=== PATIENT | male | born 1950 | race Caucasian/White ===

== ENCOUNTER 2019-09-22 10:12 | Inpatient (IN) | payer MEDICARE, OTHER, SELFPAY ==
[2019-09-22] VITALS (14 sets, daily range): BP systolic 101–138; BP diastolic 54–78; PULSE 55–80; RESP 13–20; TEMP 36.4–36.8; O2SAT 95–98; BMI 25.7
--- NOTE | 2019-09-22 10:16 | EKG12_ITS ---
Test Reason : SYNCOPE Blood Pressure : / mmHG Vent. Rate : 056 BPM Atrial Rate : 056 BPM P-R Int : 136 ms QRS Dur : 102 ms QT Int : 416 ms P-R-T Axes : 009 006 034 degrees QTc Int : 401 ms Sinus bradycardia Otherwise normal ECG Confirmed by LAURO JACOB, MIKE ([id number]), editor house organ JULIO C JACK ([id number]) on 09/25/2019 10:00:30 AM Referred By: FILIPPO Confirmed By:MIKE RESTREPO MD
--- NOTE | 2019-09-22 10:20 | RAD_ITS ---
STUDY: X-RAY CHEST REASON FOR EXAM: Male, 69 years old. Cough. Fever . TECHNIQUE: Single AP portable view of the chest. COMPARISON: None. FINDINGS: Left lower lung increased opacities. There is blunting of the left costophrenic angle. There is moderate cardiac enlargement. Normal mediastinum and aye. Normal visualized pulmonary arteries. Normal visualized aortic arch and descending thoracic aorta. Normal visualized thoracic spine. Normal visualized ribs, clavicles, and shoulders. There is no demonstrated abnormality of the visualized soft tissue structures of the upper abdomen. RAD/Chest 1 View (Portable) IMPRESSION: Left lower lung infiltrate. Cardiac enlargement. Electronically Signed: Mamadou Callejas MD at 10:58 EST , Service support ,
[2019-09-22] MEDS: 0.9% Normal Saline 1,000 ML 999 ML IV (10:29)
--- NOTE | 2019-09-22 10:35 | ED.DCSUM_ITS ---
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 states he was watched Location: Bathroom Current Severity: Mild Maximum Severity: Severe Worsened by: Multiple factors please read HPI and medical decision making Relieved by: Uncertain Associated Symptoms: Temperature 100.7, productive cough, wound right lower extremity Narrative: It is a 69-year-old male who does not recall what exactly occurred. Once arrived it was determined he was in a warm bathtub for approximately 10 minutes. She went to get a chair for him to sit on. He sat on the chair and became unresponsive. He apparently had episode of emesis prior to sitting on the chair. He does not recall this. States he collapsed she screamed. He remained unresponsive. There is no seizure activity. He did not appear pale or diaphoretic. He was red and flushed. He was seen by his primary care provider yesterday placed on doxycycline for the right lower extremity wound and the productive cough that has had for approximately 1 week. He states he does not feel well. He does not recall having shaking chills. He denies headache. He denies visual, ocular auditory symptoms. He denies sore throat or throat pain. He has history of chronic abdominal pain especially to palpation. He denies dysuria, frequency, urgency or hematuria. He does have history of peripheral vascular disease. He has not smoked in approximately 40 years. 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 The patient's mother at age of 79 from lung cancer. Review of Systems General: Reports: Malaise. Denies: Chills, Fever, Sweats Eyes: Denies: Visual changes - bilaterally, Blurred Vision - bilaterally ENT: Denies: Rhinorrhea, Sore throat Cardiovascular: Denies: Chest pain, Palpitations Respiratory: Reports: Dyspnea, Cough, Sputum. Denies: Dyspnea on exertion, Orthopnea, Paroxysmal nocturnal dyspnea Gastrointestinal: Reports: Abdominal pain, Vomiting. Denies: Diarrhea, Constipation, Melena, Hematochezia Genitourinary: Denies: Dysuria, Hematuria, Frequency Musculoskeletal: Denies: Myalgias, Arthralgias, Neck pain, Back pain, Swelling, Extremity Pain Skin: Reports: Rash, Wounds Neurological: Reports: Weakness. Denies: Headache, Parasthesia Endocrine: Denies: Polyuria, Polydipsia Hematologic: Denies: Easy bruising, Easy bleeding Physical Exam Vital Signs/Narrative: Vital Signs Temp Pulse Resp BP Pulse Ox 09/22/19 10:16 97.9 F 57 L 20 H 101/55 L 96 Inital Vital Signs reviewed: Yes General: Well nourished, Well developed, No Acute Distress. Negative for: Obese Head: Normocephalic, Atraumatic Eyes: Perrl, EOMI. Negative for: Pale conjunctiva, Scleral icterus ENT: Moist mucous membranes, No rhinorrhea, TM's clear Neck: Supple, Nontender, No lymphadenopathy, No JVD Cardiovascular: Regular rate, Regular rhythm, No murmurs, Normal S1, Normal S2 Respiratory: No distress, Wheezing - Wheezing left side only.. Negative for: CTA bilaterally Abdomen: Soft, Nondistended, Normal bowel sounds, No masses, Tender - He states he has had problems with his abdomen always hurts when doctors pushed on it. Rectal: Deferred Back: Nontender, Normal Inspection Extremities: No edema, - - Thickened varicosities. There is a wound near the medial malleolus on the right side. There is granulation tissue noted. There is erythema noted of the left lower extremity. There is no obvious wounds. There is no swelling of the lower extremities, asymmetry, palpable cords, or tenderness on the distribution of deep venous system. Skin: No Trauma, - - 2 cm x 4 cm open wound with granulation tissue near the medial malleolus of the right ankle.. Negative for: No rash, Cyanosis, Diaphoresis, Jaundice Neurological: Alert, Oriented x3, Cranial nerves II-XII grossly intact, Normal Strength, Normal Sensation. Negative for: Normal Gait Psychological: Normal affect Diagnostic/Tx/Re-eval Chest X-Ray - ED: 1 View, Read by ED Physician, Heart, Mediastinum, Chronic Changes, Left Infiltrate, - - Hemidiaphragm is obscured. Oscillatory findings on the left. 09/22/19 10:20 Chest 1 View (Portable) [RAD] Stat Impressions Chest X-Ray 09/22/19 10:20 IMPRESSION: Left lower lung infiltrate. Cardiac enlargement. Electronically Signed: Mamadou Callejas MD at 10:58 EST , Service support , 09/22/19 10:20 Chest 1 View (Portable) [RAD] Stat Laboratory Results 09/22/19 09/22/19 09/22/19 10:35 10:35 10:35 WBC 10.5 RBC 4.50 L Hgb 14.9 Hct 45.4 MCV 100.9 H MCH 33.1 H MCHC 32.8 RDW Std Deviation 50.5 H RDW Coeff of Lui 13.5 Plt Count 166 MPV 10.6 Immature Gran % (Auto) 0.400 Neut % (Auto) 77.8 H Lymph % (Auto) 12.3 L [place] % (Auto) 8.4 Eos % (Auto) 0.8 Baso % (Auto) 0.3 Absolute Neuts (auto) 8.2 H Absolute Lymphs (auto) 1.29 Nucleated RBC % 0 PT 13.5 INR 1.1 APTT 28.6 Sodium 142 Potassium 3.5 Chloride 109 H Carbon Dioxide 27.0 Anion Gap 6 BUN 19 H Creatinine 0.88 Estim Creat Clear Calc 97.36 Est GFR (MDRD) Af Amer 110 Est GFR (MDRD) Non-Af 91 BUN/Creatinine Ratio 21.5 H Glucose 93 Lactic Acid Calcium 8.9 Total Bilirubin 0.70 AST 17 ALT 22 Alkaline Phosphatase 54 Total Protein 6.5 Albumin 2.9 L Globulin 3.6 Albumin/Globulin Ratio 0.8 L 09/22/19 10:35 WBC RBC Hgb Hct MCV MCH MCHC RDW Std Deviation RDW Coeff of Lui Plt Count MPV Immature Gran % (Auto) Neut % (Auto) Lymph % (Auto) [place] % (Auto) Eos % (Auto) Baso % (Auto) Absolute Neuts (auto) Absolute Lymphs (auto) Nucleated RBC % PT INR APTT Sodium Potassium Chloride Carbon Dioxide Anion Gap BUN Creatinine Estim Creat Clear Calc Est GFR (MDRD) Af Amer Est GFR (MDRD) Non-Af BUN/Creatinine Ratio Glucose Lactic Acid 1.8 Calcium Total Bilirubin AST ALT Alkaline Phosphatase Total Protein Albumin Globulin Albumin/Globulin Ratio - EKG Initial EKG Interpretation: Sinus Bradycardia - Sinus bradycardia with rate of 56. [place] interval 136 ms. QS duration 92 ms. QT duration 416 ms. [place] is normal. Other than the sinus bradycardia the EKG is normal. - Medical Decision Making History of temperature 100.7 degrees hypotension concerned this may represent sepsis versus vasovagal with infection. Initially a fluid bolus was ordered. After arrived and the fact that she described he became lightheaded vomited suspect he had a vasovagal syncopal episode. He remained hypotensive upon arrival. Will administer 1 L of normal saline. EKG was obtained. Because of his auscultatory findings with cough and fever chest x-ray was obtained. Since the chest x-ray revealed obscuring of the left hemidiaphragm and his auditory findings were on the left side he was started on Rocephin and azithromycin. Lactate and blood cultures were ordered prior to ordering antibiotics. - Critical Care Time Critical care time (excluding procedures): 30-74 minutes - Total care time 37 minutes, Discussing w/Patient &/or Family/President Financial Institution, Discussing w/Consultants, Arranging Admission or Transfer ED Disposition - Plan for ED Patient: Disposition: Acute Care Hospital [facility] Diagnosis: Left lower lobe pneumonia, Hypotension, Syncope, Sinus bradycardia by electrocardiogram Referrals: Lacy Callejas [Primary Care Provider] -
[2019-09-22 10:50] LABS: Absolute Lymphocyte Count 1.29 X10^3/uL (0.83-4.51); Absolute Neutrophil Count 8.2 X10^3/uL (2.0-7.7); Basophil# 0.03 X10^3/uL; Basophil% 0.3 % (0-1); Eosinophil# 0.08 X10^3/uL; Eosinophils% 0.8 % (0-5); Hematocrit 45.4 % (40-54); Hemoglobin 14.9 g/dL (13.0-16.5); Lymphocyte # 1.29 X10^3/ul (4.0); Lymphocyte % 12.3 % (19-41); Mean Corp Hgb Conc 32.8 g/dL (32-36); Mean Corpuscular Hgb 33.1 pg (27.0-32.0); Mean Corpuscular Volume 100.9 fL (80-94); Mean Platelet Vol. 10.6 fl (6.2-12.0); Monocyte# 0.88 X10^3/uL; Monocyte% 8.4 % (0-10); NRBC Flagged by Analyzer 0 % (0-5); Neutrophil # 8.18 X10^3/uL (2.7-7.7); Neutrophil % 77.8 % (47-70); Platelet Count 166 K/mm3 (150-450); RBC Distribution Width CV 13.5 % (11.6-14.6); RBC Distribution Width SD 50.5 fl (35.1-43.9); White Blood Count 10.5 K/mm3 (4.4-11.0)
[2019-09-22 11:02] LABS: International Normalized Ratio 1.1; Partial Thromboplast Time 28.6 Seconds (24.1-36.2); Prothrombin Time (Protime)PT. 13.5 SECONDS (11.7-14.9)
[2019-09-22 11:13] LABS: ALB/GLOB Ratio 0.8 RATIO (0.9-2.4); AST(SGOT) 17 U/L (15-37); Alanine Aminotransfer ALT/SGPT 22 U/L (16-61); Albumin, Serum 2.9 g/dL (3.2-5.0); Alkaline Phosphatase 54 U/L (45-117); Anion Gap 6 (5-15); BUN 19 mg/dL (7-18); BUN/Creat Ratio 21.5 RATIO (10-20); Calcium,Total 8.9 mg/dL (8.5-10.1); Chloride 109 mmol/L (98-107); Creatinine, Serum 0.88 mg/dL (0.70-1.30); EST Glomerular Filtration Rate 91 mL/min (>60); Est Glom Filt Rate - Afr Amer 110 mL/min (>60); Estimated Creatinine Clearance 97.36 ml/min; Globulin 3.6 g/dL (2.2-4.2); Glucose 93 mg/dL (74-106); Potassium 3.5 mmol/L (3.5-5.1); Protein, Total 6.5 g/dL (6.4-8.2); Sodium Level 142 mmol/L (136-145)
[2019-09-22] MEDS: Ceftriaxone 1 GM/50 ML BAG IV (11:19)
[2019-09-22 12:00] LABS: Lactic Acid 1.8 mmol/L (0.4-2.0)
--- NOTE | 2019-09-22 14:08 | HP.PCM_ITS ---
History of Present Illness Date of Admission: 09/22/19 Chief Complaint: Syncope, cough The patient is a 69 year old M with no significant past medical history who comes in with 1 week history of upper respiratory symptoms, cough and a syncopal episode noted today. Patient has been feeling unwell with associated bilateral leg erythema. He has history of chronic right ankle leg ulcer for which she follows up with wound clinic. He saw his primary care doctor yesterday and was given doxycycline for his upper respiratory symptoms as well as cellulitis of his bilateral legs. He has been feeling progressively weak and today was taking his back, he felt very nauseous and unwell. He came out of the bath and had a syncopal episode. His said he was unresponsive for a couple of minutes. The EMS was called. The EMS found him diaphoretic, pale, febrile and weak. His vitals initially was 69/52, heart rate was 60, respiratory rate was 18, this improved to 90/70. His WBC count is 10.5, hemoglobin 14.9, platelet 166, INR 1.1, BMP was unremarkable, troponins have been negative. EKG shows normal sinus rhythm with no acute ST-T changes. Urinalysis is unremarkable. Past Medical History Past Medical History (Chronic Problems): Chronic Problems Leg swelling (Chronic) Leg pain (Chronic) Hyperpigmentation of skin (Chronic) Venous stasis ulcer (Chronic) Venous hypertension, chronic, with ulcer and inflammation (Chronic) Varicose veins with ulcer and inflammation (Chronic) Chronic venous insufficiency (Chronic) Allergies ALEKSEY Allergy (Uncoded 09/22/19 10:14) Itching Home Medications: Ambulatory Orders Medication Instructions Recorded Hydrocodone Bitart/Apap 5-325 1 tablet PO Q6H PRN PRN #10 tablet 06/08/17 [[place] 5MG-325MG] Doxycycline Hyclate 1 tab PO BID 09/22/19 Naproxen [Naprosyn] 500 mg PO BID 09/22/19 Surgical History: no surgical history Psychiatric History: No pertinent psych hx Lives: Spouse/ Significant Other Smoking Status: Former smoker Alcohol: None Drugs: None - *Family History Maternal History Items: - - The patient's father at age of 85 from old age. The patient's mother at age of 79 from lung cancer. Review of Systems Constitutional: Reports: Anorexia, Malaise, Weakness, Fatigue. Denies: Chills, Fever, Night Sweats, Weight Change Eyes: Denies: Blurred vision, Cataracts, Conjunctivae Inflammation HEENT: Denies: Difficulty Hearing, Difficulty Swallowing, Head Aches, Hearing Changes, Sinus Congestion, Sinus Drainage Cardiovascular: Reports: Light Headedness, Syncope. Denies: Chest Pain, Claudication, Orthopnea, Palpitations Respiratory: Denies: Cough, Hemoptysis, Shortness of Breath, Shortness of breath at rest, Shortness of breath upon exertion, Sputum production Gastrointestinal: Denies: Abdominal Pain, Constipation, Hematemesis, Nausea, V omiting Genitourinary: Denies: Dysuria, Frequency, Incontinence Musculoskeletal: Denies: Joint Pain, Joint stiffness, Joint swelling, Joint Tenderness Skin: Denies: Rash, Wounds Neurological: Denies: Difficulty swallowing, Focal weakness, Numbness, Tingling Psychiatric: Denies: Anxiety, Depression, Homicidal Ideations, Suicidal Ideations Hematologic/ Lymphatic: Denies: Easy Bruising, Easy Bleeding VTE Information - Inpt Only VTE Present on Admission: No VTE Pharm Prophylaxis ordered?: Yes Patient Problems: Active and Suspected Problems Left lower lobe pneumonia (Acute) Hypotension (Acute) Syncope (Acute) Sinus bradycardia by electrocardiogram (Acute) - Physical Exam Vitals/I&O's: Vital Signs Temp Pulse Resp BP Pulse Ox 97.5 F L 63 16 117/63 95 09/22/19 13:09 09/22/19 13:09 09/22/19 13:09 09/22/19 13:09 09/22/19 13:09 Oxygen Flow Rate (L/min) 3 Oxygen Delivery Method Nasal Cannula Weight: 93.4 kg Body Mass Index (BMI) 25.7 Intake and Output for Last 24 Hours 09/20/19 09/21/19 09/22/19 23:59 23:59 23:59 Intake Total 1050 / 1050 Balance 1050 / 1050 General: Alert, Oriented x3, Cooperative HEENT: Atraumatic, PERRLA, EOMI, Normocephalic Oral: Dry Mucosa Neck: Supple Lungs: Diminished - vesicular BS Cardiovascular: Regular rate, Regular Rhythm, Normal S1, Normal S2, No murmurs Abdomen: Bowel Sounds Present, Soft, Non Tender, Non-Distended, No Hepato- splenomegaly Extremities: - - Bilateral leg petechia erythema up to the mid leg. Chronic venous changes around the right ankle with chronic wound with slough at the base. Skin: No rashes, No breakdown Musculoskeletal: No Tenderness to Palpation of Joints or Extremities Lymphatic: No Cervical, Supraclavicular, or Inguinal Adenopathy Neurological: Cranial nerves II-XII grossly intact, Neuro grossly intact Psych/Mental Status: Normal Affect, Appropriate Laboratory Results 09/22/19 10:35: WBC 10.5, RBC 4.50 L, Hgb 14.9, Hct 45.4, MCV 100.9 H, MCH 33.1 H, MCHC 32.8, RDW Std Deviation 50.5 H, RDW Coeff of Lui 13.5, Plt Count 166, MPV 10.6, Immature Gran % (Auto) 0.400, Neut % (Auto) 77.8 H, Lymph % (Auto) 12.3 L, [place] % (Auto) 8.4, Eos % (Auto) 0.8, Baso % (Auto) 0.3, Absolute Neuts (auto) 8.2 H, Absolute Lymphs (auto) 1.29, Nucleated RBC % 0 09/22/19 10:35: PT 13.5, INR 1.1, APTT 28.6 09/22/19 10:35: Sodium 142, Potassium 3.5, Chloride 109 H, Carbon Dioxide 27.0, Anion Gap 6, BUN 19 H, Creatinine 0.88, Estim Creat Clear Calc 97.36, Est GFR (MDRD) Af Amer 110, Est GFR (MDRD) Non-Af 91, BUN/Creatinine Ratio 21.5 H, Glucose 93, Calcium 8.9, Total Bilirubin 0.70, AST 17, ALT 22, Alkaline Phosphatase 54, Total Protein 6.5, Albumin 2.9 L, Globulin 3.6, Albumin/Globulin Ratio 0.8 L 09/22/19 10:35: Lactic Acid 1.8 Current Medications Acetaminophen (Tylenol) 650 mg PO Q6H PRN PRN PRN Reason: Pain Score 1-3/Temp > 100.7 F Albuterol Sulfate (Ventolin Aerosols) 2.5 mg INHALATION Q2H PRN PRN PRN Reason: SOB/Wheezing Sodium Chloride () 1,000 mls @ 100 mls/hr IV .Q10H CARLINE Stop: 09/23/19 04:59 Nitroglycerin (Nitrostat) 0.4 mg SUBLINGUAL Q5M PRN PRN Reason: CARDIAC/CHEST PAIN Ondansetron HCl (Zofran) 4 mg IV Q8H PRN PRN PRN Reason: NAUSEA/VOMITING Assessment/Plan All Active Problems Left lower lobe pneumonia (Acute) Hypotension (Acute) Syncope (Acute) Sinus bradycardia by electrocardiogram (Acute) Deep vein thrombophlebitis of right leg (Acute) Superficial thrombophlebitis (Acute) 1. CAP, left lower lung, noted on chest x-ray, and on IV azithromycin and ceftriaxone Cultures are pending Will continue same, breathing treatment 2. Cellulitis, bilateral lower extremities, continue on the above antibiotic 3. Syncope, likely vasovagal from current pneumonia Patient was transiently hypotensive, responsive to fluids, will continue on IV fluids, check orthostatic vitals 4. Acute on chronic leg ulcer, dry wound dressing, wound RN consulted May need podiatry consult, will reevaluate in a.m. 5. DVt PPx- Heparin SC Code Visit Inpatient E&M: 67017 Subs Hosp L2
[2019-09-22 14:11] LABS: Bacteria 0 SEEN /hpf (None Seen); Red Blood Cells-Urine 0 SEEN /hpf (0-5)
[2019-09-22 14:14] LABS: Color, Urine Yellow (Yellow); Glucose, Dipstick Normal (Normal); Ketone-Dipstick Negative (Negative); Leukocyte Esterase-Dipstick 25 /ul (Negative); Nitrite-Dipstick Negative (Negative); Occult Blood-Urine Negative /ul (Negative); Protein-Dipstick 30 mg/dl (Negative); Urine Bilirubin Dipstick Negative (Negative); Urine Clarity Clear (Clear); Urine Urobilinogen Normal (Normal)
--- NOTE | 2019-09-22 14:14 | ECHOCS_ITS ---
Reason For Study: Symcope Procedure This was a 2D Doppler, Color Flow transthoracic echocardiogram. The study was technically difficult. Contrast injection was performed. Exam performed portable in patient room. Left Ventricle Normal LV size. Left ventricular systolic function is normal. The estimated ejection fraction is 60 %. Stage 1 diastolic dysfunction. No regional wall motion abnormalities noted. Right Ventricle Normal RV size. Normal systolic function. Atria Normal left atrium. Normal right atrium. Mitral Valve Normal mitral valve. Tricuspid Valve Normal tricuspid valve. Aortic Valve The aortic valve is not well visualized. Pulmonic Valve The pulmonic valve is not well visualized. Great Vessels Normal aortic root. The pulmonary artery is normal size. Normal inferior vena cava. Pericardium/Pleural No pericardial effusion. Medication Diluted definity 2ml given slow IV push to enhance endocardial definition. MMode/2D Measurements & Calculations LVIDd: 4.0 cm IVSd: 1.2 cm Ao root diam: 3.6 cm LVIDs: 3.0 cm LVPWd: 1.5 cm RVDd: 3.9 cm FS: 25.2 % LAV(MOD-bp): 59.0 ml LA A4 area: 19.5 cm2 RA A4 area: 19.0 cm2 LAV(MOD-bp) Indexed: 26.8 ml/m2 LAV(MOD-sp2): 51.2 ml LAV(MOD-sp4): 49.1 ml Time Measurements MV dec time: 0.26 sec Doppler Measurements & Calculations MV E max srinivasa: 48.7 cm/sec Lat Peak E' Srinivasa: 9.7 cm/sec Med Peak E' Srinivasa: 5.7 cm/sec MV A max srinivasa: 79.8 cm/sec E/E' lat: 5.0 E/E' med: 8.5 MV E/A: 0.61 MV V2 max: 99.2 cm/sec MV P1/2t max srinivasa: 63.6 cm/sec Ao V2 max: 144.5 cm/sec MV max P.9 mmHg MV P1/2t: 97.0 msec Ao max P.3 mmHg MV V2 mean: 45.1 cm/sec MV dec slope: 192.0 cm/sec2 MV mean P.96 mmHg MV V2 VTI: 23.6 cm MVA(P1/2t): 2.3 cm2 LV V1 max: 134.6 cm/sec PA V2 max: 104.0 cm/sec LV V1 max P.2 mmHg Interpretation Summary Normal LV size. Left ventricular systolic function is normal. The estimated ejection fraction is 60 %. Stage 1 diastolic dysfunction. Contrast injection was performed. Ordering Physician: Olga Dorsey Performed By: Endy Mackenzie RCS
[2019-09-22 14:21] LABS: Mucous, Urine 1+ /hpf (<or=2+); Squamous Epithelial Cells - UA 0-5 SEEN /hpf (0-5); White Blood Cells 0-5 SEEN /hpf (0-5)
[2019-09-22] MEDS: 0.9% Normal Saline 1,000 ML 100 ML IV (15:39)
[2019-09-22] MEDS: Acetaminophen 325 MG Tablet 650 MG PO (18:48)
[2019-09-22] MEDS: Albuterol 2.5 MG/3 ML VIAL.NEB. INHALATION (19:03)
[2019-09-22] MEDS: Heparin Injection (Vial) 5,000 UNIT/ML VIAL 5000 UNIT SC (20:59)
[2019-09-23] VITALS (12 sets, daily range): BP systolic 102–150; BP diastolic 68–74; PULSE 65–81; RESP 13–18; TEMP 36.9–37.4; O2SAT 94–97
[2019-09-23] MEDS: 0.9% Normal Saline 1,000 ML 100 ML IV (00:24)
[2019-09-23] MEDS: Acetaminophen 325 MG Tablet 650 MG PO ×3 (04:42→23:42)
[2019-09-23] MEDS: Heparin Injection (Vial) 5,000 UNIT/ML VIAL 5000 UNIT SC ×3 (05:32→21:00)
--- NOTE | 2019-09-23 05:45 | NURSING ---
Standing not attempted at this time as pt is very painful.
[2019-09-23 06:30] LABS: Absolute Lymphocyte Count 1.82 X10^3/uL (0.83-4.51); Absolute Neutrophil Count 5.7 X10^3/uL (2.0-7.7); Basophil# 0.02 X10^3/uL; Basophil% 0.2 % (0-1); Eosinophil# 0.12 X10^3/uL; Eosinophils% 1.4 % (0-5); Hematocrit 42.5 % (40-54); Hemoglobin 13.9 g/dL (13.0-16.5); Lymphocyte # 1.82 X10^3/ul (4.0); Lymphocyte % 21.8 % (19-41); Mean Corp Hgb Conc 32.7 g/dL (32-36); Mean Corpuscular Hgb 32.8 pg (27.0-32.0); Mean Corpuscular Volume 100.2 fL (80-94); Mean Platelet Vol. 10.6 fl (6.2-12.0); Monocyte# 0.67 X10^3/uL; NRBC Flagged by Analyzer 0 % (0-5); Neutrophil # 5.67 X10^3/uL (2.7-7.7); Neutrophil % 68.1 % (47-70); Platelet Count 176 K/mm3 (150-450); RBC Distribution Width CV 13.4 % (11.6-14.6); RBC Distribution Width SD 49.6 fl (35.1-43.9); Red Blood Count 4.24 M/mm3 (4.6-6.2); White Blood Count 8.3 K/mm3 (4.4-11.0)
[2019-09-23 07:06] LABS: ALB/GLOB Ratio 0.6 RATIO (0.9-2.4); AST(SGOT) 10 U/L (15-37); Alanine Aminotransfer ALT/SGPT 19 U/L (16-61); Albumin, Serum 2.5 g/dL (3.2-5.0); Alkaline Phosphatase 49 U/L (45-117); Anion Gap 7 (5-15); BUN 18 mg/dL (7-18); BUN/Creat Ratio 24.5 RATIO (10-20); Calcium,Total 8.3 mg/dL (8.5-10.1); Chloride 108 mmol/L (98-107); Creatinine, Serum 0.73 mg/dL (0.70-1.30); EST Glomerular Filtration Rate 113 mL/min (>60); Est Glom Filt Rate - Afr Amer 137 mL/min (>60); Estimated Creatinine Clearance 85.67 ml/min; Globulin 3.9 g/dL (2.2-4.2); Glucose 88 mg/dL (74-106); Potassium 4.1 mmol/L (3.5-5.1); Protein, Total 6.4 g/dL (6.4-8.2); Sodium Level 141 mmol/L (136-145)
--- NOTE | 2019-09-23 07:36 | RAD_ITS ---
STUDY: X-RAY - RIGHT ANKLE REASON FOR EXAM: Male, 69 years old. Wound, pain TECHNIQUE: 3 view(s) of the ankle. COMPARISON: None. FINDINGS: Normal visualized distal tibia and fibula. Normal medial and lateral malleoli. Normal tibiotalar articulation and ankle mortise. Normal visualized talus and calcaneus. The visualized subtalar, talonavicular, calcaneocuboid and tarsal articulations are normal. There is soft tissue swelling of the ankle with fluid in the soft tissues anterior to the Achilles tendon. RAD/Ankle min 3 Views IMPRESSION: Soft tissue swelling including anterior to the Achilles tendon. Electronically Signed: Alberto Mccarty MD ([place]) at 13:00 EST , Service support ,
[2019-09-23] MEDS: 0.9% Normal Saline 1,000 ML 150 ML IV ×2 (07:57→17:50)
[2019-09-23] MEDS: Senna/Docusate Sodium 1 Tablet 2 TABLET PO ×2 (08:39→21:00)
[2019-09-23] MEDS: oxyCODONE 5 MG Tablet PO ×3 (08:40→23:42)
[2019-09-23] MEDS: Ceftriaxone 1 GM/50 ML BAG IV (09:39)
--- NOTE | 2019-09-23 12:57 | PN_ITS ---
Patient Problems: Active and Suspected Problems Left lower lobe pneumonia (Acute) Hypotension (Acute) Syncope (Acute) Sinus bradycardia by electrocardiogram (Acute) Subjective: Follow-up on pneumonia, right leg ulcer/cellulitis: Patient was seen and examined. Complains of severe pain in the right lower extremity. Unable to bear weight on the leg. Denies any fever or chills. His orthostatic vitals are positive. Objective: Physical exam: General: Alert, Oriented x3, Cooperative HEENT: Atraumatic, PERRLA, EOMI, Normocephalic Oral: Dry Mucosa Neck: Supple Lungs: Diminished - vesicular BS Cardiovascular: Regular rate, Regular Rhythm, Normal S1, Normal S2, No murmurs Abdomen: Bowel Sounds Present, Soft, Non Tender, Non-Distended, No Hepato-splenomegaly Extremities: - - Bilateral leg petechia erythema up to the mid leg. Chronic venous changes around the right ankle with chronic wound with slough at the base. Skin: No rashes, No breakdown Musculoskeletal: No Tenderness to Palpation of Joints or Extremities Lymphatic: No Cervical, Supraclavicular, or Inguinal Adenopathy Neurological: Cranial nerves II-XII grossly intact, Neuro grossly intact Psych/Mental Status: Normal Affect, Appropriate Vitals/I&O's: Vital Signs Temp Pulse Resp BP Pulse Ox 98.7 F 68 16 140/74 H 97 09/23/19 10:00 09/23/19 10:00 09/23/19 10:00 09/23/19 10:00 09/23/19 10:00 Oxygen Flow Rate (L/min) 3 Oxygen Delivery Method Room Air Weight: 92.7 kg Body Mass Index (BMI) 25.7 Orthostatic Vital Signs Start: 09/23/19 05:39 Freq: q24h Status: Active Protocol: Activity Type Activity Date Activity User E-Sign Co-Sign Detail Recorded Client Recorded Date Recorded By Document 09/23/19 05:39 EEA [id number] 09/23/19 05:45 EEA 09/23/19 05:39 Orthostatic Vitals Standing -Extremity Use Right Arm Sitting -Blood Pressure (90/60-120/80) 102/71 -Extremity Use Right Arm Lying -Blood Pressure (90/60-120/80) 135/71 H -Extremity Use Right Arm 09/23/19 05:45 Nursing Note by Fela Pena Standing not attempted at this time as pt is very painful. Initialized on 09/23/19 05:45 - END OF NOTE Intake and Output for Last 24 Hours 09/21/19 09/22/19 09/23/19 23:59 23:59 23:59 Intake Total 2024 2494.17 / 2494.17 Output Total 525 / 525 475 / 475 Balance 1500 / 1500 Microbiology Past 72 Hours 09/22/19 13:50 Urine, Clean Catch Urine Culture - Preliminary Culture exhibits no growth. 09/22/19 16:20 Mucosa - Nasopharyngeal Respiratory Panel (PCR) - Final Parainfluenza 1 09/22/19 13:50 Urine, Random Streptococcus pneumoniae Antigen (M - Final 09/22/19 13:50 Urine, Random Legionella Antigen - Final Laboratory Results 09/22/19 13:50: Urine Color Yellow, Urine Clarity Clear, Urine pH 7.0, Ur Specific [place] 1.010, Urine Protein 30 H, Urine Glucose (UA) Normal, Urine Ketones Negative, Urine Occult Blood Negative, Urine Nitrite Negative, Urine Bilirubin Negative, Urine Urobilinogen Normal, Ur Leukocyte Esterase 25 H, Urine RBC 0 SEEN, Urine WBC 0-5 SEEN, Ur Squamous Epith Cells 0-5 SEEN, Urine Bacteria 0 SEEN, Urine Mucus 1+ 09/22/19 14:11: Troponin I < 0.015 09/22/19 16:40: Troponin I < 0.015 09/22/19 19:45: Troponin I < 0.015 09/23/19 06:14: WBC 8.3, RBC 4.24 L, Hgb 13.9, Hct 42.5, MCV 100.2 H, MCH 32.8 H , MCHC 32.7, RDW Std Deviation 49.6 H, RDW Coeff of Lui 13.4, Plt Count 176, MPV 10.6, Immature Gran % (Auto) 0.500, Neut % (Auto) 68.1, Lymph % (Auto) 21.8, [place] % (Auto) 8.0, Eos % (Auto) 1.4, Baso % (Auto) 0.2, Absolute Neuts (auto) 5.7, Absolute Lymphs (auto) 1.82, Nucleated RBC % 0 09/23/19 06:14: Sodium 141, Potassium 4.1, Chloride 108 H, Carbon Dioxide 26.0, Anion Gap 7, BUN 18, Creatinine 0.73, Estim Creat Clear Calc 85.67, Est GFR (MDRD) Af Amer 137, Est GFR (MDRD) Non-Af 113, BUN/Creatinine Ratio 24.5 H, Glucose 88, Calcium 8.3 L, Total Bilirubin 0.60, AST 10 L, ALT 19, Alkaline Phosphatase 49, Total Protein 6.4, Albumin 2.5 L, Globulin 3.9, Albumin/Globulin Ratio 0.6 L Current Medications Acetaminophen (Tylenol) 650 mg PO Q6H PRN PRN PRN Reason: Pain Score 1-3/Temp > 100.7 F Last Admin: 09/23/19 04:42 Dose: 650 mg Documented by: Albuterol Sulfate (Ventolin Aerosols) 2.5 mg INHALATION Q2H PRN PRN PRN Reason: SOB/Wheezing Last Admin: 09/22/19 19:03 Dose: 2.5 mg Documented by: Heparin Sodium (Porcine) (Heparin Na) 5,000 unit SC Q8 [facility] Last Admin: 09/23/19 05:32 Dose: 5,000 unit Documented by: Azithromycin 500 mg/ Dextrose 255 mls @ 250 mls/hr IV Q24 [facility] Last Admin: 09/23/19 09:40 Dose: 250 mls/hr Documented by: Ceftriaxone Sodium (Rocephin) 1 gm in 50 mls @ 100 mls/hr IV Q24 [facility] Last Infusion: 09/23/19 10:27 Dose: Infused Documented by: Sodium Chloride () 250 mls @ 15 mls/hr IV .[id number] PRN PRN Reason: Saline Flush Sodium Chloride () 1,000 mls @ 150 mls/hr IV .Q6H40M [facility] Stop: 09/23/19 20:54 Last Infusion: 09/23/19 09:30 Dose: 0 mls/hr Documented by: Morphine Sulfate () 2 mg IV Q3H PRN PRN PRN Reason: Pain Score 6-10/10 Nitroglycerin (Nitrostat) 0.4 mg SUBLINGUAL Q5M PRN PRN Reason: CARDIAC/CHEST PAIN Ondansetron HCl (Zofran) 4 mg IV Q8H PRN PRN PRN Reason: NAUSEA/VOMITING Oxycodone HCl (Oxyir) 5 mg PO Q6H PRN PRN PRN Reason: Pain Score 6-10/10 Last Admin: 09/23/19 08:40 Dose: 5 mg Documented by: Senna/Docusate Sodium (Senokot-S, Yamile-Colace) 2 tablet PO BID [facility] Last Admin: 09/23/19 08:39 Dose: 2 tablet Documented by: Sodium Chloride () 10 - 40 ml IV UD PRN PRN Reason: SALINE FLUSH STROKE Vital Signs/Narrative: Vital Signs Temp Pulse Resp BP Pulse Ox 09/23/19 10:00 98.7 F 68 16 140/74 H 97 Medical Necessity - Tobacco Use Smoking Status: Former smoker Assessment/Plan All Active Problems Left lower lobe pneumonia (Acute) Hypotension (Acute) Syncope (Acute) Sinus bradycardia by electrocardiogram (Acute) Deep vein thrombophlebitis of right leg (Acute) Superficial thrombophlebitis (Acute) 1. Parainfluenza 1 CAP, left lower lung, improving, not on oxygen, On IV azithromycin and ceftriaxone(day 2) Cultures are pending. Urine Legionella and strep coccal antigen negative Continue with conservative management with breathing treatments, IV antibiotics 2. Cellulitis, bilateral lower extremities, continue on the above antibiotic 3. Syncope, due to orthostatic hypotension, patient will receive fluid boluses as well as maintenance fluids. 4. Acute on chronic leg ulcer, dry wound dressing, wound RN consulted Podiatry consult, ankle X-ray 5. DVt PPx- Heparin SC Code Visit Inpatient E&M: 56066 Subs Hosp L2
[2019-09-23] MEDS: Morphine 2 MG/ML Syringe IV ×2 (13:03→19:38)
--- NOTE | 2019-09-23 13:54 | VDLE_ITS ---
Reason For Study: Ulcer RIGHT LEFT GSV is normal. GSV is normal. CFV is compressible, spontaneous, phasic, CFV is compressible, spontaneous, phasic, competent and demonstrates normal competent, and demonstrates normal augmentation. augmentation. FV is compressible, spontaneous, phasic, FV is compressible, spontaneous, phasic, competent and demonstrates normal competent and demonstrates normal augmentation. augmentation. POP V is compressible, spontaneous, phasic, POP V is compressible, spontaneous, phasic, competent and demonstrates normal competent and demonstrates normal augmentation. augmentation. T/P Trunk is compressible. T/P Trunk is compressible. PTV is compressible. PTV is compressible. RT PerV is compressible. LT PerV is compressible. Procedure Lt SoleusV is dilated and non compressible Exam performed portable in patient room. consistent with acute DVT. A preliminary report was called and/or faxed to Julia HERNANDEZ. Interpretation Summary Acute deep vein thrombosis is noted in the left soleus vein. The remainder of the left lower extremity deep venous system is patent and compressible. Deep veins of the right lower extremity are patent and compressible segmentally. There is no evidence of right lower extremity deep vein thrombosis. Valvular competence appears intact within the proximal deep venous systems bilaterally. The great saphenous veins appear bilaterally patent and compressible segmentally. Ordering Physician: Tommy Perez Referring Physician: Lacy Callejas Performed By: Romy Molina, BENJAMIN, RVT
--- NOTE | 2019-09-23 13:55 | PCM.CONS.GEN ---
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 The patient was admitted to the emergency room yesterday with a one-week history of upper respiratory symptoms, cough, and a syncopal episode yesterday. Patient relates that today he is feeling much better than when he came to the hospital yesterday. He relates that he used to follow-up at the wound center in approximately 2 or [address] Waller, but has recently just been trying to manage the ulcer on his own and using Neosporin. Patient is currently resting comfortably in the bed watching the [employer] game. He appears to be in no acute distress. He currently denies any feelings of nausea, vomiting, fever, chills, shortness of breath. 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) Chronic venous insufficiency (Chronic) Allergies ALEKSEY Allergy (Uncoded 09/22/19 10:14) Itching Home Medications: Ambulatory Orders Medication Instructions Recorded Hydrocodone Bitart/Apap 5-325 1 tablet PO Q6H PRN PRN #10 tablet 06/08/17 [[place] 5MG-325MG] Doxycycline Hyclate 1 tab PO BID 09/22/19 Naproxen [Naprosyn] 500 mg PO BID 09/22/19 Surgical History: no surgical history Psychiatric History: No pertinent psych hx Lives: Spouse/ Significant Other Smoking Status: Former smoker Alcohol: None Drugs: None - *Family History Maternal History Items: - - The patient's father at age of 85 from old age. The patient's mother at age of 79 from lung cancer. Review of Systems Constitutional: Denies: Chills, Fever, Weight Change Cardiovascular: Denies: Chest Pain, Palpitations Respiratory: Denies: Cough, Shortness of breath at rest, Sputum production Gastrointestinal: Denies: Abdominal Pain, Nausea, Vomiting Genitourinary: Denies: Dysuria Musculoskeletal: Reports: - - Slight tenderness to each lower leg as well as to right medial ankle ulcer site Skin: Reports: - - Ulcer to right medial ankle Neurological: Denies: Numbness, Tingling, Focal weakness Psychiatric: Denies: Anxiety, Depression, Homicidal Ideations, Suicidal Ideations Hematologic/ Lymphatic: Denies: Easy Bruising, Easy Bleeding Patient Problems: Active and Suspected Problems Left lower lobe pneumonia (Acute) Hypotension (Acute) Syncope (Acute) Sinus bradycardia by electrocardiogram (Acute) Pain in right lower leg (Acute) Pain in left lower leg (Acute) Lower extremity edema (Acute) - Physical Exam Vitals/I&O's: Vital Signs Temp Pulse Resp BP Pulse Ox 98.7 F 68 16 140/74 H 96 09/23/19 10:00 09/23/19 10:00 09/23/19 10:00 09/23/19 10:00 09/23/19 13:37 Oxygen Flow Rate (L/min) 3 Oxygen Delivery Method Room Air Weight: 92.7 kg Body Mass Index (BMI) 25.7 Orthostatic Vital Signs Start: 09/23/19 05:39 Freq: q24h Status: Active Protocol: Activity Type Activity Date Activity User E-Sign Co-Sign Detail Recorded Client Recorded Date Recorded By Document 09/23/19 05:39 EEA [id number] 09/23/19 05:45 EEA 09/23/19 05:39 Orthostatic Vitals Standing -Extremity Use Right Arm Sitting -Blood Pressure (90/60-120/80) 102/71 -Extremity Use Right Arm Lying -Blood Pressure (90/60-120/80) 135/71 H -Extremity Use Right Arm 09/23/19 05:45 Nursing Note by Fela Pena Standing not attempted at this time as pt is very painful. Initialized on 09/23/19 05:45 - END OF NOTE Intake and Output for Last 24 Hours 09/21/19 09/22/19 09/23/19 23:59 23:59 23:59 Intake Total 2024 / 2024 2494.17 / 2494.17 Output Total 525 / 525 475 / 475 Balance 1500 / 1500 General: Alert, Oriented x3, Cooperative, No apparent distress Extremities: No cyanosis, Capillary Refill Less than 3 Seconds - To all distal digits of each foot, No Calf Tenderness - Negative Trupti and Lema signs bilateral, Edema - Slight bilateral lower extremity edema, Peripheral Pulses Normal - DP and PT pulses easily palpable bilateral Skin: Ulcer/ Wound - Ulcer to right medial ankle measuring approximately 2.8 cm x 1.5 cm x 0.2 cm with fat layer exposed. The base is a mixture of devitalized subcutaneous tissue, adherent slough, fibrin, biofilm, granular tissue, and a slight amount of surrounding hyperkeratotic tissue. There is no purulence, no significant malodor, no probing to bone, no tracking, no undermining. There is some minor erythema to bilateral lower extremities as well as evidence of hemosiderin deposit skin changes consistent with patient's long history of venous insufficiency. Musculoskeletal: Tenderness - With manipulation of ulcer site Neurological: Sensory exam intact to light touch and pain Psych/Mental Status: Normal Affect, Appropriate Microbiology Past 72 Hours 09/22/19 13:50 Urine, Clean Catch Urine Culture - Preliminary Culture exhibits no growth. 09/22/19 16:20 Mucosa - Nasopharyngeal Respiratory Panel (PCR) - Final Parainfluenza 1 09/22/19 13:50 Urine, Random Streptococcus pneumoniae Antigen (M - Final 09/22/19 13:50 Urine, Random Legionella Antigen - Final Laboratory Results 09/22/19 13:50: Urine Color Yellow, Urine Clarity Clear, Urine pH 7.0, Ur Specific [place] 1.010, Urine Protein 30 H, Urine Glucose (UA) Normal, Urine Ketones Negative, Urine Occult Blood Negative, Urine Nitrite Negative, Urine Bilirubin Negative, Urine Urobilinogen Normal, Ur Leukocyte Esterase 25 H, Urine RBC 0 SEEN, Urine WBC 0-5 SEEN, Ur Squamous Epith Cells 0-5 SEEN, Urine Bacteria 0 SEEN, Urine Mucus 1+ 09/22/19 14:11: Troponin I < 0.015 09/22/19 16:40: Troponin I < 0.015 09/22/19 19:45: Troponin I < 0.015 09/23/19 06:14: WBC 8.3, RBC 4.24 L, Hgb 13.9, Hct 42.5, MCV 100.2 H, MCH 32.8 H, MCHC 32.7, RDW Std Deviation 49.6 H, RDW Coeff of Lui 13.4, Plt Count 176, MPV 10.6, Immature Gran % (Auto) 0.500, Neut % (Auto) 68.1, Lymph % (Auto) 21.8, [place] % (Auto) 8.0, Eos % (Auto) 1.4, Baso % (Auto) 0.2, Absolute Neuts (auto) 5.7, Absolute Lymphs (auto) 1.82, Nucleated RBC % 0 09/23/19 06:14: Sodium 141, Potassium 4.1, Chloride 108 H, Carbon Dioxide 26.0, Anion Gap 7, BUN 18, Creatinine 0.73, Estim Creat Clear Calc 85.67, Est GFR (MDRD) Af Amer 137, Est GFR (MDRD) Non-Af 113, BUN/Creatinine Ratio 24.5 H, Glucose 88, Calcium 8.3 L, Total Bilirubin 0.60, AST 10 L, ALT 19, Alkaline Phosphatase 49, Total Protein 6.4, Albumin 2.5 L, Globulin 3.9, Albumin/Globulin Ratio 0.6 L Current Medications Acetaminophen (Tylenol) 650 mg PO Q6H PRN PRN PRN Reason: Pain Score 1-3/Temp > 100.7 F Last Admin: 09/23/19 04:42 Dose: 650 mg Documented by: Albuterol Sulfate (Ventolin Aerosols) 2.5 mg INHALATION Q2H PRN PRN PRN Reason: SOB/Wheezing Last Admin: 09/22/19 19:03 Dose: 2.5 mg Documented by: Heparin Sodium (Porcine) (Heparin Na) 5,000 unit SC Q8 [facility] Last Admin: 09/23/19 05:32 Dose: 5,000 unit Documented by: Azithromycin 500 mg/ Dextrose 255 mls @ 250 mls/hr IV Q24 [facility] Last Admin: 09/23/19 09:40 Dose: 250 mls/hr Documented by: Ceftriaxone Sodium (Rocephin) 1 gm in 50 mls @ 100 mls/hr IV Q24 [facility] Last Infusion: 09/23/19 10:27 Dose: Infused Documented by: Sodium Chloride () 250 mls @ 15 mls/hr IV .[id number] PRN PRN Reason: Saline Flush Sodium Chloride () 1,000 mls @ 150 mls/hr IV .Q6H40M [facility] Stop: 09/23/19 20:54 Last Infusion: 09/23/19 09:30 Dose: 0 mls/hr Documented by: Morphine Sulfate () 2 mg IV Q3H PRN PRN PRN Reason: Pain Score 6-10/10 Last Admin: 09/23/19 13:03 Dose: 2 mg Documented by: Nitroglycerin (Nitrostat) 0.4 mg SUBLINGUAL Q5M PRN PRN Reason: CARDIAC/CHEST PAIN Ondansetron HCl (Zofran) 4 mg IV Q8H PRN PRN PRN Reason: NAUSEA/VOMITING Oxycodone HCl (Oxyir) 5 mg PO Q6H PRN PRN PRN Reason: Pain Score 6-10/10 Last Admin: 09/23/19 08:40 Dose: 5 mg Documented by: Senna/Docusate Sodium (Senokot-S, Yamile-Colace) 2 tablet PO BID [facility] Last Admin: 09/23/19 08:39 Dose: 2 tablet Documented by: Sodium Chloride () 10 - 40 ml IV UD PRN PRN Reason: SALINE FLUSH Assessment/Plan All Active Problems Left lower lobe pneumonia (Acute) Hypotension (Acute) Syncope (Acute) Sinus bradycardia by electrocardiogram (Acute) Pain in right lower leg (Acute) Pain in left lower leg (Acute) Lower extremity edema (Acute) Deep vein thrombophlebitis of right leg (Acute) Superficial thrombophlebitis (Acute) Ulcer with fat layer exposed to right medial ankle Venous insufficiency Lower extremity edema Lower extremity erythema/cellulitis Tenderness to lower extremities Other comorbidities This patient was carefully examined and evaluated resting in his bed this afternoon. Patient is currently comfortable and in no acute distress at this time. Patient is currently afebrile with vital signs stable. WBC is 8.3 today. Right ankle x-rays were taken that were read by radiologist as showing soft tissue swelling. Ulcer site was carefully examined and evaluated to the right medial ankle. Verbal consent was then obtained for a selective debridement of the area. A selective debridement was performed using a #3 curette to 100% of the ulcer site to remove any devitalized subcutaneous tissue, adherent slough, fibrin, biofilm. No anesthesia was needed. Hemostasis was easily controlled with light pressure. Patient tolerated this procedure well. Once complete, the area was carefully cleansed and then cultures were taken and sent for aerobic, anaerobic, and MRSA PCR evaluation. Next, the ulcer site to the right medial ankle was then dressed with Aquacel Ag to the base, followed by 4 x 4's, ABD, Kerlix, and an Hitesh bandage to hold the dressing on. The left lower extremity was then dressed with Hitesh bandage as well. Patient did not sit with legs in dependent position. Venous Doppler examinations of bilateral lower extremities were ordered. We will continue to monitor for these results. DVT prophylaxis and medical management per primary team appreciated. Podiatry will continue to follow this patient while in house.
[2019-09-23 16:01] LABS: M R Staph aureus DNA By PCR Negative (Negative); Probe Check PASS; Staph aureus DNA By PCR POSITIVE (Negative)
[2019-09-23] MEDS: 0.9% Saline Lock 10 ML Syringe IV (19:37)
[2019-09-24] VITALS (9 sets, daily range): BP systolic 119–147; BP diastolic 64–77; PULSE 71–89; RESP 16–18; TEMP 36.8–37.1; O2SAT 91–96
[2019-09-24] MEDS: Heparin Injection (Vial) 5,000 UNIT/ML VIAL 5000 UNIT SC ×2 (05:07→13:30)
[2019-09-24 05:57] LABS: Absolute Lymphocyte Count 1.61 X10^3/uL (0.83-4.51); Absolute Neutrophil Count 3.9 X10^3/uL (2.0-7.7); Basophil# 0.03 X10^3/uL; Basophil% 0.5 % (0-1); Eosinophil# 0.19 X10^3/uL; Eosinophils% 2.9 % (0-5); Hematocrit 45.5 % (40-54); Hemoglobin 15.2 g/dL (13.0-16.5); Lymphocyte # 1.61 X10^3/ul (4.0); Lymphocyte % 24.7 % (19-41); Mean Corp Hgb Conc 33.4 g/dL (32-36); Mean Corpuscular Hgb 33.3 pg (27.0-32.0); Mean Corpuscular Volume 99.8 fL (80-94); Mean Platelet Vol. 10.4 fl (6.2-12.0); Monocyte# 0.79 X10^3/uL; Monocyte% 12.1 % (0-10); NRBC Flagged by Analyzer 0 % (0-5); Neutrophil # 3.86 X10^3/uL (2.7-7.7); Neutrophil % 59.2 % (47-70); Platelet Count 183 K/mm3 (150-450); RBC Distribution Width CV 13.2 % (11.6-14.6); Red Blood Count 4.56 M/mm3 (4.6-6.2); White Blood Count 6.5 K/mm3 (4.4-11.0)
[2019-09-24 06:24] LABS: Anion Gap 7 (5-15); BUN 17 mg/dL (7-18); Calcium,Total 8.9 mg/dL (8.5-10.1); Chloride 109 mmol/L (98-107); Creatinine, Serum 0.81 mg/dL (0.70-1.30); EST Glomerular Filtration Rate 101 mL/min (>60); Est Glom Filt Rate - Afr Amer 122 mL/min (>60); Estimated Creatinine Clearance 105.77 ml/min; Glucose 88 mg/dL (74-106); Potassium 3.8 mmol/L (3.5-5.1); Sodium Level 142 mmol/L (136-145)
[2019-09-24] MEDS: oxyCODONE 5 MG Tablet PO ×3 (06:58→20:03)
[2019-09-24] MEDS: Acetaminophen 325 MG Tablet 650 MG PO ×2 (06:58→13:35)
--- NOTE | 2019-09-24 09:47 | PN_ITS ---
Patient Problems: Active and Suspected Problems Left lower lobe pneumonia (Acute) Hypotension (Acute) Syncope (Acute) Sinus bradycardia by electrocardiogram (Acute) Pain in right lower leg (Acute) Pain in left lower leg (Acute) Lower extremity edema (Acute) Subjective: Patient was seen this morning for follow up on ulceration right ankle w/ cellulitis. He was resting comfortably in bed with no new complaints. Patient was seen with [facility] wound nurse. Patient did not relate to any fever, chills, nausea or vomiting. - Physical Exam Vitals/I&O's: Vital Signs Temp Pulse Resp BP Pulse Ox 98.3 F 79 16 135/65 H 91 09/24/19 08:02 09/24/19 08:02 09/24/19 08:02 09/24/19 08:02 09/24/19 08:02 Oxygen Flow Rate (L/min) 3 Oxygen Delivery Method Room Air Weight: 91.9 kg Body Mass Index (BMI) 25.7 Orthostatic Vital Signs Start: 09/23/19 05:39 Freq: q24h Status: Active Protocol: Activity Type Activity Date Activity User E-Sign Co-Sign Detail Recorded Client Recorded Date Recorded By Document 09/24/19 03:00 HS [id number] 09/24/19 03:32 HS 09/24/19 03:00 Orthostatic Vitals Sitting -Blood Pressure (90/60-120/80) 119/65 -Extremity Use Right Arm -Pulse Rate (60-100) 82 Lying -Blood Pressure (90/60-120/80) 125/69 H -Extremity Use Right Arm -Pulse Rate (60-100) 71 Intake and Output for Last 24 Hours 09/22/19 09/23/19 09/24/19 23:59 23:59 23:59 Intake Total 2024 5189.17 / 5189.17 75 / 75 Output Total 525 / 525 2375 / 2375 1050 / 1050 Balance 1500 / 1500 2814.17 / 2814.17 -975 / -975 General: Alert, Oriented x3, Cooperative, No apparent distress Extremities: Capillary Refill Less than 3 Seconds, Peripheral Pulses Normal, - - Ulceration to the medial right ankle down to the subcutaneous tissue, granular tissue present with some fibrotic tissue to the base, margins intact and viable, no necrosis, no fluctuance, no maloder, no visible abscess present, no purulence present. No open lesions left foot/ankle/leg. Chronic venous insufficiency w/ c hronic skin changes bilateral lower extremity. Resolving cellulitis bilateral lower extremity. No m/s POP or pain on ROM to the foot/ankle bilateral. Psych/Mental Status: Appropriate, Alert and oriented to time, place, person, mood and affect Microbiology Past 72 Hours 09/22/19 13:50 Urine, Clean Catch Urine Culture - Preliminary Culture exhibits no growth. 09/22/19 16:20 Mucosa - Nasopharyngeal Respiratory Panel (PCR) - Final Parainfluenza 1 09/22/19 13:50 Urine, Random Streptococcus pneumoniae Antigen (M - Final 09/22/19 13:50 Urine, Random Legionella Antigen - Final Laboratory Results 09/23/19 13:53: S.aureus Protein A PCR POSITIVE H, MRSA (PCR) Negative 09/24/19 05:42: WBC 6.5, RBC 4.56 L, Hgb 15.2, Hct 45.5, MCV 99.8 H, MCH 33.3 H, MCHC 33.4, RDW Std Deviation 49.0 H, RDW Coeff of Lui 13.2, Plt Count 183, MPV 10.4, Immature Gran % (Auto) 0.600, Neut % (Auto) 59.2, Lymph % (Auto) 24.7, [place] % (Auto) 12.1 H, Eos % (Auto) 2.9, Baso % (Auto) 0.5, Absolute Neuts (auto) 3.9, Absolute Lymphs (auto) 1.61, Nucleated RBC % 0 09/24/19 05:42: Sodium 142, Potassium 3.8, Chloride 109 H, Carbon Dioxide 26.0, Anion Gap 7, BUN 17, Creatinine 0.81, Estim Creat Clear Calc 105.77, Est GFR (MDRD) Af Amer 122, Est GFR (MDRD) Non-Af 101, BUN/Creatinine Ratio 21.0 H, Glucose 88, Calcium 8.9 Current Medications Acetaminophen (Tylenol) 650 mg PO Q6H PRN PRN PRN Reason: Pain Score 1-3/Temp > 100.7 F Last Admin: 09/24/19 06:58 Dose: 650 mg Documented by: Albuterol Sulfate (Ventolin Aerosols) 2.5 mg INHALATION Q2H PRN PRN PRN Reason: SOB/Wheezing Last Admin: 09/22/19 19:03 Dose: 2.5 mg Documented by: Collagenase (Santyl) 1 applic TOPICAL DAILY [facility]; Protocol Heparin Sodium (Porcine) (Heparin Na) 5,000 unit SC Q8 [facility] Last Admin: 09/24/19 05:07 Dose: 5,000 unit Documented by: Azithromycin 500 mg/ Dextrose 255 mls @ 250 mls/hr IV Q24 [facility] Last Infusion: 09/23/19 10:45 Dose: Infused Documented by: Ceftriaxone Sodium (Rocephin) 1 gm in 50 mls @ 100 mls/hr IV Q24 [facility] Last Infusion: 09/23/19 10:27 Dose: Infused Documented by: Sodium Chloride () 250 mls @ 15 mls/hr IV .[id number] PRN PRN Reason: Saline Flush Morphine Sulfate () 2 mg IV Q3H PRN PRN PRN Reason: Pain Score 6-10/10 Last Admin: 09/23/19 19:38 Dose: 2 mg Documented by: Nitroglycerin (Nitrostat) 0.4 mg SUBLINGUAL Q5M PRN PRN Reason: CARDIAC/CHEST PAIN Ondansetron HCl (Zofran) 4 mg IV Q8H PRN PRN PRN Reason: NAUSEA/VOMITING Oxycodone HCl (Oxyir) 5 mg PO Q6H PRN PRN PRN Reason: Pain Score 6-10/10 Last Admin: 09/24/19 06:58 Dose: 5 mg Documented by: Senna/Docusate Sodium (Senokot-S, Yamile-Colace) 2 tablet PO BID [facility] Last Admin: 09/23/19 21:00 Dose: 2 tablet Documented by: Sodium Chloride () 10 - 40 ml IV UD PRN PRN Reason: SALINE FLUSH Last Admin: 09/23/19 19:37 Dose: 10 ml Documented by: Medical Necessity - Tobacco Use Smoking Status: Former smoker Assessment/Plan All Active Problems Left lower lobe pneumonia (Acute) Hypotension (Acute) Syncope (Acute) Sinus bradycardia by electrocardiogram (Acute) Pain in right lower leg (Acute) Pain in left lower leg (Acute) Lower extremity edema (Acute) Deep vein thrombophlebitis of right leg (Acute) Superficial thrombophlebitis (Acute) Ulcer with fat layer exposed to right medial ankle Chronic Venous insufficiency bilateral lower extremity Lower extremity erythema/cellulitis Tenderness to lower extremities Other comorbidities Re-evaluation performed. Improvement noted. Continue to follow culture which has been obtained and results pending at this time. Continue with board spectrum antibiotics. Continue with local wound care - switch to Santyl with gauze and neptali compression dressing changes daily. Venous Doppler examinations of bilateral lower extremities have been already ordered and are pending. DVT prophylaxis and medical management per primary team appreciated. Podiatry will continue to follow this patient while in house. Ultimately patient needs to follow up at the wound center as outpatient for wound care management.
--- NOTE | 2019-09-24 10:38 | NURSING ---
wound photo: right medial ankle
[2019-09-24] MEDS: Senna/Docusate Sodium 1 Tablet 2 TABLET PO ×2 (10:50→22:21)
[2019-09-24] MEDS: Ceftriaxone 1 GM/50 ML BAG IV (10:51)
--- NOTE | 2019-09-24 13:01 | CASEMGMT ---
RN CM Assessment Presentation: Syncope, CAP Intro role of CM and purpose of RN CM assessment to patient in room. Pt is awake, alert and able to participate in assessment. Demographics, PCP and Pharmacy verified. Pt states he is generally independent at home, uses walker now that foot is painful. Was able to complete own ADL's , but states his is able to assist with any needs. RN CM discussed if dressing changes are needed @ home, could assist with this. Pt states she can and RN CM let him know she may need to come in and be taught. Pt is to f/u with wound clinic and he states he is able to do this. Per [facility] wound nurse- was already doing dressing changes and would be able to continue at home. -PT/OT recommended further therapy during hospital stay. Pt is declining Home Health on dc. States his can assist him with any needs. PCP: Lacy Callejas Specialists: Dr. Sparks Preferred Pharmacy: [facility] Insurance: [facility] [employer] Prescription Benefit: yes LNOK: Living Arrangements: Lives in one story home, handicap accessible. Walk in shower with bench, raised toilet seat. Transportation: can assist with driving. DME: cane, walker. Denies oxygen or cpap use at home. HHC: none past Patient DC goals: Home DC PLAN: anticipate home on dc with f/u @ wound center and to assist with dressing changes in between. Beba REECE RN ACM
[2019-09-24] MEDS: Enoxaparin 100 MG/ML Syringe 90 MG SC ×2 (15:44→22:21)
[2019-09-24 16:35] LABS: Hemoglobin A1c 5.8 % (4.2-6.3)
--- NOTE | 2019-09-24 17:01 | PN_ITS ---
Patient Problems: Active and Suspected Problems Left lower lobe pneumonia (Acute) Hypotension (Acute) Syncope (Acute) Sinus bradycardia by electrocardiogram (Acute) Pain in right lower leg (Acute) Pain in left lower leg (Acute) Lower extremity edema (Acute) Subjective: Follow-up on pneumonia, right leg ulcer/cellulitis: Patient was seen and examined. Complains of severe pain in the right lower extremity. Unable to bear weight on the leg. Denies any fever or chills. His orthostatic vitals are negative. Doppler ultrasound showed left leg DVT. 2D- ECHO showed EF of 60%, stage I diastolic dysfunction. Objective: Physical exam: General: Alert, Oriented x3, Cooperative HEENT: Atraumatic, PERRLA, EOMI, Normocephalic Oral: Dry Mucosa Neck: Supple Lungs: Diminished - vesicular BS Cardiovascular: Regular rate, Regular Rhythm, Normal S1, Normal S2, No murmurs Abdomen: Bowel Sounds Present, Soft, Non Tender, Non-Distended, No Hepato- splenomegaly Extremities: - - Bilateral leg petechia erythema up to the mid leg. Chronic venous changes around the right ankle with chronic wound with slough at the base. Skin: No rashes, No breakdown Musculoskeletal: No Tenderness to Palpation of Joints or Extremities Lymphatic: No Cervical, Supraclavicular, or Inguinal Adenopathy Neurological: Cranial nerves II-XII grossly intact, Neuro grossly intact Psych/Mental Status: Normal Affect, Appropriate Vitals/I&O's: Vital Signs Temp Pulse Resp BP Pulse Ox 98.8 F 73 18 129/67 H 94 09/24/19 15:45 09/24/19 15:45 09/24/19 15:45 09/24/19 15:45 09/24/19 15:45 Oxygen Flow Rate (L/min) 3 Oxygen Delivery Method Room Air Weight: 91.9 kg Body Mass Index (BMI) 25.7 Orthostatic Vital Signs Start: 09/23/19 05:39 Freq: q24h Status: Active Protocol: Activity Type Activity Date Activity User E-Sign Co-Sign Detail Recorded Client Recorded Date Recorded By Document 09/24/19 03:00 HS [id number] 09/24/19 03:32 HS 09/24/19 03:00 Orthostatic Vitals Sitting -Blood Pressure (90/60-120/80) 119/65 -Extremity Use Right Arm -Pulse Rate (60-100) 82 Lying -Blood Pressure (90/60-120/80) 125/69 H -Extremity Use Right Arm -Pulse Rate (60-100) 71 Intake and Output for Last 24 Hours 09/22/19 09/23/19 09/24/19 23:59 23:59 23:59 Intake Total 2024 5189.17 / 5189.17 380 / 380 Output Total 525 / 525 2375 / 2375 1400 / 1400 Balance 1500 / 1500 2814.17 / 2814.17 -1020 / -1020 Microbiology Past 72 Hours 09/22/19 10:45 Blood Culture (Wb) - Anticubital Left Blood Culture - Preliminary No growth in 48 hours. 09/22/19 10:35 Blood Culture (Wb) - Left Hand Blood Culture - Preliminary No growth in 48 hours. 09/23/19 13:51 Wound - Leg, Right Gram Stain - Final 09/23/19 13:51 Wound - Leg, Right Wound Culture - Preliminary Gram positive organism 09/22/19 13:50 Urine, Clean Catch Urine Culture - Final Culture exhibits no growth. 09/22/19 16:20 Mucosa - Nasopharyngeal Respiratory Panel (PCR) - Final Parainfluenza 1 09/22/19 13:50 Urine, Random Streptococcus pneumoniae Antigen (M - Final 09/22/19 13:50 Urine, Random Legionella Antigen - Final Laboratory Results 09/24/19 05:42: WBC 6.5, RBC 4.56 L, Hgb 15.2, Hct 45.5, MCV 99.8 H, MCH 33.3 H, MCHC 33.4, RDW Std Deviation 49.0 H, RDW Coeff of Lui 13.2, Plt Count 183, MPV 10.4, Immature Gran % (Auto) 0.600, Neut % (Auto) 59.2, Lymph % (Auto) 24.7, [place] % (Auto) 12.1 H, Eos % (Auto) 2.9, Baso % (Auto) 0.5, Absolute Neuts (auto) 3.9, Absolute Lymphs (auto) 1.61, Nucleated RBC % 0 09/24/19 05:42: Sodium 142, Potassium 3.8, Chloride 109 H, Carbon Dioxide 26.0, Anion Gap 7, BUN 17, Creatinine 0.81, Estim Creat Clear Calc 105.77, Est GFR (MDRD) Af Amer 122, Est GFR (MDRD) Non-Af 101, BUN/Creatinine Ratio 21.0 H, Glucose 88, Calcium 8.9 09/24/19 05:42: Hemoglobin A1c 5.8 Current Medications Acetaminophen (Tylenol) 650 mg PO Q6H PRN PRN PRN Reason: Pain Score 1-3/Temp > 100.7 F Last Admin: 09/24/19 13:35 Dose: 650 mg Documented by: Albuterol Sulfate (Ventolin Aerosols) 2.5 mg INHALATION Q2H PRN PRN PRN Reason: SOB/Wheezing Last Admin: 09/22/19 19:03 Dose: 2.5 mg Documented by: Collagenase (Santyl) 1 applic TOPICAL DAILY [facility]; Protocol Enoxaparin Sodium (Lovenox) 90 mg SC Q12 [facility] Last Admin: 09/24/19 15:44 Dose: 90 mg Documented by: Azithromycin 500 mg/ Dextrose 255 mls @ 250 mls/hr IV Q24 [facility] Last Infusion: 09/24/19 13:16 Dose: Infused Documented by: Ceftriaxone Sodium (Rocephin) 1 gm in 50 mls @ 100 mls/hr IV Q24 [facility] Last Infusion: 09/24/19 11:42 Dose: Infused Documented by: Sodium Chloride () 250 mls @ 15 mls/hr IV .[id number] PRN PRN Reason: Saline Flush Morphine Sulfate () 2 mg IV Q3H PRN PRN PRN Reason: Pain Score 6-10/10 Last Admin: 09/23/19 19:38 Dose: 2 mg Documented by: Nitroglycerin (Nitrostat) 0.4 mg SUBLINGUAL Q5M PRN PRN Reason: CARDIAC/CHEST PAIN Ondansetron HCl (Zofran) 4 mg IV Q8H PRN PRN PRN Reason: NAUSEA/VOMITING Oxycodone HCl (Oxyir) 5 mg PO Q6H PRN PRN PRN Reason: Pain Score 6-10/10 Last Admin: 09/24/19 13:34 Dose: 5 mg Documented by: Senna/Docusate Sodium (Senokot-S, Yamile-Colace) 2 tablet PO BID [facility] Last Admin: 09/24/19 10:50 Dose: 2 tablet Documented by: Sodium Chloride () 10 - 40 ml IV UD PRN PRN Reason: SALINE FLUSH Last Admin: 09/23/19 19:37 Dose: 10 ml Documented by: STROKE Vital Signs/Narrative: Vital Signs Temp Pulse Resp BP Pulse Ox 09/24/19 15:45 98.8 F 73 18 129/67 H 94 09/24/19 13:38 75 09/24/19 13:37 98.2 F 81 16 136/77 H 96 Medical Necessity - Tobacco Use Smoking Status: Former smoker Assessment/Plan All Active Problems Left lower lobe pneumonia (Acute) Hypotension (Acute) Syncope (Acute) Sinus bradycardia by electrocardiogram (Acute) Pain in right lower leg (Acute) Pain in left lower leg (Acute) Lower extremity edema (Acute) Deep vein thrombophlebitis of right leg (Acute) Superficial thrombophlebitis (Acute) 1. Parainfluenza 1 CAP, left lower lung, improving, not on oxygen, On IV azithromycin and ceftriaxone(day 3) Blood cultures are negative , urine Legionella and strep coccal antigen negative Continue with conservative management with breathing treatments, IV antibiotics 2. Cellulitis, bilateral lower extremities, continue on the above antibiotic 3. Left soleal DVT, started on therapeutic Lovenox 4. Syncope, due to orthostatic hypotension, patient received IV fluids 4. Acute on chronic leg ulcer, dry wound dressing, wound RN consulted, ankle x- ray negative for acute fractures podiatry consulted 5. DVT PPx-on therapeutic Lovenox Code Visit Inpatient E&M: 23351 Subs Hosp L2
[2019-09-24] MEDS: Morphine 2 MG/ML Syringe IV ×2 (19:23→22:29)
[2019-09-24] MEDS: 0.9% Saline Lock 10 ML Syringe IV ×2 (19:24→22:30)
[2019-09-25] VITALS (17 sets, daily range): BP systolic 104–158; BP diastolic 52–96; PULSE 65–95; RESP 14–18; TEMP 36.6–37.4; O2SAT 92–98; BMI 25.7
[2019-09-25] MEDS: oxyCODONE 5 MG Tablet PO ×3 (02:25→18:46)
[2019-09-25] MEDS: Acetaminophen 325 MG Tablet 650 MG PO ×3 (02:43→18:46)
--- NOTE | 2019-09-25 07:03 | MRI_ITS ---
STUDY: MRI RIGHT ANKLE WITHOUT CONTRAST REASON FOR EXAM: Male, 69 years old. Cellulitis. Chronic medial ulcer. Pain. TECHNIQUE: Standardized fat and water weighted pulse sequences were obtained in all 3 orthogonal planes. COMPARISON: X-ray September 23, 2019. FINDINGS: There is subcutaneous edema. There is 4.2 x 2.3 x 0.8 cm lobular fluid collection in the posterior lateral soft tissues, series 5 image 10/30. There is accessory navicular is incorporated into the posterior tibialis tendon. Normal flexor digitorum longus tendon. Normal flexor hallucis longus tendon. Normal peroneus longus and brevis tendons. Normal tibialis anterior tendon. Normal extensor hallucis longus tendon. Normal extensor digitorum longus tendons. Normal Achilles tendon and teno-osseous insertion. Normal plantar fascia. There is a plantar calcaneal spur, but without cancellous marrow edema. Normal intrinsic muscles of the rearfoot. Normal distal tibiofibular syndesmotic ligamentous complex. Normal lateral ligamentous complex. Normal subtalar ligaments and sinus tarsi. Normal deltoid ligamentous complexes. Normal plantar calcaneonavicular (spring) ligament. Normal tibiotalar articulation. Normal talar dome. Normal subtalar articulations. Normal talonavicular articulation. Normal calcaneocuboid articulation. Normal navicular-cuneiform articulations. MRI/Lower Ext Joint Only (Routine) IMPRESSION: No MRI evidence of osteomyelitis. There is subcutaneous edema with fluid collection suggesting abscess in the posterior lateral aspect. Electronically Signed: Mamadou Callejas MD at 16:25 EST , Service support ,
--- NOTE | 2019-09-25 07:05 | PCM.PROGNOTE ---
Patient Problems: Active and Suspected Problems Left lower lobe pneumonia (Acute) Hypotension (Acute) Syncope (Acute) Sinus bradycardia by electrocardiogram (Acute) Pain in right lower leg (Acute) Pain in left lower leg (Acute) Lower extremity edema (Acute) Subjective: Patient was seen this morning for follow up on right ankle. He relates he is not able to take more than a couple of steps without severe pain - he points to the lateral right ankle as the site of the pain. He relates this started on Tuesday, relates it is not getting worse, and he relates it is getting better very minimally/slowly. He relates it feels very tight. Otherwise he relates he feels good. No complaints of fever, chills, nausea, vomiting, or breathing difficulties. - Physical Exam Vitals/I&O's: Vital Signs Temp Pulse Resp BP Pulse Ox 98.7 F 65 18 143/80 H 93 09/25/19 03:15 09/25/19 06:11 09/25/19 03:15 09/25/19 06:11 09/25/19 03:15 Oxygen Flow Rate (L/min) 3 Oxygen Delivery Method Room Air Weight: 92.3 kg Body Mass Index (BMI) 25.7 Orthostatic Vital Signs Start: 09/23/19 05:39 Freq: 0500 Status: Active Protocol: Activity Type Activity Date Activity User E-Sign Co-Sign Detail Recorded Client Recorded Date Recorded By Document 09/25/19 06:11 [facility] [id number] 09/25/19 06:13 [facility] 09/25/19 06:11 Orthostatic Vitals Sitting -Blood Pressure (90/60-120/80) 104/52 L -Extremity Use Right Arm -Pulse Rate (60-100) 95 Lying -Blood Pressure (90/60-120/80) 143/80 H -Extremity Use Right Arm -Pulse Rate (60-100) 65 Intake and Output for Last 24 Hours 09/23/19 09/24/19 09/25/19 23:59 23:59 23:59 Intake Total 5189.17 / 5189.17 380 / 380 Output Total 2375 / 2375 2125 / 2125 550 / 550 Balance 2814.17 / 2814.17 -1745 / -1745 -550 / -550 General: Alert, Oriented x3, Cooperative, No apparent distress Extremities: No cyanosis, Capillary Refill Less than 3 Seconds, Peripheral Pulses Normal, - - Stable ulceration to the medial right ankle down to the subcutaneous tissue - no probe to bone or exposed joint, no necrosis, no fluctuance, no maloder, no visible abscess present, no purulence present. There is erythema to the lateral right ankle with POP to the peroneal tendons at level of the lateral malleolus - no visible abscess seen. Chronic venous insufficiency w/ chronic skin changes to the lower extremity. Overall resolving cellulitis to the lower extremity. Microbiology Past 72 Hours 09/22/19 10:45 Blood Culture (Wb) - Anticubital Left Blood Culture - Preliminary No growth in 48 hours. 09/22/19 10:35 Blood Culture (Wb) - Left Hand Blood Culture - Preliminary No growth in 48 hours. 09/23/19 13:51 Wound - Leg, Right Gram Stain - Final 09/23/19 13:51 Wound - Leg, Right Wound Culture - Preliminary Gram positive organism 09/22/19 13:50 Urine, Clean Catch Urine Culture - Final Culture exhibits no growth. 09/22/19 16:20 Mucosa - Nasopharyngeal Respiratory Panel (PCR) - Final Parainfluenza 1 09/22/19 13:50 Urine, Random Streptococcus pneumoniae Antigen (M - Final 09/22/19 13:50 Urine, Random Legionella Antigen - Final Laboratory Results 09/24/19 05:42: Hemoglobin A1c 5.8 Current Medications Acetaminophen (Tylenol) 650 mg PO Q6H PRN PRN PRN Reason: Pain or Fever Last Admin: 09/25/19 02:43 Dose: 650 mg Documented by: Albuterol Sulfate (Ventolin Aerosols) 2.5 mg INHALATION Q2H PRN PRN PRN Reason: SOB/Wheezing Last Admin: 09/22/19 19:03 Dose: 2.5 mg Documented by: Collagenase (Santyl) 1 applic TOPICAL DAILY [facility]; Protocol Enoxaparin Sodium (Lovenox) 90 mg SC Q12 [facility] Last Admin: 09/24/19 22:21 Dose: 90 mg Documented by: Azithromycin 500 mg/ Dextrose 255 mls @ 250 mls/hr IV Q24 [facility] Last Infusion: 09/24/19 13:16 Dose: Infused Documented by: Ceftriaxone Sodium (Rocephin) 1 gm in 50 mls @ 100 mls/hr IV Q24 [facility] Last Infusion: 09/24/19 11:42 Dose: Infused Documented by: Sodium Chloride () 250 mls @ 15 mls/hr IV .[id number] PRN PRN Reason: Saline Flush Morphine Sulfate () 2 mg IV Q3H PRN PRN PRN Reason: Pain Score 6-10/10 Last Admin: 09/24/19 22:29 Dose: 2 mg Documented by: Nitroglycerin (Nitrostat) 0.4 mg SUBLINGUAL Q5M PRN PRN Reason: CARDIAC/CHEST PAIN Ondansetron HCl (Zofran) 4 mg IV Q8H PRN PRN PRN Reason: NAUSEA/VOMITING Oxycodone HCl (Oxyir) 5 mg PO Q6H PRN PRN PRN Reason: Pain Score 6-10/10 Last Admin: 09/25/19 02:25 Dose: 5 mg Documented by: Senna/Docusate Sodium (Senokot-S, Yamile-Colace) 2 tablet PO BID [facility] Last Admin: 09/24/19 22:21 Dose: 2 tablet Documented by: Sodium Chloride () 10 - 40 ml IV UD PRN PRN Reason: SALINE FLUSH Last Admin: 09/24/19 22:30 Dose: 20 ml Documented by: Medical Necessity - Tobacco Use Smoking Status: Former smoker Assessment/Plan All Active Problems Left lower lobe pneumonia (Acute) Hypotension (Acute) Syncope (Acute) Sinus bradycardia by electrocardiogram (Acute) Pain in right lower leg (Acute) Pain in left lower leg (Acute) Lower extremity edema (Acute) Deep vein thrombophlebitis of right leg (Acute) Superficial thrombophlebitis (Acute) Ulcer with fat layer exposed to right medial ankle Chronic Venous insufficiency bilateral lower extremity Lower extremity erythema/cellulitis Tenderness to lower extremities Other comorbidities Re-evaluation performed. Reviewed right ankle xrays - negative for any bone destruction and no evidence of osteomyelitis or gas on xrays. Given the significant pain to the lateral ankle at level of the peroneal tendons despite several days of antibiotics and in setting of infection an MRI is indicated for further evaluation - possible deep abscess. This was ordered for further evaluation. Continue to follow culture. Continue with board spectrum antibiotics. Continue with local wound care - Santyl with gauze and neptali compression dressing changes daily. Patient had venous Doppler examination of bilateral lower extremities - left soleus DVT noted - DVT management and medical management per medicine team appreciated. Podiatry will continue to follow this patient closely.
[2019-09-25] MEDS: 0.9% Saline Lock 10 ML Syringe IV ×3 (10:18→23:00)
[2019-09-25] MEDS: Collagenase 30gm Tube 1 APPLIC TOPICAL (10:22)
--- NOTE | 2019-09-25 11:00 | RAD_ITS ---
STUDY: X-RAY - ORBITS REASON FOR EXAM: Male, 69 years old. TECHNIQUE: view(s) of the orbits were obtained. COMPARISON: None. FINDINGS: Normal bilateral orbits without a metallic orbital foreign body. Normal visualized facial bones. Normal paranasal sinuses. The soft tissue structures are unremarkable. RAD/Orbits for Foreign Body IMPRESSION: No demonstrated metallic orbital foreign body. The patient is cleared for an MRI examination. Electronically Signed: Jamari Carlson, at 12:05 EST Tel , Service support ,
[2019-09-25] MEDS: Ceftriaxone 1 GM/50 ML BAG IV (11:38)
[2019-09-25] MEDS: DiphenhydrAMINE 25 MG Capsule 50 MG PO (12:24)
--- NOTE | 2019-09-25 15:53 | NURSING ---
called report to surgery and also called to let her know but dr plascencia had already called her
[2019-09-25] MEDS: Lactated Ringers 1,000 ML 100 ML IV ×2 (16:30→20:50)
--- NOTE | 2019-09-25 16:30 | ABS_PTH ---
PATIENT: DASIA SANTO LOC: U U#:[id number] AGE/SX: 69/M ROOM: [facility] RE09/22/[address]: Dr. Jaime Gautam MD : [id number] BED: 1 DIS: 09/28/2019 SPEC #: [id number] RECD: 09/26/19 10:53 STATUS: MONIKA REQ #: [id number] JEREMIAH: 09/25/19 16:[address]: Olga Dorsey DEPT: SURGICAL PATHOLOGY RECD BY: Evert Vidal ENTERED: 09/26/19 11:15 SP TYPE: Abscess OTHR DR: Dr. Belem Rosas, DPM MD Lacy Cisneros Tissues: Skin of foot, NOS Procedures: PAS Fungus (control) Special Stain Group I Surgery Specimen Level III AFB Stain (control) HEADER OPERATION: Incision, drainage ankle PRE-OP DIAGNOSIS: Right ankle abscess TISSUE SUBMITTED: Right ankle abscess MICROSCOPIC DIAGNOSIS Right ankle abscess: Fragments of fibrovascular tissue with acute inflammation, abscess formation and organisms consistent with bacteria. Special stains for acid fast bacilli and fungi are negative for organisms; matched controls are appropriate. EDNA:adonay 09/28/19 MICROSCOPIC DESCRIPTION Slides are reviewed. GROSS DESCRIPTION Received in fixative is one container labeled with the patient's name and designated right ankle abscess. The specimen consists of multiple irregular fragments of garvin soft tissue that in aggregate measure 2 x 1 x 0.2 cm. The entire specimen is submitted in one cassette. / EDNA:adonay 09/26/19 TC:2 CPT: 84247, 19445 x2
[2019-09-25] MEDS: Bupivacaine Mpf 0.5% 30 ML VIAL (17:15)
--- NOTE | 2019-09-25 17:18 | OP.PCM_ITS ---
Report of Operation Date of Procedure: 09/25/19 Pre-Operative Diagnosis: Abscess right lateral posterior ankle. Ulcer down to subcutaneous tissue medial right ankle. Venous insufficiency right lower extremity. 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 Debrided tissue from right ankle abscess and ulceration sent to pathology Estimated Blood Loss (mL): 10mL Description of Procedure: Indications: This is a 69 year old gentleman with history of chronic ulceration right medial ankle. He has chronic venous insufficiency. He has had previous infections. He was following with the wound center, but he relates he stopped getting care a couple years ago. He relates the ulcer never really healed but was not bothering him. He relates he developed significant pain to the right ankle last Tuesday, hurt with every step. He passed out. He came to the ER, was admitted with pneumonia. He also had bilateral lower extremity cellulitis. A venous doppler showed a left soleal DVT. He continued to have significant pain to the right ankle, not able to walk. An MRI was ordered for further evaluation and there was noted to be a deep abscess to the right lateral posterior ankle. Due to the findings we discussed debridement, I+D right ankle. This was discussed with him in great detail. We reviewed the procedure, rationale of the procedure, possible benefits vs risks, goals, expectations and estimated healing time. Advised this may take months to heal, up to a year or more. Risks include but not limited to pain, nonhealing, worsening, further infection, numbness, swelling, chronic pain, complex regional pain syndrome, DVT/blood clots, need for further surgery, fracture, weakness, deformity, disability, loss of limb, loss of life, this was discussed with him, and all questions were answered. He expressed understanding and agreement and the consent form was reviewed with him and he freely signed it. No guarantees were given nor implied. I did speak with Dr. Dorsey. Operative procedure: The patient was brought back to the operating room table and was placed on the operating room table in the supine position. He was carefully secured to the operating room table with a safety belt around his waist. A timeout was performed, patient properly identified, and the surgical plan was confirmed. A well padded pneumatic tourniquet was applied around the right calf. The patient received MAC anesthesia per the anesthesia team. Discussed pre operatively with patient and he relates he is not actually allergic to damien. He related his relates they made him itch. The skin was cleansed with 70% isopropyl alcohol and a total of 20mL of 0.5% Bupivacaine plain was given as a local nerve block around the right ankle. The right lower extremity was scrubbed, prepped, draped in the usual aseptic fashion. The right foot and ankle were elevated for 3 minutes and the right ankle pneu matic tourniquet was inflated to 250mmHg. Further attention was directed to the right ankle. There was an ulceration to the medial ankle with some granular and fibrotic tissue, the margins were intact w/ no undermining, no maloder present. There was cellulitis to the ankle, especially residual cellulitis to the lateral ankle. A skin incision was made to the lateral ankle just posterior to the peroneal tendons. Dissection was completed down through the subcutaneous tissue layer down to the abscess. The abscess was identified and incised, and excised. There was immediate release of purulence, the abscess was cultured and sent to microbiology for further evaluation. The abscess was completely drained and was excised using a sharp curette and rongeur - was debrided down to healthy viable tissue. The abscess was localized and did not extend into the joint, bone, or tendinous structures. The peroneal tendons were left intact and undisturbed. The excised tissue was sent to pathology. The site was flushed out with copious amounts of normal saline solution. The site was packed with 1/4in Iodoform gauze packing. An ulceration was noted to the medial ankle down to the subcutaneous tissue la roe. The ulceration was debrided with a sharp curette down to subcutaneous tissue layer in excisional fashion, post debridement it measured 2.4cm x 0.9cm and 0.3cm in depth down to viable base and margins, the margins were intact with no undermining. The debrided tissue was sent to pathology. The site was flushed out with copious amounts of normal saline solution. A dressing was applied which consisted of 4x4 gauze, kerlix, and neptali for compression therapy. The pneumatic tourniquet was deflated and there was immediate return of warmth and perfusion to the right foot, CFT < 2 seconds to all toes and normal temperature present. Total tourniquet time was 18 minutes. The patient tolerated the procedure well and anesthesia well with no complication. The patient was transported from the operating room to the recovery room with vital signs stable and in good condition. Post op orders were placed. The patient was be followed as inpatient. Grafts/Implants Used: None - Complications None
--- NOTE | 2019-09-25 17:49 | PN_ITS ---
Patient Problems: Active and Suspected Problems Left lower lobe pneumonia (Acute) Hypotension (Acute) Syncope (Acute) Sinus bradycardia by electrocardiogram (Acute) Pain in right lower leg (Acute) Pain in left lower leg (Acute) Lower extremity edema (Acute) Subjective: Follow-up on CAP/right ankle abscess/cellulitis: Patient was seen and examined. He complains of severe pain in right lateral malleolar region of the ankle, worse with ambulation and relieved by rest and pain meds. MRI of the ankle was suggestive of abscess in the posterior lateral malleolar region. He denies fever, chills, SOB, chest pain. He also has itching on both forearms, close to the IV sites where he had tapes and on his back. Further probing reveal history of sensitivities to multiple items including tapes, soaps etc. His encouraged to bring his sopa from home. He admits to taking 100mg of Benadryl usually when he has itching. Objective: Physical exam: General: Alert, Oriented x3, Cooperative HEENT: Atraumatic, PERRLA, EOMI, Normocephalic Oral: Dry Mucosa Neck: Supple Lungs: Diminished - vesicular BS Cardiovascular: Regular rate, Regular Rhythm, Normal S1, Normal S2, No murmurs Abdomen: Bowel Sounds Present, Soft, Non Tender, Non-Distended, No Hepato- splenomegaly Extremities: - - Bilateral leg petechia erythema up to the mid leg. Chronic venous changes around the right ankle with chronic wound with slough at the base. Hitesh wraps to bilateral legs Skin: Erythematous rash on right antecubital region, close to IV sites, on left forearm close to IV sites and on lower back, bilateral flank regions, itchy per patient Musculoskeletal: No Tenderness to Palpation of Joints or Extremities Lymphatic: No Cervical, Supraclavicular, or Inguinal Adenopathy Neurological: Cranial nerves II-XII grossly intact, Neuro grossly intact Psych/Mental Status: Normal Affect, Appropriate Vitals/I&O's: Vital Signs Temp Pulse Resp BP Pulse Ox 98.3 F 93 16 156/92 H 96 09/25/19 17:30 09/25/19 17:30 09/25/19 17:30 09/25/19 17:30 09/25/19 17:30 Oxygen Flow Rate (L/min) 3 Oxygen Delivery Method Room Air Weight: 92.3 kg Body Mass Index (BMI) 25.7 Orthostatic Vital Signs Start: 09/23/19 05:39 Freq: 0500 Status: Active Protocol: Activity Type Activity Date Activity User E-Sign Co-Sign Detail Recorded Client Recorded Date Recorded By Document 09/25/19 06:11 [facility] [id number] 09/25/19 06:13 BHAVESH 09/25/19 06:11 Orthostatic Vitals Sitting -Blood Pressure (90/60-120/80) 104/52 L -Extremity Use Right Arm -Pulse Rate (60-100) 95 Lying -Blood Pressure (90/60-120/80) 143/80 H -Extremity Use Right Arm -Pulse Rate (60-100) 65 Intake and Output for Last 24 Hours 09/23/19 09/24/19 09/25/19 23:59 23:59 23:59 Intake Total 5189.17 / 5189.17 380 / 380 405 / 405 Output Total 2375 / 2375 2125 / 2125 950 / 950 Balance 2814.17 / 2814.17 -1745 / -1745 -545 / -545 Microbiology Past 72 Hours 09/23/19 13:51 Wound - Leg, Right Gram Stain - Final 09/23/19 13:51 Wound - Leg, Right Wound Culture - Preliminary Gram positive organism 09/23/19 13:51 Wound - Leg, Right Anaerobic Culture - Final No anaerobic bacteria isolated. 09/22/19 10:45 Blood Culture (Wb) - Anticubital Left Blood Culture - Prel iminary No growth in 48 hours. 09/22/19 10:35 Blood Culture (Wb) - Left Hand Blood Culture - Preliminary No growth in 48 hours. 09/22/19 13:50 Urine, Clean Catch Urine Culture - Final Culture exhibits no growth. 09/22/19 16:20 Mucosa - Nasopharyngeal Respiratory Panel (PCR) - Final Parainfluenza 1 09/22/19 13:50 Urine, Random Streptococcus pneumoniae Antigen (M - Final 09/22/19 13:50 Urine, Random Legionella Antigen - Final Current Medications Acetaminophen (Tylenol) 650 mg PO Q6H PRN PRN PRN Reason: Pain or Fever Last Admin: 09/25/19 08:33 Dose: 650 mg Documented by: Albuterol Sulfate (Ventolin Aerosols) 2.5 mg INHALATION Q2H PRN PRN PRN Reason: SOB/Wheezing Last Admin: 09/22/19 19:03 Dose: 2.5 mg Documented by: Collagenase (Santyl) 1 applic TOPICAL DAILY [facility]; Protocol Last Admin: 09/25/19 10:22 Dose: 1 applicatio Documented by: Enoxaparin Sodium (Lovenox) 90 mg SC Q12 [facility] Last Admin: 09/25/19 10:23 Dose: Not Given Documented by: Azithromycin 500 mg/ Dextrose 255 mls @ 250 mls/hr IV Q24 [facility] Last Infusion: 09/25/19 11:25 Dose: Infused Documented by: Ceftriaxone Sodium (Rocephin) 1 gm in 50 mls @ 100 mls/hr IV Q24 [facility] Last Infusion: 09/25/19 12:25 Dose: Infused Documented by: Sodium Chloride () 250 mls @ 15 mls/hr IV .[id number] PRN PRN Reason: Saline Flush Lactated Ringer's () 1,000 mls @ 100 mls/hr IV .Q10H [facility] Last Admin: 09/25/19 16:30 Dose: 100 mls/hr Documented by: Morphine Sulfate () 2 mg IV Q3H PRN PRN PRN Reason: Pain Score 6-10/10 Last Admin: 09/24/19 22:29 Dose: 2 mg Documented by: Nitroglycerin (Nitrostat) 0.4 mg SUBLINGUAL Q5M PRN PRN Reason: CARDIAC/CHEST PAIN Ondansetron HCl (Zofran) 4 mg IV Q8H PRN PRN PRN Reason: NAUSEA/VOMITING Oxycodone HCl (Oxyir) 5 mg PO Q6H PRN PRN PRN Reason: Pain Score 6-10/10 Last Admin: 09/25/19 08:33 Dose: 5 mg Documented by: Senna/Docusate Sodium (Senokot-S, Yamile-Colace) 2 tablet PO BID [facility] Last Admin: 09/25/19 10:22 Dose: Not Given Documented by: Sodium Chloride () 10 - 40 ml IV UD PRN PRN Reason: SALINE FLUSH Last Admin: 09/25/19 10:18 Dose: 10 ml Documented by: STROKE Vital Signs/Narrative: Vital Signs Temp Pulse Resp BP Pulse Ox 09/25/19 17:30 98.3 F 93 16 156/92 H 96 09/25/19 13:54 99.4 F H 66 18 129/71 H 94 Medical Necessity - Tobacco Use Smoking Status: Former smoker Assessment/Plan All Active Problems Left lower lobe pneumonia (Acute) Hypotension (Acute) Syncope (Acute) Sinus bradycardia by electrocardiogram (Acute) Pain in right lower leg (Acute) Pain in left lower leg (Acute) Lower extremity edema (Acute) Deep vein thrombophlebitis of right leg (Acute) Superficial thrombophlebitis (Acute) 1. Allergy to multiple items, h/o skin sensitivites Will not use latex tapes etc Continue on Benadryl prn, famotidine bid 2. Right ankle abscess s/p I & D, cultures are pending No osteomyelitis on MRI Will add flagyl to medications to cover anaerobes ID consult 3. Parainfluenza 1 CAP, left lower lung, improving, not on oxygen, Completed 3 days of IV azithromycin On IV ceftriaxone(day 4) Blood cultures are negative , urine Legionella and strep coccal antigen negative Continue with conservative management with breathing treatments, Will continue on flagyl IV to also cover abscess 4. Cellulitis, bilateral lower extremities, continue on the above antibiotic 5. Left soleal DVT, started on therapeutic Lovenox 6. Syncope, due to orthostatic hypotension, patient received IV fluids 7. Acute on chronic leg ulcer, dry wound dressing, wound RN consulted, ankle x- ray negative for acute fractures podiatry consulted 8. DVT PPx-on therapeutic Lovenox Code Visit Inpatient E&M: 70545 Subs Hosp L2
[2019-09-25] MEDS: DiphenhydrAMINE 25 MG Capsule PO (20:08)
[2019-09-25] MEDS: Morphine 2 MG/ML Syringe IV (20:52)
[2019-09-25] MEDS: Senna/Docusate Sodium 1 Tablet 2 TABLET PO (23:00)
[2019-09-25] MEDS: metroNIDAZOLE 500 MG/100 ML BAG 100 MG IV (23:00)
[2019-09-25] MEDS: Enoxaparin 100 MG/ML Syringe 90 MG SC (23:01)
[2019-09-25] MEDS: Famotidine 200 MG/20 ML MDV 20 MG in 0.9% Normal Saline (Pres. free 8 ML 300 MG IV (23:01)
[2019-09-26] VITALS (12 sets, daily range): BP systolic 119–147; BP diastolic 69–86; PULSE 65–93; RESP 16–20; TEMP 36.6–37.2; O2SAT 93–96
[2019-09-26] MEDS: Morphine 2 MG/ML Syringe IV ×2 (01:14→05:20)
[2019-09-26] MEDS: 0.9% Saline Lock 10 ML Syringe IV ×2 (01:14→05:21)
[2019-09-26] MEDS: Acetaminophen 325 MG Tablet 650 MG PO ×2 (02:03→08:16)
[2019-09-26] MEDS: oxyCODONE 5 MG Tablet PO ×2 (02:03→08:16)
[2019-09-26] MEDS: DiphenhydrAMINE 25 MG Capsule PO ×2 (02:17→08:31)
[2019-09-26] MEDS: metroNIDAZOLE 500 MG/100 ML BAG 100 MG IV ×3 (05:21→20:57)
--- NOTE | 2019-09-26 05:41 | PCM.PROGNOTE ---
Patient Problems: Active and Suspected Problems Left lower lobe pneumonia (Acute) Hypotension (Acute) Syncope (Acute) Sinus bradycardia by electrocardiogram (Acute) Pain in right lower leg (Acute) Pain in left lower leg (Acute) Lower extremity edema (Acute) Subjective: Patient was seen this morning for follow up on right ankle. He relates there was pain after numbing wore off, but relates he was able to sleep after receiving pain medication. He did not relate to any fever, chills, nausea or vomiting. - Physical Exam Vitals/I&O's: Vital Signs Temp Pulse Resp BP Pulse Ox 98.3 F 74 18 146/70 H 96 09/26/19 05:34 09/26/19 05:34 09/26/19 05:34 09/26/19 05:34 09/26/19 05:34 Oxygen Flow Rate (L/min) 3 Oxygen Delivery Method Room Air Weight: 92.3 kg Body Mass Index (BMI) 25.7 Orthostatic Vital Signs Start: 09/23/19 05:39 Freq: 0500 Status: Active Protocol: Activity Type Activity Date Activity User E-Sign Co-Sign Detail Recorded Client Recorded Date Recorded By Document 09/26/19 05:00 DCZ [id number] 09/26/19 05:33 DCZ 09/26/19 05:00 Orthostatic Vitals Sitting -Blood Pressure (90/60-120/80) 119/86 H -Extremity Use Right Arm -Pulse Rate (60-100) 93 Lying -Blood Pressure (90/60-120/80) 146/70 H -Extremity Use Right Arm -Pulse Rate (60-100) 74 Intake and Output for Last 24 Hours 09/24/19 09/25/19 09/26/19 23:59 23:59 23:59 Intake Total 380 / 380 1065.00 / 1765.00 700 / 700 Output Total 2125 / 2125 950 / 1450 500 / 500 Balance -1745 / -1745 115.00 / 315.00 200 / 200 Extremities: Capillary Refill Less than 3 Seconds, - - s/p I+D right ankle lateral aspect, also right ankle wound debridement - removed dressing - tissues healthy and viable with no purulence present - there is less erythema and less edema - improvement noted, there is no necrosis, no streaking, no maloder present to the right foot/ankle/leg - chronic venous stasis skin changes present. There is soreness to the incision site c/w normal findings at this time. Psych/Mental Status: Appropriate, Alert and oriented to time, place, person, mood and affect Microbiology Past 72 Hours 09/23/19 13:51 Wound - Leg, Right Gram Stain - Final 09/23/19 13:51 Wound - Leg, Right Wound Culture - Preliminary Gram positive organism 09/23/19 13:51 Wound - Leg, Right Anaerobic Culture - Final No anaerobic bacteria isolated. 09/22/19 10:45 Blood Culture (Wb) - Anticubital Left Blood Culture - Preliminary No growth in 48 hours. 09/22/19 10:35 Blood Culture (Wb) - Left Hand Blood Culture - Preliminary No growth in 48 hours. 09/22/19 13:50 Urine, Clean Catch Urine Culture - Final Culture exhibits no growth. 09/22/19 16:20 Mucosa - Nasopharyngeal Respiratory Panel (PCR) - Final Parainfluenza 1 09/22/19 13:50 Urine, Random Streptococcus pneumoniae Antigen (M - Final 09/22/19 13:50 Urine, Random Legionella Antigen - Final Current Medications Acetaminophen (Tylenol) 650 mg PO Q6H PRN PRN PRN Reason: Pain or Fever Last Admin: 09/26/19 02:03 Dose: 650 mg Documented by: Albuterol Sulfate (Ventolin Aerosols) 2.5 mg INHALATION Q2H PRN PRN PRN Reason: SOB/Wheezing Last Admin: 09/22/19 19:03 Dose: 2.5 mg Documented by: Collagenase (Santyl) 1 applic TOPICAL DAILY [facility]; Protocol Last Admin: 09/25/19 10:22 Dose: 1 applicatio Documented by: Diphenhydramine HCl (Benadryl) 25 mg PO TID PRN PRN PRN Reason: ITCHING Last Admin: 09/26/19 02:17 Dose: 25 mg Documented by: Enoxaparin Sodium (Lovenox) 90 mg SC Q12 [facility] [place] Last Admin: 09/25/19 23:01 Dose: 90 mg Documented by: Ceftriaxone Sodium (Rocephin) 1 gm in 50 mls @ 100 mls/hr IV Q24 [facility] Last Infusion: 09/25/19 12:25 Dose: Infused Documented by: Sodium Chloride () 250 mls @ 15 mls/hr IV .[id number] PRN PRN Reason: Saline Flush Lactated Ringer's () 1,000 mls @ 100 mls/hr IV .Q10H [facility] [place] Last Infusion: 09/26/19 00:00 Dose: 100 mls/hr Documented by: Famotidine 20 mg/ Sodium (Chloride) 10 mls @ 300 mls/hr IV Q12 [facility] [place] Last Infusion: 09/25/19 23:03 Dose: Infused Documented by: Metronidazole (Flagyl) 500 mg in 100 mls @ 100 mls/hr IV Q8 [facility] [place] Last Admin: 09/26/19 05:21 Dose: 100 mls/hr Documented by: Morphine Sulfate () 2 mg IV Q3H PRN PRN PRN Reason: Pain Score 6-10/10 Last Admin: 09/26/19 05:20 Dose: 2 mg Documented by: Nitroglycerin (Nitrostat) 0.4 mg SUBLINGUAL Q5M PRN PRN Reason: CARDIAC/CHEST PAIN Ondansetron HCl (Zofran) 4 mg IV Q8H PRN PRN PRN Reason: NAUSEA/VOMITING Oxycodone HCl (Oxyir) 5 mg PO Q6H PRN PRN PRN Reason: Pain Score 6-10/10 Last Admin: 09/26/19 02:03 Dose: 5 mg Documented by: Senna/Docusate Sodium (Senokot-S, Yamile-Colace) 2 tablet PO BID [facility] [place] Last Admin: 09/25/19 23:00 Dose: 2 tablet Documented by: Sodium Chloride () 10 - 40 ml IV UD PRN PRN Reason: SALINE FLUSH Last Admin: 09/26/19 05:21 Dose: 10 ml Documented by: Medical Necessity - Tobacco Use Smoking Status: Former smoker Assessment/Plan All Active Problems Left lower lobe pneumonia (Acute) Hypotension (Acute) Syncope (Acute) Sinus bradycardia by electrocardiogram (Acute) Pain in right lower leg (Acute) Pain in left lower leg (Acute) Lower extremity edema (Acute) Deep vein thrombophlebitis of right leg (Acute) Superficial thrombophlebitis (Acute) Ulcer with fat layer exposed to right medial ankle s/p debridement 09/25/19 Abscess right ankle s/p I+D on 09/25/19 Chronic Venous insufficiency bilateral lower extremity Lower extremity erythema/cellulitis Tenderness to lower extremities Other comorbidities Continue to follow culture. Continue with board spectrum antibiotics - ID has been consulted. Continue with local wound care - cleansed sites with normal saline solution. Applied aquacel ag to medial right ankle ulcer, applied gently packed gauze to the right lateral ankle I+D site with overlying gauze, kerlix and neptali - change daily. Will consider wound vac in future. Patient had venous Doppler examination of bilateral lower extremities - left soleus DVT noted - DVT management and medical management per medicine team appreciated. Podiatry will continue to follow this patient closely.
--- NOTE | 2019-09-26 06:15 | PN_ITS ---
Patient Problems: Active and Suspected Problems Left lower lobe pneumonia (Acute) Hypotension (Acute) Syncope (Acute) Sinus bradycardia by electrocardiogram (Acute) Pain in right lower leg (Acute) Pain in left lower leg (Acute) Lower extremity edema (Acute) Subjective: Follow-up on CAP/right ankle abscess/cellulitis: Patient was seen and examined. Complains of pain in his legs at times. His itching has been improved. Denied any fever or chills or shortness of breath. Objective: Physical exam: General: Alert, Oriented x3, Cooperative HEENT: Atraumatic, PERRLA, EOMI, Normocephalic Oral: Dry Mucosa Neck: Supple Lungs: Diminished - vesicular BS Cardiovascular: Regular rate, Regular Rhythm, Normal S1, Normal S2, No murmurs Abdomen: Bowel Sounds Present, Soft, Non Tender, Non-Distended, No Hepato- splenomegaly Extremities: - - Bilateral leg petechia erythema up to the mid leg. Chronic venous changes around the right ankle with chronic wound with slough at the base. Hitesh wraps to bilateral legs Skin: Erythematous rash on right antecubital region, close to IV sites, on left forearm close to IV sites and on lower back, bilateral flank regions, itchy per patient Musculoskeletal: No Tenderness to Palpation of Joints or Extremities Lymphatic: No Cervical, Supraclavicular, or Inguinal Adenopathy Neurological: Cranial nerves II-XII grossly intact, Neuro grossly intact Psych/Mental Status: Normal Affect, Appropriate Vitals/I&O's: Vital Signs Temp Pulse Resp BP Pulse Ox 98.3 F 74 18 146/70 H 96 09/26/19 05:34 09/26/19 05:34 09/26/19 05:34 09/26/19 05:34 09/26/19 05:34 Oxygen Flow Rate (L/min) 3 Oxygen Delivery Method Room Air Weight: 91.2 kg Body Mass Index (BMI) 25.7 Orthostatic Vital Signs Start: 09/23/19 05:39 Freq: 0500 Status: Active Protocol: Activity Type Activity Date Activity User E-Sign Co-Sign Detail Recorded Client Recorded Date Recorded By Document 09/26/19 05:00 DCZ [id number] 09/26/19 05:33 DCZ 09/26/19 05:00 Orthostatic Vitals Sitting -Blood Pressure (90/60-120/80) 119/86 H -Extremity Use Right Arm -Pulse Rate (60-100) 93 Lying -Blood Pressure (90/60-120/80) 146/70 H -Extremity Use Right Arm -Pulse Rate (60-100) 74 Intake and Output for Last 24 Hours 09/24/19 09/25/19 09/26/19 23:59 23:59 23:59 Intake Total 380 / 380 1065.00 / 1765.00 1100 / 1100 Output Total 2125 / 2125 950 / 1450 1050 / 1050 Balance -1745 / -1745 115.00 / 315.00 50 / 50 Microbiology Past 72 Hours 09/23/19 13:51 Wound - Leg, Right Gram Stain - Final 09/23/19 13:51 Wound - Leg, Right Wound Culture - Preliminary Gram positive organism 09/23/19 13:51 Wound - Leg, Right Anaerobic Culture - Final No anaerobic bacteria isolated. 09/22/19 10:45 Blood Culture (Wb) - Anticubital Left Blood Culture - Preliminary No growth in 48 hours. 09/22/19 10:35 Blood Culture (Wb) - Left Hand Blood Culture - Preliminary No growth in 48 hours. 09/22/19 13:50 Urine, Clean Catch Urine Culture - Final Culture exhibits no growth. 09/22/19 16:20 Mucosa - Nasopharyngeal Respiratory Panel (PCR) - Final Parainfluenza 1 09/22/19 13:50 Urine, Random Streptococcus pneumoniae Antigen (M - Final 09/22/19 13:50 Urine, Random Legionella Antigen - Final Current Medications Acetaminophen (Tylenol) 650 mg PO Q6H PRN PRN PRN Reason: Pain or Fever Last Admin: 09/26/19 02:03 Dose: 650 mg Documented by: Albuterol Sulfate (Ventolin Aerosols) 2.5 mg INHALATION Q2H PRN PRN PRN Reason: SOB/Wheezing Last Admin: 09/22/19 19:03 Dose: 2.5 mg Documented by: Collagenase (Santyl) 1 applic TOPICAL DAILY [facility]; Protocol Last Admin: 09/25/19 10:22 Dose: 1 applicatio Documented by: Diphenhydramine HCl (Benadryl) 25 mg PO TID PRN PRN PRN Reason: ITCHING Last Admin: 09/26/19 02:17 Dose: 25 mg Documented by: Enoxaparin Sodium (Lovenox) 90 mg SC Q12 [facility] Last Admin: 09/25/19 23:01 Dose: 90 mg Documented by: Ceftriaxone Sodium (Rocephin) 1 gm in 50 mls @ 100 mls/hr IV Q24 [facility] Last Infusion: 09/25/19 12:25 Dose: Infused Documented by: Sodium Chloride () 250 mls @ 15 mls/hr IV .[id number] PRN PRN Reason: Saline Flush Lactated Ringer's () 1,000 mls @ 100 mls/hr IV .Q10H [facility] Last Infusion: 09/26/19 00:00 Dose: 100 mls/hr Documented by: Famotidine 20 mg/ Sodium (Chloride) 10 mls @ 300 mls/hr IV Q12 [facility] Last Infusion: 09/25/19 23:03 Dose: Infused Documented by: Metronidazole (Flagyl) 500 mg in 100 mls @ 100 mls/hr IV Q8 [facility] Last Admin: 09/26/19 05:21 Dose: 100 mls/hr Documented by: Morphine Sulfate () 2 mg IV Q3H PRN PRN PRN Reason: Pain Score 6-10/10 Last Admin: 09/26/19 05:20 Dose: 2 mg Documented by: Nitroglycerin (Nitrostat) 0.4 mg SUBLINGUAL Q5M PRN PRN Reason: CARDIAC/CHEST PAIN Ondansetron HCl (Zofran) 4 mg IV Q8H PRN PRN PRN Reason: NAUSEA/VOMITING Oxycodone HCl (Oxyir) 5 mg PO Q6H PRN PRN PRN Reason: Pain Score 6-10/10 Last Admin: 09/26/19 02:03 Dose: 5 mg Documented by: Senna/Docusate Sodium (Senokot-S, Yamile-Colace) 2 tablet PO BID [facility] Last Admin: 09/25/19 23:00 Dose: 2 tablet Documented by: Sodium Chloride () 10 - 40 ml IV UD PRN PRN Reason: SALINE FLUSH Last Admin: 09/26/19 05:21 Dose: 10 ml Documented by: STROKE Vital Signs/Narrative: Vital Signs Temp Pulse Pulse Pulse Resp BP BP 09/26/19 05:34 98.3 F 74 18 146/70 H 09/26/19 05:00 74 93 146/70 H 09/26/19 03:59 76 BP Pulse Ox 09/26/19 05:34 96 09/26/19 05:00 119/86 H 09/26/19 03:59 Medical Necessity - Tobacco Use Smoking Status: Former smoker Assessment/Plan All Active Problems Left lower lobe pneumonia (Acute) Hypotension (Acute) Syncope (Acute) Sinus bradycardia by electrocardiogram (Acute) Pain in right lower leg (Acute) Pain in left lower leg (Acute) Lower extremity edema (Acute) Deep vein thrombophlebitis of right leg (Acute) Superficial thrombophlebitis (Acute) 1. Allergy to multiple items, h/o skin sensitivites Will not use latex tapes etc Continue on Benadryl prn, famotidine bid 2. MSSA right ankle abscess s/p I & D, cultures are pending No osteomyelitis on MRI No fevers, no leukocytosis IV ceftriaxone and Flagyl. 3. Parainfluenza 1 CAP, left lower lung, improving, not on oxygen, Completed 3 days of IV azithromycin On IV ceftriaxone(day 5) Blood cultures are negative , urine Legionella and strep coccal antigen negative Continue with conservative management with breathing treatments, 4. Cellulitis, bilateral lower extremities, continue on the above antibiotic 5. Left soleal DVT, started on therapeutic Lovenox, will need to be started on oral anticoagulant Case management working on this. 6. Syncope, due to orthostatic hypotension, patient received IV fluids 7. Acute on chronic leg ulcer, dry wound dressing, wound RN consulted, ankle x- ray negative for acute fractures podiatry consulted 8. DVT PPx-on therapeutic Lovenox Code Visit Inpatient E&M: 72420 Subs Hosp L2
[2019-09-26] MEDS: Acetaminophen 325 MG Tablet PO (06:18)
[2019-09-26] MEDS: Lactated Ringers 1,000 ML 100 ML IV ×2 (08:31→20:45)
--- NOTE | 2019-09-26 08:41 | NURSING ---
In to assess patient. the CAMILLE wrap from the left lower leg is down to the ankle. patient states the CAMILLE wraps make the itching much worse. there is some moderately severe dermatitis noted to bilateral shins. patient also has some redness and itching to the right upper arm, back, and left hip. patient does use a Sarna cream to legs at home. orders received for a hydrocortisone cream to be applied as needed to itching. removed the CAMILLE wrap from the LLE and removed the top CAMILLE wrap from the RLE per pt request. Dr Sparks had been in to see patient early this am and changed the dressing and packing from the right medial and lateral ankle wounds. Pt did not want the dressing and packing removed. stated dressing change was very painful this am. there is no breakthrough drainage noted. applied an CAMILLE wrap from the base of the right toes to just above the ankle. pt tolerated well. pt does have a wound photo on his phone from this am's dressing change.
[2019-09-26] MEDS: Senna/Docusate Sodium 1 Tablet 2 TABLET PO ×2 (09:11→20:46)
[2019-09-26] MEDS: Enoxaparin 100 MG/ML Syringe 90 MG SC ×2 (09:12→20:57)
[2019-09-26] MEDS: Ceftriaxone 1 GM/50 ML BAG IV (09:13)
[2019-09-26] MEDS: Famotidine 20 MG Tablet PO ×2 (09:17→20:46)
--- NOTE | 2019-09-26 12:28 | CON.PCM_ITS ---
Problem List (1) Pain in right lower leg Status: Acute Reason for Consult: abscess Consulted by: Dr. Dorsey History of Present Illness: The patient is a 69 year old M with h/o chronic venous insufficiency, problems with R ankle for several years, presented 09/22 with several days of cough with green sputum, not feeling well. Had acute onset of dizziness while getting out of bath. Had some dyspnea. Also reports worsening R ankle swelling, pain, redness, and ulceration. Minimal drainage. Came to ED, admitted on azithro, ceftriaxone for CAP. Viral pcr (+) for parainfluenza. Azithro stopped, flagyl added and podiatry consulted for R ankle abscess seen on MRI. Breathing much better. Taken to OR 09/[address] Sparks for I&D. Full ROS Performed and neg except as noted above. 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) Chronic venous insufficiency (Chronic) Allergies/Adverse Reactions: Allergies ALEKSEY Allergy (Uncoded 09/22/19 10:14) Itching Home Medications: Ambulatory Orders Medication Instructions Recorded Hydrocodone Bitart/Apap 5-325 1 tablet PO Q6H PRN PRN #10 tablet 06/08/17 [[place] 5MG-325MG] Doxycycline Hyclate 1 tab PO BID 09/22/19 Naproxen [Naprosyn] 500 mg PO BID 09/22/19 Apixaban [Eliquis] 5 mg PO BID #30 tab 09/26/19 Apixaban [Eliquis] 10 mg PO BID #14 tab 09/26/19 - Social History SMOKING STATUS:: Former smoker Vital Signs Temp Pulse Resp BP Pulse Ox 98.4 F 65 18 147/72 H 95 09/26/19 10:01 09/26/19 10:01 09/26/19 10:01 09/26/19 10:01 09/26/19 10:01 Oxygen Flow Rate (L/min) 3 Oxygen Delivery Method Room Air Weight: 91.2 kg Body Mass Index (BMI) 25.7 Orthostatic Vital Signs Start: 09/23/19 05:39 Freq: 0500 Status: Active Protocol: Activity Type Activity Date Activity User E-Sign Co-Sign Detail Recorded Client Recorded Date Recorded By Document 09/26/19 05:00 ALENMiguel Ángel [id number] 09/26/19 05:33 DCZ 09/26/19 05:00 Orthostatic Vitals Sitting -Blood Pressure (90/60-120/80) 119/86 H -Extremity Use Right Arm -Pulse Rate (60-100) 93 Lying -Blood Pressure (90/60-120/80) 146/70 H -Extremity Use Right Arm -Pulse Rate (60-100) 74 Microbiology Past 72 Hours 09/25/19 Unknown Gram Stain - Final Biopsy - Ankle 09/23/19 13:51 Gram Stain - Final Wound - Leg, Right Wound Culture - Final Staphylococcus epidermidis Anaerobic Culture - Final No anaerobic bacteria isolated. 09/22/19 10:45 Blood Culture - Preliminary Blood Culture (Wb) - Anticubital Left No growth in 48 hours. 09/22/19 10:35 Blood Culture - Preliminary Blood Culture (Wb) - Left Hand No growth in 48 hours. 09/22/19 13:50 Urine Culture - Final Urine, Clean Catch Culture exhibits no growth. 09/22/19 16:20 Respiratory Panel (PCR) - Final Mucosa - Nasopharyngeal Parainfluenza 1 - Other Studies Radiology: [] reviewed Other Studies: [] Route of nutrition/ use of supplements: [] Nutritional Intake: [] IV Site: [] Drew Catheter: [] - Physical Exam General: Alert, Oriented x3, Cooperative, No apparent distress HEENT: Atraumatic, PERRLA, EOMI Neck: Supple, No Nodes Lungs: Clear to auscultation, Normal air movement Cardiovascular: Regular rate, Regular Rhythm Abdomen: Soft, Non Tender, Non-Distended Extremities: Edema - mild Skin: Incision - RLE wrapped s/p OR IV Site: Peripheral, without redness Neurological: Cranial nerves II-XII grossly intact - Assessment/Plan Antibiotics: [] Assessment/Plan: [] Active and Suspected Problems Left lower lobe pneumonia (Acute) Hypotension (Acute) Syncope (Acute) Sinus bradycardia by electrocardiogram (Acute) Pain in right lower leg (Acute) Pain in left lower leg (Acute) Lower extremity edema (Acute) Parainfluenza 1 with suspected CAP - on ceftriaxone, much improved R ankle abscess - now s/p I&D by Dr. Sparks on 09/25. Wound cx with CoNS, resistant to oxacillin. Will add po doxy in addition to ceftriaxone and flagyl. No bone or joint involvement. Good surg source control, so will only need short course of po abx. Plan on 5 more days of po doxy, omnicef 300mg bid, and flagyl 500mg tid at discharge. Plan may change depending on further cx results. Will follow, thank you.
[2019-09-26] MEDS: Doxycycline 100 MG CAPSULE PO ×2 (13:14→20:46)
[2019-09-26] MEDS: Acetaminophen 500 MG Tablet 1000 MG PO ×2 (13:14→20:46)
--- NOTE | 2019-09-26 13:23 | CASEMGMT ---
Addendum entered by Mumtaz Rome 09/26/19 16:14: Earl Tate, Wound care nurse, Dr Sparks plans for wound vac to be placed tomorrow 09/27 and anticipates discharge Tuesday. She states pt will need wound vac change on Tuesday and then can do either MWF wound vac changes or T/TH/Sat changes. To room to talk with pt about HHC. Pt agreeable to [facility]. Given list of local [facility] agencies. Pt states has no preference. States agreeable to [facility]. Call placed to Olga @ [facility]. Referral made. She was made aware of anticipated discharge Tuesday with next wound vac change being Sat. She states they are able to accept pt for start of care Tuesday. MARY MCKEON to room to inform pt. Pt sleeping at this time. Did not awaken him at this time. Original Note: MARY MCKEON NOTE: Eliquis has been e-scribed to [facility]. Call placed to [facility] and Eliquis 30-day free savings card has been applied. 1st 30-days prescription will be covered @ 100%. Pt/ made aware to talk with PCP re: further refills and if co-pay for refills is not affordable to discuss other options w/PCP as well. Pt/ voice understanding. Airam REECE RN CM
[2019-09-26] MEDS: oxyCODONE 5 MG Tablet 10 MG PO ×3 (13:26→22:38)
--- NOTE | 2019-09-26 14:35 | NURSING ---
Had talked with Dr Sparks about discharge planning. states he plans on possible wound VAC placement tomorrow and possible discharge home Tuesday. home VAC authorization form initiated. discussed plans with MARY Pandya CM. to work on getting home health for VAC changes. pt will also most likely follow up at the wound healing center at discharge. this nurse is out the rest of the week, so will hopefully have the VAC approved and ready in the room for placement tomorrow.
--- NOTE | 2019-09-26 15:47 | NURSING ---
Talked with [facility]. the wound VAC will be approved as soon as they receive the signed home VAC authorization. this is located on the front of the chart for Dr Sparks to sign. this nurse had also faxed a copy to the office, but have not received back. once signed, the form will need faxed back to [facility] using the fax cover sheet located in the chart as well.
[2019-09-26] MEDS: DiphenhydrAMINE 25 MG Capsule 50 MG PO (17:19)
[2019-09-26] MEDS: Hydrocortisone 2.5% Crm 1 APPLIC TOPICAL (22:39)
[2019-09-27] VITALS (10 sets, daily range): BP systolic 115–139; BP diastolic 59–84; PULSE 63–74; RESP 16–18; TEMP 36.6–37; O2SAT 91–96
[2019-09-27] MEDS: oxyCODONE 5 MG Tablet 10 MG PO (02:56)
[2019-09-27] MEDS: Hydrocortisone 2.5% Crm 1 APPLIC TOPICAL ×2 (05:20→17:35)
[2019-09-27] MEDS: metroNIDAZOLE 500 MG/100 ML BAG 100 MG IV ×3 (05:20→21:06)
[2019-09-27] MEDS: Acetaminophen 500 MG Tablet 1000 MG PO ×3 (05:23→21:07)
[2019-09-27 06:08] LABS: Absolute Lymphocyte Count 1.34 X10^3/uL (0.83-4.51); Absolute Neutrophil Count 3.4 X10^3/uL (2.0-7.7); Basophil# 0.03 X10^3/uL; Basophil% 0.5 % (0-1); Eosinophil# 0.31 X10^3/uL; Eosinophils% 5.4 % (0-5); Hematocrit 40.4 % (40-54); Hemoglobin 13.3 g/dL (13.0-16.5); Lymphocyte # 1.34 X10^3/ul (4.0); Lymphocyte % 23.3 % (19-41); Mean Corp Hgb Conc 32.9 g/dL (32-36); Mean Corpuscular Hgb 32.8 pg (27.0-32.0); Mean Corpuscular Volume 99.5 fL (80-94); Mean Platelet Vol. 10.4 fl (6.2-12.0); Monocyte# 0.69 X10^3/uL; NRBC Flagged by Analyzer 0 % (0-5); Neutrophil # 3.37 X10^3/uL (2.7-7.7); Neutrophil % 58.5 % (47-70); Platelet Count 199 K/mm3 (150-450); RBC Distribution Width SD 47.8 fl (35.1-43.9); Red Blood Count 4.06 M/mm3 (4.6-6.2); White Blood Count 5.8 K/mm3 (4.4-11.0)
[2019-09-27 06:29] LABS: Anion Gap 7 (5-15); BUN 23 mg/dL (7-18); BUN/Creat Ratio 26.5 RATIO (10-20); Calcium,Total 8.3 mg/dL (8.5-10.1); Chloride 109 mmol/L (98-107); Creatinine, Serum 0.87 mg/dL (0.70-1.30); EST Glomerular Filtration Rate 93 mL/min (>60); Est Glom Filt Rate - Afr Amer 113 mL/min (>60); Estimated Creatinine Clearance 98.48 ml/min; Glucose 106 mg/dL (74-106); Potassium 3.6 mmol/L (3.5-5.1); Sodium Level 143 mmol/L (136-145)
--- NOTE | 2019-09-27 06:39 | PN_ITS ---
Patient Problems: Active and Suspected Problems Left lower lobe pneumonia (Acute) Hypotension (Acute) Syncope (Acute) Sinus bradycardia by electrocardiogram (Acute) Pain in right lower leg (Acute) Pain in left lower leg (Acute) Lower extremity edema (Acute) Subjective: Patient was seen this morning for follow up on right ankle. He relates ankle is feeling better, slept well, relates less pain and better movement. He relates he would like to try to take less pain medication as ankle is feeling better. He has no new complaints. No complaints of fever, chills, nausea or vomiting. - Physical Exam Vitals/I&O's: Vital Signs Temp Pulse Resp BP Pulse Ox 97.9 F 63 16 128/61 H 96 09/27/19 03:05 09/27/19 03:05 09/27/19 03:05 09/27/19 03:05 09/27/19 03:05 Oxygen Flow Rate (L/min) 3 Oxygen Delivery Method Room Air Weight: 92.714 kg Body Mass Index (BMI) 25.7 Intake and Output for Last 24 Hours 09/25/19 09/26/19 09/27/19 23:59 23:59 23:59 Intake Total 1065.00 / 1765.00 3664.42 / 3664.42 1338.33 / 1338.33 Output Total 950 / 1450 2150 / 2150 800 / 800 Balance 115.00 / 315.00 1514.42 / 1514.42 538.33 / 538.33 General: Alert, Oriented x3, Cooperative, No apparent distress Extremities: Capillary Refill Less than 3 Seconds, No Calf Tenderness, Peripheral Pulses Normal, - - s/p I+D right ankle lateral aspect, also right ankle wound debridement - removed dressing - tissues healthy and viable with no purulence present - there is less erythema and less edema - continued improvement noted, there is no necrosis, no streaking, no maloder present to the right foot/ankle/leg - chronic venous stasis skin changes present. There is soreness to the incision site c/w normal findings at this time - much improved. Better right ankle ROM with less pain. Psych/Mental Status: Appropriate, Alert and oriented to time, place, person, mood and affect Microbiology Past 72 Hours 09/25/19 Unknown Biopsy - Ankle Gram Stain - Final 09/25/19 Unknown Biopsy - Ankle Wound Culture - Preliminary Staphylococcus aureus 09/23/19 13:51 Wound - Leg, Right Gram Stain - Final 09/23/19 13:51 Wound - Leg, Right Wound Culture - Final Staphylococcus epidermidis 09/23/19 13:51 Wound - Leg, Right Anaerobic Culture - Final No anaerobic bacteria isolated. 09/22/19 10:45 Blood Culture (Wb) - Anticubital Left Blood Culture - Preliminary No growth in 48 hours. 09/22/19 10:35 Blood Culture (Wb) - Left Hand Blood Culture - Preliminary No growth in 48 hours. 09/22/19 13:50 Urine, Clean Catch Urine Culture - Final Culture exhibits no growth. Laboratory Results 09/27/19 05:45: WBC 5.8, RBC 4.06 L, Hgb 13.3, Hct 40.4, MCV 99.5 H, MCH 32.8 H, MCHC 32.9, RDW Std Deviation 47.8 H, RDW Coeff of Lui 13.0, Plt Count 199, MPV 10.4, Immature Gran % (Auto) 0.300, Neut % (Auto) 58.5, Lymph % (Auto) 23.3, [place] % (Auto) 12.0 H, Eos % (Auto) 5.4 H, Baso % (Auto) 0.5, Absolute Neuts (auto) 3.4, Absolute Lymphs (auto) 1.34, Nucleated RBC % 0 09/27/19 05:45: Sodium 143, Potassium 3.6, Chloride 109 H, Carbon Dioxide 27.0, Anion Gap 7, BUN 23 H, Creatinine 0.87, Estim Creat Clear Calc 98.48, Est GFR (MDRD) Af Amer 113, Est GFR (MDRD) Non-Af 93, BUN/Creatinine Ratio 26.5 H, Glucose 106, Calcium 8.3 L Current Medications Acetaminophen (Tylenol) 1,000 mg PO Q8 [facility] Last Admin: 09/27/19 05:23 Dose: 1,000 mg Documented by: Albuterol Sulfate (Ventolin Aerosols) 2.5 mg INHALATION Q2H PRN PRN PRN Reason: SOB/Wheezing Last Admin: 09/22/19 19:03 Dose: 2.5 mg Documented by: Collagenase (Santyl) 1 applic TOPICAL DAILY [facility]; Protocol Last Admin: 09/26/19 09:12 Dose: Not Given Documented by: Diphenhydramine HCl (Benadryl) 50 mg PO TID PRN PRN PRN Reason: ITCHING Last Admin: 09/26/19 17:19 Dose: 50 mg Documented by: Doxycycline Monohydrate (Doxycycline) 100 mg PO BID [facility] Last Admin: 09/26/19 20:46 Dose: 100 mg Documented by: Enoxaparin Sodium (Lovenox) 90 mg SC Q12 [facility] Last Admin: 09/26/19 20:57 Dose: 90 mg Documented by: Famotidine (Pepcid) 20 mg PO BID [facility] Last Admin: 09/26/19 20:46 Dose: 20 mg Documented by: Hydrocortisone (Hytone) 1 applic TOPICAL BID PRN PRN; Protocol PRN Reason: ITCHING Last Admin: 09/27/19 05:20 Dose: 1 applicatio Documented by: Ceftriaxone Sodium (Rocephin) 1 gm in 50 mls @ 100 mls/hr IV Q24 [facility] Last Infusion: 09/26/19 09:50 Dose: Infused Documented by: Sodium Chloride () 250 mls @ 15 mls/hr IV .[id number] PRN PRN Reason: Saline Flush Last Infusion: 09/26/19 20:57 Dose: 0 mls/hr Documented by: Lactated Ringer's () 1,000 mls @ 100 mls/hr IV .Q10H [facility] Last Infusion: 09/27/19 06:20 Dose: 100 mls/hr Documented by: Metronidazole (Flagyl) 500 mg in 100 mls @ 100 mls/hr IV Q8 [facility] Last Infusion: 09/27/19 06:20 Dose: Infused Documented by: Morphine Sulfate () 2 mg IV Q3H PRN PRN PRN Reason: Pain Score 6-10/10 Last Admin: 09/26/19 05:20 Dose: 2 mg Documented by: Nitroglycerin (Nitrostat) 0.4 mg SUBLINGUAL Q5M PRN PRN Reason: CARDIAC/CHEST PAIN Ondansetron HCl (Zofran) 4 mg IV Q8H PRN PRN PRN Reason: NAUSEA/VOMITING Oxycodone HCl (Oxyir) 10 mg PO Q4H PRN PRN PRN Reason: Pain Score 6-10/10 Last Admin: 09/27/19 02:56 Dose: 10 mg Documented by: Senna/Docusate Sodium (Senokot-S, Yamile-Colace) 2 tablet PO BID [facility] Last Admin: 09/26/19 20:46 Dose: 2 tablet Documented by: Sodium Chloride () 10 - 40 ml IV UD PRN PRN Reason: SALINE FLUSH Last Admin: 09/26/19 05:21 Dose: 10 ml Documented by: Medical Necessity - Tobacco Use Smoking Status: Former smoker Assessment/Plan All Active Problems Left lower lobe pneumonia (Acute) Hypotension (Acute) Syncope (Acute) Sinus bradycardia by electrocardiogram (Acute) Pain in right lower leg (Acute) Pain in left lower leg (Acute) Lower extremity edema (Acute) Deep vein thrombophlebitis of right leg (Acute) Superficial thrombophlebitis (Acute) Ulcer with fat layer exposed to right medial ankle s/p debridement 09/25/19 Abscess right ankle s/p I+D on 09/25/19 Chronic Venous insufficiency bilateral lower extremity Lower extremity erythema/cellulitis Tenderness to lower extremities Other comorbidities Continued improvement noted to right ankle. Ordered wound vac to be applied to wound sites - 125mmHg continuous - plan is to apply today, and will monitor to make sure he does well. Cleansed ulcers with normal saline solution. Applied aquacel ag to medial ankle ulcer. Applied overlying gauze, kerlix and neptali dressing. Continue with board spectrum antibiotics - ID is following. Patient had venous Doppler examination of bilateral lower extremities - left soleus DVT noted - DVT management and medical management per medicine team appreciated. Podiatry will continue to follow this patient closely.
--- NOTE | 2019-09-27 07:08 | NURSING ---
faxed [facility] wound vac form signed by dr tan notify nick loera to follow up
[2019-09-27] MEDS: Lactated Ringers 1,000 ML 100 ML IV ×2 (08:49→21:06)
[2019-09-27] MEDS: Senna/Docusate Sodium 1 Tablet 2 TABLET PO ×2 (08:49→21:07)
[2019-09-27] MEDS: Doxycycline 100 MG CAPSULE PO ×2 (08:49→21:06)
[2019-09-27] MEDS: Famotidine 20 MG Tablet PO ×2 (08:49→21:06)
[2019-09-27] MEDS: Enoxaparin 100 MG/ML Syringe 90 MG SC ×2 (08:50→21:06)
[2019-09-27] MEDS: DiphenhydrAMINE 25 MG Capsule 50 MG PO ×2 (08:55→16:14)
--- NOTE | 2019-09-27 10:32 | PCM.PN.HOSP ---
Patient Problems: Active and Suspected Problems Left lower lobe pneumonia (Acute) Hypotension (Acute) Syncope (Acute) Sinus bradycardia by electrocardiogram (Acute) Pain in right lower leg (Acute) Pain in left lower leg (Acute) Lower extremity edema (Acute) Reason for Visit: F/U Foot and ankle ulcer. Vitals/I&O's: Vital Signs Temp Pulse Resp BP Pulse Ox 98.3 F 70 18 138/72 H 98 09/28/19 03:15 09/28/19 06:52 09/28/19 03:15 09/28/19 03:15 09/28/19 03:15 Oxygen Flow Rate (L/min) 3 Oxygen Delivery Method Room Air Weight: 204 lb 4 oz Body Mass Index (BMI) 25.7 Intake and Output for Last 24 Hours 09/26/19 09/27/19 09/28/19 23:59 23:59 23:59 Intake Total 3664.42 / 3664.42 3854.00 / 3854.00 835 / 835 Output Total 2150 / 2150 2150 / 2150 450 / 450 Balance 1514.42 / 1514.42 1704.00 / 1704.00 385 / 385 General: Alert, Oriented x3, Cooperative HEENT: Atraumatic, PERRLA, EOMI, Normocephalic Neck: Supple, No JVD, Negative Carotid Bruits Lungs: Clear to auscultation, Normal air movement, No rhonchi, No wheeze, No rales Cardiovascular: Regular rate, Regular Rhythm, Normal S1, Normal S2, No murmurs Abdomen: Bowel Sounds Present, Soft, Non Tender, Non-Distended Extremities: No edema, Capillary Refill Less than 3 Seconds Skin: Ulcer/ Wound - Right medial ankle deep ulcer present. Wound photo reviewed. Musculoskeletal: No Tenderness to Palpation of Joints or Extremities, Arthritic Changes Neurological: Cranial nerves II-XII grossly intact, Deep Tendon Reflexes 2+/4 and Symmetrical, Neuro grossly intact Psych/Mental Status: Normal Affect, Appropriate Microbiology Past 72 Hours 09/22/19 10:45 Blood Culture (Wb) - Anticubital Left Blood Culture - Final No growth in 5 days. 09/22/19 10:35 Blood Culture (Wb) - Left Hand Blood Culture - Final No growth in 5 days. 09/25/19 Unknown Biopsy - Ankle Gram Stain - Final 09/25/19 Unknown Biopsy - Ankle Wound Culture - Final Staphylococcus aureus 09/23/19 13:51 Wound - Leg, Right Gram Stain - Final 09/23/19 13:51 Wound - Leg, Right Wound Culture - Final Staphylococcus epidermidis 09/23/19 13:51 Wound - Leg, Right Anaerobic Culture - Final No anaerobic bacteria isolated. Current Medications Acetaminophen (Tylenol) 1,000 mg PO Q8 [facility] Last Admin: 09/28/19 05:27 Dose: 1,000 mg Documented by: Albuterol Sulfate (Ventolin Aerosols) 2.5 mg INHALATION Q2H PRN PRN PRN Reason: SOB/Wheezing Last Admin: 09/22/19 19:03 Dose: 2.5 mg Documented by: Collagenase (Santyl) 1 applic TOPICAL DAILY [facility]; Protocol Last Admin: 09/27/19 08:50 Dose: Not Given Documented by: Diphenhydramine HCl (Benadryl) 50 mg PO TID PRN PRN PRN Reason: ITCHING Last Admin: 09/27/19 16:14 Dose: 50 mg Documented by: Doxycycline Monohydrate (Doxycycline) 100 mg PO BID [facility] Last Admin: 09/27/19 21:06 Dose: 100 mg Documented by: Enoxaparin Sodium (Lovenox) 90 mg SC Q12 [facility] Last Admin: 09/27/19 21:06 Dose: 90 mg Documented by: Famotidine (Pepcid) 20 mg PO BID [facility] Last Admin: 09/27/19 21:06 Dose: 20 mg Documented by: Hydrocortisone (Hytone) 1 applic TOPICAL BID PRN PRN; Protocol PRN Reason: ITCHING Last Admin: 09/27/19 17:35 Dose: 1 applicatio Documented by: Ceftriaxone Sodium (Rocephin) 1 gm in 50 mls @ 100 mls/hr IV Q24 [facility] Last Infusion: 09/27/19 11:15 Dose: Infused Documented by: Sodium Chloride () 250 mls @ 15 mls/hr IV .[id number] PRN PRN Reason: Saline Flush Last Infusion: 09/27/19 12:31 Dose: 0 mls/hr Documented by: Lactated Ringer's () 1,000 mls @ 100 mls/hr IV .Q10H [facility] Last Infusion: 09/28/19 06:27 Dose: 100 mls/hr Documented by: Metronidazole (Flagyl) 500 mg PO Q8 [facility] Morphine Sulfate () 2 mg IV Q3H PRN PRN PRN Reason: Pain Score 6-10/10 Last Admin: 09/26/19 05:20 Dose: 2 mg Documented by: Nitroglycerin (Nitrostat) 0.4 mg SUBLINGUAL Q5M PRN PRN Reason: CARDIAC/CHEST PAIN Ondansetron HCl (Zofran) 4 mg IV Q8H PRN PRN PRN Reason: NAUSEA/VOMITING Last Admin: 09/27/19 16:51 Dose: 4 mg Documented by: Oxycodone HCl (Oxyir) 10 mg PO Q4H PRN PRN PRN Reason: Pain Score 6-10/10 Last Admin: 09/27/19 02:56 Dose: 10 mg Documented by: Senna/Docusate Sodium (Senokot-S, Yamile-Colace) 2 tablet PO BID [facility] Last Admin: 09/27/19 21:07 Dose: 2 tablet Documented by: Sodium Chloride () 10 - 40 ml IV UD PRN PRN Reason: SALINE FLUSH Last Admin: 09/27/19 16:52 Dose: 10 ml Documented by: STROKE Vital Signs/Narrative: Vital Signs Pulse 09/28/19 06:52 70 Medical Necessity - Tobacco Use Smoking Status: Former smoker Assessment/Plan All Active Problems Left lower lobe pneumonia (Acute) Hypotension (Acute) Syncope (Acute) Sinus bradycardia by electrocardiogram (Acute) Pain in right lower leg (Acute) Pain in left lower leg (Acute) Lower extremity edema (Acute) Deep vein thrombophlebitis of right leg (Acute) Superficial thrombophlebitis (Acute) This 69-year-old gentleman was admitted with one-week history of upper respiratory symptoms cough and syncopal episode. Patient also had bilateral leg erythema and chronic right ankle ulcer. Patient was started on doxycycline by PCP day before admission. On admission, patient blood pressure was low 69/52. She was admitted to PCU. 1. MSSA and Rright ankle abscess s/p I & D: Patient has not had fever. No osteomyelitis on MRINo fevers, no leukocytosis IV ceftriaxone and Flagyl. Wound culture with culture is negative it is changed to oxacillin. Surgical culture MSSA. 3. Parainfluenza 1 left lower lung, Completed 3 days of IV azithromycin On IV ceftriaxone(day 6). Blood cultures are negative , urine Legionella and strep coccal antigen negative Continue with conservative management with breathing treatments 4. Cellulitis, bilateral lower extremities, continue on the above antibiotic 09/28: Resolved 5. Left soleal DVT, started on therapeutic Lovenox Case management working on this. On Lovenox 6. Syncope, due to orthostatic hypotension, patient received IV fluids 09/28: Resolved 7. Acute on chronic leg ulcer, dry wound dressing, wound RN consulted, ankle x-ray negative for acute fractures podiatry consulted 8. Allergy to multiple items, h/o skin sensitivites Will not use latex tapes etc Continue on Benadryl prn, famotidine bid DVT PPx-on therapeutic Lovenox Code Visit Inpatient E&M: 26526 Subs Hosp L2
[2019-09-27] MEDS: Ceftriaxone 1 GM/50 ML BAG IV (10:45)
[2019-09-27] MEDS: Ondansetron 4 MG/2 ML Vial IV (16:51)
[2019-09-27] MEDS: 0.9% Saline Lock 10 ML Syringe IV (16:52)
[2019-09-28 03:00] VITALS: PULSE 54
[2019-09-28 03:15] VITALS: BP 138/72; PULSE 64; RESP 18; TEMP 36.8; O2SAT 98
[2019-09-28] MEDS: metroNIDAZOLE 500 MG/100 ML BAG 100 MG IV (05:27)
[2019-09-28] MEDS: Acetaminophen 500 MG Tablet 1000 MG PO ×2 (05:27→15:17)
[2019-09-28 06:52] VITALS: PULSE 70
[2019-09-28 07:32] VITALS: O2SAT 92
--- NOTE | 2019-09-28 08:33 | PCM.PN.HOSP ---
Patient Problems: Active and Suspected Problems Left lower lobe pneumonia (Acute) Hypotension (Acute) Syncope (Acute) Sinus bradycardia by electrocardiogram (Acute) Pain in right lower leg (Acute) Pain in left lower leg (Acute) Lower extremity edema (Acute) Vitals/I&O's: Vital Signs Temp Pulse Resp BP Pulse Ox 98.3 F 70 18 138/72 H 98 09/28/19 03:15 09/28/19 06:52 09/28/19 03:15 09/28/19 03:15 09/28/19 03:15 Oxygen Flow Rate (L/min) 3 Oxygen Delivery Method Room Air Weight: 204 lb 4 oz Body Mass Index (BMI) 25.7 Intake and Output for Last 24 Hours 09/26/19 09/27/19 09/28/19 23:59 23:59 23:59 Intake Total 3664.42 / 3664.42 3854.00 / 3854.00 835 / 835 Output Total 2150 / 2150 2150 / 2150 450 / 450 Balance 1514.42 / 1514.42 1704.00 / 1704.00 385 / 385 Microbiology Past 72 Hours 09/22/19 10:45 Blood Culture (Wb) - Anticubital Left Blood Culture - Final No growth in 5 days. 09/22/19 10:35 Blood Culture (Wb) - Left Hand Blood Culture - Final No growth in 5 days. 09/25/19 Unknown Biopsy - Ankle Gram Stain - Final 09/25/19 Unknown Biopsy - Ankle Wound Culture - Final Staphylococcus aureus 09/23/19 13:51 Wound - Leg, Right Gram Stain - Final 09/23/19 13:51 Wound - Leg, Right Wound Culture - Final Staphylococcus epidermidis 09/23/19 13:51 Wound - Leg, Right Anaerobic Culture - Final No anaerobic bacteria isolated. Current Medications Acetaminophen (Tylenol) 1,000 mg PO Q8 [facility] Last Admin: 09/28/19 05:27 Dose: 1,000 mg Documented by: Albuterol Sulfate (Ventolin Aerosols) 2.5 mg INHALATION Q2H PRN PRN PRN Reason: SOB/Wheezing Last Admin: 09/22/19 19:03 Dose: 2.5 mg Documented by: Collagenase (Santyl) 1 applic TOPICAL DAILY [facility]; Protocol Last Admin: 09/27/19 08:50 Dose: Not Given Documented by: Diphenhydramine HCl (Benadryl) 50 mg PO TID PRN PRN PRN Reason: ITCHING Last Admin: 09/27/19 16:14 Dose: 50 mg Documented by: Doxycycline Monohydrate (Doxycycline) 100 mg PO BID [facility] Last Admin: 09/27/19 21:06 Dose: 100 mg Documented by: Enoxaparin Sodium (Lovenox) 90 mg SC Q12 [facility] Last Admin: 09/27/19 21:06 Dose: 90 mg Documented by: Famotidine (Pepcid) 20 mg PO BID [facility] Last Admin: 09/27/19 21:06 Dose: 20 mg Documented by: Hydrocortisone (Hytone) 1 applic TOPICAL BID PRN PRN; Protocol PRN Reason: ITCHING Last Admin: 09/27/19 17:35 Dose: 1 applicatio Documented by: Ceftriaxone Sodium (Rocephin) 1 gm in 50 mls @ 100 mls/hr IV Q24 [facility] Last Infusion: 09/27/19 11:15 Dose: Infused Documented by: Sodium Chloride () 250 mls @ 15 mls/hr IV .[id number] PRN PRN Reason: Saline Flush Last Infusion: 09/27/19 12:31 Dose: 0 mls/hr Documented by: Lactated Ringer's () 1,000 mls @ 100 mls/hr IV .Q10H [facility] Last Infusion: 09/28/19 06:27 Dose: 100 mls/hr Documented by: Metronidazole (Flagyl) 500 mg PO Q8 [facility] Morphine Sulfate () 2 mg IV Q3H PRN PRN PRN Reason: Pain Score 6-10/10 Last Admin: 09/26/19 05:20 Dose: 2 mg Documented by: Nitroglycerin (Nitrostat) 0.4 mg SUBLINGUAL Q5M PRN PRN Reason: CARDIAC/CHEST PAIN Ondansetron HCl (Zofran) 4 mg IV Q8H PRN PRN PRN Reason: NAUSEA/VOMITING Last Admin: 09/27/19 16:51 Dose: 4 mg Documented by: Oxycodone HCl (Oxyir) 10 mg PO Q4H PRN PRN PRN Reason: Pain Score 6-10/10 Last Admin: 09/27/19 02:56 Dose: 10 mg Documented by: Senna/Docusate Sodium (Senokot-S, Yamile-Colace) 2 tablet PO BID [facility] Last Admin: 09/27/19 21:07 Dose: 2 tablet Documented by: Sodium Chloride () 10 - 40 ml IV UD PRN PRN Reason: SALINE FLUSH Last Admin: 09/27/19 16:52 Dose: 10 ml Documented by: STROKE Vital Signs/Narrative: Vital Signs Pulse 09/28/19 06:52 70 Medical Necessity - Tobacco Use Smoking Status: Former smoker Assessment/Plan All Active Problems Left lower lobe pneumonia (Acute) Hypotension (Acute) Syncope (Acute) Sinus bradycardia by electrocardiogram (Acute) Pain in right lower leg (Acute) Pain in left lower leg (Acute) Lower extremity edema (Acute) Deep vein thrombophlebitis of right leg (Acute) Superficial thrombophlebitis (Acute)
[2019-09-28 09:00] VITALS: BP 139/70; PULSE 61; RESP 16; TEMP 36.9; O2SAT 94
[2019-09-28] MEDS: Enoxaparin 100 MG/ML Syringe 90 MG SC (09:03)
[2019-09-28] MEDS: Ceftriaxone 1 GM/50 ML BAG IV (09:03)
[2019-09-28] MEDS: Famotidine 20 MG Tablet PO (09:03)
[2019-09-28] MEDS: Doxycycline 100 MG CAPSULE PO (09:03)
[2019-09-28] MEDS: 0.9% Saline Lock 10 ML Syringe IV ×2 (09:04→10:24)
[2019-09-28] MEDS: Senna/Docusate Sodium 1 Tablet 2 TABLET PO (09:04)
[2019-09-28] MEDS: DiphenhydrAMINE 25 MG Capsule 50 MG PO (10:21)
[2019-09-28] MEDS: Hydrocortisone 2.5% Crm 1 APPLIC TOPICAL (10:21)
[2019-09-28] MEDS: Lactated Ringers 1,000 ML 100 ML IV (10:23)
[2019-09-28] MEDS: Collagenase 30gm Tube 1 APPLIC TOPICAL (10:29)
--- NOTE | 2019-09-28 11:31 | DCINST_ITS ---
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 (Chronic) Pain in right lower leg (Acute) Pain in left lower leg (Acute) Lower extremity edema (Acute) You will use the following diet at home:: Cardiac Your food should be the consistency of: Regular Discharge Activity: May Not Drive Call your doctor if you observe: Fever of 101 or Higher, Coldness, Increased Pain, Numbness or Tingling, Inability to urinate, Inability to have a bowel move ment, Shortness of breath, Dizziness, Fainting spells, Swelling in the ankles, Chest pain, Increased palpitations (irregular heartbeat), Calf discomfort, Uncontrolled pain Allergies/Adverse Reactions: Allergies ALEKSEY Allergy (Uncoded 09/22/19 10:14) Itching Medications to take at Discharge Hydrocodone Bitart/Apap 5-325 [[place] 5/325] 1 tablet PO Q6H PRN PRN #10 tablet 06/08/17 Apixaban [Eliquis] 5 mg PO BID #30 tab 09/26/19 Apixaban [Eliquis] 10 mg PO BID #14 tab 09/26/19 Collagenase [Santyl] 1 applic TOPICAL DAILY #1 tube 09/28/19 Doxycycline 100 mg PO BID #14 cap 09/28/19 Naproxen [Naprosyn] 500 mg PO BID PRN PRN #0 09/28/19 Senna/Docusate Sodium [Senokot-S] 2 tablet PO BID PRN PRN tablet 09/28/19 The following prescriptions were given: Doxycycline 100 mg PO BID #14 cap Transmission Status: Received by [facility] Apixaban [Eliquis] 10 mg PO BID #14 tab Transmission Status: Received by [facility] Apixaban [Eliquis] 5 mg PO BID #30 tab Transmission Status: Received by [facility] Collagenase [Santyl] 1 applic TOPICAL DAILY #1 tube Transmission Status: Pending to [facility] Primary Care Physician: Lacy Callejas [Primary Care Provider] - Please follow up with your Primary Care Physician in: in 1-2 week Test Results: Test results from this visit will be discussed in further detail at your follow- up appointment, if applicable. Please Follow Up With: Belem Stone Please Follow Up With: David Kimble MD When: as needed for wound abscess in 2 weeks
--- NOTE | 2019-09-28 13:02 | CASEMGMT ---
Per [employer], wound vac has been approved. Vac to be applied here and then pt to be discharged today. Per Lea, wound care nurse, pt will not need Vac changed until 10/01/19 then and Gia at [facility] updated at this time, voices understanding. Gregg, pipe out worker, aware and states she will place vac for pt when available unless Dr. Sparks would like to when he sees pt. Dr. Gautam update on all, voices understanding. Abdulaziz HERNANDEZ CM
--- NOTE | 2019-09-28 13:25 | PCM.PN.ID ---
Patient Problems: Active and Suspected Problems Left lower lobe pneumonia (Acute) Hypotension (Acute) Syncope (Acute) Sinus bradycardia by electrocardiogram (Acute) Pain in right lower leg (Acute) Pain in left lower leg (Acute) Lower extremity edema (Acute) Subjective: Feeling better, no fever, mild nausea - Physical Exam Vitals/I&O's: Vital Signs Temp Pulse Resp BP Pulse Ox 98.4 F 61 16 139/70 H 94 09/28/19 09:00 09/28/19 09:00 09/28/19 09:00 09/28/19 09:00 09/28/19 09:00 Oxygen Flow Rate (L/min) 3 Oxygen Delivery Method Room Air Weight: 92.646 kg Body Mass Index (BMI) 25.7 Intake and Output for Last 24 Hours 09/26/19 09/27/19 09/28/19 23:59 23:59 23:59 Intake Total 3664.42 / 3664.42 3854.00 / 3854.00 1150 / 1150 Output Total 2150 / 2150 2150 / 2150 450 / 450 Balance 1514.42 / 1514.42 1704.00 / 1704.00 700 / 700 General: Alert, Cooperative, No apparent distress Lungs: Clear to auscultation, Normal air movement Cardiovascular: Regular rate, Regular Rhythm Abdomen: Soft, Non Tender, Non-Distended Skin: Ulcer/ Wound - leg wrapped Microbiology Past 72 Hours 09/25/19 Unknown Biopsy - Ankle Gram Stain - Final 09/25/19 Unknown Biopsy - Ankle Wound Culture - Final Staphylococcus aureus 09/25/19 Unknown Biopsy - Ankle Anaerobic Culture - Preliminary No growth in 48 hours. 09/22/19 10:45 Blood Culture (Wb) - Anticubital Left Blood Culture - Final No growth in 5 days. 09/22/19 10:35 Blood Culture (Wb) - Left Hand Blood Culture - Final No growth in 5 days. 09/23/19 13:51 Wound - Leg, Right Gram Stain - Final 09/23/19 13:51 Wound - Leg, Right Wound Culture - Final Staphylococcus epidermidis 09/23/19 13:51 Wound - Leg, Right Anaerobic Culture - Final No anaerobic bacteria isolated. Current Medications Acetaminophen (Tylenol) 1,000 mg PO Q8 [facility] Last Admin: 09/28/19 05:27 Dose: 1,000 mg Documented by: Albuterol Sulfate (Ventolin Aerosols) 2.5 mg INHALATION Q2H PRN PRN PRN Reason: SOB/Wheezing Last Admin: 09/22/19 19:03 Dose: 2.5 mg Documented by: Collagenase (Santyl) 1 applic TOPICAL DAILY [facility]; Protocol Last Admin: 09/28/19 10:29 Dose: 1 applicatio Documented by: Diphenhydramine HCl (Benadryl) 50 mg PO TID PRN PRN PRN Reason: ITCHING Last Admin: 09/28/19 10:21 Dose: 50 mg Documented by: Doxycycline Monohydrate (Doxycycline) 100 mg PO BID [facility] Last Admin: 09/28/19 09:03 Dose: 100 mg Documented by: Enoxaparin Sodium (Lovenox) 90 mg SC Q12 [facility] Last Admin: 09/28/19 09:03 Dose: 90 mg Documented by: Famotidine (Pepcid) 20 mg PO BID [facility] Last Admin: 09/28/19 09:03 Dose: 20 mg Documented by: Hydrocortisone (Hytone) 1 applic TOPICAL BID PRN PRN; Protocol PRN Reason: ITCHING Last Admin: 09/28/19 10:21 Dose: 1 applicatio Documented by: Sodium Chloride () 250 mls @ 15 mls/hr IV .[id number] PRN PRN Reason: Saline Flush Last Infusion: 09/28/19 09:53 Dose: 0 mls/hr Documented by: Lactated Ringer's () 1,000 mls @ 100 mls/hr IV .Q10H COUNT [facility]CLUD[facility] Last Admin: 09/28/19 10:23 Dose: 100 mls/hr Documented by: Morphine Sulfate () 2 mg IV Q3H PRN PRN PRN Reason: Pain Score 6-10/10 Last Admin: 09/26/19 05:20 Dose: 2 mg Documented by: Nitroglycerin (Nitrostat) 0.4 mg SUBLINGUAL Q5M PRN PRN Reason: CARDIAC/CHEST PAIN Ondansetron HCl (Zofran) 4 mg IV Q8H PRN PRN PRN Reason: NAUSEA/VOMITING Last Admin: 09/27/19 16:51 Dose: 4 mg Documented by: Oxycodone HCl (Oxyir) 10 mg PO Q4H PRN PRN PRN Reason: Pain Score 6-10/10 Last Admin: 09/27/19 02:56 Dose: 10 mg Documented by: Senna/Docusate Sodium (Senokot-S, Yamile-Colace) 2 tablet PO BID [facility] Last Admin: 09/28/19 09:04 Dose: 2 tablet Documented by: Sodium Chloride () 10 - 40 ml IV UD PRN PRN Reason: SALINE FLUSH Last Admin: 09/28/19 10:24 Dose: 10 ml Documented by: Medical Necessity - Tobacco Use Smoking Status: Former smoker Route of nutrition/ use of supplements: [] Nutritional Intake: [] IV Site: [] Drew Catheter: [] - Assessment/Plan Antibiotics: [] Assessment/Plan: [] Active and Suspected Problems Left lower lobe pneumonia (Acute) Hypotension (Acute) Syncope (Acute) Sinus bradycardia by electrocardiogram (Acute) Pain in right lower leg (Acute) Pain in left lower leg (Acute) Lower extremity edema (Acute) Parainfluenza 1 with suspected CAP - on ceftriaxone, much improved R ankle abscess - now s/p I&D by Dr. Sparks on 09/25. Wound cx with CoNS, resistant to oxacillin. Surg cx with MSSA. Ok for d/c home on one week of doxy. Wrote rx. Will follow as needed.
--- NOTE | 2019-09-28 13:32 | DS.PCM_ITS ---
Discharge Date and Diagnosis - Problem List Patient Problems: Active and Suspected Problems Left lower lobe pneumonia (Acute) Hypotension (Acute) Syncope (Acute) Sinus bradycardia by electrocardiogram (Acute) Pain in right lower leg (Acute) Pain in left lower leg (Acute) Lower extremity edema (Acute) Date of Admission: 09/22/19 Date of Discharge: 09/28/19 - Primary Discharge Diagnosis Active and Suspected Problems Left lower lobe pneumonia (Acute) Hypotension (Acute) Syncope (Acute) Sinus bradycardia by electrocardiogram (Acute) Pain in right lower leg (Acute) Pain in left lower leg (Acute) Lower extremity edema (Acute) - Secondary Discharge Diagnosis Chronic Problems 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 Patient also had bilateral leg erythema and chronic right ankle ulcer consistent with venous ulcer secondary to chronic venous insufficiency and cellulitis. Patient was started on doxycycline by PCP day before admission. On admission, patient blood pressure was low 69/52. The patient was admitted to PCU. 1. MSSA and Rright ankle abscess s/p I & D: Patient has not had fever. No osteomyelitis on MRINo fevers, no leukocytosis IV ceftriaxone and Flagyl. Wound culture with culture is negative it is changed to oxacillin. Surgical culture MSSA. 09/28: Patient was seen by ID. Ceftriaxone and Flagyl discontinued. Discharged on doxycycline for 7 more days. 3. Parainfluenza 1 left lower lung, Completed 3 days of IV azithromycin On IV ceftriaxone(day 6). Blood cultures are negative , urine Legionella and strep coccal antigen negative Continue with conservative management with breathing treatments 09/28: No respiratory symptoms of cough or shortness of breath. Pneumonia. 4. Cellulitis, bilateral lower extremities, continue on the above antibiotic 09/28: Resolved 5. Left soleal DVT, started on therapeutic Lovenox Case management working on this. On Lovenox 6. Syncope, due to orthostatic hypotension, patient received IV fluids 09/28: Resolved 7. Acute on chronic leg ulcer, dry wound dressing, wound RN consulted, ankle x- ray negative for acute fractures podiatry consulted dressing was done. Patient was seen by wound care nurse. Needs wound VAC 8. Allergy to multiple items, h/o skin sensitivites Latex tapes are contraindicated. Continue on Benadryl prn, famotidine bid DVT PPx-on therapeutic Lovenox Discharge medication reconciliation done. Discharge follow-up instructions completed. Discharge process discussed with the patient and all questions were answered to patient's satisfaction. Total time spent, exact 35 minutes on discharge meds reconciliation, examination, review of imaging and blood test and discussion with the patient on follow-up instructions. Patient Problems: Active and Suspected Problems Left lower lobe pneumonia (Acute) Hypotension (Acute) Syncope (Acute) Sinus bradycardia by electrocardiogram (Acute) Pain in right lower leg (Acute) Pain in left lower leg (Acute) Lower extremity edema (Acute) Subjective: Seen and examined. Patient cellulitis is resolved. Mild muscle atrophy. No fever or chills. Hemodynamically stable. Objective: General: Alert, Oriented x3, Cooperative HEENT: Atraumatic, PERRLA, EOMI, Normocephalic Neck: Supple, No JVD, Negative Carotid Bruits Lungs: Clear to auscultation, Normal air movement, No rhonchi, No wheeze, No rales Cardiovascular: Regular rate, Regular Rhythm, Normal S1, Normal S2, No murmurs Abdomen: Bowel Sounds Present, Soft, Non Tender, Non-Distended Extremities: No edema, Capillary Refill Less than 3 Seconds Skin: Right medial ankle deep ulcer present. Chronic venous insufficiency. Purplish discoloration of right lower leg suggestive of venous hypertension and stasis dermatitis. Musculoskeletal: No Tenderness to Palpation of Joints or Extremities, Arthritic Changes Neurological: Cranial nerves II-XII grossly intact, Deep Tendon Reflexes 2+/4 and Symmetrical, Neuro grossly intact Psych/Mental Status: Normal Affect, Appropriate - Physical Exam Vitals/I&O's: Vital Signs Temp Pulse Resp BP Pulse Ox 98.4 F 61 16 139/70 H 94 09/28/19 09:00 09/28/19 09:00 09/28/19 09:00 09/28/19 09:00 09/28/19 09:00 Oxygen Flow Rate (L/min) 3 Oxygen Delivery Method Room Air Weight: 204 lb 4 oz Body Mass Index (BMI) 25.7 Intake and Output for Last 24 Hours 09/26/19 09/27/19 09/28/19 23:59 23:59 23:59 Intake Total 3664.42 / 3664.42 3854.00 / 3854.00 1150 / 1150 Output Total 2150 / 2150 2150 / 2150 450 / 450 Balance 1514.42 / 1514.42 1704.00 / 1704.00 700 / 700 Microbiology Past 72 Hours 09/25/19 Unknown Biopsy - Ankle Gram Stain - Final 09/25/19 Unknown Biopsy - Ankle Wound Culture - Final Staphylococcus aureus 09/25/19 Unknown Biopsy - Ankle Anaerobic Culture - Preliminary No growth in 48 hours. 09/22/19 10:45 Blood Culture (Wb) - Anticubital Left Blood Culture - Final No growth in 5 days. 09/22/19 10:35 Blood Culture (Wb) - Left Hand Blood Culture - Final No growth in 5 days. 09/23/19 13:51 Wound - Leg, Right Gram Stain - Final 09/23/19 13:51 Wound - Leg, Right Wound Culture - Final Staphylococcus epidermidis 09/23/19 13:51 Wound - Leg, Right Anaerobic Culture - Final No anaerobic bacteria isolated. Current Medications Acetaminophen (Tylenol) 1,000 mg PO Q8 [facility] Last Admin: 09/28/19 05:27 Dose: 1,000 mg Documented by: Albuterol Sulfate (Ventolin Aerosols) 2.5 mg INHALATION Q2H PRN PRN PRN Reason: SOB/Wheezing Last Admin: 09/22/19 19:03 Dose: 2.5 mg Documented by: Collagenase (Santyl) 1 applic TOPICAL DAILY [facility]; Protocol Last Admin: 09/28/19 10:29 Dose: 1 applicatio Documented by: Diphenhydramine HCl (Benadryl) 50 mg PO TID PRN PRN PRN Reason: ITCHING Last Admin: 09/28/19 10:21 Dose: 50 mg Documented by: Doxycycline Monohydrate (Doxycycline) 100 mg PO BID [facility] Last Admin: 09/28/19 09:03 Dose: 100 mg Documented by: Enoxaparin Sodium (Lovenox) 90 mg SC Q12 [facility] Last Admin: 09/28/19 09:03 Dose: 90 mg Documented by: Famotidine (Pepcid) 20 mg PO BID [facility] Last Admin: 09/28/19 09:03 Dose: 20 mg Documented by: Hydrocortisone (Hytone) 1 applic TOPICAL BID PRN PRN; Protocol PRN Reason: ITCHING Last Admin: 09/28/19 10:21 Dose: 1 applicatio Documented by: Sodium Chloride () 250 mls @ 15 mls/hr IV .[id number] PRN PRN Reason: Saline Flush Last Infusion: 09/28/19 09:53 Dose: 0 mls/hr Documented by: Lactated Ringer's () 1,000 mls @ 100 mls/hr IV .Q10H [facility] Last Admin: 09/28/19 10:23 Dose: 100 mls/hr Documented by: Morphine Sulfate () 2 mg IV Q3H PRN PRN PRN Reason: Pain Score 6-10/10 Last Admin: 09/26/19 05:20 Dose: 2 mg Documented by: Nitroglycerin (Nitrostat) 0.4 mg SUBLINGUAL Q5M PRN PRN Reason: CARDIAC/CHEST PAIN Ondansetron HCl (Zofran) 4 mg IV Q8H PRN PRN PRN Reason: NAUSEA/VOMITING Last Admin: 09/27/19 16:51 Dose: 4 mg Documented by: Oxycodone HCl (Oxyir) 10 mg PO Q4H PRN PRN PRN Reason: Pain Score 6-10/10 Last Admin: 09/27/19 02:56 Dose: 10 mg Documented by: Senna/Docusate Sodium (Senokot-S, Yamile-Colace) 2 tablet PO BID [facility] Last Admin: 09/28/19 09:04 Dose: 2 tablet Documented by: Sodium Chloride () 10 - 40 ml IV UD PRN PRN Reason: SALINE FLUSH Last Admin: 09/28/19 10:24 Dose: 10 ml Documented by: Discharge Activity: May Not Drive Call your doctor if you observe: Fever of 101 or Higher, Coldness, Increased Pain, Numbness or Tingling, Inability to urinate, Inability to have a bowel movement, Shortness of breath, Dizziness, Fainting spells, Swelling in the ankles, Chest pain, Increased palpitations (irregular heartbeat), Calf discomfort, Uncontrolled pain Home Medications: Medications to take at Discharge Hydrocodone Bitart/Apap 5-325 [[place] 5/325] 1 tablet PO Q6H PRN PRN #10 tablet 06/08/17 Apixaban [Eliquis] 5 mg PO BID #30 tab 09/26/19 Apixaban [Eliquis] 10 mg PO BID #14 tab 09/26/19 Collagenase [Santyl] 1 applic TOPICAL DAILY #1 tube 09/28/19 Doxycycline 100 mg PO BID #14 cap 09/28/19 Naproxen [Naprosyn] 500 mg PO BID PRN PRN #0 09/28/19 Senna/Docusate Sodium [Senokot-S] 2 tab PO BID PRN PRN tab 09/28/19 Following Prescrptions Were Given to Patient: Doxycycline 100 mg PO BID #14 cap Transmission Status: Received by [facility] Apixaban [Eliquis] 10 mg PO BID #14 tab Transmission Status: Received by [facility] Apixaban [Eliquis] 5 mg PO BID #30 tab Transmission Status: Received by [facility] Collagenase [Santyl] 1 applic TOPICAL DAILY #1 tube Transmission Status: Received by [facility] Primary Care Physician: Lacy Callejas [Primary Care Provider] - Please follow up with your Primary Care Physician in: in 1-2 week Please Follow Up With: Belem Stone Please Follow Up With: David Kimble MD When: as needed for wound abscess in 2 weeks Medical Necessity - Tobacco Use Smoking Status: Former smoker Meaningful Use Info Meaningful Use Diagnoses (Choose all that apply): None applicable Code Visit Inpatient E&M: 33514 Disch Hosp
--- NOTE | 2019-09-28 14:57 | DCINST_ITS ---
Discharge Activity: May Not Drive Weight Bearing Status: - - Limit weightbearing on right foot, keep right foot elevated Keep extremity elevated above heart level: Right Leg - Keep feet elevated as much as possible Call your doctor if you observe: Fever of 101 or Higher, Coldness, Increased Pain, Numbness or Tingling, Inability to urinate, Inability to have a bowel movement, Shortness of breath, Dizziness, Fainting spells, Swelling in the ankles, Chest pain, Increased palpitations (irregular heartbeat), Calf discomfort, Uncontrolled pain Cleanse incision/area with: - - Keep wound vac clean, dry and intact - home health will be set up for next wound vac dressing change for Tuesday10/01/19 Allergies/Adverse Reactions: Allergies ALEKSEY Allergy (Uncoded 09/22/19 10:14) Itching Medications to take at Discharge Hydrocodone Bitart/Apap 5-325 [[place] 5/325] 1 tablet PO Q6H PRN PRN #10 tablet 06/08/17 Apixaban [Eliquis] 5 mg PO BID #30 tab 09/26/19 Apixaban [Eliquis] 10 mg PO BID #14 tab 09/26/19 Collagenase [Santyl] 1 applic TOPICAL DAILY #1 tube 09/28/19 Doxycycline 100 mg PO BID #14 cap 09/28/19 Naproxen [Naprosyn] 500 mg PO BID PRN PRN #0 09/28/19 Senna/Docusate Sodium [Senokot-S] 2 tab PO BID PRN PRN tab 09/28/19 The following prescriptions were given: Doxycycline 100 mg PO BID #14 cap Transmission Status: Received by [id number] Apixaban [Eliquis] 10 mg PO BID #14 tab Transmission Status: Received by [facility] Apixaban [Eliquis] 5 mg PO BID #30 tab Transmission Status: Received by [facility] Collagenase [Santyl] 1 applic TOPICAL DAILY #1 tube Transmission Status: Received by [facility] Primary Care Physician: Lacy Callejas [Primary Care Provider] - Please follow up with your Primary Care Physician in: in 1-2 week Test Results: Test results from this visit will be discussed in further detail at your follow- up appointment, if applicable. Please Follow Up With: Az Sparks DPM - [facility], [address], [address], [place], [place]. Office number is [phone] When: next week, sooner if needed -call office to schedule appointment Please Follow Up With: David Kimble MD When: as needed for wound abscess in 2 weeks
--- NOTE | 2019-09-28 14:59 | PN_ITS ---
Patient Problems: Active and Suspected Problems Left lower lobe pneumonia (Acute) Hypotension (Acute) Syncope (Acute) Sinus bradycardia by electrocardiogram (Acute) Pain in right lower leg (Acute) Pain in left lower leg (Acute) Lower extremity edema (Acute) Subjective: Patient was seen today for follow up on right ankle. He relates ankle is feeling very good, much better than before surgery, is able to put weight on it without much pain. He is ready to go home. He did not relate to any new complaints. - Physical Exam Vitals/I&O's: Vital Signs Temp Pulse Resp BP Pulse Ox 98.4 F 61 16 139/70 H 94 09/28/19 09:00 09/28/19 09:00 09/28/19 09:00 09/28/19 09:00 09/28/19 09:00 Oxygen Flow Rate (L/min) 3 Oxygen Delivery Method Room Air Weight: 92.646 kg Body Mass Index (BMI) 25.7 Intake and Output for Last 24 Hours 09/26/19 09/27/19 09/28/19 23:59 23:59 23:59 Intake Total 3664.42 / 3664.42 3854.00 / 3854.00 1270 / 1270 Output Total 2150 / 2150 2150 / 2150 450 / 450 Balance 1514.42 / 1514.42 1704.00 / 1704.00 820 / 820 General: Alert, Oriented x3, Cooperative, No apparent distress Extremities: Capillary Refill Less than 3 Seconds, Peripheral Pulses Normal, - - s/p I+D right ankle lateral aspect, also right ankle wound debridement - removed dressing - tissues are healthy and viable with no purulence present - there is no cellulitis and less edema - continued improvement noted, there is no necrosis, no streaking, no maloder present to the right foot/ankle/leg - chronic venous stasis skin changes present. There is soreness to the incision site c/w normal findings at this time - again much improved. Better right ankle ROM with less pain. Psych/Mental Status: Appropriate, Alert and oriented to time, place, person, mood and affect Microbiology Past 72 Hours 09/25/19 Unknown Biopsy - Ankle Gram Stain - Final 09/25/19 Unknown Biopsy - Ankle Wound Culture - Final Staphylococcus aureus 09/25/19 Unknown Biopsy - Ankle Anaerobic Culture - Preliminary No growth in 48 hours. 09/22/19 10:45 Blood Culture (Wb) - Anticubital Left Blood Culture - Final No growth in 5 days. 09/22/19 10:35 Blood Culture (Wb) - Left Hand Blood Culture - Final No growth in 5 days. 09/23/19 13:51 Wound - Leg, Right Gram Stain - Final 09/23/19 13:51 Wound - Leg, Right Wound Culture - Final Staphylococcus epidermidis 09/23/19 13:51 Wound - Leg, Right Anaerobic Culture - Final No anaerobic bacteria isolated. Current Medications Acetaminophen (Tylenol) 1,000 mg PO Q8 [facility] Last Admin: 09/28/19 05:27 Dose: 1,000 mg Documented by: Albuterol Sulfate (Ventolin Aerosols) 2.5 mg INHALATION Q2H PRN PRN PRN Reason: SOB/Wheezing Last Admin: 09/22/19 19:03 Dose: 2.5 mg Documented by: Collagenase (Santyl) 1 applic TOPICAL DAILY [facility]; Protocol Last Admin: 09/28/19 10:29 Dose: 1 applicatio Documented by: Diphenhydramine HCl (Benadryl) 50 mg PO TID PRN PRN PRN Reason: ITCHING Last Admin: 09/28/19 10:21 Dose: 50 mg Documented by: Doxycycline Monohydrate (Doxycycline) 100 mg PO BID [facility] Last Admin: 09/28/19 09:03 Dose: 100 mg Documented by: Enoxaparin Sodium (Lovenox) 90 mg SC Q12 [facility] Last Admin: 09/28/19 09:03 Dose: 90 mg Documented by: Famotidine (Pepcid) 20 mg PO BID [facility] Last Admin: 09/28/19 09:03 Dose: 20 mg Documented by: Hydrocortisone (Hytone) 1 applic TOPICAL BID PRN PRN; Protocol PRN Reason: ITCHING Last Admin: 09/28/19 10:21 Dose: 1 applicatio Documented by: Sodium Chloride () 250 mls @ 15 mls/hr IV .[id number] PRN PRN Reason: Saline Flush Last Infusion: 09/28/19 09:53 Dose: 0 mls/hr Documented by: Lactated Ringer's () 1,000 mls @ 100 mls/hr IV .Q10H [facility] Last Admin: 09/28/19 10:23 Dose: 100 mls/hr Documented by: Morphine Sulfate () 2 mg IV Q3H PRN PRN PRN Reason: Pain Score 6-10/10 Last Admin: 09/26/19 05:20 Dose: 2 mg Documented by: Nitroglycerin (Nitrostat) 0.4 mg SUBLINGUAL Q5M PRN PRN Reason: CARDIAC/CHEST PAIN Ondansetron HCl (Zofran) 4 mg IV Q8H PRN PRN PRN Reason: NAUSEA/VOMITING Last Admin: 09/27/19 16:51 Dose: 4 mg Documented by: Oxycodone HCl (Oxyir) 10 mg PO Q4H PRN PRN PRN Reason: Pain Score 6-1010 Last Admin: 09/27/19 02:56 Dose: 10 mg Documented by: Senna/Docusate Sodium (Senokot-S, Yamile-Colace) 2 tablet PO BID [facility] Last Admin: 09/28/19 09:04 Dose: 2 tablet Documented by: Sodium Chloride () 10 - 40 ml IV UD PRN PRN Reason: SALINE FLUSH Last Admin: 09/28/19 10:24 Dose: 10 ml Documented by: Medical Necessity - Tobacco Use Smoking Status: Former smoker Assessment/Plan All Active Problems Left lower lobe pneumonia (Acute) Hypotension (Acute) Syncope (Acute) Sinus bradycardia by electrocardiogram (Acute) Pain in right lower leg (Acute) Pain in left lower leg (Acute) Lower extremity edema (Acute) Deep vein thrombophlebitis of right leg (Acute) Superficial thrombophlebitis (Acute) Ulcer with fat layer exposed to right medial ankle s/p debridement 09/25/19 Abscess right ankle s/p I+D on 09/25/19 Chronic Venous insufficiency bilateral lower extremity Lower extremity erythema/cellulitis Tenderness to lower extremities Other comorbidities Continued improvement noted to right ankle. Wound vac has been ordered, and nursing is going to apply today. Home health for [facility] wound vac changes. Ok to d/c from podiatry standpoint. Continue with antibiotics - ID is following. Patient had venous Doppler examination of bilateral lower extremities - left soleus DVT noted - DVT management and medical management per medicine team appreciated. Patient to follow up with me in office in 7-10 days, sooner if needed.
[2019-09-28 15:00] VITALS: BP 142/67; PULSE 70; RESP 18; TEMP 37.1; O2SAT 95
--- NOTE | 2019-09-28 15:04 | CASEMGMT ---
Pt provided with [facility] brochure/contact information if he has any questions with wound vac prior to their visit for vac change on 10/01/19. Abdulaziz HERNANDEZ CM
--- NOTE | 2019-09-28 16:25 | NURSING ---
Wound VAC successfully placed. Education provided to patient and .
== END 2019-09-28 16:39 | disposition home health service (06) | DRG 167 ==
LOC: ED 12:54 → PCU 13:26
PROVIDERS: Podiatrist; Admitting Provider Internal Medicine; Emergency Provider Emergency Medicine; Family Provider Family Medicine; PCP Family Medicine; Visit Provider Internal Medicine
PROC: 0J9Q0ZZ Drainage of Right Foot Subcutaneous Tissue and Fascia, Open Approach (ICD-10-PCS; principal; 2019-09-25 16:20)
DX: J12.2 Parainfluenza virus pneumonia (principal); L02.415 Cutaneous abscess of right lower limb; Z87.891 Personal history of nicotine dependence; L97.312 Non-pressure chronic ulcer of right ankle with fat layer exposed; L03.115 Cellulitis of right lower limb; L03.116 Cellulitis of left lower limb; I95.1 Orthostatic hypotension; I87.2 Venous insufficiency (chronic) (peripheral); I82.462 Acute embolism and thrombosis of left calf muscular vein; A49.01 Methicillin susceptible Staphylococcus aureus infection, unspecified site; R00.1 Bradycardia, unspecified
CPT/HCPCS: 36415; 70030; 71045; 73610; 73721; 80048; 80053; 81001; 83036; 83605; 84484; 85025; 85610; 85730; 87015; 87040; 87070; 87075; 87077; 87086; 87102; 87116; 87186; 87205; 87206; 87449; 87633; 87640; 88304; 88312; 93005; 93306; 93970; 94640; 97110; 97162; 97166; 97530; 97535; 97802; 99285; J7030; J7040; J7050; J7120; Q9957; A4216; C8929; J2405; J3490

== ENCOUNTER 2019-10-30 16:30 | Outpatient (RCR) | payer MEDICARE, OTHER, SELFPAY ==
[2019-09-22 14:42] VITALS: BMI 25.7
[2019-10-03 13:21] VITALS: BP 130/64; PULSE 67; RESP 18; TEMP 37.1; BMI 25.7
--- NOTE | 2019-10-03 16:58 | HP.PCM_ITS ---
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 Status: Chronic Current Visit: Yes Code(s): L97.312 - Non-pressure chronic ulcer of right ankle with fat layer exposed (2) Deep vein thrombophlebitis of right leg Status: Acute Current Visit: Yes Code(s): I80.201 - Phlebitis and thrombophlebitis of unspecified deep vessels of right lower extremity (3) Pain in right lower leg Status: Acute Current Visit: Yes Code(s): M79.661 - Pain in right lower leg (4) Chronic venous insufficiency Status: Chronic Current Visit: Yes (5) Leg swelling Status: Chronic Current Visit: Yes Code(s): M79.89 - Other specified soft tissue disorders History of Present Illness Date of Service: 10/06/19 Chief Complaint: Ulcer right ankle x2 History of Wound: This is a 69-year-old male with a long-standing history of chronic venous disease follows up for chronic ulcer of the medial right ankle that has been present for approximately 3 years. He also had a recent infection and was admitted to [facility] and had an incision and drainage performed by Dr. Sparks. He has taken antibiotics as advised. He refuses debridement today. It is not clear if he has underwent previous venous intervention. He has been using graduated compression stockings of 20-30 mmHg compression on a daily basis. He tries to elevate his limbs. He was recently diagnosed with a left lower extremity blood clot and is on Eliquis. 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) Chronic venous insufficiency (Chronic) Surgical History: - - incision and drainage right lateral ankle Allergies/Adverse Reactions: Allergies ALEKSEY Allergy (Uncoded 09/22/19 10:14) Itching Home Medications: Ambulatory Orders Medication Instructions Recorded Hydrocodone Bitart/Apap 5-325 1 tablet PO Q6H PRN PRN #10 tablet 06/08/17 [[place] 5/325] Apixaban [Eliquis] 5 mg PO BID #30 tab 09/26/19 Apixaban [Eliquis] 10 mg PO BID #14 tab 09/26/19 Doxycycline 100 mg PO BID #14 cap 09/28/19 Naproxen [Naprosyn] 500 mg PO BID PRN PRN #0 09/28/19 - Family History Maternal - - The patient's father at age of 85 from old age. The patient's mother at age of 79 from lung cancer. Lives: Spouse/ Significant Other Smoking Status: Former smoker Review of Systems Constitutional: Denies: Chills, Fever Cardiovascular: Denies: Chest Pain, Claudication, Orthopnea Respiratory: Denies: Shortness of Breath Gastrointestinal: Denies: Nausea Musculoskeletal: Reports: Leg Pain Skin: Reports: Skin Changes, Wounds Neurological: Denies: Numbness Hematologic/ Lymphatic: Reports: Hx of blood clot - Physical Exam Vital Signs Temp Pulse Resp BP 98.7 F 67 18 130/64 H 10/03/19 13:21 10/03/19 13:21 10/03/19 13:21 10/03/19 13:21 General: Alert, Oriented x3, Cooperative, No apparent distress HEENT: Atraumatic Extremities: No cyanosis, Capillary Refill Less than 3 Seconds, No Calf Tenderness, Diminished Peripheral Pulses, Edema Skin: Ulcer/ Wound - No purulence, erythema, string, odor, infection. Granular base noted to medial lateral skin discontinuity sites. The skin is peripherally hairless and atrophic. There is no deep tissue visualized Wound Measurements and Assessment WC - Nurse 1 - General Ulcer Measurement Start: 10/03/19 13:20 Freq: Status: Active Protocol: Activity Type Activity Date Activity User E-Sign Co-Sign Detail Recorded Client Recorded Date Recorded By Document 10/03/19 13:21 [id number] 10/03/19 13:45 10/03/19 13:21 Wound Center Nurse 1 [Ulcer Assessment] 3. R lateral ankle -Combined with other wound No -Current Size (cm) - Length 7.7 -Current Size (cm) - Width 0.4 -Current Size (cm) - Depth 0.3 -Total Square Cm 3.08 -Tunneling No -Undermining/Tunneling No -Circular Undermining No -Exudate Amt Small -Exudate Type Serosanguineous -Wound Margin Thickened & Rolled Under -Granulation Amt Medium (34-66%) -Granulation Quality Red -Slough/Fibrin Yes -Necrosis Amt Small (1-33%) -Necrotic Tissue Type Adherent Slough -Structure Exposed N/A -Texture (Yamile-wound Skin Appearance) Assessed -Moisture (Yamile-wound Skin Appearance Assessed ) -Color (Yamile-wound Skin Appearance) Assessed -Temperature (Yamiel-wound Skin No Abnormality Appearance) (Pt Warm) -Tenderness on Palpation (Yamile-wound No Skin Appearance) -Ulcer Cleansing Wound Cleanser -Foul Odor after Cleansing No 2. R medial ankle -Combined with other wound No -Current Size (cm) - Length 2 -Current Size (cm) - Width 0.6 -Current Size (cm) - Depth 0.2 -Total Square Cm 1.2 -Tunneling No -Undermining/Tunneling No -Circular Undermining No -Exudate Amt Small -Exudate Type Serosanguineous -Wound Margin Thickened & Rolled Under -Granulation Amt Medium (34-66%) -Granulation Quality [place] -Slough/Fibrin Yes -Necrosis Amt Small (1-33%) -Necrotic Tissue Type Adherent Slough -Structure Exposed N/A -Texture (Yamile-wound Skin Appearance) Assessed -Moisture (Yamile-wound Skin Appearance Assessed ) -Color (Yamile-wound Skin Appearance) Assessed -Temperature (Yamile-wound Skin No Abnormality Appearance) (Pt Warm) -Tenderness on Palpation (Yamile-wound No Skin Appearance) -Ulcer Cleansing Wound Cleanser -Foul Odor after Cleansing No [Edema Assessment] -Lower Limb Edema Present Yes -Right Calf (cm) 34 -Right Ankle (cm) 21 -Left Calf (cm) 35 -Left Ankle (cm) 21 WC - Nurse 2 - General Ulcer CM Notes Start: 10/03/19 13:20 Freq: Status: Active Protocol: Activity Type Activity Date Activity User E-Sign Co-Sign Detail Recorded Client Recorded Date Recorded By Document 10/03/19 14:07 [email or web address] [id number] 10/03/19 14:08 VINICIO 10/03/19 14:07 Wound Center Nurse 2 [Procedure/Treatment] 3. R lateral ankle -Correct Patient No -Correct Side, Site, Position No -Correct Procedure No -Procedure Performed No -Wound/Ulcer Outcome Not Healed 2. R medial ankle -Correct Patient No -Correct Side, Site, Position No -Correct Procedure No -Procedure Performed No -Wound/Ulcer Outcome Not Healed [See Physician Procedure note for Specifics] Pain Scale: 0-10 Numeric [Pain] -Is Patient Pain Free? Yes Musculoskeletal: No Tenderness to Palpation of Joints or Extremities, Muscle Wasting Neurological: Sensory exam intact to light touch and pain Psych/Mental Status: Normal Affect, Appropriate, Anxious Debridement Note Post-Debridement Measurements/Treatment WC - Nurse 2 - General Ulcer CM Notes Start: 10/03/19 13:20 Freq: Status: Active Protocol: Activity Type Activity Date Activity User E-Sign Co-Sign Detail Recorded Client Recorded Date Recorded By Document 10/03/19 14:07 [id number] 10/03/19 14:08 10/03/19 14:07 Wound Center Nurse 2 3. R lateral ankle -Correct Patient No -Correct Side, Site, Position No -Correct Procedure No -Procedure Performed No -Wound/Ulcer Outcome Not Healed 2. R medial ankle -Correct Patient No -Correct Side, Site, Position No -Correct Procedure No -Procedure Performed No -Wound/Ulcer Outcome Not Healed Pain Scale: 0-10 Numeric Is Patient Pain Free? 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 The etiology, recommended treatment, and anticipated healing time and management for these lower extremity ulcers was discussed in detail today. His previous admission data and diagnostic data were reviewed in detail. I recommended subcutaneous excisional debridement on a weekly or biweekly basis. He refuses today he reports he is allergic to lidocaine. He is amendable to consider other injectable forms in the future and I will look into his options based off of what he is tolerated on a prior basis by reviewing his hospital notes. This will be considered again next week. We will continue with the wound VAC to both sites. Application of other products including advanced wound healing products will be considered in the near future to the chronicity of his ulcer sites. It is noted he has significant delayed in healing already. He was reassured no local signs of infection are noted. His incision and drainage was performed on 09/26/[address] Sparks. His recent infection and antibiotic intervention is noted. His prior cultures demonstrated Staphylococcus aureus without MRSA development. He was on a course of doxycycline. Does not have systemic illness today. He was advised to have further work-up of his arterial status given his chronicity of the ulcers. Noninvasive vascular study was ordered and the results are pending. It is noted he has been previously diagnosed with venous insufficiency and I recommended proceeding forward with any treatment recommendations and continued compression therapy. His venous Doppler from 2017 demonstrated prior valvular incompetence to the right femoral vein, popliteal vein, and additional superficial thrombophlebitis of this extremity. His most recent venous Doppler from his hospitalization did not demonstrate incompetent veins. A left soleus vein acute blood clot was identified. To elevate the limbs at rest. To avoid idle standing or sitting. His recent labs from his hospital medicine were also reviewed. On 09/27/2019 he did not have any leukocytosis. His albumin level was 2.5 and his hemoglobin A1c level was 5.8%. Lab trends will be monitored. T o immobilize and reduce ankle motion to take tension off the ulcer sites. I provided him with a prescription for a cam walker. To maintain proper diet and nutritional supplementation to optimize healing. A prescription for Damaso was provided and he was advised on proper use. Answers questions. To return to the wound healing center in 1 week or call sooner if he has any questions or concerns. Plan: We are to continue to implement conservative treatment measures relative to the patient's chronic venous disease. He has been instructed to elevate his lower extremities much as possible, to avoid idle standing and sitting, to remain active, and to optimize his weight. Non-steroidal anti-inflammatory medications have been recommended to be used on an as-needed basis. Compression stockings are to be continued bilaterally, which are of knee-high length and of 20-30 mmHg compression. The patient has been provided a prescription for Xarelto 20 mg. We are to use collagenase Santyl topically on a daily basis. The patient will return in 1 week for reassessment. Due to the patient's recent diagnosis of thrombophlebitis, we will forego invasive interventions in the immediate future. Conservative treatment measures and systemic anticoagulation will continue, as well as weekly visits for ulcer debridements. As mentioned, the patient is now on Xarelto. It is anticipated that patient will require 3-6 months of systemic anticoagulation. It is anticipated that a repeat venous duplex scan will be performed of the right lower external in the near future, with attention to the status of his thrombophlebitis, and with efforts to identify any incompetent secretary of [employer] veins or other network of veins in the ulcerated area. If present, such veins may be amenable to injection sclerotherapy, which may be a means of hastening ulcer healing. Ultimately, the patient will be a candidate for endovenous ablation in the incompetent superficial veins in the right lower extremity, and possible sclerotherapy of the venous network in the ulcerated area near the right medial malleolus. Patient will return in 1 week for reassessment.
[2019-10-10 15:58] VITALS: BP 121/68; PULSE 65; RESP 18; TEMP 36.3; BMI 25.7
--- NOTE | 2019-10-10 17:09 | PN.PCM_ITS ---
(1) Deep vein thrombophlebitis of right leg Status: Acute Current Visit: Yes Code(s): I80.201 - Phlebitis and thrombophlebitis of unspecified deep vessels of right lower extremity (2) Pain in right lower leg Status: Acute Current Visit: Yes Code(s): M79.661 - Pain in right lower leg (3) Chronic venous insufficiency Status: Chronic Current Visit: Yes (4) Ulcer of right lower extremity with fat layer exposed Status: Chronic Current Visit: Yes Code(s): L97.912 - Non-pressure chronic ulcer of unspecified part of right lower leg with fat layer exposed (5) Localized edema Status: Chronic Current Visit: Yes Code(s): R60.0 - Localized edema (6) Delayed wound healing Status: Chronic Current Visit: Yes Code(s): T14.8XXD - Other injury of unspecified body region, subsequent encounter Type of Wound Date of Service: 10/10/19 Chief Complaint: Ulcer right ankle x2 History of Wound: This is a 69-year-old male with a long-standing history of chronic venous disease follows up for chronic ulcer of the medial right ankle that has been present for approximately 3 years. He also had a recent infection and was admitted to [facility] and had an incision and drainage performed by Dr. Sparks. He has taken antibiotics as advised. He refuses debridement today. It is not clear if he has underwent previous venous intervention. He has been using graduated compression stockings of 20-30 mmHg compression on a daily basis. He tries to elevate his limbs. He was recently diagnosed with a left lower extremity blood clot and is on Eliquis. He is amenable to proceed forward with debridement today. Progress of Wound: Stable - Physical Exam Vital Signs Temp Pulse Resp BP 97.3 F L 65 18 121/68 H 10/10/19 15:58 10/10/19 15:58 10/10/19 15:58 10/10/19 15:58 General: Alert, Oriented x3, Cooperative, No apparent distress HEENT: Atraumatic Extremities: No cyanosis, Capillary Refill Less than 3 Seconds, No Calf Tenderness, Diminished Peripheral Pulses Skin: Ulcer/ Wound - No purulence, erythema, streaking, odor, or infection. Pale granular base is noted to medial right ankle and beefy granular bases onto lateral ankle ulcer site. The adjacent skin is hairless and atrophic. There is no deep tissue exposed, maceration, or necrosis Wound Measurements and Assessment WC - Nurse 1 - General Ulcer Measurement Start: 10/03/19 13:20 Freq: Status: Active Protocol: Activity Type Activity Date Activity User E-Sign Co-Sign Detail Recorded Client Recorded Date Recorded By Document 10/10/19 15:58 RB [id number] 10/10/19 16:17 RB 10/10/19 15:58 Wound Center Nurse 1 [Ulcer Assessment] 3. R lateral ankle -Combined with other wound No -Current Size (cm) - Length 6.6 -Current Size (cm) - Width 0.7 -Current Size (cm) - Depth 0.3 -Total Square Cm 4.62 -Tunneling No -Undermining/Tunneling No -Circular Undermining No -Exudate Amt Small -Exudate Type Serosanguineous -Wound Margin Thickened & Rolled Under -Granulation Amt Medium (34-66%) -Granulation Quality [place] -Slough/Fibrin Yes -Necrosis Amt Medium (34-66%) -Necrotic Tissue Type Adherent Slough -Structure Exposed N/A -Texture (Yamile-wound Skin Appearance) Assessed -Moisture (Yamile-wound Skin Appearance Assessed ) -Color (Yamile-wound Skin Appearance) Assessed -Temperature (Yamile-wound Skin No Abnormality Appearance) (Pt Warm) -Tenderness on Palpation (Yamile-wound No Skin Appearance) -Ulcer Cleansing Wound Cleanser -Foul Odor after Cleansing No 2. R medial ankle -Combined with other wound No -Current Size (cm) - Length 2 -Current Size (cm) - Width 0.6 -Current Size (cm) - Depth 0.2 -Total Square Cm 1.2 -Tunneling No -Undermining/Tunneling No -Circular Undermining No -Exudate Amt Small -Exudate Type Serosanguineous -Wound Margin Thickened & Rolled Under -Granulation Amt Medium (34-66%) -Granulation Quality [place] -Slough/Fibrin Yes -Necrosis Amt Small (1-33%) -Necrotic Tissue Type Adherent Slough -Structure Exposed N/A -Texture (Yamile-wound Skin Appearance) Assessed -Moisture (Yamile-wound Skin Appearance Assessed ) -Color (Yamile-wound Skin Appearance) Assessed -Temperature (Yamile-wound Skin No Abnormality Appearance) (Pt Warm) -Tenderness on Palpation (Yamile-wound No Skin Appearance) -Ulcer Cleansing Wound Cleanser -Foul Odor after Cleansing No WC - Nurse 2 - General Ulcer CM Notes Start: 10/03/19 13:20 Freq: Status: Active Protocol: Activity Type Activity Date Activity User E-Sign Co-Sign Detail Recorded Client Recorded Date Recorded By Document 10/10/19 16:37 [id number] 10/10/19 16:38 10/10/19 16:37 Wound Center Nurse 2 [Procedure/Treatment] 3. R lateral ankle -Time 16:37 -Correct Patient Yes -Correct Side, Site, Position Yes -Correct Procedure Yes -Procedure Performed Yes -Type of Procedure Debridement -Clinical Debridement Subcutaneous -Post Debridement Size (cm) - Length 6.7 -Post Debridement Size (cm) - Width 0.7 -Post Debridement Size (cm) - Depth 0.3 -Total Square Cm 4.69 -Wound/Ulcer Outcome Not Healed -Ulcer Cleansing Rinsed/ Irrigated with Saline -Foul Odor after Cleansing No -Bioengineered Tissue No -Bleeding Controlled with Pressure -Offloading No -Treatment Response Procedure Tolerated Well 2. R medial ankle -Time 16:38 -Correct Patient Yes -Correct Side, Site, Position Yes -Correct Procedure Yes -Procedure Performed Yes -Type of Procedure Debridement -Clinical Debridement Subcutaneous -Post Debridement Size (cm) - Length 2.1 -Post Debridement Size (cm) - Width 0.6 -Post Debridement Size (cm) - Depth 0.2 -Total Square Cm 1.26 -Wound/Ulcer Outcome Not Healed -Ulcer Cleansing Rinsed/ Irrigated with Saline -Foul Odor after Cleansing No -Bioengineered Tissue No -Bleeding Controlled with Pressure -Offloading No -Treatment Response Procedure Tolerated Well [See Physician Procedure note for Specifics] Pain Scale: 0-10 Numeric [Pain] -Is Patient Pain Free? Yes Musculoskeletal: No Tenderness to Palpation of Joints or Extremities, Muscle Wasting Neurological: Sensory exam intact to light touch and pain Psych/Mental Status: Normal Affect, Appropriate Debridement Note Post-Debridement Measurements/Treatment WC - Nurse 2 - General Ulcer CM Notes Start: 10/03/19 13:20 Freq: Status: Active Protocol: Activity Type Activity Date Activity User E-Sign Co-Sign Detail Recorded Client Recorded Date Recorded By Document 10/03/19 14:07 [id number] 10/03/19 14:08 Document 10/10/19 16:37 [id number] 10/10/19 16:38 10/03/19 10/10/19 14:07 16:37 Wound Center Nurse 2 3. R lateral ankle -Time 16:37 -Correct Patient No Yes -Correct Side, Site, Position No Yes -Correct Procedure No Yes -Procedure Performed No Yes -Type of Procedure Debridement -Clinical Debridement Subcutaneous -Post Debridement Size (cm) - Length 6.7 -Post Debridement Size (cm) - Width 0.7 -Post Debridement Size (cm) - Depth 0.3 -Total Square Cm 4.69 -Wound/Ulcer Outcome Not Healed Not Healed -Ulcer Cleansing Rinsed/ Irrigated with Saline -Foul Odor after Cleansing No -Bioengineered Tissue No -Bleeding Controlled with Pressure -Offloading No -Treatment Response Procedure Tolerated Well 2. R medial ankle -Time 16:38 -Correct Patient No Yes -Correct Side, Site, Position No Yes -Correct Procedure No Yes -Procedure Performed No Yes -Type of Procedure Debridement -Clinical Debridement Subcutaneous -Post Debridement Size (cm) - Length 2.1 -Post Debridement Size (cm) - Width 0.6 -Post Debridement Size (cm) - Depth 0.2 -Total Square Cm 1.26 -Wound/Ulcer Outcome Not Healed Not Healed -Ulcer Cleansing Rinsed/ Irrigated with Saline -Foul Odor after Cleansing No -Bioengineered Tissue No -Bleeding Controlled with Pressure -Offloading No -Treatment Response Procedure Tolerated Well Pain Scale: 0-10 Numeric Is Patient Pain Free? 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 The etiology, recommended treatment, and anticipated healing time and management for these lower extremity ulcers was discussed in detail today. His previous admission data and diagnostic data were reviewed in detail. I recommended subcutaneous excisional debridement on a weekly or biweekly basis. He is amenable to proceed forward with this today and this was tolerated well. This will be considered again next week. We will continue with the wound VAC to both sites. Application of other products including advanced wound healing products will be considered if insurance prior authorization is confirmed. I recommend this at this time and we reviewed the indications, planned application, and anticipated healing time and management. I recommend application of epi-fix, placental derived tissue. It is noted he has significant delayed in healing already and the medial aspect has been open for 3 years. This is medically necessary for limb salvage. He was reassured no local signs of infection are noted. His incision and drainage was performed on 09/26/[address] Sparks. His recent infection and antibiotic intervention is noted. His prior cultures demonstrated Staphylococcus aureus without MRSA development. He was on a course of doxycycline. Does not have systemic illness today. He was advised to have further work-up of his arterial status given his chronicity of the ulcers. Noninvasive vascular study was ordered and the results are pending. It is noted he has been previously diagnosed with venous insufficiency and I recommended proceeding forward with any treatment recommendations and continued compression therapy. His venous Doppler from 2017 demonstrated prior valvular incompetence to the right femoral vein, popliteal vein, and additional superficial thrombophlebitis of this extremity. His most recent venous Doppler from his hospitalization did not demonstrate incompetent veins. A left soleus vein acute blood clot was identified. To elevate the limbs at rest. To avoid idle standing or sitting. His recent labs from his hospital medicine were also reviewed. On 09/27/2019 he did not have any leukocytosis. His albumin level was 2.5 and his hemoglobin A1c level was 5.8%. Lab trends will be monitored. To immobilize and reduce ankle motion to take tension off the ulcer sites. I provided him with a prescription for a cam walker. To maintain proper diet and nutritional supplementation to optimize healing. A prescription for Damaso was provided and he was advised on proper use. Answers questions. To return to the wound healing center in 1 week or call sooner if he has any questions or concerns. Plan: We are to continue to implement conservative treatment measures relative to the patient's chronic venous disease. He has been instructed to elevate his lower extremities much as possible, to avoid idle standing and sitting, to remain active, and to optimize his weight. Non-steroidal anti-inflammatory medications have been recommended to be used on an as-needed basis. Compression stockings are to be continued bilaterally, which are of knee-high length and of 20-30 mmHg compression. The patient has been provided a prescription for Xarelto 20 mg. We are to use collagenase Santyl topically on a daily basis. The patient will return in 1 week for reassessment. Due to the patient's recent diagnosis of thrombophlebitis, we will forego invasive in terventions in the immediate future. Conservative treatment measures and systemic anticoagulation will continue, as well as weekly visits for ulcer debridements. As mentioned, the patient is now on Xarelto. It is anticipated that patient will require 3-6 months of systemic anticoagulation. It is anticipated that a repeat venous duplex scan will be performed of the right lower external in the near future, with attention to the status of his thrombophlebitis, and with efforts to identify any incompetent newborn photographer veins or other network of veins in the ulcerated area. If present, such veins may be amenable to injection sclerotherapy, which may be a means of hastening ulcer healing. Ultimately, the patient will be a candidate for endovenous ablation in the incompetent superficial veins in the right lower extremity, and possible sclerotherapy of the venous network in the ulcerated area near the right medial malleolus. Patient will return in 1 week for reassessment.
--- NOTE | 2019-10-17 13:51 | ART_ITS ---
Reason For Study: ULCER Procedure A bilateral lower extremity continuous wave Doppler with analog waveform analysis,segmental pressures,and ankle brachial indexes without exercise. Left Segmental Pressures Left brachial= 138mmHg. Left posterior tibial artery = 167mmHg. Left dorsalis pedis artery = 158mmHg. Left digit = 93 mmHg. The left dorsalis pedis waveforms are triphasic. The left posterior tibial artery waveforms are triphasic. Right Segmental Pressures Right brachial= 128mmHg. Right posterior tibial artery = 162mmHg. Right dorsalis pedis artery = 166mmHg. Right digit = 123 mmHg. The right posterior tibial artery waveforms are monophasic. The right dorsalis pedis waveforms are triphasic. Indices The right ankle brachial index by the dorsalis pedis is 1.2. The right ankle brachial index by the posterior tibial artery is 1.2. The right digital-brachial index is .9. The left ankle brachial index by the dorsalis pedis is 1.1. The left ankle brachial index by the posterior tibial artery is 1.2. The left digital-brachial index is .7. Interpretation Summary Triphasic and monophasic Doppler waveforms are noted at ankle level on the right. Triphasic Doppler waveforms are noted at ankle level on the left. Pulse-volume recording waveform amplitudes appear satisfactory bilaterally. Resting ankle-brachial indices are normal bilaterally. The right digital- brachial index is normal. The left digital-brachial index is mildly diminished. Arterial flow appears to be normal at ankle level bilaterally, and at digital level on the right. There is evidence of mild, distal, small-vessel arterial occlusive disease at digital level on the left. Ordering Physician: Belem Rosas Referring Physician: Belem Rosas Performed By: OMAIRA PYLE RDCS
[2019-10-17 15:17] VITALS: BP 123/83; PULSE 67; RESP 16; TEMP 36.4; BMI 25.7
--- NOTE | 2019-10-17 22:22 | PN.PCM_ITS ---
(1) Ulcer of right lower extremity with fat layer exposed Status: Chronic Code(s): L97.912 - Non-pressure chronic ulcer of unspecified part of right lower leg with fat layer exposed (2) Pain in right lower leg Status: Acute Code(s): M79.661 - Pain in right lower leg (3) Chronic venous insufficiency Status: Chronic (4) Localized edema Status: Chronic Code(s): R60.0 - Localized edema (5) Delayed wound healing Status: Chronic Code(s): T14.8XXD - Other injury of unspecified body region, subsequent encounter (6) Deep vein thrombophlebitis of right leg Status: Acute Code(s): I80.201 - Phlebitis and thrombophlebitis of unspecified deep vessels of right lower extremity Type of Wound Date of Service: 10/17/19 Chief Complaint: Ulcer right ankle x2 History of Wound: This is a 69-year-old male with a long-standing history of chronic venous disease follows up for chronic ulcer of the medial right ankle that has been present for approximately 3 years. He also had a recent infection and was admitted to [facility] and had an incision and drainage performed by Dr. Sparks. He has taken antibiotics as advised. He is amenable to proceed with debridement today and defers the use of local anesthetic via injection for topical. He has been using graduated compression stockings of 20-30 mmHg compression on a daily basis. He tries to elevate his limbs. He was recently diagnosed with a left lower extremity blood clot and is on Eliquis. He has been using the wound VAC as advised. He is also amenable to proceed with advancement healing product application today, epi-fix. Progress of Wound: Improving - Physical Exam Vital Signs Temp Pulse Resp BP 97.5 F L 67 16 123/83 H 10/17/19 15:17 10/17/19 15:17 10/17/19 15:17 10/17/19 15:17 General: Alert, Oriented x3, Cooperative, No apparent distress Extremities: No cyanosis, Capillary Refill Less than 3 Seconds, No Calf Tenderness, Diminished Peripheral Pulses, Edema Skin: Ulcer/ Wound - No purulence, erythema, streaking, odor, infection. Peripheral epithelialization is noted to both sites. His adjacent skin is atrophic Wound Measurements and Assessment WC - Nurse 1 - General Ulcer Measurement Start: 10/03/19 13:20 Freq: Status: Active Protocol: Activity Type Activity Date Activity User E-Sign Co-Sign Detail Recorded Client Recorded Date Recorded By Document 10/17/19 15:17 MW [id number] 10/17/19 15:32 MW 10/17/19 15:17 Wound Center Nurse 1 [Ulcer Assessment] 3. R lateral ankle -Combined with other wound No -Current Size (cm) - Length 6.0 -Current Size (cm) - Width 0.5 -Current Size (cm) - Depth 0.1 -Total Square Cm 3.00 -Photo Taken No -Epithelialization Small 1-33% -Tunneling No -Undermining/Tunneling No -Circular Undermining No -Exudate Amt Small -Exudate Type Serosanguineous -Wound Margin Flat & Intact -Granulation Amt Large (67-100%) -Granulation Quality Red -Slough/Fibrin Yes -Necrosis Amt Small (1-33%) -Necrotic Tissue Type Adherent Slough -Structure Exposed N/A -Texture (Yamile-wound Skin Appearance) Assessed, Scarring -Moisture (Yamile-wound Skin Appearance No Abnormality, ) Assessed -Color (Yamile-wound Skin Appearance) Assessed, Hemosiderin Staining -Temperature (Yamile-wound Skin No Abnormality Appearance) (Pt Warm) -Tenderness on Palpation (Yamile-wound No Skin Appearance) -Ulcer Cleansing soap and water -Foul Odor after Cleansing No 2. R medial ankle -Combined with other wound No -Current Size (cm) - Length 1.1 -Current Size (cm) - Width 0.5 -Current Size (cm) - Depth 0.1 -Total Square Cm 0.55 -Photo Taken No -Epithelialization None Present -Tunneling No -Undermining/Tunneling No -Circular Undermining No -Exudate Amt Small -Exudate Type Serosanguineous -Wound Margin Flat & Intact -Granulation Amt Large (67-100%) -Granulation Quality Red -Slough/Fibrin Yes -Necrosis Amt Small (1-33%) -Necrotic Tissue Type Adherent Slough -Structure Exposed N/A -Texture (Yamile-wound Skin Appearance) Assessed, Scarring -Moisture (Yamile-wound Skin Appearance No Abnormality, ) Assessed -Color (Yamile-wound Skin Appearance) Assessed, Hemosiderin Staining -Temperature (Yamile-wound Skin No Abnormality Appearance) (Pt Warm) -Tenderness on Palpation (Yamile-wound No Skin Appearance) -Ulcer Cleansing soap and water -Foul Odor after Cleansing No [Edema Assessment] -Lower Limb Edema Present No -Right Calf (cm) 35.0 -Right Ankle (cm) 20.0 WC - Nurse 2 - General Ulcer CM Notes Start: 10/03/19 13:20 Freq: Status: Active Protocol: Activity Type Activity Date Activity User E-Sign Co-Sign Detail Recorded Client Recorded Date Recorded By Document 10/17/19 16:20 [id number] 10/17/19 16:25 10/17/19 16:20 Wound Center Nurse 2 [Procedure/Treatment] 3. R lateral ankle -Time 16:21 -Correct Patient Yes -Correct Side, Site, Position Yes -Correct Procedure Yes -Procedure Performed Yes -Type of Procedure Debridement -Clinical Debridement Subcutaneous -Post Debridement Size (cm) - Length 6 -Post Debridement Size (cm) - Width 0.6 -Post Debridement Size (cm) - Depth 0.1 -Total Square Cm 3.6 -Wound/Ulcer Outcome Not Healed -Ulcer Cleansing Rinsed/ Irrigated with Saline -Foul Odor after Cleansing No -Bioengineered Tissue Yes -Type of bioengineered Tissue EPIFIX -Expiration Date 07/01/24 -Product Lot Number [id number] -Percent Used 100 -Saline Lot Number [id number] -Bleeding Controlled with Pressure -Offloading No -Treatment Response Procedure Tolerated Well 2. R medial ankle -Time 16:23 -Correct Patient Yes -Correct Side, Site, Position Yes -Correct Procedure Yes -Procedure Performed Yes -Type of Procedure Debridement -Clinical Debridement Subcutaneous -Post Debridement Size (cm) - Length 1.1 -Post Debridement Size (cm) - Width 0.6 -Post Debridement Size (cm) - Depth 0.1 -Total Square Cm 0.66 -Wound/Ulcer Outcome Not Healed -Ulcer Cleansing Rinsed/ Irrigated with Saline -Foul Odor after Cleansing No -Bioengineered Tissue Yes -Type of bioengineered Tissue EPIFIX -Expiration Date 07/01/24 -Product Lot Number [id number] -Percent Used 100 -Saline Lot Number [id number] -Bleeding Controlled with Pressure -Offloading No -Treatment Response Procedure Tolerated Well [See Physician Procedure note for Specifics] Pain Scale: 0-10 Numeric [Pain] -Is Patient Pain Free? Yes Musculoskeletal: No Tenderness to Palpation of Joints or Extremities, Muscle Wasting Neurological: Sensory exam intact to light touch and pain - Hypersensitivity noticed Psych/Mental Status: Normal Affect, Appropriate Debridement Note Post-Debridement Measurements/Treatment WC - Nurse 2 - General Ulcer CM Notes Start: 10/03/19 13:20 Freq: Status: Active Protocol: Activity Type Activity Date Activity User E-Sign Co-Sign Detail Recorded Client Recorded Date Recorded By Document 10/03/19 14:07 [id number] 10/03/19 14:08 Document 10/10/19 16:37 [id number] 10/10/19 16:38 Document 10/17/19 16:20 [id number] 10/17/19 16:25 10/03/19 10/10/19 10/17/19 14:07 16:37 16:20 Wound Center Nurse 2 3. R lateral ankle -Time 16:37 16:21 -Correct Patient No Yes Yes -Correct Side, Site, Position No Yes Yes -Correct Procedure No Yes Yes -Procedure Performed No Yes Yes -Type of Procedure Debridement Debridement -Clinical Debridement Subcutaneous Subcutaneous -Post Debridement Size (cm) - Length 6.7 6 -Post Debridement Size (cm) - Width 0.7 0.6 -Post Debridement Size (cm) - Depth 0.3 0.1 -Total Square Cm 4.69 3.6 -Wound/Ulcer Outcome Not Healed Not Healed Not Healed -Ulcer Cleansing Rinsed/ Rinsed/ Irrigated with Irrigated with Saline Saline -Foul Odor after Cleansing No No -Bioengineered Tissue No Yes -Type of bioengineered Tissue EPIFIX -Expiration Date 07/01/24 -Product Lot Number [id number] -Percent Used 100 -Saline Lot Number [id number] -Bleeding Controlled with Pressure Pressure -Offloading No No -Treatment Response Procedure Procedure Tolerated Well Tolerated Well 2. R medial ankle -Time 16:38 16:23 -Correct Patient No Yes Yes -Correct Side, Site, Position No Yes Yes -Correct Procedure No Yes Yes -Procedure Performed No Yes Yes -Type of Procedure Debridement Debridement -Clinical Debridement Subcutaneous Subcutaneous -Post Debridement Size (cm) - Length 2.1 1.1 -Post Debridement Size (cm) - Width 0.6 0.6 -Post Debridement Size (cm) - Depth 0.2 0.1 -Total Square Cm 1.26 0.66 -Wound/Ulcer Outcome Not Healed Not Healed Not Healed -Ulcer Cleansing Rinsed/ Rinsed/ Irrigated with Irrigated with Saline Saline -Foul Odor after Cleansing No No -Bioengineered Tissue No Yes -Type of bioengineered Tissue EPIFIX -Expiration Date 07/01/24 -Product Lot Number [id number] -Percent Used 100 -Saline Lot Number [id number] -Bleeding Controlled with Pressure Pressure -Offloading No No -Treatment Response Procedure Procedure Tolerated Well Tolerated Well Pain Scale: 0-10 Numeric Is Patient Pain Free? Yes Yes Yes Wound debrided: lateral ankle Laterality: Right Type of Debridement: Excisional debridement Anesthesia Used: 5% Lidocaine Gel Depth: in the subcutaneous layer Percentage of wound debrided: 100 Instrument Used: #15 blade Tissue Removed: fibrous, devitalized subcutaneous, biofilm, slough Severity: Fat Layer Exposed Amount of bleeding with debridement: Mild Bleeding Controlled with: Pressure Patient tolerated procedure well - Additional Wound Wound debrided: medial ankle Laterality: Right Type of Debridement: Excisional debridement Anesthesia Used: 5% Lidocaine Gel Depth: in the subcutaneous layer Percentage of wound debrided: 100 Instrument Used: #15 blade Tissue Removed: fibrous, devitalized subcutaneous, biofilm, slough Severity: Fat Layer Exposed Amount of bleeding with debridement: Mild Bleeding Controlled with: Pressure Patient tolerated procedure: Patient tolerated procedure well Assessment/Plan Assessment: This is a 69 with chronic medial ankle ulcer and recent incision and drainage residual wound to the lateral ankle area. The etiology, recommended treatment, and anticipated healing time and management for these lower extremity ulcers was discussed in detail today. His previous admission data and diagnostic data were reviewed in detail. I recommended subcutaneous excisional debridement on a weekly or biweekly basis. He is amenable to proceed forward with this today and this was tolerated well. I recommend this at this time and we reviewed the indications, planned application, and anticipated healing time and management. I recommend application of epi-fix, placental derived tissue. It is noted he has significant delayed in healing already and the medial aspect has been open for 3 years. This is medically necessary for limb salvage. He was reassured no local signs of infection are noted. His incision and drainage was performed on 09/26/[address] Sparks. His recent infection and antibiotic intervention is noted. His prior cultures demonstrated Staphylococcus aureus without MRSA development. He was on a course of doxycycline. Does not have systemic illness today. He was advised to have further work-up of his arterial status given his chronicity of the ulcers. Noninvasive vascular study was ordered and the results are pending. It is noted he has been previously diagnosed with venous insufficiency and I recommended proceeding forward with any treatment recommendations and continued compression therapy. His venous Doppler from 2017 demonstrated prior valvular incompetence to the right femoral vein, popliteal vein, and additional superficial thrombophlebitis of this extremity. His most recent venous Doppler from his hospitalization did not demonstrate incompetent veins. A left soleus vein acute blood clot was identified. To elevate the limbs at rest. To avoid idle standi ng or sitting. His recent labs from his hospital medicine were also reviewed. On 09/27/2019 he did not have any leukocytosis. His albumin level was 2.5 and his hemoglobin A1c level was 5.8%. Lab trends will be monitored. To immobilize and reduce ankle motion to take tension off the ulcer sites. I provided him with a prescription for a cam walker. To maintain proper diet and nutritional supplementation to optimize healing. A prescription for Damaso was provided and he was advised on proper use. I answers questions. To return to the wound healing center in 2 week or call sooner if he has any questions or concerns. Plan: The advanced wound healing product, epi-fix was applied according to standard protocol today after verbal consent was obtained. This was further secured in place with a wound to hold Steri-Strips. He tolerated this well. He was advised to keep this clean dry and intact until next week. At that time he will remove the dressing and proceed with changing the dressing daily with hydrogel and overlying gauze. This is medically necessary for limb salvage. He demonstrates understanding of this plan. 100% of the product was utilized.
[2019-10-30 16:33] VITALS: BP 141/75; PULSE 70; RESP 18; TEMP 36.8; BMI 25.7
--- NOTE | 2019-10-30 17:03 | PCM.WC.PN ---
(1) Ulcer of right lower extremity with fat layer exposed Status: Chronic Code(s): L97.912 - Non-pressure chronic ulcer of unspecified part of right lower leg with fat layer exposed (2) Pain in right lower leg Status: Acute Code(s): M79.661 - Pain in right lower leg (3) Chronic venous insufficiency Status: Chronic (4) Localized edema Status: Chronic Code(s): R60.0 - Localized edema (5) Delayed wound healing Status: Chronic Code(s): T14.8XXD - Other injury of unspecified body region, subsequent encounter (6) Deep vein thrombophlebitis of right leg Status: Acute Code(s): I80.201 - Phlebitis and thrombophlebitis of unspecified deep vessels of right lower extremity Type of Wound Date of Service: 10/30/19 Chief Complaint: Ulcer right ankle x2 History of Wound: This is a 69-year-old male with a long-standing history of chronic venous disease follows up for chronic ulcer of the medial right ankle that has been present for approximately 3 years. He also had a recent infection and was admitted to [facility] and had an incision and drainage performed by Dr. Sparks. He has taken antibiotics as advised. He is amenable to proceed with debridement today and defers the use of local anesthetic via injection for topical. He has been using graduated compression stockings of 20-30 mmHg compression on a daily basis. He tries to elevate his limbs. He was recently diagnosed with a left lower extremity blood clot and is on Eliquis. He is also amenable to proceed with advancement healing product application today, epi-fix. 1 week ago, he transition to application of hydrogel and cover this with a gauze. This was going well until 1 day ago he seems to have some irritation from gauze. He denies streaking or odor however the area around the ulcer site is a red-purple color. Progress of Wound: Improving - Physical Exam Vital Signs Temp Pulse Resp BP 98.2 F 70 18 141/75 H 10/30/19 16:33 10/30/19 16:33 10/30/19 16:33 10/30/19 16:33 General: Alert, Oriented x3, Cooperative, No apparent distress HEENT: Atraumatic Extremities: No cyanosis, Capillary Refill Less than 3 Seconds, No Calf Tenderness, Diminished Peripheral Pulses, Edema Skin: Ulcer/ Wound - No purulence, erythema, streaking, odor, infection. No deep probing or necrosis. The adjacent skin is hairless and atrophic. There is some richa-ulcer site inflammation on the lateral aspect of the right ankle which is consistent with dressing irritation. He was reassured no signs of infection or deep tissue exposure is noted today. Wound Measurements and Assessment WC - Nurse 1 - General Ulcer Measurement Start: 10/03/19 13:20 Freq: Status: Active Protocol: Activity Type Activity Date Activity User E-Sign Co-Sign Detail Recorded Client Recorded Date Recorded By Document 10/30/19 16:33 RB [id number] 10/30/19 16:49 RB 10/30/19 16:33 Wound Center Nurse 1 [Ulcer Assessment] 3. R lateral ankle -Combined with other wound No -Current Size (cm) - Length 4.5 -Current Size (cm) - Width 0.3 -Current Size (cm) - Depth 0.1 -Total Square Cm 1.35 -Tunneling No -Undermining/Tunneling No -Circular Undermining No -Exudate Amt Small -Exudate Type Serosanguineous -Wound Margin Flat & Intact -Granulation Amt Medium (34-66%) -Granulation Quality [place],Red -Slough/Fibrin Yes -Necrosis Amt Small (1-33%) -Necrotic Tissue Type Adherent Slough -Structure Exposed N/A -Texture (Richa-wound Skin Appearance) Excoriation -Moisture (Richa-wound Skin Appearance Assessed ) -Color (Richa-wound Skin Appearance) Assessed -Temperature (Richa-wound Skin No Abnormality Appearance) (Pt Warm) -Tenderness on Palpation (Richa-wound No Skin Appearance) -Ulcer Cleansing Wound Cleanser -Foul Odor after Cleansing No -Anesthetic Used 4% Lidocaine Solution 2. R medial ankle -Combined with other wound No -Current Size (cm) - Length 2 -Current Size (cm) - Width 0.4 -Current Size (cm) - Depth 0.1 -Total Square Cm 0.8 -Tunneling No -Undermining/Tunneling No -Circular Undermining No -Exudate Amt Small -Exudate Type Serosanguineous -Wound Margin Flat & Intact -Granulation Amt Medium (34-66%) -Granulation Quality [place] -Slough/Fibrin Yes -Necrosis Amt Small (1-33%) -Necrotic Tissue Type Adherent Slough -Structure Exposed N/A -Texture (Richa-wound Skin Appearance) Assessed -Moisture (Richa-wound Skin Appearance Assessed ) -Color (Richa-wound Skin Appearance) Assessed -Temperature (Richa-wound Skin No Abnormality Appearance) (Pt Warm) -Tenderness on Palpation (Richa-wound No Skin Appearance) -Ulcer Cleansing Wound Cleanser -Foul Odor after Cleansing No -Anesthetic Used 4% Lidocaine Solution [Edema Assessment] -Lower Limb Edema Present Yes -Right Calf (cm) 37 -Right Ankle (cm) 22.7 Musculoskeletal: No Tenderness to Palpation of Joints or Extremities, Muscle Wasting, Tenderness - Pain with ulcer manipulation debridement is noted and controlled Neurological: Sensory exam intact to light touch and pain Psych/Mental Status: Normal Affect, Appropriate Debridement Note Post-Debridement Measurements/Treatment WC - Nurse 2 - General Ulcer CM Notes Start: 10/03/19 13:20 Freq: Status: Active Protocol: Activity Type Activity Date Activity User E-Sign Co-Sign Detail Recorded Client Recorded Date Recorded By Document 10/03/19 14:07 [id number] 10/03/19 14:08 Document 10/10/19 16:37 [id number] 10/10/19 16:38 Document 10/17/19 16:20 [id number] 10/17/19 16:25 10/03/19 10/10/19 10/17/19 14:07 16:37 16:20 Wound Center Nurse 2 3. R lateral ankle -Time 16:37 16:21 -Correct Patient No Yes Yes -Correct Side, Site, Position No Yes Yes -Correct Procedure No Yes Yes -Procedure Performed No Yes Yes -Type of Procedure Debridement Debridement -Clinical Debridement Subcutaneous Subcutaneous -Post Debridement Size (cm) - Length 6.7 6 -Post Debridement Size (cm) - Width 0.7 0.6 -Post Debridement Size (cm) - Depth 0.3 0.1 -Total Square Cm 4.69 3.6 -Wound/Ulcer Outcome Not Healed Not Healed Not Healed -Ulcer Cleansing Rinsed/ Rinsed/ Irrigated with Irrigated with Saline Saline -Foul Odor after Cleansing No No -Bioengineered Tissue No Yes -Type of bioengineered Tissue EPIFIX -Expiration Date 07/01/24 -Product Lot Number [id number] -Percent Used 100 -Saline Lot Number [id number] -Bleeding Controlled with Pressure Pressure -Offloading No No -Treatment Response Procedure Procedure Tolerated Well Tolerated Well 2. R medial ankle -Time 16:38 16:23 -Correct Patient No Yes Yes -Correct Side, Site, Position No Yes Yes -Correct Procedure No Yes Yes -Procedure Performed No Yes Yes -Type of Procedure Debridement Debridement -Clinical Debridement Subcutaneous Subcutaneous -Post Debridement Size (cm) - Length 2.1 1.1 -Post Debridement Size (cm) - Width 0.6 0.6 -Post Debridement Size (cm) - Depth 0.2 0.1 -Total Square Cm 1.26 0.66 -Wound/Ulcer Outcome Not Healed Not Healed Not Healed -Ulcer Cleansing Rinsed/ Rinsed/ Irrigated with Irrigated with Saline Saline -Foul Odor after Cleansing No No -Bioengineered Tissue No Yes -Type of bioengineered Tissue EPIFIX -Expiration Date 07/01/24 -Product Lot Number [id number] -Percent Used 100 -Saline Lot Number [id number] -Bleeding Controlled with Pressure Pressure -Offloading No No -Treatment Response Procedure Procedure Tolerated Well Tolerated Well Pain Scale: 0-10 Numeric Is Patient Pain Free? Yes Yes Yes Wound debrided: medial ankle, lateral ankle Laterality: Right Type of Debridement: Excisional debridement Anesthesia Used: 5% Lidocaine Gel Depth: in the subcutaneous layer Percentage of wound debrided: 100 Instrument Used: #15 blade Tissue Removed: fibrous, devitalized subcutaneous, biofilm, slough Severity: Fat Layer Exposed Amount of bleeding with debridement: Mild Bleeding Controlled with: Pressure Patient tolerated procedure well Assessment/Plan Assessment: This is a 69 with chronic medial ankle ulcer and recent incision and drainage residual wound to the lateral ankle area. The etiology, recommended treatment, and anticipated healing time and management for these lower extremity ulcers was discussed in detail today. His previous admission data and diagnostic data were reviewed in detail. I recommended subcutaneous excisional debridement on a weekly or biweekly basis. He is amenable to proceed forward with this today and this was tolerated well. I recommend this at this time and we reviewed the indications, planned application, and anticipated healing time and management. I recommend application of epi-fix, placental derived tissue. It is noted he has significant delayed in healing already and the medial aspect has been open for 3 years. This is medically necessary for limb salvage. He was reassured no local signs of infection are noted. His incision and drainage was performed on 09/26/[address] Sparks. His recent infection and antibiotic intervention is noted. His prior cultures demonstrated Staphylococcus aureus without MRSA development. He was on a course of doxycycline. Does not have systemic illness today. He was advised to have further work-up of his arterial status given his chronicity of the ulcers. Noninvasive vascular study was ordered and the results are pending. It is noted he has been previously diagnosed with venous insufficiency and I recommended proceeding forward with any treatment recommendations and continued compression therapy. His venous Doppler from 2017 demonstrated prior valvular incompetence to the right femoral vein, popliteal vein, and additional superficial thrombophlebitis of this extremity. His most recent venous Doppler from his hospitalization did not demonstrate incompetent veins. A left soleus vein acute blood clot was identified. To elevate the limbs at rest. To avoid idle standing or sitting. His recent labs from his hospital medicine were also reviewed. On 09/27/2019 he did not have any leukocytosis. His albumin level was 2.5 and his hemoglobin A1c level was 5.8%. Lab trends will be monitored. To immobilize and reduce ankle motion to take tension off the ulcer sites. I provided him with a prescription for a cam walker; to continue this. To maintain proper diet and nutritional supplementation to optimize healing. A prescription for Damaso was provided previously and he was advised on proper use. I answered questions. To return to the wound healing center in 1 week or call sooner if he has any questions or concerns. Plan: The advanced wound healing product, epi-fix was applied according to standard protocol today after verbal consent was obtained. This was further secured in place with a wound to hold Steri-Strips. He tolerated this well. This is medically necessary for limb salvage. He demonstrates understanding of this plan. 100% of the product was utilized. He will discontinue the hydrogel with overlying gauze which is presumably because of his adjacent ulcer site skin inflammation.
== END 2019-10-30 23:59 ==
LOC: WC 16:30
PROVIDERS: Family Provider Family Medicine; PCP Family Medicine; Referring Provider Podiatrist; Visit Provider Podiatrist
DX: I73.9 Peripheral vascular disease, unspecified (principal); I87.2 Venous insufficiency (chronic) (peripheral); M79.89 Other specified soft tissue disorders; L97.312 Non-pressure chronic ulcer of right ankle with fat layer exposed; Z86.718 Personal history of other venous thrombosis and embolism; Z79.01 Long term (current) use of anticoagulants
CPT/HCPCS: 11042; 15271; 93923; 97605; 99213; Q4186; G0463

== ENCOUNTER 2019-11-28 16:00 | Outpatient (RCR) | payer MEDICARE, OTHER, SELFPAY ==
[2019-10-31 01:01] VITALS: BP 141/75; PULSE 70; RESP 18; TEMP 36.8
[2019-11-02 10:23] VITALS: BP 136/84; PULSE 62; RESP 18; TEMP 36.2; BMI 25.7
[2019-11-07 15:51] VITALS: BP 144/69; PULSE 70; RESP 18; BMI 25.7
--- NOTE | 2019-11-07 16:28 | PCM.WC.PN ---
(1) Stasis dermatitis of right lower extremity due to peripheral venous hypertension Status: Acute Current Visit: Yes Code(s): I87.321 - Chronic venous hypertension (idiopathic) with inflammation of right lower extremity (2) Chronic ulcer of right ankle with fat layer exposed Status: Chronic Current Visit: Yes Code(s): L97.312 - Non-pressure chronic ulcer of right ankle with fat layer exposed (3) Pain in right lower leg Status: Acute Current Visit: Yes Code(s): M79.661 - Pain in right lower leg (4) Lower extremity edema Status: Acute Current Visit: Yes Code(s): R60.0 - Localized edema (5) Delayed wound healing Status: Chronic Current Visit: Yes Code(s): T14.8XXD - Other injury of unspecified body region, subsequent encounter (6) Chronic venous insufficiency Status: Chronic Current Visit: Yes Code(s): I87.2 - Venous insufficiency (chronic) (peripheral) Type of Wound Date of Service: 11/07/19 Chief Complaint: Ulcer right ankle x2 History of Wound: This is a 69-year-old male with a long-standing history of chronic venous disease follows up for chronic ulcer of the medial right ankle that has been present for approximately 3 years. He also had a recent infection and was admitted to [facility] and had an incision and drainage performed by Dr. Sparks. He has taken antibiotics as advised. He is amenable to proceed with debridement today and defers the use of local anesthetic via injection for topical. He has been using graduated compression stockings of 20-30 mmHg compression on a daily basis. He tries to elevate his limbs. He was recently diagnosed with a left lower extremity blood clot and is on Eliquis. He is also amenable to proceed with advancement healing product application today, epi-fix. he has been having intermittent irritation from gauze and this resolved with use of adaptic. He denies streaking or odor however the area around the ulcer site is a red-purple color has resolved compared to his nursing visit last week (tuesday). Progress of Wound: Improving - Physical Exam Vital Signs Temp Pulse Resp BP 97.1 F L 70 18 144/69 H 11/02/19 10:23 11/07/19 15:51 11/07/19 15:51 11/07/19 15:51 General: Alert, Oriented x3, Cooperative, No apparent distress HEENT: Atraumatic Extremities: No Calf Tenderness, Diminished Peripheral Pulses Skin: Ulcer/ Wound - No purulence, erythema, streaking, odor, infection. There is no longer any violaceous purple richa-ulcer site color noted as compared to his clinical photo from last Tuesday. There is peripheral skin is hairless, atrophic. There is no bogginess or fluctuance on palpation. There is no deep exposure. Wound Measurements and Assessment WC - Nurse 1 - General Ulcer Measurement Start: 11/02/19 09:49 Freq: Status: Active Protocol: Activity Type Activity Date Activity User E-Sign Co-Sign Detail Recorded Client Recorded Date Recorded By Document 11/07/19 15:51 [facility] [id number] 11/07/19 15:58 BM 11/07/19 15:51 Wound Center Nurse 1 [Ulcer Assessment] 3. R lateral ankle -Combined with other wound No -Current Size (cm) - Length 7 -Current Size (cm) - Width 1 -Current Size (cm) - Depth 0.1 -Total Square Cm 7 -Photo Taken No -Epithelialization Small 1-33% -Tunneling No -Undermining/Tunneling No -Circular Undermining No -Exudate Amt Small -Exudate Type Serosanguineous -Wound Margin Flat & Intact -Granulation Amt Small (1-33%) -Granulation Quality Red -Slough/Fibrin Yes -Necrosis Amt Large (67-100%) -Necrotic Tissue Type Eschar -Texture (Richa-wound Skin Appearance) Assessed, Excoriation, Scarring -Moisture (Richa-wound Skin Appearance Assessed,Dry/ ) Scaly -Color (Richa-wound Skin Appearance) Assessed, Erythema -Temperature (Richa-wound Skin No Abnormality Appearance) (Pt Warm) -Tenderness on Palpation (Richa-wound Yes Skin Appearance) -Ulcer Cleansing soapy water -Foul Odor after Cleansing No -Anesthetic Used 4% Lidocaine Solution 2. R medial ankle -Combined with other wound No -Current Size (cm) - Length 3 -Current Size (cm) - Width 1 -Current Size (cm) - Depth 0.2 -Total Square Cm 3 -Photo Taken No -Epithelialization None Present -Tunneling No -Undermining/Tunneling No -Circular Undermining No -Exudate Amt Small -Exudate Type Serosanguineous -Wound Margin Distinct, Outline Attached -Granulation Amt None Present (0 %) -Slough/Fibrin Yes -Necrosis Amt Large (67-100%) -Necrotic Tissue Type Adherent Slough -Texture (Richa-wound Skin Appearance) Assessed, Excoriation, Scarring -Moisture (Richa-wound Skin Appearance Assessed,Dry/ ) Scaly -Color (Richa-wound Skin Appearance) Assessed, Erythema -Temperature (Richa-wound Skin No Abnormality Appearance) (Pt Warm) -Tenderness on Palpation (Richa-wound Yes Skin Appearance) -Ulcer Cleansing soapy water -Foul Odor after Cleansing No -Anesthetic Used 4% Lidocaine Solution [Edema Assessment] -Right Calf (cm) 35.2 -Right Ankle (cm) 21.3 WC - Nurse 2 - General Ulcer CM Notes Start: 11/02/19 09:49 Freq: Status: Active Protocol: Activity Type Activity Date Activity User E-Sign Co-Sign Detail Recorded Client Recorded Date Recorded By Document 11/07/19 16:13 VINICIO [id number] 11/07/19 16:15 VINICIO 11/07/19 16:13 Wound Center Nurse 2 [Procedure/Treatment] 3. R lateral ankle -Time 16:13 -Correct Patient Yes -Correct Side, Site, Position Yes -Correct Procedure Yes -Procedure Performed Yes -Type of Procedure Debridement -Clinical Debridement Subcutaneous -Post Debridement Size (cm) - Length 7 -Post Debridement Size (cm) - Width 1.1 -Post Debridement Size (cm) - Depth 0.1 -Total Square Cm 7.7 -Wound/Ulcer Outcome Not Healed -Ulcer Cleansing Rinsed/ Irrigated with Saline -Foul Odor after Cleansing No -Bioengineered Tissue Yes -Type of bioengineered Tissue EPIFIX -Expiration Date 07/01/24 -Product Lot Number [id number] -Percent Used 100 -Saline Lot Number [id number] -Bleeding Controlled with Pressure -Offloading No -Treatment Response Procedure Tolerated Well 2. R medial ankle -Time 16:14 -Correct Patient Yes -Correct Side, Site, Position Yes -Correct Procedure Yes -Procedure Performed Yes -Type of Procedure Debridement -Clinical Debridement Subcutaneous -Post Debridement Size (cm) - Length 3.1 -Post Debridement Size (cm) - Width 1 -Post Debridement Size (cm) - Depth 0.2 -Total Square Cm 3.1 -Wound/Ulcer Outcome Not Healed -Ulcer Cleansing Rinsed/ Irrigated with Saline -Foul Odor after Cleansing No -Bioengineered Tissue Yes -Type of bioengineered Tissue EPIFIX -Expiration Date 07/01/24 -Product Lot Number [id number] -Percent Used 100 -Saline Lot Number [id number] -Bleeding Controlled with Pressure -Offloading No -Treatment Response Procedure Tolerated Well [See Physician Procedure note for Specifics] Pain Scale: 0-10 Numeric [Pain] -Is Patient Pain Free? Yes Musculoskeletal: No Tenderness to Palpation of Joints or Extremities, Muscle Wasting Neurological: Sensory exam intact to light touch and pain, - - Lack of sensation to medial ulcer ankle Psych/Mental Status: Normal Affect, Appropriate Debridement Note Post-Debridement Measurements/Treatment WC - Nurse 2 - General Ulcer CM Notes Start: 11/02/19 09:49 Freq: Status: Active Protocol: Activity Type Activity Date Activity User E-Sign Co-Sign Detail Recorded Client Recorded Date Recorded By Document 11/07/19 16:13 VINICIO [id number] 11/07/19 16:15 VINICIO 11/07/19 16:13 Wound Center Nurse 2 3. R lateral ankle -Time 16:13 -Correct Patient Yes -Correct Side, Site, Position Yes -Correct Procedure Yes -Procedure Performed Yes -Type of Procedure Debridement -Clinical Debridement Subcutaneous -Post Debridement Size (cm) - Length 7 -Post Debridement Size (cm) - Width 1.1 -Post Debridement Size (cm) - Depth 0.1 -Total Square Cm 7.7 -Wound/Ulcer Outcome Not Healed -Ulcer Cleansing Rinsed/ Irrigated with Saline -Foul Odor after Cleansing No -Bioengineered Tissue Yes -Type of bioengineered Tissue EPIFIX -Expiration Date 07/01/24 -Product Lot Number [id number] -Percent Used 100 -Saline Lot Number [id number] -Bleeding Controlled with Pressure -Offloading No -Treatment Response Procedure Tolerated Well 2. R medial ankle -Time 16:14 -Correct Patient Yes -Correct Side, Site, Position Yes -Correct Procedure Yes -Procedure Performed Yes -Type of Procedure Debridement -Clinical Debridement Subcutaneous -Post Debridement Size (cm) - Length 3.1 -Post Debridement Size (cm) - Width 1 -Post Debridement Size (cm) - Depth 0.2 -Total Square Cm 3.1 -Wound/Ulcer Outcome Not Healed -Ulcer Cleansing Rinsed/ Irrigated with Saline -Foul Odor after Cleansing No -Bioengineered Tissue Yes -Type of bioengineered Tissue EPIFIX -Expiration Date 07/01/24 -Product Lot Number [id number] -Percent Used 100 -Saline Lot Number [id number] -Bleeding Controlled with Pressure -Offloading No -Treatment Response Procedure Tolerated Well Pain Scale: 0-10 Numeric Is Patient Pain Free? Yes Wound debrided: medial ankle, lateral ankle Laterality: Right Type of Debridement: Excisional debridement Anesthesia Used: 5% Lidocaine Gel Depth: in the subcutaneous layer Percentage of wound debrided: 100 Instrument Used: #15 blade Tissue Removed: fibrous, devitalized subcutaneous, biofilm, slough Severity: Fat Layer Exposed Amount of bleeding with debridement: Mild Bleeding Controlled with: Pressure Patient tolerated procedure well Assessment/Plan Active Problems Chronic ulcer of right ankle with fat layer exposed (Chronic) Pain in right lower leg (Acute) Lower extremity edema (Acute) Delayed wound healing (Chronic) Stasis dermatitis of right lower extremity due to peripheral venous hypertension (Acute) Chronic venous insufficiency (Chronic) Assessment: This is a 69 with chronic medial ankle ulcer and recent incision and drainage residual wound to the lateral ankle area. The etiology, recommended treatment, and anticipated healing time and management for these lower extremity ulcers was discussed in detail today. His previous admission data and diagnostic data were reviewed in detail. I recommended subcutaneous excisional debridement on a weekly or biweekly basis. He is amenable to proceed forward with this today and this was tolerated well. I recommend this at this time and we reviewed the indications, planned application, and anticipated healing time and management. I recommend application of epi-fix, placental derived tissue. It is noted he has significant delayed in healing already and the medial aspect has been open for 3 years. This is medically necessary for limb salvage. He was reassured no local signs of infection are noted. His incision and drainage was performed on 09/26/[address] Sparks. His recent infection and antibiotic intervention is noted. His prior cultures demonstrated Staphylococcus aureus without MRSA development. He was on a course of doxycycline. Does not have systemic illness today. He was advised to have further work-up of his arterial status given his chronicity of the ulcers. Noninvasive vascular study was ordered and the results are pending. It is noted he has been previously diagnosed with venous insufficiency and I recommended proceeding forward with any treatment recommendations and continued compression therapy. His venous Doppler from 2017 demonstrated prior valvular incompetence to the right femoral vein, popliteal vein, and additional superficial thrombophlebitis of this extremity. His most recent venous Doppler from his hospitalization did not demonstrate incompetent veins. A left soleus vein acute blood clot was identified. To elevate the limbs at rest. To avoid idle standing or sitting. His recent labs from his hospital medicine were also reviewed. On 09/27/2019 he did not have any leukocytosis. His albumin level was 2.5 and his hemoglobin A1c level was 5.8%. Lab trends will be monitored. To immobilize and reduce ankle motion to take tension off the ulcer sites. I provided him with a prescription for a cam walker; to continue this. He was advised to wear this when he intermittently returns to work. Another prescription was provided today because it was clarified today that he has not been utilizing this and needs another one. He was advised he cannot drive with this in place. To maintain proper diet and nutritional supplementation to optimize healing. A prescription for Damaso was provided previously and he was advised on proper use. I answered questions. His recent skin dermatitis and inflammatory reaction from last week during his nursing visit was discussed and reviewed at length today. He was reassured this does not look infected today. I recommend he continue with the Adaptic over the advance wound healing product and this can be changed every 1 to 2 days at home. To monitor close for recurrence. He understands this may also be related to his chronic venous insufficiency and fluctuating edema which I recommend he follows up with vascular as previously advised. To return to the wound healing center in 1 week or call sooner if he has any questions or concerns. . 2020 quality measures reviewed as the following: Reviewed today-level of 3 out of 10 is noted in follow-up plan documented, medication and allergy status reconciled. Reviewed 11/07/2019-pneumonia vaccination status confirmed in which the patient refused, influenza immunization status confirmed in which he also refused this during this current season, his advanced care plan was confirmed with living will, he is a current tobacco non-user, his blood pressure was elevated over 120/80 and I recommend that he follows up with his primary care physician for medical management. Diet and exercise options were discussed to optimize his wound healing and medical management. Plan: The advanced wound healing product, epi-fix was applied according to standard protocol today after verbal consent was obtained. This was further secured in place with a wound to hold Steri-Strips. He tolerated this well. This is medically necessary for limb salvage. He demonstrates understanding of this plan. 100% of the product was utilized. He will discontinue the hydrogel with overlying gauze which is presumably because of his adjacent ulcer site skin inflammation.
[2019-11-14 15:46] VITALS: BP 141/77; PULSE 79; RESP 18; TEMP 36.2; BMI 25.7
--- NOTE | 2019-11-14 16:33 | PN.PCM_ITS ---
(1) Other specified peripheral vascular diseases Status: Chronic Code(s): I73.89 - Other specified peripheral vascular diseases (2) Stasis dermatitis of right lower extremity due to peripheral venous hypertension Status: Acute Code(s): I87.321 - Chronic venous hypertension (idiopathic) with inflammation of right lower extremity (3) Chronic ulcer of right ankle with fat layer exposed Status: Chronic Code(s): L97.312 - Non-pressure chronic ulcer of right ankle with fat layer exposed (4) Pain in right lower leg Status: Acute Code(s): M79.661 - Pain in right lower leg (5) Lower extremity edema Status: Acute Code(s): R60.0 - Localized edema (6) Delayed wound healing Status: Chronic Code(s): T14.8XXD - Other injury of unspecified body region, subsequent encounter (7) Chronic venous insufficiency Status: Chronic Code(s): I87.2 - Venous insufficiency (chronic) (peripheral) Type of Wound Date of Service: 11/14/19 Chief Complaint: Ulcer right ankle x2 History of Wound: This is a 69-year-old male with a long-standing history of chronic venous disease follows up for chronic ulcer of the medial right ankle that has been present for approximately 3 years. He also had a recent infection and was admitted to [facility] and had an incision and drainage performed by Dr. Sparks. He has taken antibiotics as advised. He is amenable to proceed with debridement today and defers the use of local anesthetic via injection for topical. He has been using graduated compression stockings of 20-30 mmHg compression on a daily basis. He tries to elevate his limbs. He was recently diagnosed with a left lower extremity blood clot and is on Eliquis. He is also amenable to proceed with advancement healing product application today, epi-fix. he has been having intermittent irritation from gauze and this resolved with use of adaptic. He denies streaking or odor. His pain has resolved in total this past week. Progress of Wound: Improving - Physical Exam Vital Signs Temp Pulse Resp BP 97.1 F L 79 18 141/77 H 11/14/19 15:46 11/14/19 15:46 11/14/19 15:46 11/14/19 15:46 General: Alert, Oriented x3, Cooperative, No apparent distress Extremities: No cyanosis, Capillary Refill Less than 3 Seconds, No Calf Tenderness, Diminished Peripheral Pulses, Edema Skin: Ulcer/ Wound - peripheral epithelialization noted. no purulence, no erythema, no streaking, no odor noted. Wound Measurements and Assessment WC - Nurse 1 - General Ulcer Measurement Start: 11/02/19 09:49 Freq: Status: Active Protocol: Activity Type Activity Date Activity User E-Sign Co-Sign Detail Recorded Client Recorded Date Recorded By Document 11/14/19 15:46 RB [id number] 11/14/19 15:48 RB 11/14/19 15:46 Wound Center Nurse 1 [Ulcer Assessment] 3. R lateral ankle -Combined with other wound No -Current Size (cm) - Length 0.1 -Current Size (cm) - Width 0.1 -Current Size (cm) - Depth 0.1 -Total Square Cm 0.01 -Tunneling No -Undermining/Tunneling No -Circular Undermining No -Exudate Amt Small -Exudate Type Serosanguineous -Wound Margin Distinct, Outline Attached -Granulation Amt Small (1-33%) -Granulation Quality [place] -Slough/Fibrin Yes -Necrosis Amt Large (67-100%) -Necrotic Tissue Type Adherent Slough -Structure Exposed N/A -Texture (Yamile-wound Skin Appearance) Assessed -Moisture (Yamile-wound Skin Appearance Assessed,Dry/ ) Scaly -Color (Yamile-wound Skin Appearance) Assessed -Temperature (Yamile-wound Skin No Abnormality Appearance) (Pt Warm) -Tenderness on Palpation (Yamile-wound No Skin Appearance) -Ulcer Cleansing Wound Cleanser -Foul Odor after Cleansing No -Anesthetic Used 4% Lidocaine Solution 2. R medial ankle -Current Size (cm) - Length 2.9 -Current Size (cm) - Width 0.7 -Current Size (cm) - Depth 0.2 -Total Square Cm 2.03 -Tunneling No -Undermining/Tunneling No -Circular Undermining No -Exudate Amt Small -Exudate Type Serosanguineous -Wound Margin Flat & Intact -Granulation Amt Medium (34-66%) -Granulation Quality [place] -Slough/Fibrin Yes -Necrosis Amt Small (1-33%) -Necrotic Tissue Type Adherent Slough -Structure Exposed N/A -Texture (Yamile-wound Skin Appearance) Assessed -Moisture (Ymaile-wound Skin Appearance Assessed,Dry/ ) Scaly -Color (Yamile-wound Skin Appearance) Assessed -Temperature (Yamile-wound Skin No Abnormality Appearance) (Pt Warm) -Tenderness on Palpation (Yamile-wound No Skin Appearance) -Ulcer Cleansing Wound Cleanser -Foul Odor after Cleansing No -Anesthetic Used 4% Lidocaine Solution WC - Nurse 2 - General Ulcer CM Notes Start: 11/02/19 09:49 Freq: Status: Active Protocol: Activity Type Activity Date Activity User E-Sign Co-Sign Detail Recorded Client Recorded Date Recorded By Document 11/14/19 16:06 VINICIO [id number] 11/14/19 16:14 VINICIO 11/14/19 16:06 Wound Center Nurse 2 [Procedure/Treatment] 3. R lateral ankle -Time 16:07 -Correct Patient Yes -Correct Side, Site, Position Yes -Correct Procedure Yes -Procedure Performed Yes -Type of Procedure Debridement -Clinical Debridement Subcutaneous -Post Debridement Size (cm) - Length 2.0 -Post Debridement Size (cm) - Width 0.3 -Post Debridement Size (cm) - Depth 0.1 -Total Square Cm 0.60 -Wound/Ulcer Outcome Not Healed -Bioengineered Tissue Yes -Type of bioengineered Tissue EPIFIX -Expiration Date 07/31/24 -Product Lot Number [id number] -Percent Used 100 -Saline Lot Number [id number] -Bleeding Controlled with Pressure -Offloading No -Treatment Response Procedure Tolerated Well 2. R medial ankle -Time 16:07 -Correct Patient Yes -Correct Side, Site, Position Yes -Correct Procedure Yes -Procedure Performed Yes -Type of Procedure Debridement -Clinical Debridement Subcutaneous -Post Debridement Size (cm) - Length 1.5 -Post Debridement Size (cm) - Width 1 -Post Debridement Size (cm) - Depth 0.1 -Total Square Cm 1.5 -Wound/Ulcer Outcome Not Healed -Ulcer Cleansing Rinsed/ Irrigated with Saline -Foul Odor after Cleansing No -Bioengineered Tissue Yes -Type of bioengineered Tissue EPIFIX -Expiration Date 07/31/24 -Product Lot Number [id number] -Percent Used 100 -Saline Lot Number [id number] -Bleeding Controlled with Pressure -Offloading No -Treatment Response Procedure Tolerated Well [See Physician Procedure note for Specifics] Pain Scale: 0-10 Numeric [Pain] -Is Patient Pain Free? Yes Musculoskeletal: No Tenderness to Palpation of Joints or Extremities, Muscle Wasting Neurological: Sensory exam intact to light touch and pain Psych/Mental Status: Normal Affect, Appropriate Debridement Note Post-Debridement Measurements/Treatment WC - Nurse 2 - General Ulcer CM Notes Start: 11/02/19 09:49 Freq: Status: Active Protocol: Activity Type Activity Date Activity User E-Sign Co-Sign Detail Recorded Client Recorded Date Recorded By Document 11/07/19 16:13 [id number] 11/07/19 16:15 Document 11/14/19 16:06 [id number] 11/14/19 16:14 11/07/19 11/14/19 16:13 16:06 Wound Center Nurse 2 3. R lateral ankle -Time 16:13 16:07 -Correct Patient Yes Yes -Correct Side, Site, Position Yes Yes -Correct Procedure Yes Yes -Procedure Performed Yes Yes -Type of Procedure Debridement Debridement -Clinical Debridement Subcutaneous Subcutaneous -Post Debridement Size (cm) - Length 7 2.0 -Post Debridement Size (cm) - Width 1.1 0.3 -Post Debridement Size (cm) - Depth 0.1 0.1 -Total Square Cm 7.7 0.60 -Wound/Ulcer Outcome Not Healed Not Healed -Ulcer Cleansing Rinsed/ Irrigated with Saline -Foul Odor after Cleansing No -Bioengineered Tissue Yes Yes -Type of bioengineered Tissue EPIFIX EPIFIX -Expiration Date 07/01/24 07/31/24 -Product Lot Number [id number] -Percent Used 100 100 -Saline Lot Number [id number] -Bleeding Controlled with Pressure Pressure -Offloading No No -Treatment Response Procedure Procedure Tolerated Well Tolerated Well 2. R medial ankle -Time 16:14 16:07 -Correct Patient Yes Yes -Correct Side, Site, Position Yes Yes -Correct Procedure Yes Yes -Procedure Performed Yes Yes -Type of Procedure Debridement Debridement -Clinical Debridement Subcutaneous Subcutaneous -Post Debridement Size (cm) - Length 3.1 1.5 -Post Debridement Size (cm) - Width 1 1 -Post Debridement Size (cm) - Depth 0.2 0.1 -Total Square Cm 3.1 1.5 -Wound/Ulcer Outcome Not Healed Not Healed -Ulcer Cleansing Rinsed/ Rinsed/ Irrigated with Irrigated with Saline Saline -Foul Odor after Cleansing No No -Bioengineered Tissue Yes Yes -Type of bioengineered Tissue EPIFIX EPIFIX -Expiration Date 07/01/24 07/31/24 -Product Lot Number [id number] -Percent Used 100 100 -Saline Lot Number [id number] -Bleeding Controlled with Pressure Pressure -Offloading No No -Treatment Response Procedure Procedure Tolerated Well Tolerated Well Pain Scale: 0-10 Numeric Is Patient Pain Free? Yes Yes Wound debrided: medial ankle, lateral ankle Laterality: Right Type of Debridement: Excisional debridement Anesthesia Used: 5% Lidocaine Gel Depth: in the subcutaneous layer Percentage of wound debrided: 100 Instrument Used: #15 blade Tissue Removed: fibrous, devitalized subcutaneous, biofilm, slough Severity: Fat Layer Exposed Amount of bleeding with debridement: Mild Bleeding Controlled with: Pressure Patient tolerated procedure well Assessment/Plan Assessment: This is a 69 with chronic medial ankle ulcer and recent incision and drainage residual wound to the lateral ankle area. The etiology, recommended treatment, and anticipated healing time and management for these lower extremity ulcers was discussed in detail today. His previous admission data and diagnostic data were reviewed in detail. I recommended subcutaneous excisional debridement on a weekly or biweekly basis. He is amenable to proceed forward with this today and this was tolerated well. I recommend this at this time and we reviewed the indications, planned application, and anticipated healing time and management. I recommend application of epi-fix, placental derived tissue. It is noted he has significant delayed in healing already and the medial aspect has been open for 3 years. This is medically necessary for limb salvage. He was reassured no local signs of infection are noted. His incision and drainage was performed on 09/26/[address] Sparks. His recent infection and antibiotic intervention is noted. His prior cultures demonstrated Staphylococcus aureus without MRSA development. He was on a course of doxycycline. Does not have systemic illness today. He was advised to have further work-up of his arterial status given his chronicity of the ulcers. Noninvasive vascular study was ordered and the results are pending. It is noted he has been previously diagnosed with venous insufficiency and I recommended proceeding forward with any treatment recommendations and continued compression therapy. His venous Doppler from 2016 demonstrated prior valvular incompetence to the right femoral vein, popliteal vein, and additional superficial thrombophlebitis of this extremity. His most recent venous Doppler from his hospitalization did not demonstrate incompetent veins. A left soleus vein acute blood clot was identified. To elevate the limbs at rest. To avoid idle standing or sitting. His recent labs from his hospital medicine were also reviewed. On 09/27/2019 he did not have any leukocytosis. His albumin level was 2.5 and his hemoglobin A1c level was 5.8%. Lab trends will be monitored. To immobilize and reduce ankle motion to take tension off the ulcer sites. I provided him with a prescription for a cam walker; to continue this. He was advised to wear this when he intermittently returns to work. To maintain proper diet and nutritional supplementation to optimize healing. A prescription for Damaso was provided previously and he was advised on proper use. I answered questions. Adjacent dermatitis is not noted today. I recommend he continue with the Adaptic over the advance wound healing product and this can be changed every 1 to 2 days at home. To monitor close for recurrence. He understands this may also be related to his chronic venous insufficiency and fluctuating edema which I recommend he follows up with vascular as previously advised. To return to the wound healing center in 1 week or call sooner if he has any questions or concerns. . 2020 quality measures reviewed as the following: Reviewed today-level of 3 out of 10 is noted in follow-up plan documented, medication and allergy status reconciled. Reviewed 11/07/2019- pneumonia vaccination status confirmed in which the patient refused, influenza immunization status confirmed in which he also refused this during this current season, his advanced care plan was confirmed with living will, he is a current tobacco non-user, his blood pressure was elevated over 120/80 and I recommend that he follows up with his primary care physician for medical management. Diet and exercise options were discussed to optimize his wound healing and medical management. Plan: The advanced wound healing product, epi-fix was applied according to standard protocol today after verbal consent was obtained. This was further secured in place with a wound to hold Steri-Strips. He tolerated this well. This is medically necessary for limb salvage. He demonstrates understanding of this plan. 100% of the product was utilized. He will discontinue the hydrogel with overlying gauze which is presumably because of his adjacent ulcer site skin inflammation.
[2019-11-21 15:01] VITALS: RESP 16; TEMP 36.6; BMI 25.7
--- NOTE | 2019-11-21 15:33 | PCM.WC.PN ---
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 Status: Chronic Code(s): L97.312 - Non-pressure chronic ulcer of right ankle with fat layer exposed (2) Delayed wound healing Status: Chronic Code(s): T14.8XXD - Other injury of unspecified body region, subsequent encounter (3) Other specified peripheral vascular diseases Status: Chronic Code(s): I73.89 - Other specified peripheral vascular diseases (4) Stasis dermatitis of right lower extremity due to peripheral venous hypertension Status: Acute Code(s): I87.321 - Chronic venous hypertension (idiopathic) with inflammation of right lower extremity (5) Pain in right lower leg Status: Acute Code(s): M79.661 - Pain in right lower leg (6) Lower extremity edema Status: Acute Code(s): R60.0 - Localized edema (7) Chronic venous insufficiency Status: Chronic Code(s): I87.2 - Venous insufficiency (chronic) (peripheral) Type of Wound Date of Service: 11/21/19 Chief Complaint: Ulcer right ankle x2 History of Wound: This is a 69-year-old male with a long-standing history of chronic venous disease follows up for chronic ulcer of the medial right ankle that has been present for approximately 3 years. He also had a recent infection and was admitted to [facility] and had an incision and drainage performed by Dr. Sparks. He has taken antibiotics as advised. He is amenable to proceed with debridement today and defers the use of local anesthetic via injection for topical. He has been using graduated compression stockings of 20-30 mmHg compression on a daily basis. He tries to elevate his limbs. He was recently diagnosed with a left lower extremity blood clot and is on Eliquis. He has been having intermittent irritation from gauze and this resolved with use of adaptic. He denies streaking or odor. His pain has resolved in total this past week. He has been more active this past week and is even returned to work. He does not think his shoes pressing on his ulcer site. He denies pain today. Progress of Wound: Improving - Physical Exam Vital Signs Temp Pulse Resp BP 97.9 F 79 16 141/77 H 11/21/19 15:01 11/14/19 15:46 11/21/19 15:01 11/14/19 15:46 General: Alert, Oriented x3, Cooperative Extremities: No cyanosis, Capillary Refill Less than 3 Seconds, No Calf Tenderness, Diminished Peripheral Pulses, Edema - Mild Skin: Ulcer/ Wound - No purulence, erythema, streaking, odor, infection. Significant epithelialization is noted to the lateral ulcer site. There is a blister formation with serous drainage to the medial ulcer site and this is increased in size compared to last visit there is no adjacent ecchymosis, bogginess, or fluctuance the ulcer bed is granular and fibrous. Wound Measurements and Assessment WC - Nurse 1 - General Ulcer Measurement Start: 11/02/19 09:49 Freq: Status: Active Protocol: Activity Type Activity Date Activity User E-Sign Co-Sign Detail Recorded Client Recorded Date Recorded By Document 11/21/19 15:01 [facility] [id number] 11/21/19 15:09 [facility] 11/21/19 15:01 Wound Center Nurse 1 [Ulcer Assessment] 3. R lateral ankle -Combined with other wound No -Current Size (cm) - Length 0.1 -Current Size (cm) - Width 0.1 -Current Size (cm) - Depth 0.1 -Total Square Cm 0.01 -Photo Taken No -Epithelialization Large 67-100% -Tunneling No -Undermining/Tunneling No -Circular Undermining No -Exudate Amt None Present -Necrosis Amt Small (1-33%) -Necrotic Tissue Type Adherent Slough -Texture (Yamile-wound Skin Appearance) Assessed, Scarring -Moisture (Yamile-wound Skin Appearance Assessed,Dry/ ) Scaly -Color (Yamile-wound Skin Appearance) Assessed, Hemosiderin Staining -Temperature (Yamile-wound Skin No Abnormality Appearance) (Pt Warm) -Tenderness on Palpation (Yamile-wound No Skin Appearance) -Ulcer Cleansing soapy water -Foul Odor after Cleansing No -Anesthetic Used 4% Lidocaine Solution 2. R medial ankle -Combined with other wound No -Current Size (cm) - Length 0.1 -Current Size (cm) - Width 0.1 -Current Size (cm) - Depth 0.1 -Total Square Cm 0.01 -Photo Taken No -Epithelialization Medium 34-66% -Tunneling No -Undermining/Tunneling No -Circular Undermining No -Exudate Amt Small -Exudate Type Serous -Wound Margin Flat & Intact -Necrosis Amt Small (1-33%) -Necrotic Tissue Type Adherent Slough -Texture (Yamile-wound Skin Appearance) Assessed, Scarring -Moisture (Yamile-wound Skin Appearance Assessed,Dry/ ) Scaly -Color (Yamile-wound Skin Appearance) Assessed, Hemosiderin Staining -Temperature (Yamile-wound Skin No Abnormality Appearance) (Pt Warm) -Tenderness on Palpation (Yamile-wound No Skin Appearance) -Ulcer Cleansing soapy water -Foul Odor after Cleansing No -Anesthetic Used 4% Lidocaine Solution WC - Nurse 2 - General Ulcer CM Notes Start: 11/02/19 09:49 Freq: Status: Active Protocol: Activity Type Activity Date Activity User E-Sign Co-Sign Detail Recorded Client Recorded Date Recorded By Document 11/21/19 15:25 [id number] 11/21/19 15:27 11/21/19 15:25 Wound Center Nurse 2 [Procedure/Treatment] 3. R lateral ankle -Time 15:26 -Correct Patient Yes -Correct Side, Site, Position Yes -Correct Procedure Yes -Procedure Performed Yes -Type of Procedure Debridement -Clinical Debridement Selective -Post Debridement Size (cm) - Length 0.1 -Post Debridement Size (cm) - Width 0.1 -Post Debridement Size (cm) - Depth 0.1 -Total Square Cm 0.01 -Wound/Ulcer Outcome Not Healed -Ulcer Cleansing Rinsed/ Irrigated with Saline -Foul Odor after Cleansing No -Bioengineered Tissue No -Bleeding Controlled with Pressure -Offloading Yes -Type of Offloading Surgical Shoe -Treatment Response Procedure Tolerated Well 2. R medial ankle -Time 15:26 -Correct Patient Yes -Correct Side, Site, Position Yes -Correct Procedure Yes -Procedure Performed Yes -Type of Procedure Debridement -Clinical Debridement Subcutaneous -Post Debridement Size (cm) - Length 0.9 -Post Debridement Size (cm) - Width 0.5 -Post Debridement Size (cm) - Depth 0.1 -Total Square Cm 0.45 -Wound/Ulcer Outcome Not Healed -Ulcer Cleansing Rinsed/ Irrigated with Saline -Foul Odor after Cleansing No -Bioengineered Tissue No -Bleeding Controlled with Pressure -Offloading Yes -Type of Offloading Surgical Shoe -Treatment Response Procedure Tolerated Well [See Physician Procedure note for Specifics] Pain Scale: 0-10 Numeric [Pain] -Is Patient Pain Free? Yes Musculoskeletal: No Tenderness to Palpation of Joints or Extremities, Muscle Wasting Neurological: - - Altered sensation Psych/Mental Status: Normal Affect, Appropriate Debridement Note Post-Debridement Measurements/Treatment WC - Nurse 2 - General Ulcer CM Notes Start: 11/02/19 09:49 Freq: Status: Active Protocol: Activity Type Activity Date Activity User E-Sign Co-Sign Detail Recorded Client Recorded Date Recorded By Document 11/07/19 16:13 [id number] 11/07/19 16:15 Document 11/14/19 16:06 [id number] 11/14/19 16:14 Document 11/21/19 15:25 [id number] 11/21/19 15:27 11/07/19 11/14/19 11/21/19 16:13 16:06 15:25 Wound Center Nurse 2 3. R lateral ankle -Time 16:13 16:07 15:26 -Correct Patient Yes Yes Yes -Correct Side, Site, Position Yes Yes Yes -Correct Procedure Yes Yes Yes -Procedure Performed Yes Yes Yes -Type of Procedure Debridement Debridement Debridement -Clinical Debridement Subcutaneous Subcutaneous Selective -Post Debridement Size (cm) - Length 7 2.0 0.1 -Post Debridement Size (cm) - Width 1.1 0.3 0.1 -Post Debridement Size (cm) - Depth 0.1 0.1 0.1 -Total Square Cm 7.7 0.60 0.01 -Wound/Ulcer Outcome Not Healed Not Healed Not Healed -Ulcer Cleansing Rinsed/ Rinsed/ Irrigated with Irrigated with Saline Saline -Foul Odor after Cleansing No No -Bioengineered Tissue Yes Yes No -Type of bioengineered Tissue EPIFIX EPIFIX -Expiration Date 07/01/24 07/31/24 -Product Lot Number [id number] -Percent Used 100 100 -Saline Lot Number [id number] -Bleeding Controlled with Pressure Pressure Pressure -Offloading No No Yes -Type of Offloading Surgical Shoe -Treatment Response Procedure Procedure Procedure Tolerated Well Tolerated Well Tolerated Well 2. R medial ankle -Time 16:14 16:07 15:26 -Correct Patient Yes Yes Yes -Correct Side, Site, Position Yes Yes Yes -Correct Procedure Yes Yes Yes -Procedure Performed Yes Yes Yes -Type of Procedure Debridement Debridement Debridement -Clinical Debridement Subcutaneous Subcutaneous Subcutaneous -Post Debridement Size (cm) - Length 3.1 1.5 0.9 -Post Debridement Size (cm) - Width 1 1 0.5 -Post Debridement Size (cm) - Depth 0.2 0.1 0.1 -Total Square Cm 3.1 1.5 0.45 -Wound/Ulcer Outcome Not Healed Not Healed Not Healed -Ulcer Cleansing Rinsed/ Rinsed/ Rinsed/ Irrigated with Irrigated with Irrigated with Saline Saline Saline -Foul Odor after Cleansing No No No -Bioengineered Tissue Yes Yes No -Type of bioengineered Tissue EPIFIX EPIFIX -Expiration Date 07/01/24 07/31/24 -Product Lot Number [id number] -Percent Used 100 100 -Saline Lot Number [id number] -Bleeding Controlled with Pressure Pressure Pressure -Offloading No No Yes -Type of Offloading Surgical Shoe -Treatment Response Procedure Procedure Procedure Tolerated Well Tolerated Well Tolerated Well Pain Scale: 0-10 Numeric Is Patient Pain Free? Yes Yes Yes Wound debrided: medial ankle Laterality: Right Type of Debridement: Excisional debridement Anesthesia Used: 5% Lidocaine Gel Depth: in the subcutaneous layer Percentage of wound debrided: 100 Instrument Used: #15 blade Tissue Removed: Fibrous, devitalized subcutaneous, biofilm, slough, blister Severity: Fat Layer Exposed Amount of bleeding with debridement: Mild Bleeding Controlled with: Pressure Patient tolerated procedure well - Additional Wound Wound debrided: lateral ankle Laterality: Right Type of Debridement: Selective debridement Anesthesia Used: 5% Lidocaine Gel Depth: Down to and including healthy tissue Percentage of wound debrided: 100 Instrument Used: #15 blade Tissue Removed: Fibrous, devitalized tissue, biofilm, slough Severity: Fat Layer Exposed Amount of bleeding with debridement: Mild Bleeding Controlled with: Pressure Patient tolerated procedure: Patient tolerated procedure well Assessment/Plan Assessment: This is a 69 with chronic medial ankle ulcer and recent incision and drainage residual wound to the lateral ankle area. The etiology, recommended treatment, and anticipated healing time and management for these lower extremity ulcers was discussed in detail today. His previous admission data and diagnostic data were reviewed in detail. I recommended subcutaneous excisional debridement on a weekly or biweekly basis. He is amenable to proceed forward with this today and this was tolerated well. I recommend this at this time and we reviewed the indications, planned application, and anticipated healing time and management. It is noted he has significant delayed in healing already and the medial aspect has been open for 3 years. He was reassured no local signs of infection are noted. His incision and drainage was performed on 09/26/[address] Sparks. His recent infection and antibiotic intervention is noted. His prior cultures demonstrated Staphylococcus aureus without MRSA development. He was on a course of doxycycline. Does not have systemic illness today. He was advised to have further work-up of his arterial status given his chronicity of the ulcers. Noninvasive vascular study was ordered and the results are pending. It is noted he has been previously diagnosed with venous insufficiency and I recommended proceeding forward with any treatment recommendations and continued compression therapy. His venous Doppler from 2017 demonstrated prior valvular incompetence to the right femoral vein, popliteal vein, and additional superficial thrombophlebitis of this extremity. His most recent venous Doppler from his hospitalization did not demonstrate incompetent veins. A left soleus vein acute blood clot was identified. To elevate the limbs at rest. To avoid idle standing or sitting. His recent labs from his hospital medicine were also reviewed. On 09/27/2019 he did not have any leukocytosis. His albumin level was 2.5 and his hemoglobin A1c level was 5.8%. Lab trends will be monitored. To immobilize and reduce ankle motion to take tension off the ulcer sites. I provided him with a prescription for a cam walker; to continue this. He was advised to wear this when he intermittently returns to work. To maintain proper diet and nutritional supplementation to optimize healing. A prescription for Damaso was provided previously and he was advised on proper use. I answered questions. Adjacent dermatitis is not noted today. I recommend he continue with the Adaptic over the advance wound healing product and this can be changed every 1 to 2 days at home. To monitor close for recurrence. He understands this may also be related to his chronic venous insufficiency and fluctuating edema which I recommend he follows up with vascular as previously advised. To return to the wound healing center in 1 week or call sooner if he has any questions or concerns. . 2020 quality measures reviewed as the following: Reviewed today-level of 0 out of 10 is noted in follow-up plan documented, medication and allergy status reconciled. Reviewed 11/07/2019-pneumonia vaccination status confirmed in which the patient refused, influenza immunization status confirmed in which he also refused this during this current season, his advanced care plan was confirmed with living will, he is a current tobacco non-user, his blood pressure was elevated over 120/80 and I recommend that he follows up with his primary care physician for medical management. Diet and exercise options were discussed to optimize his wound healing and medical management. Plan: Hydrogel and Adaptic was applied to the ulcers and he is advised to changes daily. To avoid excessive walking. His new blister formation is noted and I suspect either the medial aspect of his shoe room is rubbing into the site or at least causing tension on the site by point on the adjacent skin. He is advised to continue with compression garments.
[2019-11-28 15:14] VITALS: BP 135/74; PULSE 70; RESP 16; TEMP 36.3; BMI 25.7
--- NOTE | 2019-11-28 15:47 | PN.PCM_ITS ---
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 Status: Chronic Code(s): L97.312 - Non-pressure chronic ulcer of right ankle with fat layer exposed (3) Delayed wound healing Status: Chronic Code(s): T14.8XXD - Other injury of unspecified body region, subsequent encounter (4) Other specified peripheral vascular diseases Status: Chronic Code(s): I73.89 - Other specified peripheral vascular diseases (5) Stasis dermatitis of right lower extremity due to peripheral venous hypertension Status: Acute Code(s): I87.321 - Chronic venous hypertension (idiopathic) with inflammation of right lower extremity (6) Pain in right lower leg Status: Acute Code(s): M79.661 - Pain in right lower leg (7) Lower extremity edema Status: Acute Code(s): R60.0 - Localized edema (8) Chronic venous insufficiency Status: Chronic Code(s): I87.2 - Venous insufficiency (chronic) (peripheral) Type of Wound Date of Service: 11/28/19 Chief Complaint: Ulcer right ankle x2 History of Wound: This is a 69-year-old male with a long-standing history of chronic venous disease follows up for chronic ulcer of the medial right ankle that has been present for approximately 3 years. He also had a recent infection and was admitted to [facility] and had an incision and drainage performed by Dr. Sparks. He has taken antibiotics as advised. He is amenable to proceed with debridement today and defers the use of local anesthetic via injection for topical. He has been using graduated compression stockings of 20-30 mmHg compression on a daily basis. He tries to elevate his limbs. He was recently diagnosed with a left lower extremity blood clot and is on Eliquis. He denies streaking or odor. His pain has resolved in total this past week. He has been more active this past week and is even returned to work. He denies pain today. Progress of Wound: Healed lateral. Improving medial - Physical Exam Vital Signs Temp Pulse Resp BP 97.3 F L 70 16 135/74 H 11/28/19 15:14 11/28/19 15:14 11/28/19 15:14 11/28/19 15:14 General: Alert, Oriented x3, Cooperative Extremities: No cyanosis, Capillary Refill Less than 3 Seconds, No Calf Tenderness, Diminished Peripheral Pulses, Edema Skin: Ulcer/ Wound - No purulence, erythema, streaking, odor, infection. Adjacent skin is atrophic. There is full epithelialization noted to the lateral side. There is no blister to the medial side however the wound bed remains granular with very minimal fibrous tissue. There is no deep tissue necrosis noted Wound Measurements and Assessment WC - Nurse 1 - General Ulcer Measurement Start: 11/02/19 09:49 Freq: Status: Active Protocol: Activity Type Activity Date Activity User E-Sign Co-Sign Detail Recorded Client Recorded Date Recorded By Document 11/28/19 15:14 [facility] [id number] 11/28/19 15:20 [facility] 11/28/19 15:14 Wound Center Nurse 1 [Ulcer Assessment] 3. R lateral ankle -Combined with other wound No -Current Size (cm) - Length 0.1 -Current Size (cm) - Width 0.1 -Current Size (cm) - Depth 0.1 -Total Square Cm 0.01 -Photo Taken No -Epithelialization Large 67-100% -Tunneling No -Undermining/Tunneling No -Circular Undermining No -Granulation Amt None Present (0 %) -Slough/Fibrin Yes -Necrosis Amt Small (1-33%) -Necrotic Tissue Type Adherent Slough -Texture (Yamile-wound Skin Appearance) Assessed, Scarring -Moisture (Yamile-wound Skin Appearance Assessed,Dry/ ) Scaly -Color (Yamile-wound Skin Appearance) Assessed -Temperature (Yamile-wound Skin No Abnormality Appearance) (Pt Warm) -Tenderness on Palpation (Yamile-wound No Skin Appearance) -Ulcer Cleansing Rinsed/ Irrigated with Saline -Foul Odor after Cleansing No -Anesthetic Used 5% Lidocaine Gel 2. R medial ankle -Combined with other wound No -Current Size (cm) - Length 3.3 -Current Size (cm) - Width 1.5 -Current Size (cm) - Depth 0.2 -Total Square Cm 4.95 -Photo Taken No -Epithelialization None Present -Tunneling No -Undermining/Tunneling No -Circular Undermining No -Exudate Amt Small -Exudate Type Serosanguineous -Wound Margin Distinct, Outline Attached -Granulation Amt Small (1-33%) -Granulation Quality Red -Slough/Fibrin Yes -Necrosis Amt Large (67-100%) -Necrotic Tissue Type Adherent Slough -Texture (Yamile-wound Skin Appearance) Assessed, Scarring -Moisture (Yamile-wound Skin Appearance Assessed,Dry/ ) Scaly -Color (Yamile-wound Skin Appearance) Assessed, Erythema -Temperature (Yamile-wound Skin No Abnormality Appearance) (Pt Warm) -Tenderness on Palpation (Yamile-wound No Skin Appearance) -Ulcer Cleansing Rinsed/ Irrigated with Saline -Foul Odor after Cleansing No -Anesthetic Used 5% Lidocaine Gel WC - Nurse 2 - General Ulcer CM Notes Start: 11/02/19 09:49 Freq: Status: Active Protocol: Activity Type Activity Date Activity User E-Sign Co-Sign Detail Recorded Client Recorded Date Recorded By Document 11/28/19 15:36 [id number] 11/28/19 15:43 11/28/19 15:36 Wound Center Nurse 2 [Procedure/Treatment] 3. R lateral ankle -Correct Patient No -Correct Side, Site, Position No -Correct Procedure No -Procedure Performed No -Post Debridement Size (cm) - Length 0 -Post Debridement Size (cm) - Width 0 -Post Debridement Size (cm) - Depth 0 -Total Square Cm 0 -Wound/Ulcer Outcome Healed- Epithelialized 2. R medial ankle -Time 15:42 -Correct Patient Yes -Correct Side, Site, Position Yes -Correct Procedure Yes -Procedure Performed Yes -Type of Procedure Debridement -Clinical Debridement Subcutaneous -Post Debridement Size (cm) - Length 3.4 -Post Debridement Size (cm) - Width 1.5 -Post Debridement Size (cm) - Depth 0.2 -Total Square Cm 5.10 -Wound/Ulcer Outcome Not Healed -Ulcer Cleansing Rinsed/ Irrigated with Saline -Foul Odor after Cleansing No -Bioengineered Tissue Yes -Type of bioengineered Tissue EPIFIX -Expiration Date 07/31/24 -Product Lot Number [id number] -Percent Used 100 -Saline Lot Number [id number] -Bleeding Controlled with Pressure -Offloading No -Treatment Response Procedure Tolerated Well [See Physician Procedure note for Specifics] Pain Scale: 0-10 Numeric [Pain] -Is Patient Pain Free? Yes Musculoskeletal: No Tenderness to Palpation of Joints or Extremities, Muscle Wasting Neurological: - - Lack of sensation light touch Psych/Mental Status: Normal Affect, Appropriate Debridement Note Post-Debridement Measurements/Treatment WC - Nurse 2 - General Ulcer CM Notes Start: 11/02/19 09:49 Freq: Status: Active Protocol: Activity Type Activity Date Activity User E-Sign Co-Sign Detail Recorded Client Recorded Date Recorded By Document 11/07/19 16:13 [id number] 11/07/19 16:15 Document 11/14/19 16:06 [id number] 11/14/19 16:14 Document 11/21/19 15:25 [id number] 11/21/19 15:27 Document 11/28/19 15:36 [id number] 11/28/19 15:43 11/07/19 11/14/19 11/21/19 16:13 16:06 15:25 Wound Center Nurse 2 3. R lateral ankle -Time 16:13 16:07 15:26 -Correct Patient Yes Yes Yes -Correct Side, Site, Position Yes Yes Yes -Correct Procedure Yes Yes Yes -Procedure Performed Yes Yes Yes -Type of Procedure Debridement Debridement Debridement -Clinical Debridement Subcutaneous Subcutaneous Selective -Post Debridement Size (cm) - Length 7 2.0 0.1 -Post Debridement Size (cm) - Width 1.1 0.3 0.1 -Post Debridement Size (cm) - Depth 0.1 0.1 0.1 -Total Square Cm 7.7 0.60 0.01 -Wound/Ulcer Outcome Not Healed Not Healed Not Healed -Ulcer Cleansing Rinsed/ Rinsed/ Irrigated with Irrigated with Saline Saline -Foul Odor after Cleansing No No -Bioengineered Tissue Yes Yes No -Type of bioengineered Tissue EPIFIX EPIFIX -Expiration Date 07/01/24 07/31/24 -Product Lot Number [id number] -Percent Used 100 100 -Saline Lot Number [id number] -Bleeding Controlled with Pressure Pressure Pressure -Offloading No No Yes -Type of Offloading Surgical Shoe -Treatment Response Procedure Procedure Procedure Tolerated Well Tolerated Well Tolerated Well 2. R medial ankle -Time 16:14 16:07 15:26 -Correct Patient Yes Yes Yes -Correct Side, Site, Position Yes Yes Yes -Correct Procedure Yes Yes Yes -Procedure Performed Yes Yes Yes -Type of Procedure Debridement Debridement Debridement -Clinical Debridement Subcutaneous Subcutaneous Subcutaneous -Post Debridement Size (cm) - Length 3.1 1.5 0.9 -Post Debridement Size (cm) - Width 1 1 0.5 -Post Debridement Size (cm) - Depth 0.2 0.1 0.1 -Total Square Cm 3.1 1.5 0.45 -Wound/Ulcer Outcome Not Healed Not Healed Not Healed -Ulcer Cleansing Rinsed/ Rinsed/ Rinsed/ Irrigated with Irrigated with Irrigated with Saline Saline Saline -Foul Odor after Cleansing No No No -Bioengineered Tissue Yes Yes No -Type of bioengineered Tissue EPIFIX EPIFIX -Expiration Date 07/01/24 07/31/24 -Product Lot Number [id number] -Percent Used 100 100 -Saline Lot Number [id number] -Bleeding Controlled with Pressure Pressure Pressure -Offloading No No Yes -Type of Offloading Surgical Shoe -Treatment Response Procedure Procedure Procedure Tolerated Well Tolerated Well Tolerated Well Pain Scale: 0-10 Numeric Is Patient Pain Free? Yes Yes Yes 11/28/19 15:36 Wound Center Nurse 2 3. R lateral ankle -Time -Correct Patient No -Correct Side, Site, Position No -Correct Procedure No -Procedure Performed No -Type of Procedure -Clinical Debridement -Post Debridement Size (cm) - Length 0 -Post Debridement Size (cm) - Width 0 -Post Debridement Size (cm) - Depth 0 -Total Square Cm 0 -Wound/Ulcer Outcome Healed- Epithelialized -Ulcer Cleansing -Foul Odor after Cleansing -Bioengineered Tissue -Type of bioengineered Tissue -Expiration Date -Product Lot Number -Percent Used -Saline Lot Number -Bleeding Controlled with -Offloading -Type of Offloading -Treatment Response 2. R medial ankle -Time 15:42 -Correct Patient Yes -Correct Side, Site, Position Yes -Correct Procedure Yes -Procedure Performed Yes -Type of Procedure Debridement -Clinical Debridement Subcutaneous -Post Debridement Size (cm) - Length 3.4 -Post Debridement Size (cm) - Width 1.5 -Post Debridement Size (cm) - Depth 0.2 -Total Square Cm 5.10 -Wound/Ulcer Outcome Not Healed -Ulcer Cleansing Rinsed/ Irrigated with Saline -Foul Odor after Cleansing No -Bioengineered Tissue Yes -Type of bioengineered Tissue EPIFIX -Expiration Date 07/31/24 -Product Lot Number [id number] -Percent Used 100 -Saline Lot Number [id number] -Bleeding Controlled with Pressure -Offloading No -Type of Offloading -Treatment Response Procedure Tolerated Well Pain Scale: 0-10 Numeric Is Patient Pain Free? Yes Wound debrided: medial ankle Laterality: Right Type of Debridement: Excisional debridement Anesthesia Used: 5% Lidocaine Gel Depth: in the subcutaneous layer Percentage of wound debrided: 100 Instrument Used: #15 blade Tissue Removed: fibrous, devitalized subcutaneous, biofilm, slough Severity: Fat Layer Exposed Amount of bleeding with debridement: Mild Bleeding Controlled with: Pressure Patient tolerated procedure well Assessment/Plan Assessment: This is a 69 with chronic medial ankle ulcer and recent incision and drainage residual wound to the lateral ankle area. The etiology, recommended treatment, and anticipated healing time and management for these lower extremity ulcers was discussed in detail today. His previous admission data and diagnostic data were reviewed in detail. I recommended subcutaneous excisional debridement on a weekly or biweekly basis. He is amenable to proceed forward with this today and this was tolerated well. I recommend this at this time and we reviewed the indications, planned application, and anticipated healing time and management. It is noted he has significant delayed in healing already and the medial aspect has been open for 3 years. He was reassured no local signs of infection are noted. His incision and drainage was performed on 09/26/[address] Sparks. His recent infection and antibiotic intervention is noted. His prior cultures demonstrated Staphylococcus aureus without MRSA development. He was on a course of doxycycline. Does not have systemic illness today. He was advised to have further work-up of his arterial status given his chronicity of the ulcers. Noninvasive vascular study was ordered and the results are pending. It is noted he has been previously diagnosed with venous insufficiency and I recommended proceeding forward with any treatment recommendations and continued compression therapy. His venous Doppler from 2017 demonstrated prior valvular incompetence to the right femoral vein, popliteal vein, and additional superficial thrombophlebitis of this extremity. His most recent venous Doppler from his hospitalization did not demonstrate incompetent veins. A left soleus vein acute blood clot was identified. To elevate the limbs at rest. To avoid idle standing or sitting. His recent labs from his hospital medicine were also reviewed. On 09/27/2019 he did not have any leukocytosis. His albumin level was 2.5 and his hemoglobin A1c level was 5.8%. Lab trends will be monitored. To immobilize and reduce ankle motion to take tension off the ulcer sites. I provided him with a prescription for a cam walker; to continue this. He was advised to wear this when he intermittently returns to work. To maintain proper diet and nutritional supplementation to optimize healing. A prescription for Damaso was provided previously and he was advised on proper use. I answered questions. Adjacent dermatitis is not noted today. I recommend he continue with the Adaptic over the advance wound healing product and this can be changed every 1 to 2 days at home. To monitor close for recurrence. He understands this may also be related to his chronic venous insufficiency and fluctuating edema which I recommend he follows up with vascular as previously advised. To return to the wound healing center in 1 week or call sooner if he has any questions or concerns. . 2020 quality measures reviewed as the following: Reviewed today-level of 0 out of 10 is noted in follow-up plan documented, medication and allergy status reconciled. Reviewed 11/07/2019- pneumonia vaccination status confirmed in which the patient refused, influenza immunization status confirmed in which he also refused this during this current season, his advanced care plan was confirmed with living will, he is a current tobacco non-user, his blood pressure was elevated over 120/80 and I recommend that he follows up with his primary care physician for medical management. Diet and exercise options were discussed to optimize his wound healing and medical management. Plan: I reviewed and discussed his case. Subcutaneous excisional debridement was performed as noted in the clinical panel. Verbal consent was obtained to apply advanced wound healing product, epi-fix. This was applied according standard protocol to the medial ankle and further secured with a wound veil and Steri-Strips. He tolerated this well. This is medically necessary for limb salvage. 100% of the product was utilized. He was advised to keep this clean, dry, and intact until follow-up next week. The indications, benefits, anticipated healing time and management were discussed. To avoid excessive walking I recommended a cam walker boot and he defers again today. I explained this would help eliminate motion and tension of the skin which pulls on the ulcer site. Is also advised to avoid shoes that press right on this site and the shoes he presents with today do not appear to be doing this. He is advised to continue with compression garments.
== END 2019-11-30 23:59 ==
LOC: WC 16:00
PROVIDERS: Family Provider Family Medicine; PCP Family Medicine; Referring Provider Podiatrist; Visit Provider Podiatrist
DX: I87.331 Chronic venous hypertension (idiopathic) with ulcer and inflammation of right lower extremity (principal); L97.312 Non-pressure chronic ulcer of right ankle with fat layer exposed; Z79.01 Long term (current) use of anticoagulants; Z86.718 Personal history of other venous thrombosis and embolism
CPT/HCPCS: 11042; 15271; 97597; 99213; Q4186; G0463

== ENCOUNTER 2019-12-26 16:00 | Outpatient (RCR) | payer MEDICARE, OTHER, SELFPAY ==
[2019-12-01 00:53] VITALS: BP 135/74; PULSE 70; RESP 16; TEMP 36.3
[2019-12-05 15:31] VITALS: BP 129/60; PULSE 74; RESP 18; TEMP 36.8; BMI 25.7
--- NOTE | 2019-12-05 16:27 | PCM.WC.PN ---
(1) Lower extremity edema Status: Acute Current Visit: Yes Code(s): R60.0 - Localized edema (2) Delayed wound healing Status: Chronic Current Visit: Yes Code(s): T14.8XXD - Other injury of unspecified body region, subsequent encounter (3) Chronic ulcer of right leg with fat layer exposed Status: Chronic Current Visit: Yes Code(s): L97.912 - Non-pressure chronic ulcer of unspecified part of right lower leg with fat layer exposed (4) Chronic venous insufficiency Status: Chronic Current Visit: Yes Code(s): I87.2 - Venous insufficiency (chronic) (peripheral) Type of Wound Date of Service: 12/05/19 Chief Complaint: Ulcer right ankle x2 History of Wound: This is a 69-year-old male with a long-standing history of chronic venous disease follows up for chronic ulcer of the medial right ankle that has been present for approximately 3 years. He also had a recent infection and was admitted to [facility] and had an incision and drainage performed by Dr. Sparks. He has taken antibiotics as advised. He is amenable to proceed with debridement today and defers the use of local anesthetic via injection for topical. He has been using graduated compression stockings of 20-30 mmHg compression on a daily basis. He tries to elevate his limbs. He was recently diagnosed with a left lower extremity blood clot and is on Eliquis. He denies streaking or odor. His pain has resolved in total this past week. He has been more active this past week and is even returned to work. He denies pain today. Progress of Wound: Improving - Physical Exam Vital Signs Temp Pulse Resp BP 98.3 F 74 18 129/60 H 12/05/19 15:31 12/05/19 15:31 12/05/19 15:31 12/05/19 15:31 General: Alert, Oriented x3, Cooperative, No apparent distress Extremities: No cyanosis, Capillary Refill Less than 3 Seconds, No Calf Tenderness, Diminished Peripheral Pulses, Edema Skin: Ulcer/ Wound - No purulence, erythema, string, odor, infection. The peripheral skin is hairless and atrophic. The lateral ulcer site remains healed. There is some skin inflammation noted secondary to his reported gauze reaction. There is significant epithelialization noted centrally to the medial ulcer site Wound Measurements and Assessment WC - Nurse 1 - General Ulcer Measurement Start: 12/05/19 15:31 Freq: Status: Active Protocol: Activity Type Activity Date Activity User E-Sign Co-Sign Detail Recorded Client Recorded Date Recorded By Document 12/05/19 15:31 MW [id number] 12/05/19 15:40 MW 12/05/19 15:31 Wound Center Nurse 1 [Ulcer Assessment] 2. R medial ankle -Combined with other wound No -Current Size (cm) - Length 3.0 -Current Size (cm) - Width 0.6 -Current Size (cm) - Depth 0.1 -Total Square Cm 1.80 -Photo Taken No -Epithelialization None Present -Tunneling No -Undermining/Tunneling No -Circular Undermining No -Exudate Amt Medium -Exudate Type Serosanguineous -Wound Margin Flat & Intact -Granulation Amt None Present (0 %) -Granulation Quality N/A -Slough/Fibrin Yes -Necrosis Amt Large (67-100%) -Necrotic Tissue Type Adherent Slough -Structure Exposed N/A -Texture (Yamile-wound Skin Appearance) Assessed, Localized Edema ,Scarring -Moisture (Yamile-wound Skin Appearance No Abnormality, ) Assessed -Color (Yamile-wound Skin Appearance) Assessed, Hemosiderin Staining -Temperature (Yamile-wound Skin No Abnormality Appearance) (Pt Warm) -Tenderness on Palpation (Yamile-wound Yes Skin Appearance) -Ulcer Cleansing soap and water -Foul Odor after Cleansing No -Anesthetic Used 5% Lidocaine Gel [Edema Assessment] -Lower Limb Edema Present No -Right Calf (cm) 37.0 -Right Ankle (cm) 22.0 Musculoskeletal: No Tenderness to Palpation of Joints or Extremities, Muscle Wasting Neurological: - - Lack of normal epicritic sensation light touch consistent with neuropathy status Psych/Mental Status: Normal Affect, Appropriate Debridement Note Wound debrided: medial ankle Laterality: Right Anesthesia Used: 5% Lidocaine Gel Percentage of wound debrided: 100, - - 15% Instrument Used: #15 blade Tissue Removed: fibrous, devitalized subcutaneous, biofilm, slough Severity: Fat Layer Exposed Amount of bleeding with debridement: Mild Bleeding Controlled with: Pressure Patient tolerated procedure well Assessment/Plan Active Problems Lower extremity edema (Acute) Delayed wound healing (Chronic) Chronic ulcer of right leg with fat layer exposed (Chronic) Chronic venous insufficiency (Chronic) Assessment: This is a 69 with chronic medial ankle ulcer and recent incision and drainage residual wound to the lateral ankle area. The etiology, recommended treatment, and anticipated healing time and management for these lower extremity ulcers was discussed in detail today. His previous admission data and diagnostic data were reviewed in detail. I recommended subcutaneous excisional debridement on a weekly or biweekly basis. He is amenable to proceed forward with this today and this was tolerated well. I recommend this at this time and we reviewed the indications, planned application, and anticipated healing time and management. It is noted he has significant delayed in healing already and the medial aspect has been open for 3 years. He was reassured no local signs of infection are noted. His incision and drainage was performed on 09/26/[address] Sparks. His recent infection and antibiotic intervention is noted. His prior cultures demonstrated Staphylococcus aureus without MRSA development. He was on a course of doxycycline. Does not have systemic illness today. He was advised to have further work-up of his arterial status given his chronicity of the ulcers. Noninvasive vascular study was ordered and the results are pending. It is noted he has been previously diagnosed with venous insufficiency and I recommended proceeding forward with any treatment recommendations and continued compression therapy. His venous Doppler from 2017 demonstrated prior valvular incompetence to the right femoral vein, popliteal vein, and additional superficial thrombophlebitis of this extremity. His most recent venous Doppler from his hospitalization did not demonstrate incompetent veins. A left soleus vein acute blood clot was identified. To elevate the limbs at rest. To avoid idle standing or sitting. His recent labs from his hospital medicine were also reviewed. On 09/27/2019 he did not have any leukocytosis. His albumin level was 2.5 and his hemoglobin A1c level was 5.8%. Lab trends will be monitored. To immobilize and reduce ankle motion to take tension off the ulcer sites. I provided him with a prescription for a cam walker; to continue this. He was advised to wear this when he intermittently returns to work. To maintain proper diet and nutritional supplementation to optimize healing. A prescription for Damaso was provided previously and he was advised on proper use. I answered questions. Adjacent dermatitis is not noted today. I recommend he continue with the Adaptic over the advance wound healing product and this can be changed every 1 to 2 days at home. To monitor close for recurrence. He understands this may also be related to his chronic venous insufficiency and fluctuating edema which I recommend he follows up with vascular as previously advised. To return to the wound healing center in 1 week or call sooner if he has any questions or concerns. . 2019 quality measures reviewed as the following: Reviewed today-level of 0 out of 10 is noted in follow-up plan documented, medication and allergy status reconciled. Reviewed 11/07/2019-pneumonia vaccination status confirmed in which the patient refused, influenza immunization status confirmed in which he also refused this during this current season, his advanced care plan was confirmed with living will, he is a current tobacco non-user, his blood pressure was elevated over 120/80 and I recommend that he follows up with his primary care physician for medical management. Diet and exercise options were discussed to optimize his wound healing and medical management. Plan: I reviewed and discussed his case. Subcutaneous excisional debridement was performed as noted in the clinical panel. Verbal consent was obtained to apply advanced wound healing product, epi-fix. This was applied according standard protocol to the medial ankle and further secured with a wound veil and Steri-Strips. He tolerated this well. This is medically necessary for limb salvage. 100% of the product was utilized. He was advised to keep this clean, dry, and intact until follow-up next week. The indications, benefits, anticipated healing time and management were discussed. To avoid excessive walking I recommended a cam walker boot and he defers again today. I explained this would help eliminate motion and tension of the skin which pulls on the ulcer site. Is also advised to avoid shoes that press right on this site and the shoes he presents with today do not appear to be doing this. He is advised to continue with compression garments.
[2019-12-12 15:44] VITALS: BP 149/68; PULSE 70; RESP 16; TEMP 36; BMI 25.7
--- NOTE | 2019-12-12 16:02 | PCM.WC.PN ---
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 Status: Chronic Current Visit: Yes Code(s): L97.912 - Non-pressure chronic ulcer of unspecified part of right lower leg with fat layer exposed (2) Lower extremity edema Status: Acute Current Visit: Yes Code(s): R60.0 - Localized edema (3) Delayed wound healing Status: Chronic Current Visit: Yes Code(s): T14.8XXD - Other injury of unspecified body region, subsequent encounter (4) Chronic venous insufficiency Status: Chronic Current Visit: Yes Code(s): I87.2 - Venous insufficiency (chronic) (peripheral) Type of Wound Date of Service: 12/12/19 Chief Complaint: Ulcer right ankle History of Wound: This is a 69-year-old male with a long-standing history of chronic venous disease follows up for chronic ulcer of the medial right ankle that has been present for approximately 3 years. He also had a recent infection and was admitted to [facility] and had an incision and drainage performed by Dr. Sparks. He has taken antibiotics as advised. He is amenable to proceed with debridement today and defers the use of local anesthetic via injection for topical. He has been using graduated compression stockings of 20-30 mmHg compression on a daily basis. He tries to elevate his limbs. He was recently diagnosed with a left lower extremity blood clot and is on Eliquis. He denies streaking or odor. His pain has resolved in total this past week. He denies pain today. Progress of Wound: Improving - Physical Exam Vital Signs Temp Pulse Resp BP 96.8 F L 70 16 149/68 H 12/12/19 15:44 12/12/19 15:44 12/12/19 15:44 12/12/19 15:44 General: Alert, Oriented x3, Cooperative, No apparent distress Extremities: No cyanosis, Capillary Refill Less than 3 Seconds, No Calf Tenderness, Diminished Peripheral Pulses, Edema - With varicosities Skin: Ulcer/ Wound - No purulence, erythema, string, odor, infection. Continued peripheral central epithelialization noted to the medial ulcer site. The healed lateral ulcer site remains healed also. The adjacent skin is hairless and atrophic without inflammatory process noted today Wound Measurements and Assessment WC - Nurse 1 - General Ulcer Measurement Start: 12/05/19 15:31 Freq: Status: Active Protocol: Activity Type Activity Date Activity User E-Sign Co-Sign Detail Recorded Client Recorded Date Recorded By Document 12/12/19 15:44 [facility] [id number] 12/12/19 15:49 [facility] 12/12/19 15:44 Wound Center Nurse 1 [Ulcer Assessment] 2. R medial ankle -Combined with other wound No -Current Size (cm) - Length 2.4 -Current Size (cm) - Width 0.4 -Current Size (cm) - Depth 0.1 -Total Square Cm 0.96 -Tunneling No -Undermining/Tunneling No -Circular Undermining No -Exudate Amt Small -Exudate Type Serosanguineous -Wound Margin Thickened & Rolled Under -Granulation Amt Medium (34-66%) -Granulation Quality Coram -Slough/Fibrin Yes -Necrosis Amt Small (1-33%) -Necrotic Tissue Type Adherent Slough -Structure Exposed N/A -Texture (Yamile-wound Skin Appearance) Assessed, Scarring -Moisture (Yamile-wound Skin Appearance Assessed ) -Color (Yamile-wound Skin Appearance) Assessed -Temperature (Yamile-wound Skin No Abnormality Appearance) (Pt Warm) -Tenderness on Palpation (Yamile-wound No Skin Appearance) -Ulcer Cleansing Wound Cleanser -Foul Odor after Cleansing No -Anesthetic Used 4% Lidocaine Solution WC - Nurse 2 - General Ulcer CM Notes Start: 12/05/19 15:31 Freq: Status: Active Protocol: Activity Type Activity Date Activity User E-Sign Co-Sign Detail Recorded Client Recorded Date Recorded By Document 12/12/19 15:59 [id number] 12/12/19 16:00 12/12/19 15:59 Wound Center Nurse 2 [Procedure/Treatment] -Time 16:00 -Correct Patient Yes -Correct Side, Site, Position Yes -Correct Procedure Yes -Procedure Performed Yes -Type of Procedure Debridement -Clinical Debridement Subcutaneous -Post Debridement Size (cm) - Length 2.2 -Post Debridement Size (cm) - Width 0.1 -Post Debridement Size (cm) - Depth 0.1 -Total Square Cm 0.22 -Wound/Ulcer Outcome Not Healed -Ulcer Cleansing Rinsed/ Irrigated with Saline -Foul Odor after Cleansing No -Bioengineered Tissue No -Bleeding Controlled with Pressure -Other 10% debrided. -Offloading No -Treatment Response Procedure Tolerated Well [See Physician Procedure note for Specifics] Pain Scale: 0-10 Numeric [Pain] -Is Patient Pain Free? Yes Musculoskeletal: No Tenderness to Palpation of Joints or Extremities, Muscle Wasting Neurological: Sensory exam intact to light touch and pain Psych/Mental Status: Normal Affect, Appropriate Debridement Note Post-Debridement Measurements/Treatment WC - Nurse 2 - General Ulcer CM Notes Start: 12/05/19 15:31 Freq: Status: Active Protocol: Activity Type Activity Date Activity User E-Sign Co-Sign Detail Recorded Client Recorded Date Recorded By Document 12/12/19 15:59 [id number] 12/12/19 16:00 12/12/19 15:59 Wound Center Nurse 2 2. R medial ankle -Time 16:00 -Correct Patient Yes -Correct Side, Site, Position Yes -Correct Procedure Yes -Procedure Performed Yes -Type of Procedure Debridement -Clinical Debridement Subcutaneous -Post Debridement Size (cm) - Length 2.2 -Post Debridement Size (cm) - Width 0.1 -Post Debridement Size (cm) - Depth 0.1 -Total Square Cm 0.22 -Wound/Ulcer Outcome Not Healed -Ulcer Cleansing Rinsed/ Irrigated with Saline -Foul Odor after Cleansing No -Bioengineered Tissue No -Bleeding Controlled with Pressure -Other 10% debrided. -Offloading No -Treatment Response Procedure Tolerated Well Pain Scale: 0-10 Numeric Is Patient Pain Free? Yes Wound debrided: medial lower leg Laterality: Right Type of Debridement: Excisional debridement Anesthesia Used: 5% Lidocaine Gel Depth: in the subcutaneous layer Percentage of wound debrided: 10 Instrument Used: #15 blade Tissue Removed: Fibrous, devitalized subcutaneous, biofilm, slough Severity: Fat Layer Exposed Amount of bleeding with debridement: Mild Bleeding Controlled with: Pressure Patient tolerated procedure well Assessment/Plan Active Problems Lower extremity edema (Acute) Delayed wound healing (Chronic) Chronic ulcer of right leg with fat layer exposed (Chronic) Chronic venous insufficiency (Chronic) Assessment: This is a 69 with chronic medial ankle ulcer and recent incision and drainage residual wound to the lateral ankle area. The etiology, recommended treatment, and anticipated healing time and management for these lower extremity ulcers was discussed in detail today. His previous admission data and diagnostic data were reviewed in detail. I recommended subcutaneous excisional debridement on a weekly or biweekly basis. He is amenable to proceed forward with this today and this was tolerated well. I recommend this at this time and we reviewed the indications, planned application, and anticipated healing time and management. It is noted he has significant delayed in healing already and the medial aspect has been open for 3 years. He was reassured no local signs of infection are noted. His incision and drainage was performed on 09/26/[address] Sparks. His recent infection and antibiotic intervention is noted. His prior cultures demonstrated Staphylococcus aureus without MRSA development. He was on a course of doxycycline. Does not have systemic illness today. He was advised to have further work-up of his arterial status given his chronicity of the ulcers. Noninvasive vascular study was ordered and the results are pending. It is noted he has been previously diagnosed with venous insufficiency and I recommended proceeding forward with any treatment recommendations and continued compression therapy. His venous Doppler from 2017 demonstrated prior valvular incompetence to the right femoral vein, popliteal vein, and additional superficial thrombophlebitis of this extremity. His most recent venous Doppler from his hospitalization did not demonstrate incompetent veins. A left soleus vein acute blood clot was identified. To elevate the limbs at rest. To avoid idle standing or sitting. His recent labs from his hospital medicine were also reviewed. On 09/27/2019 he did not have any leukocytosis. His albumin level was 2.5 and his hemoglobin A1c level was 5.8%. Lab trends will be monitored. To immobilize and reduce ankle motion to take tension off the ulcer sites. I provided him with a prescription for a cam walker; to continue this. He was advised to wear this when he intermittently returns to work. To maintain proper diet and nutritional supplementation to optimize healing. A prescription for Damaso was provided previously and he was advised on proper use. I answered questions. Adjacent dermatitis is not noted today. I recommend he continue with the Adaptic over the advance wound healing product and this can be changed every 1 to 2 days at home. To monitor close for recurrence. He understands this may also be related to his chronic venous insufficiency and fluctuating edema which I recommend he follows up with vascular as previously advised. To return to the wound healing center in 1 week or call sooner if he has any questions or concerns. . 2020 quality measures reviewed as the following: Reviewed today-level of 0 out of 10 is noted in follow-up plan documented, medication and allergy status reconciled. Reviewed 11/07/2019-pneumonia vaccination status confirmed in which the patient refused, influenza immunization status confirmed in which he also refused this during this current season, his advanced care plan was confirmed with living will, he is a current tobacco non-user, his blood pressure was elevated over 120/80 and I recommend that he follows up with his primary care physician for medical management. Diet and exercise options were discussed to optimize his wound healing and medical management. Plan: I reviewed and discussed his case. Subcutaneous excisional debridement was performed as noted in the clinical panel. I recommend changing the dressing daily with hydrogel and overlying Adaptic. To avoid excessive walking. I recommended a cam walker boot and he defers again today. I explained this would help eliminate motion and tension of the skin which pulls on the ulcer site. Is also advised to avoid shoes that press right on this site and the shoes he presents with today do not appear to be doing this. He is advised to continue with compression garments.
[2019-12-19 15:58] VITALS: BP 132/63; PULSE 73; RESP 18; TEMP 36.2; BMI 25.7
--- NOTE | 2019-12-19 21:50 | PCM.WC.PN ---
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 Status: Chronic Code(s): L97.912 - Non-pressure chronic ulcer of unspecified part of right lower leg with fat layer exposed (2) Lower extremity edema Status: Acute Code(s): R60.0 - Localized edema (3) Delayed wound healing Status: Chronic Code(s): T14.8XXD - Other injury of unspecified body region, subsequent encounter (4) Chronic venous insufficiency Status: Chronic Code(s): I87.2 - Venous insufficiency (chronic) (peripheral) Type of Wound Date of Service: 12/19/19 Chief Complaint: Ulcer right ankle History of Wound: This is a 69-year-old male with a long-standing history of chronic venous disease follows up for chronic ulcer of the medial right ankle that has been present for approximately 3 years. He also had a recent infection and was admitted to [facility] and had an incision and drainage performed by Dr. Sparks. He has taken antibiotics as advised. He is amenable to proceed with debridement today and defers the use of local anesthetic via injection for topical. He has been using graduated compression stockings of 20-30 mmHg compression on a daily basis. He tries to elevate his limbs. He was recently diagnosed with a left lower extremity blood clot and is on Eliquis. He denies streaking or odor. His pain has resolved in total this past week. He denies pain today. Progress of Wound: Improving - Physical Exam Vital Signs Temp Pulse Resp BP 97.1 F L 73 18 132/63 H 12/19/19 15:58 12/19/19 15:58 12/19/19 15:58 12/19/19 15:58 General: Alert, Oriented x3, Cooperative, No apparent distress Extremities: No cyanosis, Capillary Refill Less than 3 Seconds, No Calf Tenderness, Diminished Peripheral Pulses, Edema Skin: Ulcer/ Wound - No purulence, erythema, streaking, odor, infection. There is significant peripheral epithelialization to the medial ulcer bed and the remaining ulcer site is beefy red granular in appearance. The adjacent skin is hairless and atrophic and he has reduced periwound inflammation also Wound Measurements and Assessment WC - Nurse 1 - General Ulcer Measurement Start: 12/05/19 15:31 Freq: Status: Active Protocol: Activity Type Activity Date Activity User E-Sign Co-Sign Detail Recorded Client Recorded Date Recorded By Document 12/19/19 15:58 [facility] [id number] 12/19/19 15:59 [facility] 12/19/19 15:58 Wound Center Nurse 1 [Ulcer Assessment] 2. R medial ankle -Combined with other wound No -Current Size (cm) - Length 2.5 -Current Size (cm) - Width 0.7 -Current Size (cm) - Depth 0.2 -Total Square Cm 1.75 -Photo Taken No -Epithelialization None Present -Tunneling No -Undermining/Tunneling No -Circular Undermining No -Exudate Amt Small -Exudate Type Serous -Wound Margin Distinct, Outline Attached -Granulation Amt None Present (0 %) -Slough/Fibrin Yes -Necrosis Amt Large (67-100%) -Necrotic Tissue Type Adherent Slough -Texture (Yamile-wound Skin Appearance) Assessed, Scarring -Moisture (Yamile-wound Skin Appearance Assessed,Dry/ ) Scaly -Color (Yamile-wound Skin Appearance) Assessed -Temperature (Yamile-wound Skin No Abnormality Appearance) (Pt Warm) -Tenderness on Palpation (Yamile-wound No Skin Appearance) -Ulcer Cleansing Rinsed/ Irrigated with Saline -Foul Odor after Cleansing No -Anesthetic Used 5% Lidocaine Gel WC - Nurse 2 - General Ulcer CM Notes Start: 12/05/19 15:31 Freq: Status: Active Protocol: Activity Type Activity Date Activity User E-Sign Co-Sign Detail Recorded Client Recorded Date Recorded By Document 12/19/19 16:05 [id number] 12/19/19 16:07 12/19/19 16:05 Wound Center Nurse 2 [Procedure/Treatment] -Time 16:06 -Correct Patient Yes -Correct Side, Site, Position Yes -Correct Procedure Yes -Procedure Performed Yes -Type of Procedure Debridement -Clinical Debridement Subcutaneous -Post Debridement Size (cm) - Length 0.5 -Post Debridement Size (cm) - Width 0.4 -Post Debridement Size (cm) - Depth 0.1 -Total Square Cm 0.20 -Wound/Ulcer Outcome Not Healed -Ulcer Cleansing Rinsed/ Irrigated with Saline -Foul Odor after Cleansing No -Bioengineered Tissue No -Bleeding Controlled with Pressure -Offloading No -Treatment Response Procedure Tolerated Well [See Physician Procedure note for Specifics] Pain Scale: 0-10 Numeric [Pain] -Is Patient Pain Free? Yes Musculoskeletal: No Tenderness to Palpation of Joints or Extremities, Muscle Wasting Neurological: Sensory exam intact to light touch and pain Psych/Mental Status: Normal Affect, Appropriate Debridement Note Post-Debridement Measurements/Treatment WC - Nurse 2 - General Ulcer CM Notes Start: 12/05/19 15:31 Freq: Status: Active Protocol: Activity Type Activity Date Activity User E-Sign Co-Sign Detail Recorded Client Recorded Date Recorded By Document 12/12/19 15:59 [id number] 12/12/19 16:00 Document 12/19/19 16:05 [id number] 12/19/19 16:07 12/12/19 12/19/19 15:59 16:05 Wound Center Nurse 2 2. R medial ankle -Time 16:00 16:06 -Correct Patient Yes Yes -Correct Side, Site, Position Yes Yes -Correct Procedure Yes Yes -Procedure Performed Yes Yes -Type of Procedure Debridement Debridement -Clinical Debridement Subcutaneous Subcutaneous -Post Debridement Size (cm) - Length 2.2 0.5 -Post Debridement Size (cm) - Width 0.1 0.4 -Post Debridement Size (cm) - Depth 0.1 0.1 -Total Square Cm 0.22 0.20 -Wound/Ulcer Outcome Not Healed Not Healed -Ulcer Cleansing Rinsed/ Rinsed/ Irrigated with Irrigated with Saline Saline -Foul Odor after Cleansing No No -Bioengineered Tissue No No -Bleeding Controlled with Pressure Pressure -Other 10% debrided. -Offloading No No -Treatment Response Procedure Procedure Tolerated Well Tolerated Well Pain Scale: 0-10 Numeric Is Patient Pain Free? Yes Yes Wound debrided: medial ankle Laterality: Right Type of Debridement: Excisional debridement Anesthesia Used: 5% Lidocaine Gel Depth: in the subcutaneous layer Percentage of wound debrided: 60 Instrument Used: #15 blade Tissue Removed: fibrous, devitalized subcutaneous, biofilm, slough Severity: Fat Layer Exposed Amount of bleeding with debridement: Mild Bleeding Controlled with: Pressure Patient tolerated procedure well Assessment/Plan Assessment: This is a 69 with chronic medial ankle ulcer and recent incision and drainage residual wound to the lateral ankle area. The etiology, recommended treatment, and anticipated healing time and management for these lower extremity ulcers was discussed in detail today. His previous admission data and diagnostic data were reviewed in detail. I recommended subcutaneous excisional debridement on a weekly or biweekly basis. He is amenable to proceed forward with this today and this was tolerated well. I recommend this at this time and we reviewed the indications, planned application, and anticipated healing time and management. It is noted he has significant delayed in healing already and the medial aspect has been open for 3 years. He was reassured no local signs of infection are noted. His incision and drainage was performed on 09/26/[address] Sparks. His recent infection and antibiotic intervention is noted. His prior cultures demonstrated Staphylococcus aureus without MRSA development. He was on a course of doxycycline. Does not have systemic illness today. He was advised to have further work-up of his arterial status given his chronicity of the ulcers. Noninvasive vascular study was ordered and the results are pending. It is noted he has been previously diagnosed with venous insufficiency and I recommended proceeding forward with any treatment recommendations and continued compression therapy. His venous Doppler from 2017 demonstrated prior valvular incompetence to the right femoral vein, popliteal vein, and additional superficial thrombophlebitis of this extremity. His most recent venous Doppler from his hospitalization did not demonstrate incompetent veins. A left soleus vein acute blood clot was identified. To elevate the limbs at rest. To avoid idle standing or sitting. His recent labs from his hospital medicine were also reviewed. On 09/27/2019 he did not have any leukocytosis. His albumin level was 2.5 and his hemoglobin A1c level was 5.8%. Lab trends will be monitored. To immobilize and reduce ankle motion to take tension off the ulcer sites. I provided him with a prescription for a cam walker; to continue this. He was advised to wear this when he intermittently returns to work. To maintain proper diet and nutritional supplementation to optimize healing. A prescription for Damaso was provided previously and he was advised on proper use. I answered questions. Adjacent dermatitis is not noted today. I recommend he continue with the Adaptic over the advance wound healing product and this can be changed every 1 to 2 days at home. To monitor close for recurrence. He understands this may also be related to his chronic venous insufficiency and fluctuating edema which I recommend he follows up with vascular as previously advised. To return to the wound healing center in 1 week or call sooner if he has any questions or concerns. . 2020 quality measures reviewed as the following: Reviewed today-level of 0 out of 10 is noted in follow-up plan documented, medication and allergy status reconciled. Reviewed 12-19-2019: He denies falling this past year. Reviewed 11/07/2019-pneumonia vaccination status confirmed in which the patient refused, influenza immunization status confirmed in which he also refused this during this current season, his advanced care plan was confirmed with living will, he is a current tobacco non-user, his blood pressure was elevated over 120/80 and I recommend that he follows up with his primary care physician for medical management. Diet and exercise options were discussed to optimize his wound healing and medical management. Plan: I reviewed and discussed his case. Subcutaneous excisional debridement was performed as noted in the clinical panel. I recommend changing the dressing daily with hydrogel and overlying Adaptic. To avoid excessive walking. I recommended a cam walker boot and he defers again today. I explained this would help eliminate motion and tension of the skin which pulls on the ulcer site. Is also advised to avoid shoes that press right on this site and the shoes he presents with today do not appear to be doing this. He is advised to continue with compression garments.
[2019-12-26 15:46] VITALS: BP 149/83; PULSE 73; RESP 16; TEMP 36; BMI 25.7
--- NOTE | 2019-12-26 23:52 | PCM.WC.PN ---
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 Status: Chronic Current Visit: Yes Code(s): L97.912 - Non-pressure chronic ulcer of unspecified part of right lower leg with fat layer exposed (2) Lower extremity edema Status: Acute Current Visit: Yes Code(s): R60.0 - Localized edema (3) Delayed wound healing Status: Chronic Current Visit: Yes Code(s): T14.8XXD - Other injury of unspecified body region, subsequent encounter (4) Chronic venous insufficiency Status: Chronic Current Visit: Yes Code(s): I87.2 - Venous insufficiency (chronic) (peripheral) Type of Wound Date of Service: 12/26/19 Chief Complaint: Ulcer right ankle History of Wound: This is a 69-year-old male with a long-standing history of chronic venous disease follows up for chronic ulcer of the medial right ankle that has been present for approximately 3 years. He also had a recent infection and was admitted to [facility] and had an incision and drainage performed by Dr. Sparks. He has taken antibiotics as advised. He is amenable to proceed with debridement today and defers the use of local anesthetic via injection for topical. He has been using graduated compression stockings of 20-30 mmHg compression on a daily basis. He tries to elevate his limbs. He was recently diagnosed with a left lower extremity blood clot and is on Eliquis. He denies streaking or odor. He denies pain today. The lateral surgical site is remaining healed. He relates that ulcer on the inner aspect or medial aspect of his ankle is draining more since he went into a whirlpool hot tub at home. He relates it is still comfortable and there he likes to fall asleep and there. He states that he only lives once. Progress of Wound: Worsening status medially - Physical Exam Vital Signs Temp Pulse Resp BP 96.8 F L 73 16 149/83 H 12/26/19 15:46 12/26/19 15:46 12/26/19 15:46 12/26/19 15:46 General: Alert, Oriented x3, Cooperative, No apparent distress Extremities: No cyanosis, Capillary Refill Less than 3 Seconds, No Calf Tenderness, Diminished Peripheral Pulses, Edema Skin: Ulcer/ Wound - No purulence, erythema, streaking, odor, infection. There is increased ulcer size and the wound bed remains granular. The adjacent skin is atrophic and hairless with some inflammatory changes that is a lesser degree compared to prior visit. There is no deep probing. The lateral aspect remains fully epithelialized Wound Measurements and Assessment WC - Nurse 1 - General Ulcer Measurement Start: 12/05/19 15:31 Freq: Status: Active Protocol: Activity Type Activity Date Activity User E-Sign Co-Sign Detail Recorded Client Recorded Date Recorded By Document 12/26/19 15:46 [facility] [id number] 12/26/19 15:51 BM 12/26/19 15:46 Wound Center Nurse 1 [Ulcer Assessment] 2. R medial ankle -Combined with other wound No -Current Size (cm) - Length 2.5 -Current Size (cm) - Width 0.8 -Current Size (cm) - Depth 0.4 -Total Square Cm 2.00 -Photo Taken No -Epithelialization None Present -Tunneling No -Undermining/Tunneling No -Circular Undermining No -Exudate Amt Small -Exudate Type Serous -Wound Margin Distinct, Outline Attached -Granulation Amt Small (1-33%) -Granulation Quality Red -Slough/Fibrin Yes -Necrosis Amt Medium (34-66%) -Necrotic Tissue Type Adherent Slough -Texture (Yamile-wound Skin Appearance) Assessed, Scarring,Rash -Moisture (Yamile-wound Skin Appearance Assessed, ) Maceration,Dry/ Scaly -Color (Yamile-wound Skin Appearance) Assessed, Erythema,Palor -Temperature (Yamile-wound Skin No Abnormality Appearance) (Pt Warm) -Tenderness on Palpation (Yamile-wound No Skin Appearance) -Ulcer Cleansing Rinsed/ Irrigated with Saline -Foul Odor after Cleansing No -Anesthetic Used 5% Lidocaine Gel WC - Nurse 2 - General Ulcer CM Notes Start: 12/05/19 15:31 Freq: Status: Active Protocol: Activity Type Activity Date Activity User E-Sign Co-Sign Detail Recorded Client Recorded Date Recorded By Document 12/26/19 16:09 MW [id number] 12/26/19 16:11 MW 12/26/19 16:09 Wound Center Nurse 2 [Procedure/Treatment] -Time 16:09 -Correct Patient Yes -Correct Side, Site, Position Yes -Correct Procedure Yes -Procedure Performed Yes -Type of Procedure Debridement -Clinical Debridement Subcutaneous -Post Debridement Size (cm) - Length 2.6 -Post Debridement Size (cm) - Width 0.8 -Post Debridement Size (cm) - Depth 0.4 -Total Square Cm 2.08 -Wound/Ulcer Outcome Not Healed -Ulcer Cleansing Rinsed/ Irrigated with Saline -Foul Odor after Cleansing No -Bioengineered Tissue Yes -Type of bioengineered Tissue EPIFIX -Expiration Date 08/31/24 -Product Lot Number [id number] -Percent Used 100 -Saline Lot Number [id number] -Bleeding Controlled with Pressure -Offloading No -Treatment Response Procedure Tolerated Well [See Physician Procedure note for Specifics] Pain Scale: 0-10 Numeric [Pain] -Is Patient Pain Free? Yes Musculoskeletal: No Tenderness to Palpation of Joints or Extremities, Muscle Wasting, - - No pain on palpation Neurological: Sensory exam intact to light touch and pain Psych/Mental Status: Normal Affect, Appropriate Debridement Note Post-Debridement Measurements/Treatment WC - Nurse 2 - General Ulcer CM Notes Start: 12/05/19 15:31 Freq: Status: Active Protocol: Activity Type Activity Date Activity User E-Sign Co-Sign Detail Recorded Client Recorded Date Recorded By Document 12/12/19 15:59 [id number] 12/12/19 16:00 Document 12/19/19 16:05 JF [id number] 12/19/19 16:07 JF Document 12/26/19 16:09 MW [id number] 12/26/19 16:11 MW 12/12/19 12/19/19 12/26/19 15:59 16:05 16:09 Wound Center Nurse 2 2. R medial ankle -Time 16:00 16:06 16:09 -Correct Patient Yes Yes Yes -Correct Side, Site, Position Yes Yes Yes -Correct Procedure Yes Yes Yes -Procedure Performed Yes Yes Yes -Type of Procedure Debridement Debridement Debridement -Clinical Debridement Subcutaneous Subcutaneous Subcutaneous -Post Debridement Size (cm) - Length 2.2 0.5 2.6 -Post Debridement Size (cm) - Width 0.1 0.4 0.8 -Post Debridement Size (cm) - Depth 0.1 0.1 0.4 -Total Square Cm 0.22 0.20 2.08 -Wound/Ulcer Outcome Not Healed Not Healed Not Healed -Ulcer Cleansing Rinsed/ Rinsed/ Rinsed/ Irrigated with Irrigated with Irrigated with Saline Saline Saline -Foul Odor after Cleansing No No No -Bioengineered Tissue No No Yes -Type of bioengineered Tissue EPIFIX -Expiration Date 08/31/24 -Product Lot Number [id number] -Percent Used 100 -Saline Lot Number [id number] -Bleeding Controlled with Pressure Pressure Pressure -Other 10% debrided. -Offloading No No No -Treatment Response Procedure Procedure Procedure Tolerated Well Tolerated Well Tolerated Well Pain Scale: 0-10 Numeric Is Patient Pain Free? Yes Yes Yes Wound debrided: medial ankle Laterality: Right Type of Debridement: Excisional debridement Anesthesia Used: 5% Lidocaine Gel Depth: in the subcutaneous layer Percentage of wound debrided: 100 Instrument Used: #15 blade Tissue Removed: fibrous, devitalized subcutaneous, biofilm, slough Severity: Fat Layer Exposed Amount of bleeding with debridement: Mild Bleeding Controlled with: Pressure Patient tolerated procedure well Assessment/Plan Active Problems Lower extremity edema (Acute) Delayed wound healing (Chronic) Chronic ulcer of right leg with fat layer exposed (Chronic) Chronic venous insufficiency (Chronic) Assessment: This is a 69 with chronic medial ankle ulcer and recent incision and drainage residual wound to the lateral ankle area. The etiology, recommended treatment, and anticipated healing time and management for these lower extremity ulcers was discussed in detail today. His previous admission data and diagnostic data were reviewed in detail. I recommended subcutaneous excisional debridement on a weekly or biweekly basis. He is amenable to proceed forward with this today and this was tolerated well. I recommend this at this time and we reviewed the indications, planned application, and anticipated healing time and management. It is noted he has significant delayed in healing already and the medial aspect has been open for 3 years. He was reassured no local signs of infection are noted. His incision and drainage was performed on 09/26/[address] Spakrs. His recent infection and antibiotic intervention is noted. His prior cultures demonstrated Staphylococcus aureus without MRSA development. He was on a course of doxycycline. He does not have systemic illness today. He was advised to have further work-up of his arterial status given his chronicity of the ulcers. Noninvasive vascular study was ordered and the results are pending. It is noted he has been previously diagnosed with venous insufficiency and I recommended proceeding forward with any treatment recommendations and continued compression therapy. His venous Doppler from 2017 demonstrated prior valvular incompetence to the right femoral vein, popliteal vein, and additional superficial thrombophlebitis of this extremity. His most recent venous Doppler from his hospitalization did not demonstrate incompetent veins. A left soleus vein acute blood clot was identified. To elevate the limbs at rest. To avoid idle standing or sitting. His recent labs from his hospital medicine were also reviewed. On 09/27/2019 he did not have any leukocytosis. His albumin level was 2.5 and his hemoglobin A1c level was 5.8%. Lab trends will be monitored. To immobilize and reduce ankle motion to take tension off the ulcer sites. I provided him with a prescription for a cam walker; to continue this. He was advised to wear this when he intermittently returns to work. To maintain proper diet and nutritional supplementation to optimize healing. A prescription for Damaso was provided previously and he was advised on proper use. I answered questions. Adjacent dermatitis is not noted today. I recommend he continue with the Adaptic over the advance wound healing product and this can be changed every 1 to 2 days at home. To monitor close for recurrence. He understands this may also be related to his chronic venous insufficiency and fluctuating edema which I recommend he follows up with vascular as previously advised. To return to the wound healing center in 1 week or call sooner if he has any questions or concerns. . 2020 quality measures reviewed as the following: Reviewed today-level of 0 out of 10 is noted in follow-up plan documented, medication and allergy status reconciled. Reviewed 12-19-2019: He denies falling this past year. Reviewed 11/07/2019-pneumonia vaccination status confirmed in which the patient refused, influenza immunization status confirmed in which he also refused this during this current season, his advanced care plan was confirmed with living will, he is a current tobacco non-user, his blood pressure was elevated over 120/80 and I recommend that he follows up with his primary care physician for medical management. Diet and exercise options were discussed to optimize his wound healing and medical management. Plan: I reviewed and discussed his case. Subcutaneous excisional debridement was performed as noted in the clinical panel. Recommend application of advanced wound healing product, epi-fix. Verbal consent was obtained and this applied according standard protocol. 100% of product was applied. The benefits, application, and anticipated healing time and management were discussed in detail. This was secured in place with a wound veil and Steri-Strips. To keep this clean dry and intact until follow-up next week. To avoid excessive walking. I recommended a cam walker boot and he defers again today. I explained this would help eliminate motion and tension of the skin which pulls on the ulcer site. Is also advised to avoid shoes that press right on this site and the shoes he presents with today do not appear to be doing this. He is advised to continue with compression garments. He is also advised to avoid soaking in hot tub the skin compromises fragile skin.
== END 2019-12-29 23:59 ==
LOC: WC 16:00
PROVIDERS: Family Provider Family Medicine; PCP Family Medicine; Referring Provider Podiatrist; Visit Provider Podiatrist
DX: I73.9 Peripheral vascular disease, unspecified (principal); L97.312 Non-pressure chronic ulcer of right ankle with fat layer exposed; I87.2 Venous insufficiency (chronic) (peripheral); Z79.01 Long term (current) use of anticoagulants; Z86.718 Personal history of other venous thrombosis and embolism
CPT/HCPCS: 11042; 15271; Q4186

== ENCOUNTER 2020-01-23 16:00 | Outpatient (RCR) | payer MEDICARE, OTHER, SELFPAY ==
[2019-12-30 00:41] VITALS: BP 149/83; PULSE 73; RESP 16; TEMP 36
[2020-01-02 16:17] VITALS: BP 128/76; PULSE 62; RESP 16; TEMP 36.9; BMI 25.7
--- NOTE | 2020-01-02 21:46 | PN.PCM_ITS ---
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 Status: Chronic Code(s): L97.912 - Non-pressure chronic ulcer of unspecified part of right lower leg with fat layer exposed (2) Lower extremity edema Status: Acute Code(s): R60.0 - Localized edema (3) Delayed wound healing Status: Chronic Code(s): T14.8XXD - Other injury of unspecified body region, subsequent encounter (4) Stasis dermatitis of right lower extremity due to peripheral venous hypertension Status: Chronic Code(s): I87.321 - Chronic venous hypertension (idiopathic) with inflammation of right lower extremity (5) Other specified peripheral vascular diseases Status: Chronic Code(s): I73.89 - Other specified peripheral vascular diseases (6) Chronic venous insufficiency Status: Chronic Code(s): I87.2 - Venous insufficiency (chronic) (peripheral) Type of Wound Date of Service: 01/02/20 Chief Complaint: Ulcer right ankle /lower leg History of Wound: This is a 69-year-old male with a long-standing history of chronic venous disease follows up for chronic ulcer of the medial right ankle that has been present for approximately 3 years. He also had a recent infection and was admitted to [facility] and had an incision and drainage performed by Dr. pSarks. He has taken antibiotics as advised. He is amenable to proceed with debridement today and defers the use of local anesthetic via injection for topical. He has been using graduated compression stockings of 20-30 mmHg compression on a daily basis. He tries to elevate his limbs. He was recently diagnosed with a left lower extremity blood clot and is on Eliquis. He denies streaking or odor. He denies pain today. The lateral surgical site is remaining healed. He denies scheduling his vascular surgery referral appointment. Progress of Wound: stable - Physical Exam Vital Signs Temp Pulse Resp BP 98.4 F 62 16 128/76 H 01/02/20 16:17 01/02/20 16:17 01/02/20 16:17 01/02/20 16:17 General: Alert, Oriented x3, Cooperative, No apparent distress Extremities: Capillary Refill Less than 3 Seconds, No Calf Tenderness, Diminished Peripheral Pulses, Edema Skin: Ulcer/ Wound - no purulence, no erythema , no streaking, no odor, no infection. skin is atrophic and hairless Wound Measurements and Assessment WC - Nurse 1 - General Ulcer Measurement Start: 01/02/20 16:16 Freq: Status: Active Protocol: Activity Type Activity Date Activity User E-Sign Co-Sign Detail Recorded Client Recorded Date Recorded By Document 01/02/20 16:17 KLEVER [id number] 01/02/20 16:23 DV 01/02/20 16:17 Wound Center Nurse 1 [Ulcer Assessment] 2. R medial ankle -Combined with other wound No -Current Size (cm) - Length 2.0 -Current Size (cm) - Width 0.6 -Current Size (cm) - Depth 0.4 -Total Square Cm 1.20 -Photo Taken No -Epithelialization None Present -Tunneling No -Undermining/Tunneling No -Circular Undermining No -Exudate Amt Large -Exudate Type Serous -Wound Margin Thickened & Rolled Under -Granulation Amt Small (1-33%) -Granulation Quality Pale,Red -Slough/Fibrin Yes -Necrosis Amt Medium (34-66%) -Necrotic Tissue Type Adherent Slough -Structure Exposed None/Limited to Skin Breakdown -Texture (Yamile-wound Skin Appearance) Assessed, Localized Edema -Moisture (Yamile-wound Skin Appearance Assessed, ) Maceration -Color (Yamile-wound Skin Appearance) Assessed -Temperature (Yamile-wound Skin No Abnormality Appearance) (Pt Warm) -Foul Odor after Cleansing No -Anesthetic Used 5% Lidocaine Gel WC - Nurse 2 - General Ulcer CM Notes Start: 01/02/20 16:16 Freq: Status: Active Protocol: Activity Type Activity Date Activity User E-Sign Co-Sign Detail Recorded Client Recorded Date Recorded By Document 01/02/20 16:34 VINICIO [id number] 01/02/20 16:36 VINICIO 01/02/20 16:34 Wound Center Nurse 2 [Procedure/Treatment] -Time 16:35 -Correct Patient Yes -Correct Side, Site, Position Yes -Correct Procedure Yes -Procedure Performed Yes -Type of Procedure Debridement -Clinical Debridement Subcutaneous -Post Debridement Size (cm) - Length 2.0 -Post Debridement Size (cm) - Width 0.7 -Post Debridement Size (cm) - Depth 0.4 -Total Square Cm 1.40 -Wound/Ulcer Outcome Not Healed -Ulcer Cleansing Rinsed/ Irrigated with Saline -Foul Odor after Cleansing No -Bioengineered Tissue Yes -Type of bioengineered Tissue EPIFIX -Expiration Date 08/31/24 -Product Lot Number [id number] -Percent Used 100 -Saline Lot Number [id number] -Bleeding Controlled with Pressure -Offloading No -Treatment Response Procedure Tolerated Well [See Physician Procedure note for Specifics] Pain Scale: 0-10 Numeric [Pain] -Is Patient Pain Free? Yes Musculoskeletal: No Tenderness to Palpation of Joints or Extremities, Muscle Wasting Neurological: Sensory exam intact to light touch and pain Psych/Mental Status: Normal Affect, Appropriate Debridement Note Post-Debridement Measurements/Treatment WC - Nurse 2 - General Ulcer CM Notes Start: 01/02/20 16:16 Freq: Status: Active Protocol: Activity Type Activity Date Activity User E-Sign Co-Sign Detail Recorded Client Recorded Date Recorded By Document 01/02/20 16:34 VINICIO [id number] 01/02/20 16:36 VINICIO 01/02/20 16:34 Wound Center Nurse 2 2. R medial ankle -Time 16:35 -Correct Patient Yes -Correct Side, Site, Position Yes -Correct Procedure Yes -Procedure Performed Yes -Type of Procedure Debridement -Clinical Debridement Subcutaneous -Post Debridement Size (cm) - Length 2.0 -Post Debridement Size (cm) - Width 0.7 -Post Debridement Size (cm) - Depth 0.4 -Total Square Cm 1.40 -Wound/Ulcer Outcome Not Healed -Ulcer Cleansing Rinsed/ Irrigated with Saline -Foul Odor after Cleansing No -Bioengineered Tissue Yes -Type of bioengineered Tissue EPIFIX -Expiration Date 08/31/24 -Product Lot Number [id number] -Percent Used 100 -Saline Lot Number [id number] -Bleeding Controlled with Pressure -Offloading No -Treatment Response Procedure Tolerated Well Pain Scale: 0-10 Numeric Is Patient Pain Free? Yes Wound debrided: medial ankle / lower leg Laterality: Right Type of Debridement: Excisional debridement Anesthesia Used: 5% Lidocaine Gel Depth: in the subcutaneous layer Percentage of wound debrided: 100 Instrument Used: #15 blade Tissue Removed: fibrous, devitalized subcutaneous, biofilm, slough Severity: Fat Layer Exposed Amount of bleeding with debridement: Mild Bleeding Controlled with: Pressure Patient tolerated procedure well Assessment/Plan Assessment: This is a 69 with chronic medial ankle ulcer and recent incision and drainage residual wound to the lateral ankle area. The etiology, recommended treatment, and anticipated healing time and management for these lower extremity ulcers was discussed in detail today. His previous admission data and diagnostic data were reviewed in detail. I recommended subcutaneous excisional debridement on a weekly or biweekly basis. He is amenable to proceed forward with this today and this was tolerated well. I recommend this at this time and sara lambert reviewed the indications, planned application, and anticipated healing time and management. It is noted he has significant delayed in healing already and the medial aspect has been open for 3 years. He was reassured no local signs of infection are noted. His incision and drainage was performed on 09/26/[address] Sparks. His recent infection and antibiotic intervention is noted. His prior cultures demonstrated Staphylococcus aureus without MRSA development. He was on a course of doxycycline. He does not have systemic illness today. He was advised to have further work-up of his arterial status given his chronicity of the ulcers. Noninvasive vascular study was ordered and the results are pending. It is noted he has been previously diagnosed with venous insufficiency and I recommended proceeding forward with any treatment recommendations and continued compression therapy. His venous Doppler from 2017 demonstrated prior valvular incompetence to the right femoral vein, popliteal vein, and additional superficial thrombophlebitis of this extremity. His most recent venous Doppler from his hospitalization did not demonstrate incompetent veins. A left soleus vein acute blood clot was identified. To elevate the limbs at rest. To avoid idle standing or sitting. His recent labs from his hospital medicine were also reviewed. On 09/27/2019 he did not have any leukocytosis. His albumin level was 2.5 and his hemoglobin A1c level was 5.8%. Lab trends will be monitored. To immobilize and reduce ankle motion to take tension off the ulcer sites. I provided him with a prescription for a cam walker; to continue this. He was advised to wear this when he intermittently returns to work. To maintain proper diet and nutritional supplementation to optimize healing. A prescription for Damaso was provided previously and he was advised on proper use. I answered questions. Adjacent dermatitis is not noted today. I recommend he continue with the Adaptic over the advance wound healing product and this can be changed every 1 to 2 days at home. To monitor close for recurrence. He understands this may also be related to his chronic venous insufficiency and fluctuating edema which I recommend he follows up with vascular as previously advised. To return to the wound healing center in 1 week or call sooner if he has any questions or concerns. . 2019 quality measures reviewed as the following: Reviewed today- medication and allergy status reconciled. Reviewed 12-19-2019: He denies falling this past year. Reviewed 11/07/2019-pneumonia vaccination status confirmed in which the patient refused, influenza immunization status confirmed in which he also refused this during this current season, his advanced care plan was confirmed with living will, he is a current tobacco non-user, his blood pressure was elevated over 120/80 and I recommend that he follows up with his primary care physician for medical management. Diet and exercise options were discussed to optimize his wound healing and medical management. Plan: I reviewed and discussed his case. Subcutaneous excisional debridement was performed as noted in the clinical panel. Recommend application of advanced wound healing product, epi-fix. Verbal consent was obtained and this applied according standard protocol. 100% of product was applied. The benefits, application, and anticipated healing time and management were discussed in detail. This was secured in place with a wound veil and Steri-Strips. To keep this clean dry and intact until follow-up next week. To avoid excessive walking. I recommended a cam walker boot and he defers again today. I explained this would help eliminate motion and tension of the skin which pulls on the ulcer site. Is also advised to avoid shoes that press right on this site and the shoes he presents with today do not appear to be doing this. He is advised to continue with compression garments. He was encouraged to schedule his vascular referral appointment. He has monophasic waveform on the limb with significant delayed healing. Compliance was discussed.
[2020-01-09 15:39] VITALS: BP 133/72; PULSE 67; RESP 18; TEMP 37.1; BMI 25.7
--- NOTE | 2020-01-09 16:19 | PN.PCM_ITS ---
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 Status: Chronic Current Visit: Yes Code(s): L97.912 - Non-pressure chronic ulcer of unspecified part of right lower leg with fat layer exposed (2) Lower extremity edema Status: Acute Current Visit: Yes Code(s): R60.0 - Localized edema (3) Delayed wound healing Status: Chronic Current Visit: Yes Code(s): T14.8XXD - Other injury of unspecified body region, subsequent encounter (4) Stasis dermatitis of right lower extremity due to peripheral venous hypertension Status: Chronic Current Visit: Yes Code(s): I87.321 - Chronic venous hypertension (idiopathic) with inflammation of right lower extremity (5) Other specified peripheral vascular diseases Status: Chronic Current Visit: Yes Code(s): I73.89 - Other specified peripheral vascular diseases (6) Chronic venous insufficiency Status: Chronic Current Visit: Yes Code(s): I87.2 - Venous insufficiency (chronic) (peripheral) Type of Wound Date of Service: 01/09/20 Chief Complaint: Ulcer right ankle /lower leg History of Wound: This is a 69-year-old male with a long-standing history of chronic venous disease follows up for chronic ulcer of the medial right ankle that has been present for approximately 3 years. He also had a recent infection and was admitted to [facility] and had an incision and drainage performed by Dr. Sparks. He has taken antibiotics as advised. He is amenable to proceed with debridement today and defers the use of local anesthetic via injection for topical. He has been using graduated compression stockings of 20-30 mmHg compression on a daily basis. He tries to elevate his limbs. He was recently diagnosed with a left lower extremity blood clot and is on Eliquis. He denies streaking or odor. He denies pain today. The lateral surgical site is remaining healed. He denies scheduling his vascular surgery referral appointment. Progress of Wound: stable - Physical Exam Vital Signs Temp Pulse Resp BP 98.7 F 67 18 133/72 H 01/09/20 15:39 01/09/20 15:39 01/09/20 15:39 01/09/20 15:39 General: Alert, Oriented x3, Cooperative, No apparent distress Extremities: No cyanosis, Capillary Refill Less than 3 Seconds, No Calf Tend erness, Diminished Peripheral Pulses, Edema Skin: Ulcer/ Wound - No purulence, erythema, strain, odor, infection. His skin is atrophic and hairless Wound Measurements and Assessment WC - Nurse 1 - General Ulcer Measurement Start: 01/02/20 16:16 Freq: Status: Active Protocol: Activity Type Activity Date Activity User E-Sign Co-Sign Detail Recorded Client Recorded Date Recorded By Document 01/09/20 15:39 AK [id number] 01/09/20 15:52 AK 01/09/20 15:39 Wound Center Nurse 1 [Ulcer Assessment] 2. R medial ankle -Current Size (cm) - Length 3.0 -Current Size (cm) - Width 1.0 -Current Size (cm) - Depth 0.2 -Total Square Cm 3.00 -Exudate Amt Small -Exudate Type Serosanguineous -Wound Margin Thickened & Rolled Under -Granulation Amt Medium (34-66%) -Granulation Quality Pale,[place] -Necrosis Amt Medium (34-66%) -Necrotic Tissue Type Adherent Slough -Texture (Yamile-wound Skin Appearance) Assessed -Moisture (Yamile-wound Skin Appearance Assessed ) -Color (Yamile-wound Skin Appearance) Assessed, Erythema, Hemosiderin Staining -Temperature (Yamile-wound Skin No Abnormality Appearance) (Pt Warm) -Tenderness on Palpation (Yamile-wound No Skin Appearance) -Ulcer Cleansing Rinsed/ Irrigated with Saline -Foul Odor after Cleansing No -Anesthetic Used 4% Lidocaine Solution [Edema Assessment] -Lower Limb Edema Present No -Right Calf (cm) 37.0 -Right Ankle (cm) 22.0 WC - Nurse 2 - General Ulcer CM Notes Start: 01/02/20 16:16 Freq: Status: Active Protocol: Activity Type Activity Date Activity User E-Sign Co-Sign Detail Recorded Client Recorded Date Recorded By Document 01/09/20 16:02 [id number] 01/09/20 16:03 01/09/20 16:02 Wound Center Nurse 2 [Procedure/Treatment] 2. R medial ankle -Time 16:02 -Correct Patient Yes -Correct Side, Site, Position Yes -Correct Procedure Yes -Procedure Performed Yes -Type of Procedure Debridement -Clinical Debridement Subcutaneous -Post Debridement Size (cm) - Length 2.8 -Post Debridement Size (cm) - Width 0.8 -Post Debridement Size (cm) - Depth 0.2 -Total Square Cm 2.24 -Wound/Ulcer Outcome Not Healed -Ulcer Cleansing Rinsed/ Irrigated with Saline -Foul Odor after Cleansing No -Bioengineered Tissue Yes -Type of bioengineered Tissue EPIFIX -Expiration Date 08/31/24 -Product Lot Number [id number] -Percent Used 100 -Saline Lot Number [id number] -Bleeding Controlled with Pressure -Offloading No -Treatment Response Procedure Tolerated Well [See Physician Procedure note for Specifics] Pain Scale: 0-10 Numeric [Pain] -Is Patient Pain Free? Yes Musculoskeletal: No Tenderness to Palpation of Joints or Extremities Neurological: - - Lack of normal sensation with light touch Psych/Mental Status: Normal Affect, Appropriate Debridement Note Post-Debridement Measurements/Treatment WC - Nurse 2 - General Ulcer CM Notes Start: 01/02/20 16:16 Freq: Status: Active Protocol: Activity Type Activity Date Activity User E-Sign Co-Sign Detail Recorded Client Recorded Date Recorded By Document 01/02/20 16:34 [id number] 01/02/20 16:36 Document 01/09/20 16:02 [id number] 01/09/20 16:03 01/02/20 01/09/20 16:34 16:02 Wound Center Nurse 2 2. R medial ankle -Time 16:35 16:02 -Correct Patient Yes Yes -Correct Side, Site, Position Yes Yes -Correct Procedure Yes Yes -Procedure Performed Yes Yes -Type of Procedure Debridement Debridement -Clinical Debridement Subcutaneous Subcutaneous -Post Debridement Size (cm) - Length 2.0 2.8 -Post Debridement Size (cm) - Width 0.7 0.8 -Post Debridement Size (cm) - Depth 0.4 0.2 -Total Square Cm 1.40 2.24 -Wound/Ulcer Outcome Not Healed Not Healed -Ulcer Cleansing Rinsed/ Rinsed/ Irrigated with Irrigated with Saline Saline -Foul Odor after Cleansing No No -Bioengineered Tissue Yes Yes -Type of bioengineered Tissue EPIFIX EPIFIX -Expiration Date 08/31/24 08/31/24 -Product Lot Number [id number] -Percent Used 100 100 -Saline Lot Number [id number] -Bleeding Controlled with Pressure Pressure -Offloading No No -Treatment Response Procedure Procedure Tolerated Well Tolerated Well Pain Scale: 0-10 Numeric Is Patient Pain Free? Yes Yes Wound debrided: medial lower leg / ankle Laterality: Right Type of Debridement: Excisional debridement Anesthesia Used: 5% Lidocaine Gel Depth: in the subcutaneous layer Percentage of wound debrided: 100 Instrument Used: #15 blade Tissue Removed: fibrous, devitalized subcutaneous, biofilm, slough Severity: Fat Layer Exposed Amount of bleeding with debridement: Mild Bleeding Controlled with: Pressure Patient tolerated procedure well Assessment/Plan Active Problems Lower extremity edema (Acute) Delayed wound healing (Chronic) Stasis dermatitis of right lower extremity due to peripheral venous hypertension (Chronic) Other specified peripheral vascular diseases (Chronic) Chronic ulcer of right leg with fat layer exposed (Chronic) Chronic venous insufficiency (Chronic) Assessment: This is a 69 with chronic medial ankle ulcer and recent incision and drainage residual wound to the lateral ankle area. The etiology, recommended treatment, and anticipated healing time and management for these lower extremity ulcers was discussed in detail today. His previous admission data and diagnostic data were reviewed in detail. I recommended subcutaneous excisional debridement on a weekly or biweekly basis. He is amenable to proceed forward with this today and this was tolerated well. I recommend this at this time and we reviewed the indications, planned application, and anticipated healing time and management. It is noted he has significant delayed in healing already and the medial aspect has been open for 3 years. He was reassured no local signs of infection are noted. His incision and drainage was performed on 09/26/[address] Sparks. His recent infection and antibiotic intervention is noted. His prior cultures demonstrated Staphylococcus aureus without MRSA development. He was on a course of doxycycline. He does not have systemic illness today. He was advised to have further work-up of his arterial status given his chronicity of the ulcers. Noninvasive vascular study was ordered and the results are pending. It is noted he has been previously diagnosed with venous insufficiency and I recommended proceeding forward with any treatment recommendations and continued compression therapy. His venous Doppler from 2017 demonstrated prior valvular incompetence to the right femoral vein, popliteal vein, and additional superficial thrombophlebitis of this extremity. His most recent venous Doppler from his hospitalization did not demonstrate incompetent veins. A left soleus vein acute blood clot was identified. To elevate the limbs at rest. To avoid idle standing or sitting. His recent labs from his hospital medicine were also reviewed. On 09/27/2019 he did not have any leukocytosis. His albumin level was 2.5 and his hemoglobin A1c level was 5.8%. Lab trends will be monitored. To immobilize and reduce ankle motion to take tension off the ulcer sites. I provided him with a prescription for a cam walker; to continue this. He was advised to wear this when he intermittently returns to work. To maintain proper diet and nutritional supplementation to optimize healing. A prescription for Damaso was provided previously and he was advised on proper use. I answered questions. Adjacent dermatitis is not noted today. I recommend he continue with the Adaptic over the advance wound healing product and this can be changed every 1 to 2 days at home. To monitor close for recurrence. He understands this may also be related to his chronic venous insufficiency and fluctuating edema which I recommend he follows up with vascular as previously advised. To return to the wound healing center in 1 week or call sooner if he has any questions or concerns. . 2020 quality measures reviewed as the following: Reviewed today- medication and allergy status reconciled. Reviewed 12-19-2019: He denies falling this past year. Reviewed 11/07/2019-pneumonia vaccination status confirmed in which the patient refused, influenza immunization status confirmed in which he also refused this during this current season, his advanced care plan was confirmed with living will, he is a current tobacco non-user, his blood pressure was elevated over 120/80 and I recommend that he follows up with his primary care physician for medical management. Diet and exercise options were discussed to optimize his wound healing and medical management. Plan: I reviewed and discussed his case. Subcutaneous excisional debridement was performed as noted in the clinical panel. Recommend application of advanced wound healing product, epi-fix. Verbal consent was obtained and this applied according standard protocol. 100% of product was applied. The benefits, application, and anticipated healing time and management were discussed in detail. This was secured in place with a wound veil and Steri-Strips. To keep this clean dry and intact until follow-up next week. To avoid excessive walking. I recommended a cam walker boot and he defers again today. I explained this would help eliminate motion and tension of the skin which pulls on the ulcer site. Is also advised to avoid shoes that press right on this site and the shoes he presents with today do not appear to be doing this. He is advised to continue with compression garments. He was encouraged to schedule his vascular referral appointment. He has monophasic waveform on the limb with significant delayed healing. Compliance was discussed.
[2020-01-16 15:56] VITALS: BP 134/76; PULSE 65; RESP 18; TEMP 36.6; BMI 25.7
--- NOTE | 2020-01-17 08:48 | PCM.WC.PN ---
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 Status: Chronic Current Visit: Yes Code(s): L97.912 - Non-pressure chronic ulcer of unspecified part of right lower leg with fat layer exposed (2) Lower extremity edema Status: Acute Current Visit: Yes Code(s): R60.0 - Localized edema (3) Delayed wound healing Status: Chronic Current Visit: Yes Code(s): T14.8XXD - Other injury of unspecified body region, subsequent encounter (4) Stasis dermatitis of right lower extremity due to peripheral venous hypertension Status: Chronic Current Visit: Yes Code(s): I87.321 - Chronic venous hypertension (idiopathic) with inflammation of right lower extremity (5) Other specified peripheral vascular diseases Status: Chronic Current Visit: Yes Code(s): I73.89 - Other specified peripheral vascular diseases (6) Chronic venous insufficiency Status: Chronic Current Visit: Yes Code(s): I87.2 - Venous insufficiency (chronic) (peripheral) Type of Wound Date of Service: 01/16/20 Chief Complaint: Ulcer right ankle /lower leg History of Wound: This is a 69-year-old male with a long-standing history of chronic venous disease follows up for chronic ulcer of the medial right ankle that has been present for approximately 3 years. He also had a recent infection and was admitted to [facility] and had an incision and drainage performed by Dr. Sparks. He has taken antibiotics as advised. He is amenable to proceed with debridement today and defers the use of local anesthetic via injection for topical. He has been using graduated compression stockings of 20-30 mmHg compression on a daily basis. He tries to elevate his limbs. He was recently diagnosed with a left lower extremity blood clot and is on Eliquis. He denies streaking or odor. He denies pain today. He has scheduled his vascular surgery referral appointment. Progress of Wound: stable - Physical Exam Vital Signs Temp Pulse Resp BP 97.8 F 65 18 134/76 H 01/16/20 15:56 01/16/20 15:56 01/16/20 15:56 01/16/20 15:56 General: Alert, Oriented x3, Cooperative, No apparent distress Extremities: No cyanosis, Capillary Refill Less than 3 Seconds, No Calf Tenderness, Diminished Peripheral Pulses, Edema Skin: Ulcer/ Wound - no purulence, no erythema, no streaking, no infection noted. the skin is atrophic and hairless. the ulcer base is granular. Wound Measurements and Assessment WC - Nurse 1 - General Ulcer Measurement Start: 01/02/20 16:16 Freq: Status: Active Protocol: Activity Type Activity Date Activity User E-Sign Co-Sign Detail Recorded Client Recorded Date Recorded By Document 01/16/20 15:56 [facility] [id number] 01/16/20 15:59 [facility] 01/16/20 15:56 Wound Center Nurse 1 [Ulcer Assessment] 2. R medial ankle -Combined with other wound No -Current Size (cm) - Length 2.5 -Current Size (cm) - Width 0.9 -Current Size (cm) - Depth 0.3 -Total Square Cm 2.25 -Photo Taken No -Epithelialization None Present -Tunneling No -Undermining/Tunneling No -Circular Undermining No -Exudate Amt Medium -Exudate Type Serosanguineous -Wound Margin Thickened -Granulation Amt Medium (34-66%) -Granulation Quality Red -Slough/Fibrin Yes -Necrosis Amt Small (1-33%) -Necrotic Tissue Type Adherent Slough -Texture (Yamile-wound Skin Appearance) Assessed, Scarring -Moisture (Yamile-wound Skin Appearance Assessed, ) Maceration,Dry/ Scaly -Color (Yamile-wound Skin Appearance) Assessed,Palor -Temperature (Yamile-wound Skin No Abnormality Appearance) (Pt Warm) -Tenderness on Palpation (Yamile-wound No Skin Appearance) -Ulcer Cleansing soapy water -Foul Odor after Cleansing No -Anesthetic Used 5% Lidocaine Gel [Edema Assessment] -Lower Limb Edema Present Yes -Left Calf (cm) 37.2 -Left Ankle (cm) 23.5 WC - Nurse 2 - General Ulcer CM Notes Start: 01/02/20 16:16 Freq: Status: Active Protocol: Activity Type Activity Date Activity User E-Sign Co-Sign Detail Recorded Client Recorded Date Recorded By Document 01/16/20 16:18 [id number] 01/16/20 16:19 01/16/20 16:18 Wound Center Nurse 2 [Procedure/Treatment] 2. R medial ankle -Time 16:18 -Correct Patient Yes -Correct Side, Site, Position Yes -Correct Procedure Yes -Procedure Performed Yes -Type of Procedure Debridement -Clinical Debridement Subcutaneous -Post Debridement Size (cm) - Length 2.5 -Post Debridement Size (cm) - Width 1 -Post Debridement Size (cm) - Depth 0.3 -Total Square Cm 2.5 -Wound/Ulcer Outcome Not Healed -Ulcer Cleansing Rinsed/ Irrigated with Saline -Foul Odor after Cleansing No -Bioengineered Tissue Yes -Type of bioengineered Tissue EPIFIX -Expiration Date 09/30/24 -Product Lot Number [id number] -Percent Used 100 -Saline Lot Number [id number] -Bleeding Controlled with Pressure -Offloading Yes [See Physician Procedure note for Specifics] Pain Scale: 0-10 Numeric [Pain] -Is Patient Pain Free? Yes Musculoskeletal: No Tenderness to Palpation of Joints or Extremities, Muscle Wasting Neurological: - - no pain with ulcer manipulation. altered epicritic sensation to light touch is noted Psych/Mental Status: Normal Affect, Appropriate Debridement Note Post-Debridement Measurements/Treatment WC - Nurse 2 - General Ulcer CM Notes Start: 01/02/20 16:16 Freq: Status: Active Protocol: Activity Type Activity Date Activity User E-Sign Co-Sign Detail Recorded Client Recorded Date Recorded By Document 01/02/20 16:34 [id number] 01/02/20 16:36 Document 01/09/20 16:02 [id number] 01/09/20 16:03 Document 01/16/20 16:18 [id number] 01/16/20 16:19 01/02/20 01/09/20 01/16/20 16:34 16:02 16:18 Wound Center Nurse 2 2. R medial ankle -Time 16:35 16:02 16:18 -Correct Patient Yes Yes Yes -Correct Side, Site, Position Yes Yes Yes -Correct Procedure Yes Yes Yes -Procedure Performed Yes Yes Yes -Type of Procedure Debridement Debridement Debridement -Clinical Debridement Subcutaneous Subcutaneous Subcutaneous -Post Debridement Size (cm) - Length 2.0 2.8 2.5 -Post Debridement Size (cm) - Width 0.7 0.8 1 -Post Debridement Size (cm) - Depth 0.4 0.2 0.3 -Total Square Cm 1.40 2.24 2.5 -Wound/Ulcer Outcome Not Healed Not Healed Not Healed -Ulcer Cleansing Rinsed/ Rinsed/ Rinsed/ Irrigated with Irrigated with Irrigated with Saline Saline Saline -Foul Odor after Cleansing No No No -Bioengineered Tissue Yes Yes Yes -Type of bioengineered Tissue EPIFIX EPIFIX EPIFIX -Expiration Date 08/31/24 08/31/24 09/30/24 -Product Lot Number [id number] -Percent Used 100 100 100 -Saline Lot Number [id number] -Bleeding Controlled with Pressure Pressure Pressure -Offloading No No Yes -Treatment Response Procedure Procedure Tolerated Well Tolerated Well Pain Scale: 0-10 Numeric Is Patient Pain Free? Yes Yes Yes Wound debrided: medial lower leg/ankle Laterality: Right Type of Debridement: Excisional debridement Anesthesia Used: 5% Lidocaine Gel Depth: in the subcutaneous layer Percentage of wound debrided: 100 Instrument Used: #15 blade Tissue Removed: fibrous, devitalized subcutaneous, biofilm, slough Severity: Fat Layer Exposed Amount of bleeding with debridement: Mild Bleeding Controlled with: Pressure Patient tolerated procedure well Assessment/Plan Active Problems Lower extremity edema (Acute) Delayed wound healing (Chronic) Stasis dermatitis of right lower extremity due to peripheral venous hypertension (Chronic) Other specified peripheral vascular diseases (Chronic) Chronic ulcer of right leg with fat layer exposed (Chronic) Chronic venous insufficiency (Chronic) Assessment: This is a 69 with chronic medial ankle ulcer and recent incision and drainage residual wound to the lateral ankle area. The etiology, recommended treatment, and anticipated healing time and management for these lower extremity ulcers was discussed in detail today. His previous admission data and diagnostic data were reviewed in detail. I recommended subcutaneous excisional debridement on a weekly or biweekly basis. He is amenable to proceed forward with this today and this was tolerated well. I recommend this at this time and we reviewed the indications, planned application, and anticipated healing time and management. It is noted he has significant delayed in healing already and the medial aspect has been open for 3 years. He was reassured no local signs of infection are noted. His incision and drainage was performed on 09/26/[address] Sparks. His recent infection and antibiotic intervention is noted. His prior cultures demonstrated Staphylococcus aureus without MRSA development. He was on a course of doxycycline. He does not have systemic illness today. He was advised to have further work-up of his arterial status given his chronicity of the ulcers. Noninvasive vascular study was ordered and the results are pending. It is noted he has been previously diagnosed with venous insufficiency and I recommended proceeding forward with any treatment recommendations and continued compression therapy. His venous Doppler from 2017 demonstrated prior valvular incompetence to the right femoral vein, popliteal vein, and additional superficial thrombophlebitis of this extremity. His most recent venous Doppler from his hospitalization did not demonstrate incompetent veins. A left soleus vein acute blood clot was identified. To elevate the limbs at rest. To avoid idle standing or sitting. His recent labs from his hospital medicine were also reviewed. On 09/27/2019 he did not have any leukocytosis. His albumin level was 2.5 and his hemoglobin A1c level was 5.8%. Lab trends will be monitored. To immobilize and reduce ankle motion to take tension off the ulcer sites. I provided him with a prescription for a cam walker; to continue this. He was advised to wear this when he intermittently returns to work. To maintain proper diet and nutritional supplementation to optimize healing. A prescription for Damaso was provided previously and he was advised on proper use. I answered questions. Adjacent dermatitis is not noted today. I recommend he continue with the Adaptic over the advance wound healing product and this can be changed every 1 to 2 days at home. To monitor close for recurrence. He understands this may also be related to his chronic venous insufficiency and fluctuating edema which I recommend he follows up with vascular as previously advised and scheduled. To return to the wound healing center in 1 week or call sooner if he has any questions or concerns. . 2020 quality measures reviewed as the following: Reviewed today- medication and allergy status reconciled. Reviewed 12-19-2019: He denies falling this past year. Reviewed 11/07/2019-pneumonia vaccination status confirmed in which the patient refused, influenza immunization status confirmed in which he also refused this during this current season, his advanced care plan was confirmed with living will, he is a current tobacco non-user, his blood pressure was elevated over 120/80 and I recommend that he follows up with his primary care physician for medical management. Diet and exercise options were discussed to optimize his wound healing and medical management. Plan: I reviewed and discussed his case. Subcutaneous excisional debridement was performed as noted in the clinical panel. Recommend application of advanced wound healing product, epi-fix. Verbal consent was obtained and this applied according standard protocol. 100% of product was applied. The benefits, application, and anticipated healing time and management were discussed in detail. This was secured in place with a wound veil and Steri-Strips. To keep this clean dry and intact until follow-up next week. To avoid excessive walking. I recommended a cam walker boot and he defers again today. I explained this would help eliminate motion and tension of the skin which pulls on the ulcer site. Is also advised to avoid shoes that press right on this site and the shoes he presents with today do not appear to be doing this. He is advised to continue with compression garments. He was encouraged to schedule his vascular referral appointment. He has monophasic waveform on the limb with significant delayed healing. Compliance was discussed.
[2020-01-23 16:13] VITALS: BP 152/70; PULSE 63; RESP 18; TEMP 36.5; BMI 25.7
--- NOTE | 2020-01-23 16:31 | PN.PCM_ITS ---
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 Status: Chronic Current Visit: Yes Code(s): L97.912 - Non-pressure chronic ulcer of unspecified part of right lower leg with fat layer exposed (2) Lower extremity edema Status: Acute Current Visit: Yes Code(s): R60.0 - Localized edema (3) Delayed wound healing Status: Chronic Current Visit: Yes Code(s): T14.8XXD - Other injury of unspecified body region, subsequent encounter (4) Stasis dermatitis of right lower extremity due to peripheral venous hypertension Status: Chronic Current Visit: Yes Code(s): I87.321 - Chronic venous hypertension (idiopathic) with inflammation of right lower extremity (5) Other specified peripheral vascular diseases Status: Chronic Current Visit: Yes Code(s): I73.89 - Other specified peripheral vascular diseases (6) Chronic venous insufficiency Status: Chronic Current Visit: Yes Code(s): I87.2 - Venous insufficiency (chronic) (peripheral) Type of Wound Date of Service: 01/23/20 Chief Complaint: Ulcer right ankle /lower leg History of Wound: This is a 69-year-old male with a long-standing history of chronic venous disease follows up for chronic ulcer of the medial right ankle that has been present for approximately 3 years. He also had a recent infection and was admitted to [facility] and had an incision and drainage performed by Dr. Sparks. He has taken antibiotics as advised. He is amenable to proceed with debridement today and defers the use of local anesthetic via injection for topical. He has been using graduated compression stockings of 20-30 mmHg compression on a daily basis. He tries to elevate his limbs. He was recently diagnosed with a left lower extremity blood clot and is on Eliquis. He denies streaking or odor. He denies pain today. He has scheduled his vascular surgery referral appointment for this morning however did not attend. We are currently in Covid 19 pandemic he did not feel safe proceeding with an additional visit today. Progress of Wound: Worsening status - Physical Exam Vital Signs Temp Pulse Resp BP 97.7 F L 63 18 152/70 H 01/23/20 16:13 01/23/20 16:13 01/23/20 16:13 01/23/20 16:13 General: Alert, Oriented x3, Cooperative, No apparent distress Extremities: No cyanosis, Capillary Refill Less than 3 Seconds, No Calf Tenderness, Diminished Peripheral Pulses, Edema Skin: Ulcer/ Wound - No purulence, erythema, streaking, odor, infection. His skin is hairless and atrophic and he does have adjacent telangiectasias. The ulcer bed is granular and it has increased in size and it is dry Wound Measurements and Assessment WC - Nurse 1 - General Ulcer Measurement Start: 01/02/20 16:16 Freq: Status: Active Protocol: Activity Type Activity Date Activity User E-Sign Co-Sign Detail Recorded Client Recorded Date Recorded By Document 01/23/20 16:13 RB [id number] 01/23/20 16:15 RB 01/23/20 16:13 Wound Center Nurse 1 [Ulcer Assessment] 2. R medial ankle -Combined with other wound No -Current Size (cm) - Length 3 -Current Size (cm) - Width 1 -Current Size (cm) - Depth 0.4 -Total Square Cm 3 -Tunneling No -Undermining/Tunneling No -Circular Undermining No -Exudate Amt Small -Exudate Type Serosanguineous -Wound Margin Thickened & Rolled Under -Granulation Amt Medium (34-66%) -Granulation Quality [place] -Slough/Fibrin Yes -Necrosis Amt Small (1-33%) -Necrotic Tissue Type Adherent Slough -Structure Exposed N/A -Texture (Yamile-wound Skin Appearance) Assessed -Moisture (Yamile-wound Skin Appearance Assessed, ) Maceration,Dry/ Scaly -Color (Yamile-wound Skin Appearance) Assessed -Temperature (Yamile-wound Skin No Abnormality Appearance) (Pt Warm) -Tenderness on Palpation (Yamile-wound No Skin Appearance) -Ulcer Cleansing Wound Cleanser -Foul Odor after Cleansing No -Anesthetic Used 5% Lidocaine Gel WC - Nurse 2 - General Ulcer CM Notes Start: 01/02/20 16:16 Freq: Status: Active Protocol: Activity Type Activity Date Activity User E-Sign Co-Sign Detail Recorded Client Recorded Date Recorded By Document 01/23/20 16:24 [id number] 01/23/20 16:26 01/23/20 16:24 Wound Center Nurse 2 [Procedure/Treatment] -Time 16:24 -Correct Patient Yes -Correct Side, Site, Position Yes -Correct Procedure Yes -Procedure Performed Yes -Type of Procedure Debridement -Clinical Debridement Subcutaneous -Post Debridement Size (cm) - Length 3.0 -Post Debridement Size (cm) - Width 1.1 -Post Debridement Size (cm) - Depth 0.3 -Total Square Cm 3.30 -Wound/Ulcer Outcome Not Healed -Ulcer Cleansing Rinsed/ Irrigated with Saline -Foul Odor after Cleansing No -Bioengineered Tissue No -Bleeding Controlled with Pressure -Offloading No -Treatment Response Procedure Tolerated Well [See Physician Procedure note for Specifics] Pain Scale: 0-10 Numeric [Pain] -Is Patient Pain Free? Yes Musculoskeletal: No Tenderness to Palpation of Joints or Extremities, Muscle Wasting Neurological: - - Lack of normal epicritic sensation with ulcer manipulation Psych/Mental Status: Normal Affect, Appropriate Debridement Note Post-Debridement Measurements/Treatment WC - Nurse 2 - General Ulcer CM Notes Start: 01/02/20 16:16 Freq: Status: Active Protocol: Activity Type Activity Date Activity User E-Sign Co-Sign Detail Recorded Client Recorded Date Recorded By Document 01/02/20 16:34 [id number] 01/02/20 16:36 Document 01/09/20 16:02 [id number] 01/09/20 16:03 Document 01/16/20 16:18 [id number] 01/16/20 16:19 Document 01/23/20 16:24 [id number] 01/23/20 16:26 01/02/20 01/09/20 01/16/20 16:34 16:02 16:18 Wound Center Nurse 2 2. R medial ankle -Time 16:35 16:02 16:18 -Correct Patient Yes Yes Yes -Correct Side, Site, Position Yes Yes Yes -Correct Procedure Yes Yes Yes -Procedure Performed Yes Yes Yes -Type of Procedure Debridement Debridement Debridement -Clinical Debridement Subcutaneous Subcutaneous Subcutaneous -Post Debridement Size (cm) - Length 2.0 2.8 2.5 -Post Debridement Size (cm) - Width 0.7 0.8 1 -Post Debridement Size (cm) - Depth 0.4 0.2 0.3 -Total Square Cm 1.40 2.24 2.5 -Wound/Ulcer Outcome Not Healed Not Healed Not Healed -Ulcer Cleansing Rinsed/ Rinsed/ Rinsed/ Irrigated with Irrigated with Irrigated with Saline Saline Saline -Foul Odor after Cleansing No No No -Bioengineered Tissue Yes Yes Yes -Type of bioengineered Tissue EPIFIX EPIFIX EPIFIX -Expiration Date 08/31/24 08/31/24 09/30/24 -Product Lot Number [id number] -Percent Used 100 100 100 -Saline Lot Number [id number] -Bleeding Controlled with Pressure Pressure Pressure -Offloading No No Yes -Treatment Response Procedure Procedure Tolerated Well Tolerated Well Pain Scale: 0-10 Numeric Is Patient Pain Free? Yes Yes Yes 01/23/20 16:24 Wound Center Nurse 2 2. R medial ankle -Time 16:24 -Correct Patient Yes -Correct Side, Site, Position Yes -Correct Procedure Yes -Procedure Performed Yes -Type of Procedure Debridement -Clinical Debridement Subcutaneous -Post Debridement Size (cm) - Length 3.0 -Post Debridement Size (cm) - Width 1.1 -Post Debridement Size (cm) - Depth 0.3 -Total Square Cm 3.30 -Wound/Ulcer Outcome Not Healed -Ulcer Cleansing Rinsed/ Irrigated with Saline -Foul Odor after Cleansing No -Bioengineered Tissue No -Type of bioengineered Tissue -Expiration Date -Product Lot Number -Percent Used -Saline Lot Number -Bleeding Controlled with Pressure -Offloading No -Treatment Response Procedure Tolerated Well Pain Scale: 0-10 Numeric Is Patient Pain Free? Yes Wound debrided: medial lower leg/ankle Laterality: Right Type of Debridement: Excisional debridement Anesthesia Used: 5% Lidocaine Gel Depth: in the subcutaneous layer Percentage of wound debrided: 100 Instrument Used: #15 blade Tissue Removed: fibrous, devitalized subcutaneous, biofilm, slough Severity: Fat Layer Exposed Amount of bleeding with debridement: Mild Bleeding Controlled with: Pressure Patient tolerated procedure well Assessment/Plan Active Problems Lower extremity edema (Acute) Delayed wound healing (Chronic) Stasis dermatitis of right lower extremity due to peripheral venous hypertension (Chronic) Other specified peripheral vascular diseases (Chronic) Chronic ulcer of right leg with fat layer exposed (Chronic) Chronic venous insufficiency (Chronic) Assessment: This is a 69 with chronic medial ankle ulcer and recent incision and drainage residual wound to the lateral ankle area. The etiology, recommended treatment, and anticipated healing time and management for these lower extremity ulcers was discussed in detail today. His previous admission data and diagnostic data were reviewed in detail. I recommended subcutaneous excisional debridement on a weekly or biweekly basis. He is amenable to proceed forward with this today and this was tolerated well. He was reassured no local signs of infection are noted. His incision and drainage was performed on 09/26/[address] Sparks. His recent infection and antibiotic intervention is noted. His prior cultures demonstrated Staphylococcus aureus without MRSA development. He was on a course of doxycycline. He does not have systemic illness today. He was advised to have further work-up of his arterial status given his chronicity of the ulcers. Noninvasive vascular study was ordered and the results are pending. It is noted he has been previously diagnosed with venous insufficiency and I recommended proceeding forward with any treatment recommendations and continued compression therapy. His venous Doppler from 2017 demonstrated prior valvular incompetence to the right femoral vein, popliteal vein, and additional superficial thrombophlebitis of this extremity. His most recent venous Doppler from his hospitalization did not demonstrate incompetent veins. A left soleus vein acute blood clot was identified. To elevate the limbs at rest. To avoid idle standing or sitting. His recent labs from his hospital medicine were also reviewed. On 09/27/2019 he did not have any leukocytosis. His albumin level was 2.5 and his hemoglobin A1c level was 5.8%. Lab trends will be monitored. To immobilize and reduce ankle motion to take tension off the ulcer sites. I provided him with a prescription for a cam walker; to continue this. He was advised to wear this when he intermittently returns to work. To maintain proper diet and nutritional supplementation to optimize healing. A prescription for Damaso was provided previously and he was advised on proper use. I answered questions. Adjacent dermatitis is not noted today. I recommend he continue with the Adaptic now with the addition of hydrogel over the ulcer bed; to change daily. It is noted he has completed a course of advanced wound healing product, epi-fix. He is strongly advised to reschedule his vascular consultation and the importance of receiving an updated evaluation and intervention for wound healing was reviewed. To return to the wound healing center in 1 week or call sooner if he has any questions or concerns. He relates he will return to clinic in 2 weeks. . 2020 quality measures reviewed as the following: Reviewed today- medication and allergy status reconciled. Reviewed 12-19-2019: He denies falling this past year. Reviewed 11/07/2019-pneumonia vaccination status confirmed in which the patient refused, influenza immunization status confirmed in which he also refused this during this current season, his advanced care plan was confirmed with living will, he is a current tobacco non-user, his blood pressure was elevated over 120/80 and I recommend that he follows up with his primary care physician for medical management. Diet and exercise options were discussed to optimize his wound healing and medical management. Plan: I reviewed and discussed his case. Subcutaneous excisional debridement was performed as noted in the clinical panel. Compliance was discussed.
== END 2020-01-29 23:59 ==
LOC: WC 16:00
PROVIDERS: Family Provider Family Medicine; PCP Family Medicine; Referring Provider Podiatrist; Visit Provider Podiatrist
DX: I73.89 Other specified peripheral vascular diseases (principal); I87.2 Venous insufficiency (chronic) (peripheral); R60.0 Localized edema; L97.312 Non-pressure chronic ulcer of right ankle with fat layer exposed; Z79.01 Long term (current) use of anticoagulants; Z86.718 Personal history of other venous thrombosis and embolism
CPT/HCPCS: 11042; 15271; Q4186

== ENCOUNTER 2021-11-03 14:43 | Emergency (ER) | payer MEDICARE, BC, SELFPAY ==
[2021-11-03 14:44] VITALS: BP 150/82; PULSE 64; RESP 18; TEMP 36.4; O2SAT 99; BMI 27.5
--- NOTE | 2021-11-03 16:01 | EKG12_ITS ---
Test Reason : Blood Pressure : / mmHG Vent. Rate : 056 BPM Atrial Rate : 056 BPM P-R Int : 148 ms QRS Dur : 104 ms QT Int : 428 ms P-R-T Axes : 038 007 053 degrees QTc Int : 413 ms Sinus bradycardia Otherwise normal ECG Confirmed by LAURO JACOB, MIKE ([id number]), supervising editor news reel SUSHANT HALL ([id number]) on 11/06/2021 9:55:07 AM Referred By: FATOU Confirmed By:MIKE RESTREPO MD
--- NOTE | 2021-11-03 16:02 | EDS_ITS ---
HPI History of Present Illness Chief Complaint: Chest Other Detail of Chief Complaint: Right-sided chest pain Informant: patient Onset/Context/Timing Onset: Today Context: Gradual Onset Timing: Waxes and wanes Current Severity: Mild Maximum Severity: Moderate Narrative Narrative: Patient presents with right lateral chest wall pain. He states pain started around 10 AM this morning. He was just sitting at rest when it started. He denies shortness of breath or diaphoresis. He denies injury. Patient does have history of DVT and is no longer on Eliquis. [facility] Medical History DVT (deep venous thrombosis) Home Medications naproxen 500 mg PO BID PRN PRN #0 09/28/19 [Rx Last Taken Unknown] prednisone 5 mg PO DAILY 11/03/21 [History Last Taken Unknown] Allergy/AdvReac Type Severity Reaction Status Date / Time No Known Allergies Allergy Verified 11/03/21 14:48 Social History Smoking Status: Former smoker ROS ROS ED Constitutional Constitutional ED: Denies chills or fever(s) Eyes Eyes: Denies change in vision ENT ENT ED: Denies sore throat Cardiovascular Cardiovascular: Reports chest pain Respiratory/Chest Respiratory/Chest: Denies cough or dyspnea Gastrointestinal Gastrointestinal: Denies abdominal pain, diarrhea, nausea or vomiting Genitourinary Genitourinary ED: Denies dysuria Musculoskeletal Musculoskeletal: Denies back pain or neck pain Integumentary Denies rash Neurologic Neurologic: Denies headache(s) or weakness Allergic/Immunologic Allergic/Immunologic ED: Denies urticaria EXAM Physical Exam Const Vital Signs: 11/03/21 14:44 11/03/21 16:22 Temperature 97.5 F L Temperature Source Temporal Pulse Rate 64 60 Respiratory Rate 18 25 H Respiratory Effort Normal Respiratory Pattern Normal Blood Pressure 150/82 H 182/118 H Blood Pressure Mean 104 139 Pulse Ox 99 97 Oxygen Delivery Method Room Air Room Air Positive well nourished and well developed General Appearance ED: well developed HEENT Reports normocephalic and head/scalp atraumatic Eyes PERRL and EOMs intact bilaterally Neck supple Chest Wall inspection of chest normal Chest Narrative: Mild tenderness of the right lateral chest wall. No crepitus. Resp normal respiratory effort and clear to auscultation bilaterally Cardio regular rate and regular rhythm GI normal to inspection, nondistended, normoactive bowel sounds Palpation: soft Extremity normal to inspection Neuro oriented x3 and no sensory deficits noted Sensorium / Orientation: alert Motor Exam: strength 5/5 throughout Psych mental status grossly normal Skin no rashes or lesions noted MDM MDM MDM Narrative Medical decision making narrative: Lab work, EKG, chest x-ray obtained. Lab Data Attestation: I reviewed the patient's lab results. Labs: Laboratory Results - last 24 hr 11/03/21 11/03/21 11/03/21 16:35 16:35 16:35 WBC 6.7 RBC 4.42 L Hgb 14.5 Hct 43.6 MCV 98.6 H MCH 32.8 H MCHC 33.3 RDW Std Deviation 50.3 H RDW Coeff of Lui 13.7 Plt Count 187 MPV 11.1 Immature Gran % (Auto) 0.100 Neut % (Auto) 63.1 Lymph % (Auto) 24.7 Webb % (Auto) 9.2 Eos % (Auto) 2.5 Baso % (Auto) 0.4 Absolute Neuts (auto) 4.2 Absolute Lymphs (auto) 1.66 Nucleated RBC % 0 D-Dimer Quant (PE/DVT) 0.75 H* Sodium 142 Potassium 3.8 Chloride 107 Carbon Dioxide 28.0 Anion Gap 7 BUN 21 H Creatinine 0.87 Estim Creat Clear Calc 95.78 Est GFR (MDRD) Af Amer 111 Est GFR (MDRD) Non-Af 92 BUN/Creatinine Ratio 24.1 H Glucose 105 Calcium 8.7 Troponin I High Sens 6 Radiography Chest X-Ray - ED: 1 View, Read by ED Physician and Chronic Changes Diagnostic Testing: Clinical Impression(s) from Imaging Studies Chest X-Ray 11/03/21 16:05 Chest CTA 11/03/21 17:07 IMPRESSION: No demonstrated pulmonary embolism or arterial dissection. Electronically Signed: Nicholas Giordano DO at 18:11 EST Tel [phone], Service support , EKG Initial EKG: Attestation: I personally reviewed and interpreted this EKG as follows: Interpretation: Sinus Bradycardia (Sinus bradycardia 56 bpm. No acute ischemia.) Treatment and Re-Evaluation Comments:: Lab work is reviewed. Troponin negative. D-dimer is elevated at 0.75. CTA of the chest reveals no evidence of PE. No acute finding noted of the chest. Patient reassured of the findings and will continue supportive care at home. Return instructions provided. Discharge Plan Triage Chief Complaint: Chest Other ED Provider: Erendira Barba Dx/Rx/DC Orders Clinical Impression: Chest wall pain Instructions: ED Chest Pain, Noncardiac Prescriptions: No Action naproxen 500 MG tablet 500 mg PO BID PRN PRN (Reason: moderate to severe pain) Qty: 0 RF: 0 prednisone 5 mg tablet 5 mg PO DAILY RF: 0 Primary Care Provider: Lacy Callejas Referrals: Lacy Callejas [Primary Care Provider] - 1 Week if not improving Disposition Disposition: Home, Self Care
--- NOTE | 2021-11-03 16:05 | RAD_ITS ---
STUDY: X-RAY CHEST REASON FOR EXAM: Male, 71 years old. Chest pain TECHNIQUE: Frontal view COMPARISON: 09/22/2019 FINDINGS: The lungs are expanded. Mild interstitial prominence. Normal size heart. Normal mediastinum and aye. Normal visualized pulmonary arteries. Normal visualized aortic arch and descending thoracic aorta. Degenerative changes of the thoracic spine. Old left rib fractures. There is no demonstrated abnormality of the visualized soft tissue structures of the upper abdomen. IMPRESSION: Mild interstitial prominence. Normal x-ray examination of the chest. Electronically Signed: Nicholas Giordano DO at 16:51 EST Tel [phone], Service support , RAD/Chest 1 View (Portable)
[2021-11-03 16:22] VITALS: BP 182/118; PULSE 60; RESP 25; O2SAT 97
[2021-11-03 16:46] LABS: Absolute Lymphocyte Count 1.66 X10^3/uL (0.83-4.51); Absolute Neutrophil Count 4.2 X10^3/uL (2.0-7.7); Basophil# 0.03 X10^3/uL; Basophil% 0.4 % (0-1); Eosinophil# 0.17 X10^3/uL; Eosinophils% 2.5 % (0-5); Hematocrit 43.6 % (40-54); Hemoglobin 14.5 g/dL (13.0-16.5); Lymphocyte # 1.66 X10^3/ul (0.83-4.51); Lymphocyte % 24.7 % (19-41); Mean Corp Hgb Conc 33.3 g/dL (32-36); Mean Corpuscular Hgb 32.8 pg (27.0-32.0); Mean Corpuscular Volume 98.6 fL (80-94); Mean Platelet Vol. 11.1 fl (6.2-12.0); Monocyte# 0.62 X10^3/uL; Monocyte% 9.2 % (0-10); NRBC Flagged by Analyzer 0 % (0-5); Neutrophil # 4.23 X10^3/uL (2.7-7.7); Neutrophil % 63.1 % (47-70); Platelet Count 187 K/mm3 (150-450); RBC Distribution Width CV 13.7 % (11.6-14.6); RBC Distribution Width SD 50.3 fl (35.1-43.9); Red Blood Count 4.42 M/mm3 (4.6-6.2); White Blood Count 6.7 K/mm3 (4.4-11.0)
[2021-11-03 17:05] LABS: Anion Gap 7 (5-15); BUN 21 mg/dL (7-18); BUN/Creat Ratio 24.1 RATIO (10-20); Calcium,Total 8.7 mg/dL (8.5-10.1); Chloride 107 mmol/L (98-107); Creatinine, Serum 0.87 mg/dL (0.70-1.30); D-Dimer Quantitative (DVT/PE) 0.75 FEU/ug/m (0.27-0.49); EST Glomerular Filtration Rate 92 mL/min (>60); Est Glom Filt Rate - Afr Amer 111 mL/min (>60); Estimated Creatinine Clearance 95.78 ml/min; Glucose 105 mg/dL (74-106); Potassium 3.8 mmol/L (3.5-5.1); Sodium Level 142 mmol/L (136-145); Troponin-I HS 6 pg/mL (3.0-78.0)
--- NOTE | 2021-11-03 17:07 | CT_ITS ---
STUDY: CTA CHEST REASON FOR EXAM: Male, 71 years old. CP, elevated d-dimer RADIATION DOSAGE (If Supplied By Facility): CTDIvol = ( 14.73 ) mGy, DLP = ( 415.99 ) mGycm TECHNIQUE: The examination was performed with the intravenous administration of IV 100mL Isovue-370. Post-processing of the angiographic images was performed, with multiplanar reformation and 3D reconstruction. Individualized dose optimization techniques were used for this CT. COMPARISON: None. FINDINGS: Normal enhancement of the main pulmonary artery and right and left pulmonary arteries. Normal enhancement of the bilateral peripheral pulmonary arteries. There is no demonstrated pulmonary embolism. Normal thoracic aorta and visualized great vessels. There is no demonstrated aortic dissection. Normal heart and pericardium. Normal mediastinum. Right hilar granulomatous calcifications. Normal visualized trachea and bronchi. The lungs are well expanded. Normal pulmonary parenchyma. Normal pleura. Normal chest wall structures. Normal osseous structures. Small hiatal hernia. Granulomatous splenic calcifications. CT/CTA Chest W/WO Contrast IMPRESSION: No demonstrated pulmonary embolism or arterial dissection. Electronically Signed: Nicholas Giordano DO at 18:11 EST Tel [phone], Service support ,
== END 2021-11-03 19:01 | disposition home or self-care (01) ==
PROVIDERS: Emergency Provider Emergency Medicine; PCP Family Medicine; Visit Provider Emergency Medicine
DX: R07.89 Other chest pain (principal); Z86.718 Personal history of other venous thrombosis and embolism; Z87.891 Personal history of nicotine dependence
CPT/HCPCS: 71045; 71275; 80048; 84484; 85025; 85379; 93005; 99285; Q9967; A4216

== ENCOUNTER → 2023-06-17 | Outpatient (CLI) | payer MEDICARE, BC, SELFPAY | END | disposition home or self-care (01) | PROVIDERS: PCP Family Medicine; Visit Provider Nurse Practitioner | DX: L97.912 Non-pressure chronic ulcer of unspecified part of right lower leg with fat layer exposed (principal); I73.89 Other specified peripheral vascular diseases | CPT/HCPCS: 87070; 87075; 87077; 87186; 87205 ==

== ENCOUNTER 2023-06-22 08:01 | Outpatient (RCR) | payer MEDICARE, BC, SELFPAY ==
[2023-06-22 08:15] VITALS: BP 133/76; PULSE 60; RESP 16; TEMP 35.9; BMI 28.3
--- NOTE | 2023-06-22 09:50 | PN.PCM_ITS ---
History of Present Illness Date of Service: 06/22/23 Chief Complaint: Ulcer right ankle /lower leg History of Wound: This is a 69-year-old male with a long-standing history of chronic venous disease. For a reoccurring chronic ulcer of the medial right ankle that has been present for approximately 3 years. In 2019 he was admitted to [facility] and had an incision and drainage performed by Dr. Sparks. [facility] and was put onantibiotics as advised. They wanted him to go to the emergency room but he refused. He has been using graduated compression stockings of 20-30 mmHg compression on and off. He tries to elevate his limbs. He was diagnosed with a left lower extremity blood clot and is on Eliquis. He denies streaking or odor. He denies pain today. He has had venous studies done in the last couple of years and they are showing lots of blockages. Patient will be referred to vascular surgery for opening. Progress of Wound: Patient was seen first in my office this last Tuesday referred from a for another family member. We started him immediately on Fibracol and Xeroform with the Bactroban base. Which she tolerated well. Also we obtained cultures at that point after debridement with a #3 curette. 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 We will continue with the Fibracol Bactroban combination and the Xeroform on the lateral side of the ankle. Patient is to continue with the double layer Tubigrip that we will start today from the Hitesh wrap I had on him before. Patient is growing MRSA and aureus so he is on antibiotics for that of doxycycline. Had started metronidazole told her to finish that off on and he does need to take it he has no anaerobes in the wound. Subjective Subjective and are very pleased with outcome so far have lots of questions Are okay with referral to Dr. Tuttle office Objective Data Objective Data As stated above wound is improving we will continue with the Fibracol Bactroban and Xeroform. Patient has ropey varicosities and he has a lot of stasis dermatitis that they are worried about that breaks down and causes increase in pain and problems. 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 Vital Signs: Vital Signs Temp Pulse Resp BP O2 Del Method 96.6 F L 60 16 133/76 H Room Air 06/22/23 08:15 06/22/23 08:15 06/22/23 08:15 06/22/23 08:15 06/22/23 08:15 Oxygen Delivery Method Room Air Weight: 215 lb Body Mass Index (BMI) 28.3 Lab / Micro Data Attestation: I reviewed the patient's lab results. Physical Exam Const oriented x3 General Appearance: cooperative Exam Limitations: no limitations HEENT normocephalic Face and Sinus: normal facial exam Nose: external nose normal External Ear: external ears normal Eyes PERRL Resp normal respiratory effort Effort and Inspection: able to speak in complete sentences Auscultation: clear to auscultation bilaterally Cardio regular rate and regular rhythm Palpation: normal PMI Rate: regular rate Rhythm: regular rhythm Extremity full ROM Extremity Narrative: Stasis dermatitis ropey varicosities poor musculature in the calf Skin Skin Narrative: Open wound on right medial ankle at least 3 years old with positive depth. Cellulitis and stasis dermatitis on the lateral aspect of his right lower leg going up his leg. General Skin Exam: crusts, dry skin, ecchymosis, erythema, excoriation(s), venous stasis and dermatitis; Negative for no breakdown Wounds: wounds noted Wound Narrative: Open wound medial aspect positive depth Neuro oriented x3 Psych Appearance: grossly normal Speech: normal speech Thought Content: normal thought content Judgement: judgement good Debridement Note Debridement Note Wound debrided: Right medial ankle venous ulcer Laterality: Right Type of Debridement: Excisional debridement Anesthesia Used: 5% Lidocaine Gel Depth: in the subcutaneous layer Percentage of wound debrided: 100 Instrument Used: 5mm curette Tissue Removed: Devitalized tissue slough Severity: Fat Layer Exposed Amount of bleeding with debridement: Mild Bleeding Controlled with: Compression and gauze Patient tolerated procedure: Patient tolerated procedure well Post-Debridement Measurements and Additional Note: Post-Debridement Measurements/Treatment WC - Nurse 1 - General Ulcer Assessment Start: 06/22/23 08:13 Freq: Status: Active Protocol: NICOLA Activity Type Activity Date Activity User E-sign Co-sign Detail Recorded Client Recorded Date Recorded By Document 06/22/23 08:15 F Desktop 06/22/23 08:27 BMF 06/22/23 08:15 WC - Today's Visit Information Type of service Initial Visit Arrival Mode Ambulatory Transfer Assistance None Patient Identification Verified (Name & Yes ) Patient Requires Transmission-Based No Precautions Height and Weight Height 6 ft 1 in Weight 215 lb Weight in Pounds 215.0 lbs Body Mass Index (BMI) 28.3 BMI Classification Overweight BSA - Duong 2.22 Vital Signs Temperature (97.8 F-99.1 F) 96.6 F L Temperature Source Temporal Pulse Rate (60-100) 60 Pulse Location Monitor Respiratory Rate (12-18) 16 Respiratory rate source Observation Oxygen Delivery Method Room Air Blood Pressure (90/60-120/80) 133/76 H Blood Pressure Mean 95 Source Monitor Position Sitting Blood Pressure Location Right Arm History Since Last Visit- (Skip if this is Patient's initial visit) Left Footwear Regular Shoe Right Footwear Regular Shoe Pain Scale: 0-10 Numeric Is Patient Pain Free? Yes Lower Extremity Assessment/ Foot Assessment/ Toe Nail Assessment Right -Posterior Tibial Palpable No -Posterior Tibial Doppler Monophasic -Dorsalis Pedis Doppler Monophasic -Extremity Color Hyperpigmented, Hemosiderin -Hair Growth on Legs No -Hair Growth on Toes No -Temperature of Extremity Warm -Other Deformity No -Prior Foot Ulcer No -Charcot Joint No -Prior Amputation No -Thick Yes -Discolored Yes -Deformed No -Improper Length & Hygeine No Left -Posterior Tibial Palpable No -Posterior Tibial Doppler Multiphasic -Dorsalis Pedis Doppler Multiphasic -Extremity Color Hyperpigmented, Hemosiderin -Hair Growth on Legs No -Hair Growth on Toes No -Temperature of Extremity Warm -Other Deformity No -Prior Foot Ulcer No -Charcot Joint No -Prior Amputation No -Thick Yes -Discolored Yes -Deformed No -Improper Length & Hygeine No Communication Assessment Preferred language Lithuanian Mechanical Integrity Specialist Required No Able to Read Yes Able to Write Yes Communication Tools None Right Hearing Abillity Normal Left Hearing Abillity Normal Visual Assistive Devices Glasses Teaching Assessment Preferences Verbal,Written, Audio/Visual, Demonstration Barriers to Learning None Readiness To Learn Excellent Willingness to Engage in Self Management High Activies Readiness to Engage in Self Management High Activities Anxiety Level Calm Cooperation Cooperative Perception Coherent Interest in Health Problem Asks Questions Education Importance Acknowledges Need Does Patient Smoke tobacco or other No substances Smoking Status Former smoker - Nurse 1 - General Ulcer Measurement Start: 06/22/23 08:13 Freq: Status: Active Protocol: Activity Type Activity Date Activity User E-sign Co-sign Detail Recorded Client Recorded Date Recorded By Document 06/22/23 08:15 BMF Desktop 06/22/23 08:27 BMF 06/22/23 08:15 Wound Center Nurse 1 #4- R MEDIAL ANKLE -Combined with other wound No -Current Size (cm) - Length 2.2 -Current Size (cm) - Width 0.4 -Current Size (cm) - Depth 0.3 -Total Square Cm 0.88 -Date of Last Picture (Recall this 06/22/23 field) -Photo Taken Yes -Epithelialization None Present -Tunneling No -Undermining/Tunneling No -Circular Undermining No -Exudate Amt Medium -Exudate Type Serosanguineous -Wound Margin Distinct, Outline Attached -Granulation Amt Large (67-100%) -Granulation Quality Red -Slough/Fibrin Yes -Necrosis Amt Small (1-33%) -Necrotic Tissue Type Adherent Slough -Texture (Yamile-wound Skin Appearance) Assessed, Excoriation, Scarring -Moisture (Yamile-wound Skin Appearance) Assessed -Color (Yamile-wound Skin Appearance) Assessed, Erythema -Temperature (Yamile-wound Skin No Abnormality Appearance) (Pt Warm) -Tenderness on Palpation (Yamile-wound No Skin Appearance) -Ulcer Cleansing Rinsed/ Irrigated with Saline -Foul Odor after Cleansing No Right Calf (cm) 34.5 Right Ankle (cm) 22 Left Calf (cm) 34.8 Left Ankle (cm) 21.4 - Nurse 2 - General Ulcer CM Notes Start: 06/22/23 08:13 Freq: Status: Active Protocol: Activity Type Activity Date Activity User E-sign Co-sign Detail Recorded Client Recorded Date Recorded By Document 06/22/23 08:40 MW [id number] 06/22/23 08:47 MW 06/22/23 08:40 Wound Center Nurse 2 #4- R MEDIAL ANKLE -Time 08:41 -Correct Patient Yes -Correct Side, Site, Position Yes -Correct Procedure Yes -Procedure Performed Yes -Type of Procedure Debridement -Clinical Debridement Subcutaneous -Tissue Removed Subcutaneous -Post Debridement (cm) - Length 2.1 -Post Debridement (cm) - Width 0.6 -Post Debridement (cm) - Depth 0.3 -Total Square (Post) (cm) 1.26 -Area of Debridement (cm) - Length 2.1 -Area of Debridement (cm) - Width 0.6 -Total Square (Area) (cm) 1.26 -Tunneling No -Undermining/Tunneling No -Circular Undermining No -Wound/Ulcer Outcome Not Healed -Ulcer Cleansing Rinsed/ Irrigated with Saline -Foul Odor after Cleansing No -Bioengineered Tissue No -Bleeding Controlled with Pressure -Treatment Response Procedure Tolerated Well -Offloading No -Debridement - Subq, 1st 20sq cm Yes Pain Scale: 0-10 Numeric Is Patient Pain Free? Yes Assessment/Plan Assessment/Plan 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: CODE(S): L97.912 - Non-pressure chronic ulcer of unspecified part of right lower leg with fat layer exposed PLAN: Wash right whole leg with antibacterial soap Dial Apply Bactroban to the base of wound and cover with Fibracol moistened then Adaptic gauze dressing double layer Tubigrip. This is Daily dressing (2) Other specified peripheral vascular diseases: CODE(S): I73.89 - Other specified peripheral vascular diseases PLAN: Apply Xeroform to the dorsal ankle and any other open red areas on the right lower extremity. Cover with Adaptic and gauze and Seda. Then apply double layer Tubigrip this is every day (3) Stasis dermatitis of right lower extremity due to peripheral venous hypertension: CODE(S): I87.321 - Chronic venous hypertension (idiopathic) with inflammation of right lower extremity (4) Delayed wound healing: CODE(S): T14.8XXD - Other injury of unspecified body region, subsequent encounter
== END 2023-06-30 23:59 | disposition home or self-care (01) ==
LOC: WC 08:01
PROVIDERS: PCP Family Medicine; Referring Provider Nurse Practitioner; Visit Provider Nurse Practitioner
DX: I87.2 Venous insufficiency (chronic) (peripheral) (principal); L97.312 Non-pressure chronic ulcer of right ankle with fat layer exposed; I87.312 Chronic venous hypertension (idiopathic) with ulcer of left lower extremity; I82.402 Acute embolism and thrombosis of unspecified deep veins of left lower extremity; I73.89 Other specified peripheral vascular diseases; B95.62 Methicillin resistant Staphylococcus aureus infection as the cause of diseases classified elsewhere; Z79.01 Long term (current) use of anticoagulants; Z79.899 Other long term (current) drug therapy
CPT/HCPCS: 11042; 99213; G0463

== ENCOUNTER 2023-07-01 17:34 | Observation (INO) | payer MEDICARE, BC, SELFPAY ==
[2023-07-01 17:35] VITALS: BP 121/80; PULSE 74; RESP 16; TEMP 35.6; O2SAT 99; BMI 27.8
--- NOTE | 2023-07-01 17:57 | CT_ITS ---
STUDY: CT ABDOMEN AND PELVIS WITH CONTRAST REASON FOR EXAM: Male, 72 years old. Left flank pain, constipation. RADIATION DOSAGE (If Supplied By Facility): CTDIvol = ( 16.25 ) mGy, DLP = ( 1251.81 ) mGycm TECHNIQUE: Transaxial images were obtained from the dome of the diaphragm to the symphysis pubis without oral contrast. IV 100mL Isovue-300 was administered. Sagittal and coronal images were reconstructed. Individualized dose optimization techniques were used for this CT. COMPARISON: 06/08/2017 FINDINGS: Some bibasilar discoid atelectasis. Cardiomegaly. Normal liver. Normal gallbladder and extrahepatic biliary system. Normal spleen. Normal pancreas. Normal bilateral adrenal glands. Normal right kidney. 7 mm obstructing stone in the mid left ureter at the level the iliac crest with mild ureteral dilatation, hydronephrosis, and perinephric edema. Normal visualized stomach. Normal small intestine. There are multiple colonic diverticula consistent with diverticulosis. There is non-visualization of the appendix. Normal abdominal aorta. Normal inferior vena cava. Normal retroperitoneum. Normal urinary bladder. There are prostatic calcifications. 7 cm left inguinal hernia with incarcerated sigmoid colon but no bowel obstruction. Status post repair of umbilical hernia with mesh without residual recurrent hernia. Mild dextro scoliosis lumbar spine with degenerative disc disease. CT/Abdomen/Pelvis W IV Cont ONLY IMPRESSION: 1. 7 mm obstructing stone in the mid left ureter with mild ureteral dilatation, hydronephrosis, and perinephric edema. 2. Sigmoid diverticulosis without diverticulitis. 3. 7 cm left inguinal hernia with incarceration of the sigmoid colon but no bowel obstruction. Electronically Signed: Russell Thomason MD at 20:38 EDT ,
--- NOTE | 2023-07-01 17:58 | EDS_ITS ---
HPI History of Present Illness Chief Complaint: Flank Pain Informant: patient and spouse/S.O. Narrative Narrative: Patient presents with left flank pain. Patient states he has been having pain in his left flank that will radiate around to the front mostly lower quadrant off-and-on for the last week. He is also been a bit constipated. He did try MiraLAX for 3 days. He had a bowel movement after that but when he stopped MiraLAX he did not have another bowel m ovement today. He really has not been nauseated. He has not vomited. He is able to eat and drink. Urinating is normally. He states he had a lot of pain yesterday but after of the bowel movement that pain did get better. He does not have a history of chronic constipation. Patient recently finished antibiotics for a chronic ulcer in his right ankle. He has had this ulcer off and on for 6 years. It never resolves. He has seen wound center. Several weeks ago he was placed on doxycycline and cephalexin. He was then switched to Flagyl. He is off of them and is stopped them now. He never had diarrhea in fact he had more constipation. He is not on any meds for pain other than Motrin. He has no history of ulcer disease. Prior surgeries include abdominal hernia and appendectomy at about 8 years old. Denies known history of kidney stones or diverticular disease PFSH PFSH Medical History DVT (deep venous thrombosis) Former smoker Home Medications naproxen 250 mg tablet 250 mg PO BID PAIN 06/22/23 [History Last Taken Unknown] prednisone 5 mg tablet 5 mg PO DAILY PAIN 06/22/23 [History Last Taken Unknown] Allergy/AdvReac Type Severity Reaction Status Date / Time lidocaine Allergy Severe not sure Verified 07/01/23 17:35 Environmental Allergies: Allergy Mild Other Verified 07/01/23 17:35 Uncoded Social History Smoking Status: Former smoker ROS ROS ED ROS Narrative A complete review of systems was performed and is negative except as documented in the history of present illness. Some specific details below. Constitutional: No recent fevers or chills. No overall malaise. Other than the abdomen he actually feels well. EYE: No visual complaints or pain. ENT: No difficulty swallowing. No swelling. No pain. CV: No chest pain or palpitations. Respiratory: No dyspnea. No hemoptysis. No difficulty taking breaths. GI: Please see history of present illness. Patient later and story that he has noted fullness in the left groin for about a week. Sometimes it hurts before or after he has a bowel movement. This swollen area over firm area is new. But he is not always having pain there. : No frequency dysuria or hematuria. Musculoskeletal: No recent trauma. No pains. Skin: No rash. Nondiaphoretic. The ulcer on his right ankle is now better and back to its baseline. Neuro: No weakness or numbness. Endocrine: No polyuria or polydipsia. EXAM Physical Exam Narrative Exam Narrative: CONSTITUTIONAL: Patient is nontoxic in appearance. The patient looks comf ortable. HEENT: No notable trauma. Mucous membranes are still moist. No sinus tenderness. No indication of pain with swallowing. EYES: No conjunctival injection. No icterus CARDIOVASCULAR: Regular rate. Regular rhythm. No notable murmur. No JVD. RESPIRATORY: No respiratory distress. Breathing is unlabored. No wheezes. No rhonchi. No rales. No pain with a deep breath. GASTROINTESTINAL: Not distended. Bowel sounds are normal to slightly increased. No tenderness. No guarding. No rebound. No palpable mass in the abdomen. No bruit. Despite his symptoms, his exam is actually pretty benign. His abdomen is prominent but I do not know if it is actually distended. But he even admits that pressing on the abdomen does not seem to hurt it in any way. We then button button the pants. He appears to have fullness in the left groin. This appears to be a hernia. He does have some tenderness with this and is not easy to reduce. But he is telling me most of his pain is actually in the left back. GENITOURINARY: No tenderness over the bladder. No CVA tenderness on either side. MUSCULOSKELETAL: Atraumatic. No peripheral edema. No cord. No tenderness along the deep venous system. No asymmetry. NEUROLOGICAL: Patient is alert and appropriate. No focal deficit noted. SKIN: No noted rashes. No diaphoresis. PSYCHIATRIC: Patient is calm. Mood is appropriate. Const Vital Signs: 07/01/23 17:35 07/01/23 19:35 07/01/23 21:44 Temperature 96.1 F L Temperature Source Temporal Pulse Rate 74 78 84 Respiratory Rate 16 16 15 Blood Pressure 121/80 H 139/78 H 134/69 H Blood Pressure Mean 93 98 90 Pulse Ox 99 98 98 Oxygen Delivery Method Room Air Room Air 07/01/23 22:30 Temperature 97.6 F L Temperature Source Temporal Pulse Rate 78 Respiratory Rate 14 Blood Pressure 134/78 H Blood Pressure Mean 96 Pulse Ox 98 Oxygen Delivery Method Room Air MDM MDM MDM Narrative Medical decision making narrative: CBC shows no acute abnormality. Patient's electrolytes are overall unremarkable. Minimal dehydration on but he was given IV fluids. Liver function test are normal. Lipase was normal. Urine Alysis no acute process. Patient CT scan shows a very large about 7 to 7/2 mm stone on the left. But it also shows the bowel loop in the inguinal area. It does not look stranded or inflamed. And there is no obstruction. Final reading is similar. I tried to reduce this. I laid him back. We had placed ice on it. We had gotten pain meds. I cannot reduce his hernia. This patient definitely has a left posterior flank pain and I think it is coming from his stone. But he also has pain at the left groin with tenderness and an incarcerated hernia. I think he actually has 2 issues at once. If it was just the stone, we could manage his pain and likely get close outpatient follow-up. But I am not comfortable with this with his hernia. I discussed case with Dr. Brewster for surgery who came down to see the patient. He is not able to get this hernia reduced either and the plan is to to admit him and he will be going to surgery. Lab Data Attestation: I reviewed the patient's lab results. Labs: Laboratory Results - last 24 hr 07/01/23 07/01/23 18:02 19:45 WBC 10.5 RBC 4.62 Hgb 14.9 Hct 45.3 MCV 98.1 H MCH 32.3 H MCHC 32.9 RDW Std Deviation 45.5 H RDW Coeff of Lui 12.7 Plt Count 183 MPV 11.3 Immature Gran % (Auto) 0.300 Neut % (Auto) 78.1 H Lymph % (Auto) 10.2 L [place] % (Auto) 10.0 Eos % (Auto) 1.1 Baso % (Auto) 0.3 Absolute Neuts (auto) 8.2 H Absolute Lymphs (auto) 1.08 Nucleated RBC % 0 Sodium 140 Potassium 3.9 Chloride 107 Carbon Dioxide 29.0 Anion Gap 4 L BUN 24 H Creatinine 1.29 Estim Creat Clear Calc 63.68 Est GFR (MDRD) Af Amer 71 Est GFR (MDRD) Non-Af 58 L BUN/Creatinine Ratio 18.6 Glucose 91 Calcium 8.6 Total Bilirubin 0.60 AST 12 L ALT 22 Alkaline Phosphatase 53 Total Protein 7.0 Albumin 3.3 Globulin 3.7 Albumin/Globulin Ratio 0.9 Lipase 40 Urine Color Yellow Urine Clarity Clear Urine pH 7.0 Ur Specific [place] 1.010 Urine Protein Negative Urine Glucose (UA) Normal Urine Ketones Negative Urine Occult Blood 10 H Urine Nitrite Negative Urine Bilirubin Negative Urine Urobilinogen Normal Ur Leukocyte Esterase Negative Urine RBC 0-5 SEEN Urine WBC 0 SEEN Ur Squamous Epith Cells 0 SEEN Amorphous Sediment 1+ Urine Bacteria 0 SEEN Urine Mucus 0 SEEN Radiography Diagnostic Testing: Clinical Impression(s) from Imaging Studies Abdomen/Pelvis CT 07/01/23 17:57 IMPRESSION: 1. 7 mm obstructing stone in the mid left ureter with mild ureteral dilatation, hydronephrosis, and perinephric edema. 2. Sigmoid diverticulosis without diverticulitis. 3. 7 cm left inguinal hernia with incarceration of the sigmoid colon but no bowel obstruction. Electronically Signed: Rusesll Thomason MD at 20:38 EDT , Discharge Plan Dx/Rx/DC Orders Clinical Impression: Incarcerated left inguinal hernia, Hydronephrosis, left, Kidney stone on left side Disposition Disposition: Acute Care Hospital [facility] Discharge Date/Time: 07/01/23 23:08
[2023-07-01 18:09] LABS: Absolute Lymphocyte Count 1.08 X10^3/uL (0.83-4.51); Absolute Neutrophil Count 8.2 X10^3/uL (2.0-7.7); Basophil# 0.03 X10^3/uL; Basophil% 0.3 % (0-1); Eosinophil# 0.12 X10^3/uL; Eosinophils% 1.1 % (0-5); Hematocrit 45.3 % (40-54); Hemoglobin 14.9 g/dL (13.0-16.5); Lymphocyte # 1.08 X10^3/ul (0.83-4.51); Lymphocyte % 10.2 % (19-41); Mean Corp Hgb Conc 32.9 g/dL (32-36); Mean Corpuscular Hgb 32.3 pg (27.0-32.0); Mean Corpuscular Volume 98.1 fL (80-94); Mean Platelet Vol. 11.3 fl (6.2-12.0); Monocyte# 1.05 X10^3/uL; NRBC Flagged by Analyzer 0 % (0-5); Neutrophil # 8.23 X10^3/uL (2.7-7.7); Neutrophil % 78.1 % (47-70); Platelet Count 183 K/mm3 (150-450); RBC Distribution Width CV 12.7 % (11.6-14.6); RBC Distribution Width SD 45.5 fl (35.1-43.9); Red Blood Count 4.62 M/mm3 (4.6-6.2); White Blood Count 10.5 K/mm3 (4.4-11.0)
[2023-07-01 18:46] LABS: ALB/GLOB Ratio 0.9 RATIO (0.9-2.4); AST(SGOT) 12 U/L (15-37); Alanine Aminotransfer ALT/SGPT 22 U/L (16-61); Albumin, Serum 3.3 g/dL (3.2-5.0); Alkaline Phosphatase 53 U/L (45-117); Anion Gap 4 (5-15); BUN 24 mg/dL (7-18); BUN/Creat Ratio 18.6 RATIO (10-20); Calcium,Total 8.6 mg/dL (8.5-10.1); Chloride 107 mmol/L (98-107); Creatinine, Serum 1.29 mg/dL (0.70-1.30); EST Glomerular Filtration Rate 58 mL/min (>60); Est Glom Filt Rate - Afr Amer 71 mL/min (>60); Estimated Creatinine Clearance 63.68 ml/min; Globulin 3.7 g/dL (2.2-4.2); Glucose 91 mg/dL (74-106); Lipase 40 U/L (13-75); Potassium 3.9 mmol/L (3.5-5.1); Sodium Level 140 mmol/L (136-145)
[2023-07-01] MEDS: Morphine 4 MG/ML Syringe IV ×2 (18:57→20:02)
[2023-07-01 19:35] VITALS: BP 139/78; PULSE 78; RESP 16; O2SAT 98
[2023-07-01] MEDS: Ketorolac 15 MG/ML Vial IV (20:02)
[2023-07-01 20:03] LABS: Bacteria 0 SEEN /hpf (None Seen); Mucous, Urine 0 SEEN /hpf (<or=2+); Squamous Epithelial Cells - UA 0 SEEN /hpf (0-5); White Blood Cells 0 SEEN /hpf (0-5)
[2023-07-01 20:04] LABS: Color, Urine Yellow (Yellow); Glucose, Dipstick Normal (Normal); Ketone-Dipstick Negative (Negative); Leukocyte Esterase-Dipstick Negative /ul (Negative); Nitrite-Dipstick Negative (Negative); Occult Blood-Urine 10 /ul (Negative); Protein-Dipstick Negative (Negative); Urine Bilirubin Dipstick Negative (Negative); Urine Clarity Clear (Clear); Urine Urobilinogen Normal (Normal)
[2023-07-01 20:18] LABS: Amorphous Sediment 1+; Red Blood Cells-Urine 0-5 SEEN /hpf (0-5)
[2023-07-01 21:44] VITALS: BP 134/69; PULSE 84; RESP 15; O2SAT 98
[2023-07-01 22:30] VITALS: BP 134/78; PULSE 78; RESP 14; TEMP 36.4; O2SAT 98
--- NOTE | 2023-07-01 22:34 | PCM.HP.STD ---
HPI - General General Date of Admission: 07/01/23 Date of Service: 07/01/23 Chief Complaint: Flank pain and constipation HPI Narrative DASIA SANTO, is a 72 M who presents to [facility] with complaints of left flank pain. However, he also noted that he has had significant difficulty with constipation and noticed an area over his pubic bone become hard a couple of days ago. He reports that he took a number of laxatives and was able to have bowel movements and thought he was past his issue with the constipation. He later acknowledges that he is probably having at least a year of difficulty with his bowel movements. He reports a history of a colonoscopy approximately 5 years ago was remarkable only for a small polyp. He denies any awareness of a hernia. Patient's ED work-up is notable for CBC with normal WBC. CT imaging shows evidence of left hydroureter with a 7 mm stone as well as a left inguinal hernia containing incarcerated sigmoid colon. Patient is a former smoker with approximately [id number] history now quit for the last 40 years. He also has a history of DVT and confesses that he should be on a blood thinner, but states that he has been resistant to this as he was tired of bleeding with a little this trauma. Surgically speaking he has a history of a umbilical and ventral hernia repair 3 years ago through [facility] with Dr. Salazar. [facility] Medical History DVT (deep venous thrombosis) Former smoker Home Medications doxycycline hyclate 100 mg tablet 100 mg PO BID #28 tabs 06/20/23 [Rx Last Taken Unknown] naproxen 250 mg tablet 250 mg PO BID 06/22/23 [History Last Taken Unknown] prednisone 5 mg tablet 5 mg PO DAILY 06/22/23 [History Last Taken Unknown] Allergy/AdvReac Type Severity Reaction Status Date / Time lidocaine Allergy Severe not sure Verified 07/01/23 17:35 Environmental Allergies: Allergy Mild Other Verified 07/01/23 17:35 Uncoded Social History Smoking Status: Former smoker Vital Signs Vital Signs Vital Signs: 07/01/23 17:35 07/01/23 19:35 07/01/23 21:44 Temperature 96.1 F L Temperature Source Temporal Pulse Rate 74 78 84 Respiratory Rate 16 16 15 Blood Pressure 121/80 H 139/78 H 134/69 H Blood Pressure Mean 93 98 90 Pulse Ox 99 98 98 Oxygen Delivery Method Room Air Room Air 07/01/23 22:30 Temperature 97.6 F L Temperature Source Temporal Pulse Rate 78 Respiratory Rate 14 Blood Pressure 134/78 H Blood Pressure Mean 96 Pulse Ox 98 Oxygen Delivery Method Room Air Weight Weight: 222 lb 3.2 oz Body Mass Index (BMI) 27.8 Physical Exam Const alert and oriented x3 Constitutional Narrative: No apparent distress initially, but patient in significant discomfort during attempts at reduction of his groin hernia GI GI Narrative: Patient has excoriations across the majority of his abdomen consistent with frequent scratching. He is mildly overweight with a number of well-healed port site incisions. He is soft and nontender to palpation. Narrative: There is asymmetric bulge in patient's left groin. He has evidence of a bowel?containing hernia. Hernia contents are not discolored and are soft?appearing to be at least partially reducible, however, every time I believe the hernia was reduced I palpated the groin again and found additional bulging hernia contents. Patient had significant tenderness with palpation. Results Lab / Micro Data 07/01/23 18:02 07/01/23 18:02 Labs: Laboratory Results - last 24 hr 07/01/23 18:02: WBC 10.5, RBC 4.62, Hgb 14.9, Hct 45.3, MCV 98.1 H, MCH 32.3 H, MCHC 32.9, RDW Std Deviation 45.5 H, RDW Coeff of Lui 12.7, Plt Count 183, MPV 11.3, Immature Gran % (Auto) 0.300, Neut % (Auto) 78.1 H, Lymph % (Auto) 10.2 L, [place] % (Auto) 10.0, Eos % (Auto) 1.1, Baso % (Auto) 0.3, Absolute Neuts (auto) 8.2 H, Absolute Lymphs (auto) 1.08, Nucleated RBC % 0, Sodium 140, Potassium 3.9, Chloride 107, Carbon Dioxide 29.0, Anion Gap 4 L, BUN 24 H, Creatinine 1.29, Estim Creat Clear Calc 63.68, Est GFR (MDRD) Af Amer 71, Est GFR (MDRD) Non-Af 58 L, BUN/Creatinine Ratio 18.6, Glucose 91, Calcium 8.6, Total Bilirubin 0.60, AST 12 L, ALT 22, Alkaline Phosphatase 53, Total Protein 7.0, Albumin 3.3, Globulin 3.7, Albumin/Globulin Ratio 0.9, Lipase 40 07/01/23 19:45: Urine Color Yellow, Urine Clarity Clear, Urine pH 7.0, Ur Specific [place] 1.010, Urine Protein Negative, Urine Glucose (UA) Normal, Urine Ketones Negative, Urine Occult Blood 10 H, Urine Nitrite Negative, Urine Bilirubin Negative, Urine Urobilinogen Normal, Ur Leukocyte Esterase Negative, Urine RBC 0-5 SEEN, Urine WBC 0 SEEN, Ur Squamous Epith Cells 0 SEEN, Amorphous Sediment 1+, Urine Bacteria 0 SEEN, Urine Mucus 0 SEEN Radiology Impression Abdomen/Pelvis CT 07/01/23 17:57 IMPRESSION: 1. 7 mm obstructing stone in the mid left ureter with mild ureteral dilatation, hydronephrosis, and perinephric edema. 2. Sigmoid diverticulosis without diverticulitis. 3. 7 cm left inguinal hernia with incarceration of the sigmoid colon but no bowel obstruction. Electronically Signed: Russell Thomason MD at 20:38 EDT , Assessment & Plan Assessment/Plan (1) Incarcerated left inguinal hernia: (2) Left ureteral calculus: (3) Chronic ulcer of right leg with fat layer exposed: PLAN: Plan This is a 72-year-old male who presents with left flank pain but is found to have a incarcerated left inguinal hernia. Through his history, he has been recently symptomatic with constipation and reports of firmness in his left groin. Although his white blood cell count is normal and there is no sign of strangulation on the CT scan, his reports of severe constipation and hardness of the area are concerning for impending large bowel obstruction/strangulation. Unfortunately, attempts at bedside reduction were unsuccessful. Therefore, I am recommending we proceed for open inguinal hernia repair with mesh tomorrow in the operating room. Patient will be admitted this evening to facilitate this procedure. In addition, patient's primary complaint is likely owing to the fact that he does have a 7 mm obstructing ureteral stone. We will plan to refer to urology upon hospital discharge. Lastly, I have shared with patient and his that the presence of a nonhealing wound?potentially chronically colonized with bacteria?does pose some risk to the patient's hernia repair but is a risk for possible mesh infection. ? Admit to obs ? N.p.o. at midnight ? Consent for open left inguinal hernia repair with mesh Charges/Coding Visit Charges Inpatient E&M: 79282 Init Hosp L2
[2023-07-01 23:17] VITALS: BMI 27.0
[2023-07-01 23:27] VITALS: BP 130/79; PULSE 78; RESP 17; TEMP 37.5; O2SAT 97
[2023-07-01] MEDS: 0.9% Normal Saline 1,000 ML 125 ML IV (23:30)
[2023-07-01] MEDS: Acetaminophen 500 MG Tablet PO (23:32)
[2023-07-02] VITALS (8 sets, daily range): BP systolic 109–141; BP diastolic 48–71; PULSE 60–78; RESP 16–18; TEMP 36.4–37.1; O2SAT 91–97; BMI 26.9
[2023-07-02 04:49] LABS: Basophil# 0.03 X10^3/uL; Basophil% 0.3 % (0-1); Eosinophils% 2.1 % (0-5); Hematocrit 39.3 % (40-54); Hemoglobin 12.8 g/dL (13.0-16.5); Lymphocyte % 14.6 % (19-41); Mean Corp Hgb Conc 32.6 g/dL (32-36); Mean Corpuscular Volume 98.3 fL (80-94); Mean Platelet Vol. 11.4 fl (6.2-12.0); Monocyte# 0.93 X10^3/uL; Monocyte% 9.7 % (0-10); NRBC Flagged by Analyzer 0 % (0-5); Neutrophil # 7.02 X10^3/uL (2.7-7.7); Platelet Count 157 K/mm3 (150-450); RBC Distribution Width CV 12.8 % (11.6-14.6); RBC Distribution Width SD 46.4 fl (35.1-43.9); White Blood Count 9.6 K/mm3 (4.4-11.0)
[2023-07-02 05:17] LABS: Anion Gap 1 (5-15); BUN 21 mg/dL (7-18); BUN/Creat Ratio 22.2 RATIO (10-20); Calcium,Total 7.9 mg/dL (8.5-10.1); Chloride 115 mmol/L (98-107); Creatinine, Serum 0.94 mg/dL (0.70-1.30); EST Glomerular Filtration Rate 84 mL/min (>60); Est Glom Filt Rate - Afr Amer 101 mL/min (>60); Glucose 107 mg/dL (74-106); Sodium Level 141 mmol/L (136-145)
--- NOTE | 2023-07-02 06:00 | EKG12_ITS ---
Test Reason : AM EKG Blood Pressure : / mmHG Vent. Rate : 066 BPM Atrial Rate : 066 BPM P-R Int : 152 ms QRS Dur : 106 ms QT Int : 418 ms P-R-T Axes : 040 003 034 degrees QTc Int : 438 ms Normal sinus rhythm Incomplete right bundle branch block Borderline ECG When compared with ECG of 03-NOV-2021 16:14, No significant change was found Confirmed by LAURO JACOB, MIKE ([id number]), image editor SUSHANT HALL ([id number]) on 08/09/2023 1:36:40 PM Referred By: Ney Confirmed By:MIKE RESTREPO MD
[2023-07-02] MEDS: 0.9% Normal Saline 1,000 ML 125 ML IV (06:21)
[2023-07-02] MEDS: HYDROmorphone 0.5 MG/0.5 ML SYRINGE IV (07:24)
[2023-07-02] MEDS: 0.9% Saline Lock 10 ML Syringe IV (07:25)
--- NOTE | 2023-07-02 09:13 | PN.SURG_ITS ---
Subjective Subjective Patient seen and examined during AM rounds. He reports that he still feels some discomfort in his left flank. He denies any discomfort from his left groin. He and his have several questions related to the operative plans for today. Objective Data Objective Data Vital Signs: Vital Signs Temp Pulse Resp BP Pulse Ox O2 Del Method 98.5 F 60 18 109/58 L 95 Room Air 07/02/23 05:07/02/23 05:07/02/23 05:07/02/23 05:07/02/23 05:07/02/23 05:29 Oxygen Delivery Method Room Air Weight: 216 lb 4.375 oz Body Mass Index (BMI) 27.0 Intake & Output: Intake and Output for Last 24 Hours 06/30/23 07/01/23 07/02/23 23:59 23:59 23:59 Intake Total 500 / 500 856.25 / 856.25 Balance 500 / 500 856.25 / 856.25 Lab / Micro Data 07/02/23 04:15 07/02/23 04:15 Labs: Laboratory Results - last 24 hr 07/01/23 18:02: WBC 10.5, RBC 4.62, Hgb 14.9, Hct 45.3, MCV 98.1 H, MCH 32.3 H, MCHC 32.9, RDW Std Deviation 45.5 H, RDW Coeff of Lui 12.7, Plt Count 183, MPV 11.3, Immature Gran % (Auto) 0.300, Neut % (Auto) 78.1 H, Lymph % (Auto) 10.2 L, [place] % (Auto) 10.0, Eos % (Auto) 1.1, Baso % (Auto) 0.3, Absolute Neuts (auto) 8.2 H, Absolute Lymphs (auto) 1.08, Nucleated RBC % 0, Sodium 140, Potassium 3.9, Chloride 107, Carbon Dioxide 29.0, Anion Gap 4 L, BUN 24 H, Creatinine 1.29, Estim Creat Clear Calc 63.68, Est GFR (MDRD) Af Amer 71, Est GFR (MDRD) Non-Af 58 L, BUN/Creatinine Ratio 18.6, Glucose 91, Calcium 8.6, Total Bilirubin 0.60, AST 12 L, ALT 22, Alkaline Phosphatase 53, Total Protein 7.0, Albumin 3.3, Globulin 3.7, Albumin/Globulin Ratio 0.9, Lipase 40 07/01/23 19:45: Urine Color Yellow, Urine Clarity Clear, Urine pH 7.0, Ur Specific [place] 1.010, Urine Protein Negative, Urine Glucose (UA) Normal, Urine Ketones Negative, Urine Occult Blood 10 H, Urine Nitrite Negative, Urine Bilirubin Negative, Urine Urobilinogen Normal, Ur Leukocyte Esterase Negative, Urine RBC 0-5 SEEN, Urine WBC 0 SEEN, Ur Squamous Epith Cells 0 SEEN, Amorphous Sediment 1+, Urine Bacteria 0 SEEN, Urine Mucus 0 SEEN 07/02/23 04:15: WBC 9.6, RBC 4.00 L, Hgb 12.8 L, Hct 39.3 L, MCV 98.3 H, MCH 32.0, MCHC 32.6, RDW Std Deviation 46.4 H, RDW Coeff of Lui 12.8, Plt Count 157, MPV 11.4, Immature Gran % (Auto) 0.300, Neut % (Auto) 73.0 H, Lymph % (Auto) 14.6 L, [place] % (Auto) 9.7, Eos % (Auto) 2.1, Baso % (Auto) 0.3, Absolute Neuts (auto) 7.0, Absolute Lymphs (auto) 1.40, Nucleated RBC % 0, Sodium 141, Potassium 4.0, Chloride 115 H, Carbon Dioxide 25.0, Anion Gap 1 L, BUN 21 H, Creatinine 0.94, Estim Creat Clear Calc 87.40, Est GFR (MDRD) Af Amer 101, Est GFR (MDRD) Non-Af 84, BUN/Creatinine Ratio 22.2 H, Glucose 107 H, Calcium 7.9 L Radiography Diagnostic Testing: Radiology Impression Abdomen/Pelvis CT 07/01/23 17:57 IMPRESSION: 1. 7 mm obstructing stone in the mid left ureter with mild ureteral dilatation, hydronephrosis, and perinephric edema. 2. Sigmoid diverticulosis without diverticulitis. 3. 7 cm left inguinal hernia with incarceration of the sigmoid colon but no bowel obstruction. Electronically Signed: Russell Thomason MD at 20:38 EDT , Physical Exam Const oriented x3 and no apparent distress Resp normal respiratory effort GI GI Narrative: Nondistended, persistent excoriation across the abdominal surface. Narrative: Persistent left groin bulge is soft Assessment & Plan Assessment/Plan (1) Incarcerated left inguinal hernia: (2) Left ureteral calculus: (3) Chronic ulcer of right leg with fat layer exposed: PLAN: Plan This is a 72-year-old male who presents with left flank pain but is found to have a incarcerated left inguinal hernia. Through his history, he has been recently symptomatic with constipation and reports of firmness in his left groin. Although his white blood cell count is normal and there is no sign of strangulation on the CT scan, his reports of severe constipation and hardness of the area are concerning for impending large bowel obstruction/strangulation. Unfortunately, attempts at bedside reduction were unsuccessful. Therefore, I have recommended open inguinal hernia repair with mesh and patient has provided his consent. Operation planned for later this morning. All questions answered from both patient and his . Plan to return to the floor postoperatively, but hopefully patient will be eligible for discharge to home later today. ? Continue n.p.o. ? Consent for open left inguinal hernia repair with mesh (preoperative antibiotics ordered) Charges/Coding Visit Charges Inpatient E&M: 47935 Subs Hosp L2
[2023-07-02] MEDS: Cefazolin 2 GM in 0.9% Normal Saline 100 ML IV (10:39)
--- NOTE | 2023-07-02 13:25 | PCM.OPRPT ---
Report of Operation Date of Procedure: 07/02/23 Pre-Operative Diagnosis: Incarcerated left inguinal hernia containing sigmoid colon Post-Operative Diagnosis: Same Surgery/Procedure Performed:: Open left inguinal hernia repair with mesh (Hanny type) Description of Surgical Findings:: ? Pantaloon type hernia with sigmoid colon coming through the direct defect ? Cord lipoma Surgeon: Tommy Brewster kettle fry cook operator: Simon Ndiaye Type of Anesthesia: General/Supplemental Anesthesiologist: Kyler Gomes Special Medications: 20 mL 2% nesacaine Specimen's removed: 1. Cord lipoma 2. Hernia sac Drains: None Estimated Blood Loss (mL): 25 Description of Procedure: After appropriate identification in the preoperative holding area the patient was brought to the operating room where he was positioned supine on the operating room table. Preoperative antibiotics were administered and SCDs were placed lower extremities. The patient was then induced with a general anesthetic by anesthesia. The abdomen and groin area were prepped (including clipping of all hair in the vicinity) and draped. A formal timeout was conducted to confirm both patient and procedure. Procedure was begun by marking out the pubic tubercle and the anterior superior iliac spine. An incision line was planned between these 2 points favoring the tubercle. This oblique incision (measuring 11 cm in length) was made using a scalpel. It was deepened down through camper's and Lelia's fascia with the use of electrocautery. Any bleeding was addressed as we proceeded?including division of a bridging vein which was stick tied and divided with cautery. This brought us down to the level of the external oblique aponeurosis. Local anesthetic (chloroprocaine 2% -given patient's allergy) was used directly beneath this layer to block the ilioinguinal nerve. The fibers were then opened in the direction of their orientation medially and laterally. Medially, the layer was opened all the way through the external ring. Directly beneath this the ilioinguinal nerve could be seen atop the cord structures. This was initially dissected free and excluded from the surgical site with the external oblique. I then used a combination of blunt and sharp dissection to free the cord and hernia contents from the internal oblique fibers superiorly and the shelving edge/inguinal ligament inferiorly. Once the cord was fully encircled it was placed in a Elk drain. Due to the large amount of hernia contents I was unable to make any meaningful retraction of the cord so I elected to open the cremasterics fibers and freed up adhesions holding the patient's colon within the upper scrotum. I then used gentle traction to reduce this healthy?appearing bowel back to the peritoneum and placed a sponge stick in the opening to keep it reduced. Then with the cord retracted laterally I was able to visualize a large direct defect through the floor of the inguinal canal. I then began an exploration of the cord structures by bluntly removing the cremasteric fibers from the outer portion. A medium-size cord lipoma was found alongside of a smaller indirect hernia sac. These were both dissected off of the cord structures inferiorly and were separately suture-ligated with 3-0 Vicryl just distal to the internal ring. Both structures were amputated with electrocautery and passed off as separate specimens. Next, in order to exclude the protruding peritoneal contents, I performed a running closure of the transversalis fascia adjacent to the conjoined tendon and internal oblique superiorly to the shelving edge of the inguinal canal inferiorly using a 3-0 Vicryl suture. I then called for a 6 x 13 cm Bard keyhole mesh. This mesh was then first tacked to the pubic tubercle medially. I serially tacked the good mesh along the inguinal ligament inferiorly with additional 2-0 Ethibond. The same procedure was then used to tack the mesh to the conjoined tendon and the internal oblique superiorly. Lastly the tails of the mesh were tied and tacked about the spermatic cord laterally such that there was a fingertip opening adjacent to the cord to allow for continued mobility. The tails of the mesh were then tucked underneath the intact edge of the external oblique aponeurosis. The surgical area was then reinspected and we found the mesh to be lying flatly in the floor of the inguinal canal. The cavity was also hemostatic. Therefore, I proceeded with closure of the external oblique fibers in a running fashion using 3-0 Vicryl. I then closed Lelia's fascia with another 3-0 Vicryl. Lastly I performed a series of deep dermal, interrupted sutures to approximate the skin edges before running a 4-0 Monocryl in a subcuticular fashion. Steri-Strips and a silver Mepilex dressing were placed. Patient tolerated the procedure well and was allowed to awaken from his anesthetic. He was then transferred to PACU for ongoing recovery. Grafts/Implants Used: Shoutly soft preshaped mesh, ref:[id number], lot [id number] Complications None Admit VTE Documentation VTE Mechan Device Prophylaxis: SCD's
[2023-07-02] MEDS: oxyCODONE 5 MG Tablet PO (15:59)
[2023-07-02] MEDS: Acetaminophen 500 MG Tablet PO (16:00)
[2023-07-02] MEDS: 0.9% Normal Saline 1,000 ML 50 ML IV (16:04)
--- NOTE | 2023-07-02 17:17 | DCINST_ITS ---
Discharge Instructions Diet Discharge Diet: No restrictions Activity May shower in (days): 1 Ice area for (Minutes): 20 Lifting Restrictions: No lifting greater than 10 pounds x 5 weeks postop Dressing / Incision Call your doctor if your incision/area has: Sudden Increased Bleeding, Increased Pain/ Swelling, Increased Redness, Foul Smelling Discharge and Swelling at the incision site Call your doctor if you observe: Fever of 101 or Higher and Inability to urinate Suture Line Care: Avoid Pulling/Pushing and Avoid Pinching/Bending Remove Dressing in: 4 days Cleanse incision/area with: Soap & Water Follow Up Care Please Follow Up With: Tommy Brewster MD When: 7-10 days postop Test Results: Test results from this visit will be discussed in further detail at your follow- up appointment, if applicable. Discharge Plan Admission Admit Date/Time: 07/01/23 22:49 Primary Reason for Your Visit: Incarcerated left inguinal hernia requiring operative intervention Attending Provider: Tommy Brewster Primary Care Provider: [place] REED Discharge Orders/Prescriptions Prescriptions: New oxycodone 5 mg Tablet 5 mg PO Q6H PRN PRN (Reason: Pain Score 6-10) 5 Days Qty: 20 0RF Continued prednisone 5 mg tablet 5 mg PO DAILY naproxen 250 mg tablet 250 mg PO BID doxycycline hyclate 100 mg tablet 100 mg PO Q12H Patient Comments: TAKE 1 TABLET BY MOUTH TWICE DAILY Referrals / Follow Up: [place] REED DO [Primary Care Provider] - [place] Reed [Non-Staff] - Disposition Disposition (needs filled in before D/C Order can be placed): Home, Self Care
[2023-07-02] MEDS: Ibuprofen 400 MG Tablet PO ×2 (18:28→22:34)
[2023-07-02] MEDS: Doxycycline 100 MG CAPSULE PO (22:34)
[2023-07-03 02:05] VITALS: BP 108/61; PULSE 62; RESP 16; TEMP 36.9; O2SAT 98
[2023-07-03] MEDS: HYDROmorphone 0.5 MG/0.5 ML SYRINGE IV (05:27)
[2023-07-03] MEDS: Ibuprofen 400 MG Tablet PO (05:52)
[2023-07-03 06:29] VITALS: BP 132/86; PULSE 76; RESP 18; TEMP 36.8; O2SAT 100
--- NOTE | 2023-07-03 08:30 | PN.SURG_ITS ---
Subjective Subjective Patient seen and examined during AM rounds. He reports some overnight difficulty with the pain from his known kidney stone?causing severe left flank pain which she states was greater than a 10 out of 10. He does not believe the stone passed despite the increased pain. He is better now. He denies any significant pain from his left groin apart from when he tried to move to get up, but was pleased to report that he was able to get up unaided. He has not had a bowel movement, but does confirm passage of flatus. Objective Data Objective Data Vital Signs: Vital Signs Temp Pulse Resp BP Pulse Ox O2 Del Method O2 Flow Rate 98.2 F 76 18 132/86 H 100 Room Air 2 07/03/23 06:07/03/23 06:29 07/03/23 06:07/03/23 06:07/03/23 06:07/03/23 06:07/02/23 13:45 Oxygen Flow Rate (L/min) 2 Oxygen Delivery Method Room Air Weight: 216 lb 4.375 oz Body Mass Index (BMI) 26.9 Intake & Output: Intake and Output for Last 24 Hours 07/01/23 07/02/23 07/03/23 23:59 23:59 23:59 Intake Total 500 / 500 2766.25 / 2766.25 Output Total 300 / 300 400 / 400 Balance 500 / 500 2466.25 / 2466.25 -400 / -400 Lab / Micro Data 07/02/23 04:15 07/02/23 04:15 Physical Exam Const oriented x3 and no apparent distress Resp normal respiratory effort GI GI Narrative: Excoriations across upper abdomen, lower left groin incision remains covered wi th silver dressing. Patient's abdomen is soft and nondistended/nontender to palpation. Assessment & Plan Assessment/Plan (1) Incarcerated left inguinal hernia: (2) Left ureteral calculus: (3) Chronic ulcer of right leg with fat layer exposed: PLAN: Plan This is a 72-year-old male who presents with left flank pain but is found to have a incarcerated left inguinal hernia. He is postoperative day 1 from open left inguinal hernia repair with mesh. Postoperative restrictions were discussed in detail this morning. We will also plan for referral to urology given his kidney stone. Patient to be discharged home in the care of his at his request this morning. Charges/Coding Visit Charges Inpatient E&M: 08965 Subs Hosp L2
[2023-07-03] MEDS: Acetaminophen 500 MG Tablet PO (10:06)
[2023-07-03] MEDS: oxyCODONE 5 MG Tablet PO (10:06)
[2023-07-03] MEDS: Polyethylene Glycol 3350 17 GM PACKET PO (10:06)
[2023-07-03] MEDS: Doxycycline 100 MG CAPSULE PO (10:06)
--- NOTE | 2023-07-03 10:52 | PCM.DC.SUM ---
Providers Date of Admission: 07/01/23 Primary Care Physician: [place] REED DO Reason For Visit: INCARCERATED LEFT INGUINAL HERNIA Diagnosis Discharge Diagnosis (1) Incarcerated left inguinal hernia: Status: Acute Code(s): K40.30 - Unilateral inguinal hernia, with obstruction, without gangrene, not specified as recurrent (2) Left ureteral calculus: Status: Acute Code(s): N20.1 - Calculus of ureter (3) Chronic ulcer of right leg with fat layer exposed: Status: Chronic Code(s): L97.912 - Non-pressure chronic ulcer of unspecified part of right lower leg with fat layer exposed Plan This is a 72-year-old male who presents with left flank pain but is found to have a incarcerated left inguinal hernia. He is postoperative day 1 from open left inguinal hernia repair with mesh. Postoperative restrictions were discussed in detail this morning. We will also plan for referral to urology given his kidney stone. Patient to be discharged home in the care of his at his request this morning. Medications at Discharge Home Medications naproxen 250 mg tablet 250 mg PO BID PAIN 06/22/23 prednisone 5 mg tablet 5 mg PO DAILY PAIN 06/22/23 doxycycline hyclate 100 mg tablet 100 mg PO Q12H atb 07/02/23 oxycodone 5 mg tablet 5 mg PO Q6H PRN PRN Pain Score 6-10 5 days #20 tabs 07/03/23 Hospital Course Operations - (Left open inguinal hernia repair with mesh) Summary of Care Provided Hospital Course: Patient is a 72-year-old male who presented the evening of 07/01/2023 with complaints of left flank pain. He was ultimately determined by emergency medicine to have both a left ureteral stone as well as a incarcerated left inguinal hernia containing sigmoid colon. Given this latter finding, surgery was consulted and I presented to patient's bedside to attempt reduction. Unfortunately these attempts were unfruitful and I ultimately had to recommend that we proceed to the operating room the following day for an open hernia repair with mesh. Patient accepted this recommendation and he was taken for noncomplicated Hanny type repair on 07/02/2023. Postoperatively he was returned to the floor where he describes some suboptimal pain control initially so he was observed an additional night. This morning, postoperative day 1 patient reported pain control at the site of his surgery, but some persistent discomfort of his left flank related to his obstructing left ureteral stone. Given this improvement and the need for outpatient referral to urology, I granted him discharged home with plans for referral to urology. I also prescribed pain medication both on the account of his recent surgery as well as this ureteral stone. 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 Postoperative expectations were reviewed in detail and patient is informed that he will need to call our office on 07/05/2023 to schedule outpatient follow-up. Physical Exam Const alert, oriented x3 and no apparent distress Resp normal respiratory effort GI GI Narrative: Nondistended, soft, Silver operative dressing intact over left groin. Appropriately tender to palpation. Weight / BMI Weight Weight: 216 lb 4.375 oz Body Mass Index (BMI) 26.9 ABG / Lab / Microbiology Data 07/02/23 04:15 07/02/23 04:15 D/C Instructions Discharge Diet: No restrictions May shower in (days): 1 Ice area for (Minutes): 20 Call your doctor if your incision/area has: Sudden Increased Bleeding, Increased Pain/ Swelling, Increased Redness, Foul Smelling Discharge and Swelling at the incision site Call your doctor if you observe: Fever of 101 or Higher and Inability to urinate Suture Line Care: Avoid Pulling/Pushing and Avoid Pinching/Bending Cleanse incision/area with: Soap & Water Please Follow Up With: Tommy Brewster MD When: 7-10 days postop Meaningful Use Info Meaningful Use Diagnoses (Choose all that apply): None applicable Discharge Plan Admission Admit Date/Time: 07/01/23 22:49 Primary Reason for Your Visit: Incarcerated left inguinal hernia requiring operative intervention Attending Provider: Tommy Brewster Primary Care Provider: [place] REED Discharge Orders/Prescriptions Prescriptions: New oxycodone 5 mg Tablet 5 mg PO Q6H PRN PRN (Reason: Pain Score 6-10) 5 Days Qty: 20 0RF Continued prednisone 5 mg tablet 5 mg PO DAILY naproxen 250 mg tablet 250 mg PO BID doxycycline hyclate 100 mg tablet 100 mg PO Q12H Patient Comments: TAKE 1 TABLET BY MOUTH TWICE DAILY Referrals / Follow Up: [place] REED DO [Primary Care Provider] - [place] Reed [Non-Staff] - Disposition Disposition (needs filled in before D/C Order can be placed): Home, Self Care Charges/Coding Visit Charges Inpatient E&M: 37741 Disch Hosp
--- NOTE | 2023-07-05 | HERN_PTH ---
PATIENT: DASIA SANTO LOC: MS3 U#:[id number] AGE/SX: 72/M ROOM: [facility] RE07/01/[address]: Dr. Tommy Brewster MD : 1950 BED: 1 DIS: 07/03/2023 SPEC #: [id number] RECD: 07/05/23 11:50 STATUS: MONIKA REGenaro #: [id number] JEREMIAH: 07/05/23 00:[address]: Tommy Brewster DEPT: SURGICAL PATHOLOGY RECD BY: Sincere Strange ENTERED: 07/05/23 11:50 SP TYPE: Hernia OTHR DR: [place] REED DO Tissues: A - Soft tissues, NOS B - HERNIA Procedures: Surgery Specimen Level II Surgery Specimen Level III HEADER OPERATION: Open inguinal hernia with mesh PRE-OP DIAGNOSIS: Incarcerated left inguinal hernia, left ureteral calculus, chronic ulcer right leg TISSUE SUBMITTED: A - Left inguinal cord lipoma, B - Left inguinal hernia sac MICROSCOPIC DIAGNOSIS A. Left inguinal cord lipoma: Mature adipose tissue, consistent with lipoma with extensive fat necrosis, chronic inflammation, foreign body giant cell reaction and area of old hemorrhage. B. Left inguinal hernia sac: Mesothelial-lined fibroadipose and fibroconnective tissue consistent with hernia sac. EDNA:adonay 07/06/2023 MICROSCOPIC DESCRIPTION Slides are reviewed. GROSS DESCRIPTION A - Received in fixative is one container labeled with the patient's name and designated left inguinal cord lipoma. The specimen consists of a piece of adipose tissue measuring 6.0 x 1.5 x 0.8 cm. Sections reveal yellowish-brown cut surfaces. Engagement Specialist sections are submitted in one cassette. B - Received in fixative is one container labeled with the patient's name and designated left inguinal hernia sac. The specimen consists of a piece of garvin-pink, congested soft tissue measuring 5.0 x 5.0 x 0.5 cm. No mass lesion is identified. Engagement Specialist sections are submitted in one cassette. / EDNA:adonay 07/05/2023 TC:5 CPT: 05999, [id number]
== END 2023-07-03 12:14 | disposition home or self-care (01) ==
LOC: ED 18:16 → MS3 22:59
PROVIDERS: Admitting Provider Surgery; Emergency Provider Emergency Medicine; PCP Family Medicine; Visit Provider Surgery
PROC: (CPT 49507; principal; 2023-07-02 09:30)
DX: K40.30 Unilateral inguinal hernia, with obstruction, without gangrene, not specified as recurrent (principal); L97.912 Non-pressure chronic ulcer of unspecified part of right lower leg with fat layer exposed; N13.2 Hydronephrosis with renal and ureteral calculous obstruction; Z87.891 Personal history of nicotine dependence; E86.0 Dehydration; Z86.718 Personal history of other venous thrombosis and embolism; D17.6 Benign lipomatous neoplasm of spermatic cord; Z86.14 Personal history of Methicillin resistant Staphylococcus aureus infection; Z79.52 Long term (current) use of systemic steroids
CPT/HCPCS: 49507; 00830; 36415; 74177; 80048; 80053; 81001; 83690; 85025; 88302; 88304; 93005; 94668; 97802; 99252; 99284; J7030; Q9967; A4216; G0463; J2405

== ENCOUNTER → 2023-07-18 | Outpatient (CLI) | payer MEDICARE, BC, SELFPAY ==
--- NOTE | 2023-07-18 09:26 | EKG12_ITS ---
Test Reason : PRE OP Blood Pressure : / mmHG Vent. Rate : 062 BPM Atrial Rate : 062 BPM P-R Int : 160 ms QRS Dur : 088 ms QT Int : 402 ms P-R-T Axes : 086 023 054 degrees QTc Int : 408 ms Normal sinus rhythm Normal ECG Confirmed by SEPIDEH JACOB, MIKE ([id number]), newspaper editor SUSHANT HALL ([id number]) on 07/19/2023 11:39:03 AM Referred By: Henrry Larsen Confirmed By:ROSMERY BUNN MD
== END | disposition home or self-care (01) ==
LOC: PSN 09:22
PROVIDERS: PCP Family Medicine; Referring Provider Urology; Visit Provider Urology
DX: Z01.810 Encounter for preprocedural cardiovascular examination (principal)
CPT/HCPCS: 93005

== ENCOUNTER → 2023-08-25 | Outpatient (CLI) | payer MEDICARE, BC, SELFPAY ==
--- NOTE | 2023-08-25 13:27 | VDLE_ITS ---
Reason For Study: pain, varicose veins RIGHT LEFT CFV is compressible, spontaneous, phasic, CFV is compressible, spontaneous, phasic, competent and demonstrates normal competent, and demonstrates normal augmentation. augmentation. T/P Trunk is compressible. FV is compressible, spontaneous, phasic, PTV is compressible. competent and demonstrates normal RT PerV is compressible. augmentation. FV and POP V are compressible with reflux for POP V is compressible, spontaneous, phasic, greater than .5 seconds. competent and demonstrates normal Chronic SVT noted in the SSV. augmentation. Woven Paper Hat Mender V 10 cm proximal to the medial T/P Trunk is compressible. malleolus is incompetent for greater than .5 PTV is compressible. seconds. LT PerV is compressible. SFJ is competent and measures .64 cm. SFJ is INCOMPETENT and measures .95 cm. GSV proximal thigh measures .18 x .19 cm. GSV proximal thigh measures .72 x .76 cm. GSV at knee measures .27 x .28 cm. GSV at knee measures .64 x .59 cm. GSV INCOMPETENT throughout for greater than GSV INCOMPETENT throughout for greater than 0.5 seconds. 0.5 seconds. SSV proximal calf is INCOMPETENT for greater SSV proximal calf is INCOMPETENT for greater than 0.5 seconds and measures .83 x .93 cm. than 0.5 seconds and measures .17 x .21 cm. Procedure ASV proximal calf is INCOMPETENT for greater This is a venous duplex using B-mode, color than 0.5 seconds and measures .34 x .36 cm. flow and spectral Doppler. Woven Paper Hat Mender V 12 cm proximal to the medial Exam performed in department. malleolus is incompetent for greater than .5 The exam was diagnostic. seconds. VL/Venous Duplex US - Mauricio Extrem Interpretation Summary Chronic superficial vein thrombosis noted in the right small saphenous vein. Deep veins of the bilateral lower extremities are patent and compressible segme ntally. There is no evidence of bilateral lower extremity deep vein thrombosis. The bilateral great saphenous veins appear patent and compressible segmentally. Positive for reflux in the right femoral vein, popliteal vein, great saphenous vein throughout, small saphenous vein, and medial calf senior resident care director. Positive for reflux in the left saphenofemoral junction, great saphenous vein t hroughout, accessory saphenous vein, small saphenous vein, and medial calf senior resident care director. Ordering Physician: Armando Tuttle Performed By: Nishant Fermin RVT
== END | disposition home or self-care (01) ==
LOC: CVS 13:26
PROVIDERS: PCP Family Medicine; Referring Provider Surgery Trauma Surgery; Visit Provider Surgery Trauma Surgery
DX: M79.661 Pain in right lower leg (principal); L97.919 Non-pressure chronic ulcer of unspecified part of right lower leg with unspecified severity; L97.929 Non-pressure chronic ulcer of unspecified part of left lower leg with unspecified severity; I83.229 Varicose veins of left lower extremity with both ulcer of unspecified site and inflammation; I83.219 Varicose veins of right lower extremity with both ulcer of unspecified site and inflammation
CPT/HCPCS: 93970

== ENCOUNTER 2024-05-24 08:57 | Outpatient (RCR) | payer MEDICARE, BC, SELFPAY ==
[2024-05-24 09:09] VITALS: BP 146/77; PULSE 63; RESP 18; TEMP 36.4; BMI 28.7
--- NOTE | 2024-05-24 10:14 | PCM.WC.HP ---
History of Present Illness Date of Service: 05/24/24 Chief Complaint: Ulcer right ankle /lower leg History of Wound: This is a 73-year-old male with a long-standing history of chronic venous disease. For a reoccurring chronic ulcer of the medial right ankle that has been present for last 6 weeks but has been recurring over last 25 years. Reports seeing vascular surgery and has been using graduated compression stockings of 20-30 mmHg compression. He states that he tries to elevate his legs at rest. He was diagnosed with a left lower extremity blood clot and is on Eliquis. He states that he did have venous testing demonstrating multiple points of insufficiency along the right lower extremity. States that he was recommended to have venous ablation but refused at that time due to healed status of the ulceration. He reports ulceration has reopened and he was referred to wound care center for continued care. Denies nausea, vomiting, fever, chills. Denies further complaints. [facility] Medical History DVT (deep venous thrombosis) Former smoker Obstruction of left ureter Home Medications ?Medication ?Instructions ?Recorded ?Last Taken ?Type naproxen 250 mg tablet 250 mg PO BID PAIN 06/22/23 07/01/23 History prednisone 5 mg tablet 5 mg PO DAILY PAIN 06/22/23 07/01/23 History Allergy/AdvReac Type Severity Reaction Status Date / Time Environmental Allergies: Allergy Severe Rash Verified 10/26/23 15:33 Uncoded lidocaine Allergy Severe Rash Verified 10/26/23 15:33 sulfamethoxazole (From Allergy Severe Hives Verified 10/26/23 15:33 Bactrim) trimethoprim (From Bactrim) Allergy Severe Hives Verified 10/26/23 15:33 Family History Father Arthritis Mother Cancer Brother Heart disease Surgical History History of colonoscopy History of foot surgery S/P inguinal hernia repair using synthetic patch Ulcer of right ankle Social History Smoking Status: Never smoker alcohol intake: current substance use type: does not use additional social history: Aspirin use: rare/never. Ibuprofen use: no. ROS Constitutional Constitutional: Denies anorexia, change in weight, chills or fever(s) Eyes Eyes: Denies blurry vision, change in vision or double vision ENT HEENT: Denies dysphagia, nasal congestion or sore throat Cardiovascular Cardiovascular: Denies chest pain, claudication or palpitations Respiratory/Chest Respiratory/Chest: Denies cough, shortness of breath at rest or wheezing Gastrointestinal Gastrointestinal: Denies abdominal pain, constipation, diarrhea, nausea or vomiting Genitourinary Genitourinary: Denies dysuria, hematuria or urinary urgency Musculoskeletal Musculoskeletal: Denies joint pain, joint stiffness or joint swelling Integumentary Integumentary: Denies jaundice, lesions, pruritus or rash Neurologic Neurologic: Denies dizziness, numbness or seizures Psychiatric Psychiatric: Denies anxiety Endocrine Endocrinology: Denies cold intolerance or heat intolerance Hematologic/Lymphatic Hematologic/Lymphatic: Denies easy bleeding or easy bruising Vital Signs Vital Signs Vital Signs: 05/24/24 09:09 Temperature 97.5 F L Temperature Source Temporal Pulse Rate 63 Respiratory Rate 18 Blood Pressure 146/77 H Blood Pressure Mean 100 Blood Pressure Source Monitor Blood Pressure Position Sitting Blood Pressure Location Left Arm Oxygen Delivery Method Room Air Weight Weight: 96.162 kg Body Mass Index (BMI) 28.7 Physical Exam Const alert, oriented x3 and no apparent distress General Appearance: cooperative HEENT normocephalic Eyes General Eye: normal appearance of both eyes Neck General: normal visual inspection Lymph Lymphatic: no lymphadenopathy noted and no lymphedema noted Resp normal respiratory effort Cardio regular rate and regular rhythm Extremity normal capillary refill and no calf tenderness Extremity Narrative: Vascular: DP and PT pulses palpable bilateral. CFT is less than 5 seconds to digits bilateral. Hair growth absent to digits bilateral. Normal temperature gradient bilateral. Neurologic: Epicritic sensation is intact to bilateral lower extremities with no focal deficits noted. Musculoskeletal: Muscle strength 5 of 5 age-appropriate. Dermatologic: There is mild pedal edema and YAMILE ankle edema of the right lower extremity with corresponding ulceration just distal to the medial malleolus and about the lateral malleolus with yellow fibrotic layer to the level of the subcutaneous tissue and scant serous drainage. About the right lower extremity there is stasis dermatitis with cirrhotic appearance of the skin with torturous veins at the medial calf. Left lower extremity demonstrates venous stasis changes and dermatitis at the anterior aspect of the ankle versus contact dermatitis. No malodor, no erythema, no purulent drainage, no palpable fluctuance/bogginess noted. Skin no rashes or lesions noted, skin turgor normal and no jaundice General Skin Exam: venous stasis and dermatitis Neuro moves all extremities Debridement Note Debridement Note Wound debrided: Right lower extremity x 3 Laterality: Right Wound Grade/Stage: Fenton stage I Type of Debridement: Excisional debridement Anesthesia Used: 5% Lidocaine Gel Depth: Down to and including healthy tissue and in the subcutaneous layer Percentage of wound debrided: 100 Instrument Used: 3mm curette Tissue Removed: Fibrous, devitalized subcutaneous, biofilm, slough Severity: Fat Layer Exposed Amount of bleeding with debridement: Mild Bleeding Controlled with: Compression and gauze Patient tolerated procedure: Patient tolerated procedure well Post-Debridement Measurements and Additional Note: Post-Debridement Measurements/Treatment - Nurse 1 - General Ulcer Assessment Start: 05/24/24 09:09 Freq: Status: Active Protocol: NICOLA Activity Type Activity Date Activity User E-sign Co-sign Detail Recorded Client Recorded Date Recorded By Document 05/24/24 09:09 KW l 05/24/24 09:30 KW 05/24/24 09:09 - Today's Visit Information Type of service Initial Visit Arrival Mode Ambulatory Accompanied by Patient Identification Verified (Name & Yes ) Height and Weight Height 6 ft Weight 96.162 kg Weight in Pounds 212.0 lbs Weight Measurement Method Estimated by Patient Body Mass Index (BMI) 28.7 BMI Classification Overweight BSA - Duong 2.18 Vital Signs Temperature (97.8 F-99.1 F) 97.5 F L Temperature Source Temporal Pulse Rate (60-100) 63 Pulse Location Monitor Respiratory Rate (12-18) 18 Respiratory rate source Observation Oxygen Delivery Method Room Air Blood Pressure (90/60-120/80) 146/77 H Blood Pressure Mean 100 Source Monitor Position Sitting Blood Pressure Location Left Arm History Since Last Visit- (Skip if this is Patient's initial visit) Left Footwear Regular Shoe Right Footwear Regular Shoe Pain Scale: 0-10 Numeric Is Patient Pain Free? Yes Communication Assessment Preferred language Romansh Able to Read Yes Able to Write Yes Communication Tools None Caregiver Communication Skills No Impairment Impairment Right Hearing Abillity Normal Left Hearing Abillity Normal Visual Assistive Devices Glasses Teaching Assessment Preferences Verbal,Written, Demonstration Barriers to Learning None Readiness To Learn Excellent Willingness to Engage in Self Management High Activies Readiness to Engage in Self Management High Activities Anxiety Level Calm Cooperation Cooperative Perception Coherent Interest in Health Problem Asks Questions Education Importance Acknowledges Need Does Patient Smoke tobacco or other Yes substances Smoking Status Never smoker Is Patient Diabetic No Functional Assessment Recent Decline in Ability to Perform Denies Any Declines Culture/Yazdanism/Press Assistant And Feeder Cultural/Yazdanism Needs that may affect No Treatment Plan Would you allow our hospital area supervisor to No meet you for the purpose of spiritual/ emotional support? Press Assistant And Feeder to contact place of samaritan No WC - Nurse 1 - General Ulcer Measurement Start: 05/24/24 09:09 Freq: Status: Active Protocol: Activity Type Activity Date Activity User E-sign Co-sign Detail Recorded Client Recorded Date Recorded By Document 05/24/24 09:09 KW l 05/24/24 09:30 KW 05/24/24 09:09 Wound Center Nurse 1 #5 RT LAT ANKLE CLUSTER' -Current Size (cm) - Length 1 -Current Size (cm) - Width 3.9 -Current Size (cm) - Depth 0.2 -Total Square Cm 3.9 -Date of Last Picture (Recall this 05/24/24 field) -Exudate Amt Small -Exudate Type Serosanguineous -Wound Margin Distinct, Outline Attached -Granulation Amt Small (1-33%) -Granulation Quality [place] -Necrosis Amt Large (67-100%) -Necrotic Tissue Type Adherent Slough -Texture (Yamile-wound Skin Appearance) Assessed -Moisture (Yamile-wound Skin Appearance) Assessed -Color (Yamile-wound Skin Appearance) Assessed -Temperature (Yamile-wound Skin No Abnormality Appearance) (Pt Warm) -Tenderness on Palpation (Yamile-wound Yes Skin Appearance) -Ulcer Cleansing Soap and Water -Foul Odor after Cleansing No -Wound Comment(s) ALLERGY TO LIDOCAINE #4- R MEDIAL ANKLE -Current Size (cm) - Length 1 -Current Size (cm) - Width 0.2 -Current Size (cm) - Depth 0.2 -Total Square Cm 0.2 -Date of Last Picture (Recall this 05/24/24 field) -Exudate Amt None Present -Wound Margin Distinct, Outline Attached -Granulation Amt Large (67-100%) -Granulation Quality [place] -Necrosis Amt Small (1-33%) -Necrotic Tissue Type Adherent Slough -Texture (Yamile-wound Skin Appearance) Assessed -Moisture (Yamile-wound Skin Appearance) Assessed,Dry/ Scaly -Color (Yamile-wound Skin Appearance) Assessed -Temperature (Yamile-wound Skin No Abnormality Appearance) (Pt Warm) -Tenderness on Palpation (Yamile-wound No Skin Appearance) -Ulcer Cleansing Soap and Water -Foul Odor after Cleansing No -Wound Comment(s) ALLERGY TO LIDOCAINE Right Calf (cm) 35.5 Right Ankle (cm) 21 WC - Nurse 2 - General Ulcer CM Notes Start: 05/24/24 09:09 Freq: Status: Active Protocol: Activity Type Activity Date Activity User E-sign Co-sign Detail Recorded Client Recorded Date Recorded By Document 05/24/24 09:55 [facility] [id number] 05/24/24 10:06 [facility] 05/24/24 09:55 Wound Center Nurse 2 #5 RT LAT ANKLE CLUSTER' -Time 10:00 -Correct Patient Yes -Correct Side, Site, Position Yes -Correct Procedure Yes -Procedure Performed Yes -Type of Procedure Debridement -Clinical Debridement Subcutaneous -Tissue Removed Subcutaneous -Post Debridement (cm) - Length 1.5 -Post Debridement (cm) - Width 1.5 -Post Debridement (cm) - Depth 0.1 -Total Square (Post) (cm) 2.25 -Area of Debridement (cm) - Length 1.5 -Area of Debridement (cm) - Width 1.5 -Total Square (Area) (cm) 2.25 -Tunneling No -Undermining/Tunneling No -Circular Undermining No -Wound/Ulcer Outcome Not Healed -Ulcer Cleansing Rinsed/ Irrigated with Saline -Foul Odor after Cleansing No -Bioengineered Tissue No -Bleeding Controlled with Pressure -Treatment Response Procedure Tolerated Well -Debridement - Subq, 1st 20sq cm Yes #4- R MEDIAL ANKLE -Time 10:04 -Post Debridement (cm) - Length 1.4 -Post Debridement (cm) - Width 0.3 -Post Debridement (cm) - Depth 0.1 -Total Square (Post) (cm) 0.42 -Area of Debridement (cm) - Length 1.4 -Area of Debridement (cm) - Width 0.3 -Total Square (Area) (cm) 0.42 -Wound/Ulcer Outcome Not Healed -Bleeding Controlled with NA Pain Scale: 0-10 Numeric Is Patient Pain Free? 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: CODE(S): I83.229 - Varicose veins of left lower extremity with both ulcer of unspecified site and inflammation; I83.219 - Varicose veins of right lower extremity with both ulcer of unspecified site and inflammation; L97.919 - Non-pressure chronic ulcer of unspecified part of right lower leg with unspecified severity; L97.929 - Non-pressure chronic ulcer of unspecified part of left lower leg with unspecified severity (2) Non-pressure chronic ulcer of right calf with fat layer exposed: CODE(S): L97.212 - Non-pressure chronic ulcer of right calf with fat layer exposed (3) Stasis dermatitis of right lower extremity due to peripheral venous hypertension: CODE(S): I87.321 - Chronic venous hypertension (idiopathic) with inflammation of right lower extremity (4) Lower extremity edema: CODE(S): R60.0 - Localized edema (5) Pain in right lower leg: CODE(S): M79.661 - Pain in right lower leg (6) Chronic venous insufficiency: PLAN: Plan Patient seen and evaluated I reviewed prior medical records and history regarding recidivism of his right lower extremity ulcerations and his prior venous studies. Venous studies performed 08/25/2023 demonstrates multiple insufficiencies and compromised veins. There is positive reflux in the right femoral vein, popliteal vein, great saphenous vein throughout, small saphenous vein, medial calf gas derrick operator. He is also noted to have reflux in the left saphenofemoral junction, great saphenous vein throughout, accessory saphenous vein, small saphenous vein, and medial calf gas derrick operator. It was recommended he undergo saphenous and gas derrick operator ablation by the vascular team during their visit on 10/26/2023. Predebridement: Right lateral ankle cluster 1.4 cm x 1.4 cm x 0.1 cm; right medial ankle 1.3 cm x 0.2 cm x 0.1 cm Ulceration underwent debridement as noted in the clinical panel above. Postdebridement measurement right lateral ankle cluster 1.5 cm x 1.5 cm x 0.1 cm; right medial ankle 1.4 cm x 0.3 cm x 0.1 cm. Collette applied to the ulcerative bed and Unna boot was then applied to the right lower extremity. Due to the dermatitis of the left lower extremity an additional Unna boot was placed on this lower extremity. Discussed with him Unna boots will provide compression and relief of the dermatitis. Discussed with patient to not get the dressings wet and utilize cast bag covering for each leg when showering. Discussed with patient adequate protein to aid in wound healing. Damaso supplementation was recommended. Discussed continued use of compression stockings 20 to 30 mmHg at all times following healing of his ulcerative sites to reduce recidivism. Discussed the compression stockings used religiously is essential for his healing. He voices understanding of this. Discussed continued elevation of the lower extremities while at rest to aid in edema control. Discussed with patient that I concur with the vascular team for the venous ablation of the saphenous and gas derrick operator for the right lower extremity and to follow back with vascular regarding procedure. The following work up and care recommendations were made: Dressing: Collette to wound base right lower extremity Unna boot dressing right lower extremity. Unna boot dressing left lower extremity. Wash: Do not get site wet. Utilize cast bag covering to keep the wound clean, dry, and intact to right and left lower extremity. Tissue growth optimization: Collette/Unna boot Offload: Ensure nothing bumps or rubs against the ankle. Vascular: Reviewed venous studies from 08/25/2023 demonstrating multiple insufficiencies and reflux along the entire right lower extremity. Edema: Recommended continued elevation of lower extremities while at rest for edema control in addition to samaritan use of compression stockings 20 to 30 mmHg with recommendation to update compression stockings every 6 months to ensure adequate compression. Infection: No signs of infection Pain: May take extra strength Tylenol for discomfort Host factors: Chronic venous insufficiency with recidivism of chronic ulcerations of the right lower extremity. Contact dermatitis, bilateral lower extremity edema, prolonged standing/work hours He will return for nurse visit on 05/28/2024 for change of bilateral Unna boots and then will return on for continued wound care visit with change again of Unna boot. I answered all the patient's questions. To return to the wound healing center in 1 week or call sooner if the patient has any questions or concerns.
== END 2024-05-30 23:59 | disposition home or self-care (01) ==
LOC: WC 08:57
PROVIDERS: PCP Family Medicine; Referring Provider Family Medicine; Visit Provider Student in an Organized Health Care Education/Training Program
DX: I83.212 Varicose veins of right lower extremity with both ulcer of calf and inflammation (principal); L97.212 Non-pressure chronic ulcer of right calf with fat layer exposed; L97.319 Non-pressure chronic ulcer of right ankle with unspecified severity; I87.321 Chronic venous hypertension (idiopathic) with inflammation of right lower extremity; I83.12 Varicose veins of left lower extremity with inflammation; R60.0 Localized edema; M79.661 Pain in right lower leg; Z79.01 Long term (current) use of anticoagulants; Z79.1 Long term (current) use of non-steroidal anti-inflammatories (NSAID); Z79.52 Long term (current) use of systemic steroids; Z87.891 Personal history of nicotine dependence
CPT/HCPCS: 11042; 29580; 99213; G0463